=== PATIENT | female | born 1990 | race Caucasian/White ===

== ENCOUNTER → 2017-09-29 17:14 | Outpatient (CLI) | payer BC, MEDICAID, SELFPAY ==
[2017-09-29 20:13] LABS: Group B Strep DNA By PCR POSITIVE (Negative); Probe Check PASS
== END ==
PROVIDERS: Visit Provider Obstetrics & Gynecology
DX: Z36.85 Encounter for antenatal screening for Streptococcus B (principal)
CPT/HCPCS: 87653

== ENCOUNTER 2017-10-04 21:15 | Inpatient (IN) | payer BC, MEDICAID, SELFPAY ==
[2017-10-04] MEDS: Lactated Ringers 1,000 ML 100 ML IV (22:00)
[2017-10-04 22:11] VITALS: BMI 25.0
[2017-10-04 22:24] LABS: Absolute Lymphocyte Count 1.46 X10^3/ul (0.83-4.51); Basophil# 0.03 X10^3/uL; Basophil% 0.2 % (0-1); Eosinophil# 0.09 X10^3/uL; Eosinophils% 0.5 % (0-5); Hematocrit 36.4 % (37-47); Hemoglobin 11.8 g/dl (12.0-15.0); Lymphocyte # 1.46 X10^3/ul (4.0); Lymphocyte % 7.7 % (19-41); Mean Corp Hgb Conc 32.4 g/gl (32-36); Mean Corpuscular Hgb 27.1 pg (27.0-32.0); Mean Corpuscular Volume 83.7 fL (81-99); Mean Platelet Vol. 11.8 fl (6.2-12.0); Monocyte# 1.17 X10^3/uL; Monocyte% 6.2 % (0-10); Neutrophil # 16.04 X10^3/uL (2.7-7.7); Neutrophil % 84.9 % (47-70); POSITIVE COUNT NO; POSITIVE DIFFERENTIAL NO; POSITIVE MORPHOLOGY NO; Platelet Count 243 K/mm3 (150-450); RBC Distribution Width CV 16.3 % (11.6-14.6); Red Blood Count 4.35 M/mm3 (4.2-5.4); White Blood Count 18.9 K/mm3 (4.4-11.0)
--- NOTE | 2017-10-04 22:25 | PCM.NY.DEL ---
Delivery Attendance Service Date: 10/04/17 Asked to attend delivery by: OB, Nursing Reason for attendance: Intrauterine Exposure to Drugs, Maternal Condition, Meconium, NRFHT Plan: Return to Mother Handoff: Called to attend STAT C/S as mom, a primip and FT. Mom walked in and no chance to even get a history, as she was pushing. She did say marijuana and amphetamines while in OR. MSF noted upon ROM at delivery. Baby is under 5 pounds, however apgars 8-9 for color and tone. bulb suction used twice - Course of Delivery Was resuscitation required: No Interventions at Delivery: Bulb Suction - Physical Exam General: Alert, Active, No apparent distress, - - small Head: Normocephalic, Anterior fontanel soft and flat Oropharynx: Palate intact Lungs: Clear to auscultation, No retractions Cardiovascular: Regular rate and rhythm, No murmurs, Femoral pulses normal and without delay Abdomen: Soft, Non distended Cord Vessel Description: 3 Vessels Genitalia, Female: External genitalia normal Musculoskeletal: Extremities with FROM Neurological: Muscle tone normal Skin: Normal color
--- NOTE | 2017-10-04 22:32 | DELATT_ITS ---
Delivery Attendance Service Date: 10/04/17 Asked to attend delivery by: OB, Nursing Reason for attendance: Intrauterine Exposure to Drugs, Maternal Condition, Meconium, NRFHT Plan: Return to Mother Handoff: Called to attend STAT C/S as mom, a primip and FT. Mom walked in and no chance to even get a history, as she was pushing. She did say marijuana and amphetamines while in OR. MSF noted upon ROM at delivery. Baby is under 5 pounds , however apgars 8-9 for color and tone. bulb suction used twice - Course of Delivery Was resuscitation required: No Interventions at Delivery: Bulb Suction - Physical Exam General: Alert, Active, No apparent distress, - - small Head: Normocephalic, Anterior fontanel soft and flat Oropharynx: Palate intact Lungs: Clear to auscultation, No retractions Cardiovascular: Regular rate and rhythm, No murmurs, Femoral pulses normal and without delay Abdomen: Soft, Non distended Cord Vessel Description: 3 Vessels Genitalia, Female: External genitalia normal Musculoskeletal: Extremities with FROM Neurological: Muscle tone normal Skin: Normal color
--- NOTE | 2017-10-04 22:33 | PCM.NUR.HP ---
Nursery H&P (Menu) Subjective: Called to attend STAT C/S as mom, a primip and FT. Mom walked in and no chance to even get a history, as she was pushing. She did say marijuana and amphetamines while in OR. MSF noted upon ROM at delivery. Baby is under 5 pounds, however apgars 8-9 for color and tone. bulb suction used twice await labs and further info on mom [place] Handoff: Lab tests last 48H 10/04/17 21:45 WBC 18.9 H RBC 4.35 Hgb 11.8 L Hct 36.4 L MCV 83.7 MCH 27.1 MCHC 32.4 RDW 16.3 H RDW Differential 50.0 H Plt Count 243 MPV 11.8 Immature Gran % (Auto) 0.500 Neut % (Auto) 84.9 H Lymph % (Auto) 7.7 L [place] % (Auto) 6.2 Eos % (Auto) 0.5 Baso % (Auto) 0.2 Absolute Neuts (auto) 16.0 H Absolute Lymphs (auto) 1.46 Total Counted Not Reportable Delivery/Maternal Data - Labor/Delivery Date of rupture of membranes: 10/04/17 Amniotic fluid color at rupture: Meconium Type of delivery: STAT Labor description: Spontaneous Vacuum Extraction: N/A presentation: Cephalic Complications: Other (Describe below) - unknown amount of time of labor Physical Exam General: Alert, Active, No apparent distress, Well appearing Head: Normocephalic, Anterior fontanel soft and flat Eyes: Red reflex bilaterally Ears: Structurally normal Nose: Nares patent Oropharynx: Normal, moist mucous membranes, Palate intact Neck: Normal Lungs: Clear to auscultation, No retractions Cardiovascular: Regular rate and rhythm, No murmurs, Femoral pulses normal and without delay Abdomen: Soft, Non distended, Bowel sounds present Cord Vessel Description: 3 Vessels Gentialia, Female: External genitalia normal Musculoskeletal: Extremities with FROM, Hip exam without evidence of dislocation or instability, Clavicles intact Neurological: Normal suck, rooting, and [place] reflexes., Muscle tone normal Skin: Normal color Impression/Plan presumed 39 week BG. Precipitous delivery. GBS+, not treated. unknown PNL upon delivery. Maternal marijuana and amphetamine use, and potential polypharmacy. -hypoglycemic protocol -urine and mec tox -ART at 24 hours or sooner if needed -full 48 hour observation for GBS+, however likely 3-5 days secondary to recreational drug use. -await mothers labs -social work
--- NOTE | 2017-10-04 22:39 | HP.PCM_ITS ---
Nursery H&P (Menu) Subjective: Called to attend STAT C/S as mom, a primip and FT. Mom walked in and no chance to even get a history, as she was pushing. She did say marijuana and amphetamines while in OR. MSF noted upon ROM at delivery. Baby is under 5 pounds , however apgars 8-9 for color and tone. bulb suction used twice await labs and further info on mom [place] Handoff: Lab tests last 48H 10/04/17 21:45 WBC 18.9 H RBC 4.35 Hgb 11.8 L Hct 36.4 L MCV 83.7 MCH 27.1 MCHC 32.4 RDW 16.3 H RDW Differential 50.0 H Plt Count 243 MPV 11.8 Immature Gran % (Auto) 0.500 Neut % (Auto) 84.9 H Lymph % (Auto) 7.7 L [place] % (Auto) 6.2 Eos % (Auto) 0.5 Baso % (Auto) 0.2 Absolute Neuts (auto) 16.0 H Absolute Lymphs (auto) 1.46 Total Counted Not Reportable Delivery/Maternal Data - Labor/Delivery Date of rupture of membranes: 10/04/17 Amniotic fluid color at rupture: Meconium Type of delivery: STAT Labor description: Spontaneous Vacuum Extraction: N/A presentation: Cephalic Complications: Other (Describe below) - unknown amount of time of labor Physical Exam General: Alert, Active, No apparent distress, Well appearing Head: Normocephalic, Anterior fontanel soft and flat Eyes: Red reflex bilaterally Ears: Structurally normal Nose: Nares patent Oropharynx: Normal, moist mucous membranes, Palate intact Neck: Normal Lungs: Clear to auscultation, No retractions Cardiovascular: Regular rate and rhythm, No murmurs, Femoral pulses normal and without delay Abdomen: Soft, Non distended, Bowel sounds present Cord Vessel Description: 3 Vessels Gentialia, Female: External genitalia normal Musculoskeletal: Extremities with FROM, Hip exam without evidence of dislocation or instability, Clavicles intact Neurological: Normal suck, rooting, and [place] reflexes., Muscle tone normal Skin: Normal color Impression/Plan presumed 39 week BG. Precipitous delivery. GBS+, not treated. unknown PNL upon delivery. Maternal marijuana and amphetamine use, and potential polypharmacy. -hypoglycemic protocol -urine and mec tox -ART at 24 hours or sooner if needed -full 48 hour observation for GBS+, however likely 3-5 days secondary to recreational drug use. -await mothers labs -social work
[2017-10-04 22:50] VITALS: BP 149/88; PULSE 123; RESP 16; TEMP 36.7; O2SAT 98
--- NOTE | 2017-10-04 22:51 | OP.PN_ITS ---
- Problem List (1) 38 weeks gestation of Status: Acute (2) Delivery by emergency section Status: Acute C-Dnzgohm-Kslyhngwh PostOp Date of Procedure: 10/04/17 Primary Surgeon/Physician: Jazmnie Khalil, director telecommunications: Singh Valera director telecommunications: Bernadine Napoles Pre-op Diagnosis: - - bradycardia Post-Op Diagnosis: - - bradycardia Surgery/Procedure Performed: Primary low transverse Section Description of Surgical Findings:: Normal tubes and ovaries Estimated Blood Loss: 600 mL Specimens Removed: placenta Drain: Rm to straight drain Type of Anesthesia: General - Admit VTE Documentation VTE Present on Admission: No VTE Mechan Device Prophylaxis: SCD's VTE Pharm Prophylaxis ordered?: No
--- NOTE | 2017-10-04 22:53 | PCM.OB.CSR ---
- Problem List (1) 38 weeks gestation of Status: Acute (2) Delivery by emergency section Status: Acute Delivery Classification: Stat Griffin doctor who attended delivery (if requested by OB): Samina Koehler Indications: Ms. Ledbetter is a 27-year-old 1 at 38-3/7 weeks gestational age who presented in active labor at 9 cm dilatation. She had bradycardia that did not recover despite attempts at intrauterine resuscitation. I attempted to push and reduce the cervix however it was not reducible and the head was at +2 station. I advised her to proceed with emergent section given the prolonged bradycardia and inability to interpret the internal scalp electrode once it was placed. Artery quickly reviewed with her the risks of section including pain, bleeding, infection, injury to bowel or bladder, injury to ureter, laceration, hemorrhage requiring transfusion or hysterectomy. She agreed to proceed. I requested general anesthesia from the anesthesiologist given the urgent nature of the situation. Indications for : - - bradycardia Description of Procedure: Findings: Normal tubes and ovaries, female with Apgars 8, 9. Weight 2058 g The patient was taken to the operating room and efforts to reduce the cervix while pushing failed. she was placed in the dorsal supine position, given with Betadine prep and a Rm catheter was placed into the bladder. She was induced under general anesthesia and intubated. A Greg Healy incision was made using a scalpel and brought down to incise the subcutaneous tissue and rectus fascia at the midline. Subcutaneous tissue was bluntly dissected off the fascia laterally fascial incision was bluntly extended laterally. The rectus muscles were bluntly at the midline. The peritoneum was bluntly entered and the incision extended. The bladder blade was placed into the abdomen the hysterotomy was made above the vesicouterine peritoneal fold using a scalpel. There is meconium-stained fluid. The hysterotomy was extended bluntly cephalad and caudad. The head was elevated and female infant delivered. The cord was doubly clamped and cut acutely and the was passed to awaiting [nursery personnel and hospitalist]. Cord avulsed on placental expression thus the placenta was manually extracted from the uterus and appeared intact on inspection. The uterus interiorized and was cleared of debris. Laterally was repositioned in the abdomen. The hysterotomy was then repaired using 0 Vicryl running lock suture. A second imbricating layer was also placed for additional hemostasis. The anterior cul-de-sac was cleared of debris. Amol was placed for additional hemostasis along the hysterotomy repair. The peritoneum and rectus muscles were reapproximated using 2-0 Vicryl running suture. The rectus fascia was closed using 0 Vicryl running suture. The subcutaneous tissue was sponge irrigated. The subcutaneous tissue was reapproximated using 2-0 Vicryl. The skin was closed using 4-0 Monocryl subcuticularly the OFFICE [facility] under my supervision. This was followed by Latoya and a Mepilex occlusive dressing was placed over the incision. The fundus was firm. The patient cannot, extubated, and was then transferred to the recovery room without complication. Sponge, instrument, and needle counts were correct ?2. IV Ancef was administered during the procedure. She will receive 2 additional doses of IV Ancef operatively. Amniotic Membrane Rupture Type: Spontaneous Amniotic Fluid Description: Moderate meconium Placenta Disposition: Sent to Pathology Specimen(s) sent to pathology: placenta Drain: Rm to straight drain Nuchal Cord Compression: Without compression Cord Vessel Description: 3 Vessels Esitmated Blood Loss (ml): 600 Gender: Female (1 minute): 8 (5 minute): 9 Delayed cord clamping: No Pre-op Antibiotic Given: - - given intra-op Pt instructed on risks of surgery: Bleeding, Anesthesia Risks, Infection, Injury to surrounding structure(s) including bowel and bladder Complications: None - Admit VTE Documentation VTE Present on Admission: No VTE Mechan Device Prophylaxis: None VTE Pharm Prophylaxis ordered?: No
--- NOTE | 2017-10-04 23:04 | OP.PCM_ITS ---
- Problem List (1) 38 weeks gestation of Status: Acute (2) Delivery by emergency section Status: Acute Delivery Classification: Stat doctor who attended delivery (if requested by OB): Samina Koehler Indications: Ms. Ledbetter is a 27-year-old 1 at 38-3/7 weeks gestational age who presented in active labor at 9 cm dilatation. She had bradycardia that did not recover despite attempts at intrauterine resuscitation. I attempted to push and reduce the cervix however it was not reducible and the head was at +2 station. I advised her to proceed with emergent section given the prolonged bradycardia and inability to interpret the internal scalp electrode once it was placed. Artery quickly reviewed with her the risks of section including pain, bleeding, infection, injury to bowel or bladder , injury to ureter, laceration, hemorrhage requiring transfusion or hysterectomy. She agreed to proceed. I requested general anesthesia from the anesthesiologist given the urgent nature of the situation. Indications for : - - bradycardia Description of Procedure: Findings: Normal tubes and ovaries, female infant with Apgars 8, 9. Weight 2058 g The patient was taken to the operating room and efforts to reduce the cervix while pushing failed. she was placed in the dorsal supine position, given with Betadine prep and a Rm catheter was placed into the bladder. She was induced under general anesthesia and intubated. A Greg Healy incision was made using a scalpel and brought down to incise the subcutaneous tissue and rectus fascia at the midline. Subcutaneous tissue was bluntly dissected off the fascia laterally fascial incision was bluntly extended laterally. The rectus muscles were bluntly at the midline. The peritoneum was bluntly entered and the incision extended. The bladder blade was placed into the abdomen the hysterotomy was made above the vesicouterine peritoneal fold using a scalpel. There is meconium-stained fluid. The hysterotomy was extended bluntly cephalad and caudad. The head was elevated and female delivered. The cord was doubly clamped and cut acutely and the was passed to awaiting [nursery personnel and hospitalist]. Cord avulsed on placental expression thus the placenta was manually extracted from the uterus and appeared intact on inspection. The uterus interiorized and was cleared of debris. Laterally was repositioned in the abdomen. The hysterotomy was then repaired using 0 Vicryl running lock suture. A second imbricating layer was also placed for additional hemostasis. The anterior cul-de-sac was cleared of debris. Amol was placed for additional hemostasis along the hysterotomy repair. The peritoneum and rectus muscles were reapproximated using 2-0 Vicryl running suture. The rectus fascia was closed using 0 Vicryl running suture. The subcutaneous tissue was sponge irrigated. The subcutaneous tissue was reapproximated using 2-0 Vicryl. The skin was closed using 4-0 Monocryl subcuticularly the NURSE SEXUAL ASSAULT under my supervision. This was followed by Latoya and a Mepilex occlusive dressing was placed over the incision. The fundus was firm. The patient cannot, extubated, and was then transferred to the recovery room without complication. Sponge, instrument, and needle counts were correct ?2. IV Ancef was administered during the procedure. She will receive 2 additional doses of IV Ancef operatively. Amniotic Membrane Rupture Type: Spontaneous Amniotic Fluid Description: Moderate meconium Placenta Disposition: Sent to Pathology Specimen(s) sent to pathology: placenta Drain: Rm to straight drain Nuchal Cord Compression: Without compression Cord Vessel Description: 3 Vessels Esitmated Blood Loss (ml): 600 Gender: Female (1 minute): 8 (5 minute): 9 Delayed cord clamping: No Pre-op Antibiotic Given: - - given intra-op Pt instructed on risks of surgery: Bleeding, Anesthesia Risks, Infection, Injury to surrounding structure(s) including bowel and bladder Complications: None - Admit VTE Documentation VTE Present on Admission: No VTE Mechan Device Prophylaxis: None VTE Pharm Prophylaxis ordered?: No
[2017-10-04 23:05] VITALS: BP 152/98; PULSE 89; RESP 20; TEMP 36.7; O2SAT 100
--- NOTE | 2017-10-04 23:19 | HP.PCM_ITS ---
- Problem List (1) 38 weeks gestation of Status: Acute (2) Delivery by emergency section Status: Acute History Date of Admission: 10/04/17 Final GRACIELA: 10/15/17 Final GRACIELA Source: US <20 weeks Gestational age: 38 Weeks and 3 Days History of this : 7-year-old 1 at 38-3/7 weeks gestational age [facility] and in active labor at 9 cm dilatation with spontaneous rupture of membranes. heart rate was nearing to the 40s-50s beats per minute with no resolution of tachycardia despite resuscitative measures by the nursing staff.. She was transferred to the OR in no my exam was 9 cm\90%\-1 station. I pushed with her to reduce the cervix however it was not easily reduced. I advised her to proceed with section at this time with review of the risks, benefits, indications of procedure. The patient agreed to proceed. See operative report for further details. 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 daily, multivitamin 1 tab p.o. daily, albuterol inhaler as needed Smoking Status: Light Smoker (<10/day) Alcohol: None Drug Use: marijuana Number of Fetus(es): 1 Review of Systems Gynecological: Reports: - - Painful contractions, leaking of fluid Physical Exam Vitals: VSS in OR General: Alert, - - Writhing with contractions Cardiovascular: Regular rate, Regular Rhythm Lungs: Normal air movement Abdomen: Soft, Non Tender, Non-Distended, Gravid, - Extremities:: No edema Presentation: Cephalic Cervix Dilation (cm): 9 Station: 1 Effacement (%): 90 Assessment/Plan Active and Suspected Problems 38 weeks gestation of (Acute) Delivery by emergency section (Acute) 27-year-old G1 at 38-3/7 weeks gestational age now status post primary emergent low transverse section that was otherwise uncomplicated. She is transferred to the recovery room for continued care. We will manage her pain as needed. SCDs for DVT prophylaxis. Clear liquid diet and will advance as tolerated. We will send urine toxicology screen given infant SGA and prior history of positive tox screens. Routine postoperative care.
[2017-10-04 23:20] VITALS: BP 143/92; PULSE 80; RESP 16; TEMP 36.4; O2SAT 98
[2017-10-04 23:34] VITALS: BP 141/98; PULSE 79; RESP 18; TEMP 37.2; O2SAT 98
--- NOTE | 2017-10-04 23:40 | DCINST_ITS ---
Discharge Diet: No Restrictions Discharge Activity: Return to Normal Activity, May not drive while taking narcotic pain medications., May Shower May resume sexual activity in: 6 weeks Lifting Restrictions: 10 lb Call your doctor if you observe: Fever of 101 or Higher Suture Line Care: Avoid Pulling/Pushing Cleanse incision/area with: Soap & Water Additional Instructions: If you experience any of the following, contact your healthcare provider. * Bleeding that soaks a pad every hour for 2 hours * Fever 100.4 or higher * Unrelieved incision or abdominal pain * Swelling, redness, discharge or bleeding from your incision or episiotomy site * Your incision begins to separate * Problems urinating (including inability to urinate or burning while urinating) . * Visual changes * Severe headache * Flu-like symptoms * Pain or redness in one of both of your breasts * Pain, warmth, tenderness or swelling in your legs, especially the calf area * Frequent nausea and vomiting * Symptoms of depression or anxiety If you experience any of the following, call 911 or go to the nearest Emergency Room. * Chest pain * Problems breathing * Seizure activity * Partial or complete paralysis of a body part, slurred speech, weakness or drooping of the face, or a sudden inability to walk or hold your balance Allergies/Adverse Reactions: Allergies sulfamethoxazole [From Bactrim] Allergy (Verified 04/08/17 22:16) Hives trimethoprim [From Bactrim] Allergy (Verified 04/08/17 22:16) Hives acetaminophen [From Vicodin] Adverse Reaction (Verified 04/08/17 22:16) Nausea hydrocodone bitartrate [From Vicodin] Adverse Reaction (Verified 04/08/17 22:16) Nausea Medications to take at Discharge Ondansetron [Zofran Odt] 4 mg PO Q4H PRN PRN #14 tab.rapdis 04/08/17 Vit No.130/Iron/FA [ Vitamins] 1 each PO DAILY 04/08/17 Docusate Sodium [Colace] 100 mg PO BID PRN PRN #60 cap 10/04/17 Ibuprofen 800 mg PO TID PRN #30 tab 10/04/17 Oxycodone [Oxyir] 1 - 2 tab PO Q4H PRN PRN 3 Days #28 tablet 10/04/17 The following prescriptions were given: Oxycodone [Oxyir] 1 - 2 tab PO Q4H PRN PRN 3 Days #28 tablet PRN Reason: Pain Docusate Sodium [Colace] 100 mg PO BID PRN PRN #60 cap PRN Reason: Constipation Ibuprofen 800 mg PO TID PRN #30 tab PRN Reason: Pain Follow-Up: Call to make an appointment with your doctor for an incision check in 1-2 weeks. You will also need a 6 week post- follow up appointment. Please Follow Up With: Isai Matt MD When: 1 week Primary Care Physician: [facility] ,Out of [Primary Care Provider] -
[2017-10-04 23:50] VITALS: BP 134/95; PULSE 88; RESP 16; TEMP 37.4; O2SAT 98
[2017-10-05] VITALS (13 sets, daily range): BP systolic 123–152; BP diastolic 77–101; PULSE 77–106; RESP 16–18; TEMP 36.7–37.9; O2SAT 96–99
--- NOTE | 2017-10-05 00:08 | PLAC_PTH ---
PATIENT: JOSEY VELIZ LOC: WP U#:[id number] AGE/SX: 27/F ROOM: WP001 RE10/04/[address]: Dr. Jazmine De León MD : 1990 BED: 1 DIS: 10/07/2017 SPEC #: [id number] RECD: 10/05/17 00:51 STATUS: KHURRAM REKoko #: [id number] JAVIER: 10/05/17 00:[address]: Jazmine Rojas DEPT: SURGICAL PATHOLOGY RECD BY: Allyson Pelletier ENTERED: 10/05/17 09:13 SP TYPE: PLACENTA OTHR DR: Out of [facility] Doctor Tissues: Placenta, NOS Procedures: Surgery Specimen Level V HEADER OPERATION: Primary section PRE-OP DIAGNOSIS: Emergent C/S, bradycardia, SGA TISSUE SUBMITTED: Placenta MICROSCOPIC DIAGNOSIS Placenta: Placental disc - third trimester placenta (302 gm). - Focal area of infarction measuring 3.2 cm in greatest dimension. - Focal increased intervillous and perivillous fibrin deposition. - Focal chronic villitis of unknown etiology. Membranes ? moderate acute chorioamnionitis. Umbilical cord - three blood vessels and no pathologic diagnosis. SJ:wilfrid 10/07/17 MICROSCOPIC DESCRIPTION Slides are reviewed. GROSS DESCRIPTION SPECIMEN: PLACENTA / CLINICAL INFORMATION: A. Weight: 2.058 kg B. Gestational Age: 38 weeks C. Sex: Female PLACENTAL WEIGHT (POST FIXATION): 302 gm PLACENTAL DIMENSIONS: 16 x 13 x 3.5 cm PLACENTAL SHAPE: Usual ovoid PLACENTAL WEIGHT FOR GESTATIONAL AGE: <10 percentile MEMBRANES - Present A. Insertion: Marginal B. Site of rupture from edge: At edge of placental disc C. Color of membrane: [place] sant[place] D. Abnormalities: None UMBILICAL CORD ? Present. The umbilical cord is detached from the placental disc. A. Color: [place] B. Insertion: Marginal C. Length: 27 cm D. Diameter: 1.2 cm E. Number of vessels: Three F. Abnormalities: None PLACENTAL DISC - Present A. Color of surface: [place] B. surface abnormalities: None C. Maternal cotyledons: Intact with minimal tears D. Attached retro placental clot: No clot E. Cut surface: Dark red and spongy F. Lesions: Serial sections reveal a firm, tolliver-white lesion measuring 3.2 x 2.2 x 1.5 cm. G. Separate clot: Absent SECTIONS SUBMITTED: 1. Membrane roll and umbilical cord ( end notched) 2. Placental disc, and maternal surfaces, lesion 3. Placental disc, and maternal surfaces 4. Placental disc, and maternal surfaces AM:wilfrid 10/06/17 More sections are submitted as follows: cassettes 5 & 6 ? body of placenta including maternal and surfaces. / SJ:wilfrid 10/07/17 TC:2 CPT: 05738
[2017-10-05 00:37] LABS: Protein, Urine (Random) 21.4 mg/dL (<11.9); Protein:Creat Ratio 853 mg/g CRE (0-200)
[2017-10-05 00:50] LABS: ALB/GLOB Ratio 0.7 RATIO (0.9-2.4); AST(SGOT) 16 U/L (15-37); Alanine Aminotransfer ALT/SGPT 12 U/L (13-56); Albumin, Serum 2.5 g/dL (3.2-5.0); Alkaline Phosphatase 189 U/L (45-117); Anion Gap 10 (5-15); BUN 2 mg/dL (7-18); BUN/Creat Ratio 4.5 RATIO (10-20); Calcium,Total 7.9 mg/dL (8.5-10.1); Chloride 105 mmol/L (98-107); Creatinine, Serum 0.44 mg/dL (0.55-1.02); EST Glomerular Filtration Rate 183 mL/min (>60); Est Glom Filt Rate - Afr Amer 222 mL/min (>60); Estimated Creatinine Clearance 190.07 ml/min; Globulin 3.7 g/dL (2.2-4.2); Glucose 99 mg/dL (74-106); Potassium 4.3 mmol/L (3.5-5.1); Protein, Total 6.2 g/dL (6.4-8.2); Sodium Level 138 mmol/L (136-145); Uric Acid 3.8 mg/dL (2.6-6.0)
--- NOTE | 2017-10-05 01:20 | NURSING ---
Pad changed for moderate amount rubra lochia.
[2017-10-05 01:21] LABS: Amphetamine Urine VISTA NEGATIVE (<1000 ng/mL); Barbiturate Urine VISTA NEGATIVE (< 200 ng/mL); Benzodiazepine Urine VISTA POSITIVE (< 200 ng/mL); Cocaine Urine VISTA NEGATIVE (< 300 ng/mL); Ecstacy Urine VISTA NEGATIVE (< 500 ng/mL); Methadone Urine VISTA NEGATIVE (< 300 ng/mL); PCP Urine VISTA NEGATIVE (< 25 ng/mL); THC Urine VISTA NEGATIVE (< 50 ng/mL); Vista UDS pH Range 7
[2017-10-05] MEDS: HYDROmorphone 1 MG/ML Syringe IV ×4 (01:40→12:59)
--- NOTE | 2017-10-05 01:47 | NURSING ---
Dr Amy De León updated on patient labs including protein creatine ratio 853, uric acid 3.8, most recent BP 139/91 and 144/101, temp 99.8, wbc 18. No new orders at this time.
[2017-10-05] MEDS: Ketorolac 30 MG/ML Syringe IV ×3 (04:42→16:23)
[2017-10-05] MEDS: Lactated Ringers 1,000 ML 100 ML IV (04:43)
[2017-10-05] MEDS: Cefazolin 1 GM/50 ML BAG IV ×2 (05:54→14:43)
[2017-10-05 06:45] LABS: Hematocrit 32.3 % (37-47); Hemoglobin 10.8 g/dl (12.0-15.0); Mean Corp Hgb Conc 33.4 g/gl (32-36); Mean Corpuscular Hgb 27.8 pg (27.0-32.0); Mean Platelet Vol. 11.7 fl (6.2-12.0); Platelet Count 189 K/mm3 (150-450); RBC Distribution Width CV 16.3 % (11.6-14.6); RBC Distribution Width SD 48.6 fl (35.1-43.9); Red Blood Count 3.89 M/mm3 (4.2-5.4)
[2017-10-05 06:49] LABS: Scan Indicated on CBC? Y/N YES- FLAGS NOTED
[2017-10-05 07:21] LABS: Differential Comment SCANNED
--- NOTE | 2017-10-05 08:21 | PN.OBGYN_ITS ---
Patient Problems: Active and Suspected Problems 38 weeks gestation of (Acute) Delivery by emergency section (Acute) Subjective: Somewhat sore today but reasonable comfortable considering no duramorph was given. Bleeding is light. Tolerating PO. Will start attempting to breast feed. Objective: Afeb VSS Tmax 100.3. WBC count 30K today--will repeat tomorrow. Hgb stable. - Physical Exam General: Alert, Oriented x3, Cooperative, No apparent distress Lungs: Clear to auscultation, Normal air movement Cardiovascular: Regular rate, Regular Rhythm Abdomen: Soft, Non Tender, Non-Distended, - - Fundus firm, incision dressing dry. Extremities: No edema, No Calf Tenderness Skin: No rashes Neurological: Neuro grossly intact Psych/Mental Status: Normal Affect Vital Signs Temp Pulse Resp BP Pulse Ox 99.6 F H 87 18 124/88 H 99 10/05/17 05:30 10/05/17 05:30 10/05/17 05:30 10/05/17 05:30 10/05/17 05:30 Oxygen Delivery Method Room Air Weight: 160 lb Body Mass Index (BMI) 25.0 Intake and Output for Last 24 Hours 10/03/17 10/04/17 10/05/17 22:59 23:59 23:59 Intake Total 1568 / 1568 Output Total 1000 / 1000 Balance 568 / 568 Laboratory Tests Past 24 Hrs 10/04/17 10/04/17 10/05/17 21:45 21:45 00:05 WBC 18.9 H RBC 4.35 Hgb 11.8 L Hct 36.4 L MCV 83.7 MCH 27.1 MCHC 32.4 RDW 16.3 H RDW Differential 50.0 H Plt Count 243 MPV 11.8 Immature Gran % (Auto) 0.500 Neut % (Auto) 84.9 H Lymph % (Auto) 7.7 L [place] % (Auto) 6.2 Eos % (Auto) 0.5 Baso % (Auto) 0.2 Absolute Neuts (auto) 16.0 H Absolute Lymphs (auto) 1.46 Total Counted Not Reportable Differential Comment Diff Path Review Sodium 138 Potassium 4.3 Chloride 105 Carbon Dioxide 23.0 Anion Gap 10 BUN 2 L Creatinine 0.44 L Estim Creat Clear Calc 190.07 Est GFR (MDRD) Af Amer 222 Est GFR (MDRD) Non-Af 183 BUN/Creatinine Ratio 4.5 L Glucose 99 Uric Acid 3.8 Calcium 7.9 L Total Bilirubin 0.40 AST 16 ALT 12 L Alkaline Phosphatase 189 H Total Protein 6.2 L Albumin 2.5 L Globulin 3.7 Albumin/Globulin Ratio 0.7 L U Random Total Protein Urine Creatinine Protein/Creatinin Ratio Urine Opiates Screen Urine Methadone Screen Ur Barbiturates Screen Ur Phencyclidine Scrn Ur Amphetamines Screen U Methamphetamin-MDMA U Benzodiazepines Scrn Urine Cocaine Screen U Cannabinoids Screen Ur Drug Screen Comment Blood Type A POSITIVE Antibody Screen NEGATIVE 10/05/17 10/05/17 10/05/17 00:05 00:05 06:10 WBC 30.0 H* RBC 3.89 L Hgb 10.8 L Hct 32.3 L MCV 83.0 MCH 27.8 MCHC 33.4 RDW 16.3 H RDW Differential 48.6 H Plt Count 189 MPV 11.7 Immature Gran % (Auto) Neut % (Auto) Lymph % (Auto) [place] % (Auto) Eos % (Auto) Baso % (Auto) Absolute Neuts (auto) Absolute Lymphs (auto) Total Counted Differential Comment SCANNED Diff Path Review May foll Sodium Potassium Chloride Carbon Dioxide Anion Gap BUN Creatinine Estim Creat Clear Calc Est GFR (MDRD) Af Amer Est GFR (MDRD) Non-Af BUN/Creatinine Ratio Glucose Uric Acid Calcium Total Bilirubin AST ALT Alkaline Phosphatase Total Protein Albumin Globulin Albumin/Globulin Ratio U Random Total Protein 21.4 H Urine Creatinine 25.10 Protein/Creatinin Ratio 853 H Urine Opiates Screen POSITIVE H Urine Methadone Screen NEGATIVE Ur Barbiturates Screen NEGATIVE Ur Phencyclidine Scrn NEGATIVE Ur Amphetamines Screen NEGATIVE U Methamphetamin-MDMA NEGATIVE U Benzodiazepines Scrn POSITIVE H Urine Cocaine Screen NEGATIVE U Cannabinoids Screen NEGATIVE Ur Drug Screen Comment Blood Type Antibody Screen Assessment/Plan Active and Suspected Problems 38 weeks gestation of (Acute) Delivery by emergency section (Acute) Doing well on POD#1 s/p emergent C/S secondary to distress in labor. Will repeat WBC tomorrow. Continue routine PO care. Consider social service consult secondary to positive tox screen in . Opiates and benzodiazepines at time of C/S likely due to anesthesia medications given at time of delivery.
[2017-10-05] MEDS: Senna/Docusate Sodium 1 Tablet PO (09:22)
[2017-10-05] MEDS: 0.9% Saline Lock 10 ML Syringe IV ×2 (10:54→16:23)
--- NOTE | 2017-10-05 12:02 | NURSING ---
Discussed depression screening with Divya Givens CM. Will see pt and contact appropriate crisis intervention. Will follow up.
--- NOTE | 2017-10-05 14:20 | CASEMGMT ---
Addendum entered and electronically signed by Divya Givens 10/08/17 13:29: Date of intervention occurred on 10/05/2017, not on 10/06/2017. In reason for referral it should say score of 24, not score of 9. Original Note: Social Work Note Labor and Delivery Unit Social Work Assessment completed. Refer to documentation below for further details. Date of Referral: 10/05/2017 Time of Referral: 1201 Referred By: Dr. Jazmine De León Reason for Referral: Maternal Mental Health issues, PHQ9 with score of 9 Date of Intervention: 10/06/2017 Time of Intervention: 1420 History obtained from: Medical record and mother of baby (MOB) Angie Zaidi. Father of baby (FOB) also present during part of visit, but stepped out at social workers request. Note, educated MOB to this screenplay writer being social service assistant for [facility] as well as social service assistant covering the [facility] for continuity of care for families on the Labor and Delivery Unit at [facility]. Educated that information gathered today will be used for MOB's as well for any social work assessment needs through [facility] admission. MOB voiced understanding of this education Household composition: MOB, reported father of baby (FOB) Edin Carroll, MOBs mother and father. MOB reports home situation is safe and adequate. MOB plans to take baby Qing Carroll to this home. Patient's parent/guardian status: MOB and FOB have been together off and on for 3 years. MOB denies any form of abuse in relationship with FOB. care record indicates there was question of paternity, between to fathers. MOB reports privately that Edin is believed to be the father to baby, and Edin is identifying self as the father. MOB reports based on what appears to be infants race () Edin is the father to the baby. Medical History: MOB is G1, P0 to 1 after delivering infant. care started at 6 weeks gestation. MOB reports always thought would be unable to have children so this was a surprise. MOB with history of endometriosis. Infant Qing was born via stat caesarian section at 38.2 weeks, weighing 2058 grams (4 pounds 9ounces) which per doctors report is small for Gestational Age. Apgars 8 and 9. Baby transferred to [facility] shortly after due to hypoglycemia issues. Concern also for maternal drug use and need for ART scoring for this baby. Educational Status: MOB reports to have a high school diploma, did have learning disability in school, having a hard time reading due to brain going too fast and not taking in what MOB is reading. MOB reports to also have a history of ADHD. MOB reports can read and can write, but does take time to take in what has been read. Financial Status: MOB is not currently employed and reports has been trying to receive SSI on the basis of chronic depression and anxiety. FOB usually works construction though is laid off at this time. MOB reports financially supported at this time by MOBs parents. Supplies: MOB reports to have needed supplies including crib, car seat, pack-n-play, clothing, diapers, wipes, breast pump, bottles and formula. Childcare/Caregiver(s): MOB plans to be primary caregiver to , though will have help from MOBs mother and the reported FOB. Transportation: MOB reports to have a drivers license and car. Programs/Agencies Involved: MBO reports involvement with [facility] for food and medical. Reports to have WIC. MOB verbally agrees to [facility] referral. Children Services/Legal Issues: Denies any legal issues. Denies history of children services. Behavioral Health Issues: Mental Health - MOB reports to have chronic depression and anxiety, diagnosed a couple of years ago after MOB attempted suicide by using a razor. MOB reports did not seek out any counseling or inpatient hospitalization, but went to primary care doctor who diagnosed MOB. MOB reports was treated with Paxil for about a year, along with Xanax, then went off of Paxil and tried Zoloft. MOB reports perception that Paxil did not really help, but that Xanax worked well for the anxiety. MOB reports Zoloft made MOBs symptoms of depression and anxiety worse. MOB did have depressive symptoms present during , with a PHQ9 depression screen given prenatally with a score of 20 on 02/10/2017. MOB with current depression symptoms, with a score of 24 postnatally (mored detailed note, dated today and separate from this assessment in MOBs chart regarding PHQ9 follow up). At time of assessment MOB denies any thoughts, plans, intent for suicide, self-harm, or harm to others. Note, MOB reports family history of schizophrenia in MOBs father. Substance Use - Record indicates MOB with long history of marijuana usage, for about 10 years. MOB reports last use was about 3 months ago. MOB reports this drug did help MOB with symptoms of depression and anxiety. 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 MOB admits to some use of Percocet during this , with last use a couple of days prior to delivery, and then prior to that about a month ago. MOB reports this was from an old prescription, from 2 years ago that MOB had. MOB then reported that a friend gave MOB a Percocet, that this was actually from the prescription of MOBs that MOB gave to this friend to hold on to. MOB denies history of heroin, cocaine, or alcohol abuse. MOB smokes tobacco, reporting half pack per day use. MOB with positive drug screens prenatally and at delivery 02/24/2017 for opiates, amphetamines, and marijuana 05/14/17 for marijuana 10/05/17 for opiates and benzodiazepines (MOB denies any benzodiazepine use during , even after social service assistant questioned whether MOB used any old Xanax or other anti-anxiety pills. This screenplay writer did find that MOB was given Versed during labor, which has caused positive screens for this substance in other women) Baby first urine and meconium samples were missed, though drug screens still being sent out. Family/Social Stressors: MOB is a first time MOB, question of paternity early on in , difficulty coping with early on due to the fact that MOB through could not get . FOB's brother in February of 2017, suddenly of endocarditis MOB admits to first trimester use of methamphetamines, prior to knowledge of . MOB with continues substance use through , based on continued positive drug screens. MOB with reported chronic depression and anxiety, for which MOB is trying to obtain disability, and not in current treatment. Baby born small for gestational age, vie Caesarian section and not in a NICU for continued care and treatment. Support Systems: MOB reports the FOB is supportive. Additional support identified from MOBs parents, specifically MOBs mother is willing to help MOB out with baby as needed. MOB reportedly has some friends locally as well. Depression/Shaken Baby/Safe Sleeping: Educated MOB to depression and anxiety, as well as other disorders. Discussed risk factors based on MOB mental health history, symptoms during , current PHQ9 scores, and family history of mental illness. MOB reports receptivity to having referral for mental health treatment and support. ASSESSMENT: MOB and FOB cooperative during social work visit. FOB left room after social work requested this. Addressed paternity issues, safety concerns, mental health and drug use privately with MOB. MOB held normal eye contact, depressed mood, constricted affect, tearful at times (when talking about possible children services involvement and MOBs worry that baby would be taken from MOB). MOB denies current thoughts, plans, and intent for suicide. MOB reports to love the baby, to feel a echols with the baby, and to be happy to be able to have a child. MOB able to give social service assistant updates on how baby has been doing so far, and exhibited a brighter affect when talking about baby. MOB reports to have needed supplies for baby, reports to have a support system, and denies to this screenplay writer that any support people in the home have drug issues. MOB also agrees to [facility] referral and mental health referral, declines a referral for drug and alcohol assessment. MOB signed a release of information to [facility] as wants to go somewhere that also has psychiatry. PLAN: oyster worker will continue to follow and assist Local resource information including packet on depression given (verbally reviewed as well as offered to sit down with MOB again if needed to review for understanding) Will work on mental health follow up for MOB. Plan to make children services referral due to risk factors present in this family; await babys drug screens as well -LEIF Tran MSW
--- NOTE | 2017-10-05 14:30 | CASEMGMT ---
Social Work - Labor and Delivery PHQ9 FOLLOW UP - SCORE OF 24 Mental Health History/Symptoms/Stressors/Coping: MOB reports to have chronic depression and anxiety, that this is normal most days for MOB. MOB with a slightly higher score postnatally as compared to prenatally, going from 20 to 24. MOB indicated most days for all questions except for trouble concentrating (indicated this is more than half days) and also for thoughts that would be better off (several days) over the last 2 weeks. MOB reports sleep has been more than usual, but attributes this to a combination of both depression and also end of . MOB reports concentration could also be due to anxiety and history of ADHD. In addressing MOBs answers for thoughts of being better off or hurting self in some way MOB reports that it was thoughts of being better off , but denies any plans or intent. MOB acknowledged a history of attempt by using a razor several years ago, but denies that has had intent or plans since that time. MOB denies any thoughts of suicide since delivery of infant, reports to feel happy to have the baby, and wants to be able to parent. MOB reports the itself was stressful in that MOB initially thought could not have kids, then did become . MOB reports had cheated on FOB which caused some stress. Additionally FOBs brother in February of 2017 creating grief issues for both MOB and FOB. MOB reports trying to get approved for disability/financial issue have been stressful. MOB reports to know that mental health needs to be cared for at this time, and that it is important to get some treatment. MOB reports belief that anxiety is a core issue for MOB, that when anxiety flares this increased negative thinking and thereby increases MOBs depression. MOB reports would like to be evaluated by psychiatry and willing to go to counseling for support and management of depressive and anxiety symptoms. MOB agrees to let staff know if any thoughts of self-harm arise. No reports or indication of harm to others. MOB denies any current or recent psychosis. MOB admits to history of hearing voices, but this was a long time ago, not in . MOB educated to risk for psychosis and Bipolar disorder due to history of hearing voices, as well MOB reporting a family history of schizophrenia (in father). MOB reports to use deep breathing, muscle relaxation, and yoga for coping. MOB admits has used marijuana in the past for symptoms management, though reports quit about 3 months ago due to and concern about children services involvement at time of . Summary: MOB held normal eye contact, depressed mood, constricted affect, tearful at times (when talking about possible children services involvement and MOBs worry that baby would be taken from MOB). MOB denies current thoughts, plans, or intent for suicide. MOB reports to love the baby, to feel a echols with the baby, and to be happy to be able to have a child. MOB alert and oriented, focused on questions and gave appropriate answers. MOB non-defensive and asked appropriate questions. Protective Factors: MOB reports reasons to live as baby Qing, FOB, and MOBs mother. MOB also included Myself as a reason to live, smiling when doing so. MOB denies access to firearms at home. MOB reports desire to feel better and to seek outpatient mental health treatment. PLAN: Social work will continue to follow and provide support to MOB during hospital stay. MOB agreeable with referral to [facility] for intake, and then based on when MOB and baby are discharged will assess fro need for a crisis appointment.
[2017-10-05] MEDS: oxyCODONE 5 MG Tablet PO ×2 (18:03→22:35)
--- NOTE | 2017-10-05 19:30 | NURSING ---
PT called out and requested to go outside to smoke. This RN discussed with pt that she is not able to leave the unit with IV access and pt unable to smoke with nicotine patch on. RN discussed with pt that RN could call to discuss pt leaving unit to smoke, and if pt is able to leave unit, IV would be d/c'd with the possibility of having to be restarted pending morning lab work, and IV pain medicine would no longer be provided; would be medicated with oral pain meds. was called and notified pt wanting to go outside to smoke by freida CALDERÓN
[2017-10-06] MEDS: oxyCODONE 5 MG Tablet PO ×4 (03:04→20:16)
[2017-10-06 03:13] VITALS: BP 148/97; PULSE 95; RESP 16; TEMP 36.5; O2SAT 98
[2017-10-06] MEDS: Ibuprofen 600 MG Tablet PO ×3 (03:58→18:20)
[2017-10-06] MEDS: Acetaminophen 500 MG Tablet 1000 MG PO (05:38)
[2017-10-06 06:00] LABS: Absolute Lymphocyte Count 1.59 X10^3/ul (0.83-4.51); Basophil# 0.04 X10^3/uL; Basophil% 0.3 % (0-1); Eosinophil# 0.02 X10^3/uL; Eosinophils% 0.1 % (0-5); Hematocrit 31.9 % (37-47); Hemoglobin 10.3 g/dl (12.0-15.0); Lymphocyte # 1.59 X10^3/ul (4.0); Lymphocyte % 11.1 % (19-41); Mean Corp Hgb Conc 32.3 g/gl (32-36); Mean Corpuscular Volume 83.5 fL (81-99); Mean Platelet Vol. 11.8 fl (6.2-12.0); Monocyte# 0.53 X10^3/uL; Monocyte% 3.7 % (0-10); Neutrophil # 11.98 X10^3/uL (2.7-7.7); Platelet Count 198 K/mm3 (150-450); RBC Distribution Width CV 16.7 % (11.6-14.6); RBC Distribution Width SD 49.5 fl (35.1-43.9); Red Blood Count 3.82 M/mm3 (4.2-5.4); White Blood Count 14.3 K/mm3 (4.4-11.0)
[2017-10-06 06:06] LABS: POSITIVE COUNT NO; POSITIVE DIFFERENTIAL NO; POSITIVE MORPHOLOGY NO
--- NOTE | 2017-10-06 08:18 | PCM.PN.OB ---
Patient Problems: Active and Suspected Problems 38 weeks gestation of (Acute) Delivery by emergency section (Acute) Subjective: Resting comfortably. No specific complaints. Bleeding light. Objective: Afeb VSS. WBC decreased today. Hgb stable. - Physical Exam General: Alert, Oriented x3, Cooperative, No apparent distress Lungs: Clear to auscultation, Normal air movement Cardiovascular: Regular rate, Regular Rhythm Abdomen: Soft, Non-Distended, - - Incision dressing dry Extremities: No edema, No Calf Tenderness Neurological: Neuro grossly intact Psych/Mental Status: Normal Affect Vital Signs Temp Pulse Resp BP Pulse Ox 97.7 F L 95 16 148/97 H 98 10/06/17 03:13 18 03:13 10/06/17 03:13 10/06/17 03:13 10/06/17 03:13 Oxygen Delivery Method Room Air Weight: 160 lb Body Mass Index (BMI) 25.0 Intake and Output for Last 24 Hours 10/04/17 10/05/17 10/06/17 23:59 23:59 23:59 Intake Total 2960 / 2960 Output Total 3600 / 3600 Balance -640 / -640 Laboratory Tests Past 24 Hrs 10/06/17 05:40 WBC 14.3 H RBC 3.82 L Hgb 10.3 L Hct 31.9 L MCV 83.5 MCH 27.0 MCHC 32.3 RDW 16.7 H RDW Differential 49.5 H Plt Count 198 MPV 11.8 Immature Gran % (Auto) 0.800 Neut % (Auto) 84.0 H Lymph % (Auto) 11.1 L [place] % (Auto) 3.7 Eos % (Auto) 0.1 Baso % (Auto) 0.3 Absolute Neuts (auto) 12.0 H Absolute Lymphs (auto) 1.59 Total Counted Not Reportable Assessment/Plan Active and Suspected Problems 38 weeks gestation of (Acute) Delivery by emergency section (Acute) Doing well on POD#2. Continue routine PO care. Anticipate discharge home tomorrow.
[2017-10-06 09:00] VITALS: BP 130/83; PULSE 96; RESP 16; TEMP 36.6; O2SAT 98
[2017-10-06] MEDS: Senna/Docusate Sodium 1 Tablet PO (09:02)
[2017-10-06 13:45] VITALS: BP 134/82; PULSE 98; RESP 16; TEMP 36.7; O2SAT 98
--- NOTE | 2017-10-06 16:35 | CASEMGMT ---
Social Work - Labor and Delivery This sheet writer able to obtain mental health intake for patient/mother of baby (MOB) for 10-19-17 at 1030 with Kaela Mosquera. Also gathered some coping skills handouts/ideas for MOB. Spoke briefly with MOB in the hallway, MOB was leaving the unit at the time. Informed MOB that group social worker would see MOB in the morning 10-07-17. MOB smiled and voiced agreement. Plan: Social work to follow. -TONI Tran, DIAMOND DRILLER HELPER
[2017-10-06 20:00] VITALS: BP 149/110; PULSE 103; RESP 18; TEMP 36.6
[2017-10-06 22:43] LABS: ALB/GLOB Ratio 0.5 RATIO (0.9-2.4); AST(SGOT) 22 U/L (15-37); Alanine Aminotransfer ALT/SGPT 13 U/L (13-56); Albumin, Serum 2.2 g/dL (3.2-5.0); Alkaline Phosphatase 152 U/L (45-117); Anion Gap 8 (5-15); BUN 5 mg/dL (7-18); BUN/Creat Ratio 11.3 RATIO (10-20); Calcium,Total 8.2 mg/dL (8.5-10.1); Chloride 107 mmol/L (98-107); Creatinine, Serum 0.44 mg/dL (0.55-1.02); EST Glomerular Filtration Rate 184 mL/min (>60); Est Glom Filt Rate - Afr Amer 223 mL/min (>60); Estimated Creatinine Clearance 190.07 ml/min; Globulin 4.3 g/dL (2.2-4.2); Glucose 96 mg/dL (74-106); Potassium 3.8 mmol/L (3.5-5.1); Protein, Total 6.5 g/dL (6.4-8.2); Sodium Level 140 mmol/L (136-145); Uric Acid 3.1 mg/dL (2.6-6.0)
[2017-10-07] VITALS (7 sets, daily range): BP systolic 115–146; BP diastolic 69–113; PULSE 94–109; RESP 18; TEMP 36.6–36.7
[2017-10-07] MEDS: Acetaminophen/Butalbital/Caffe 1 Tablet PO (00:23)
--- NOTE | 2017-10-07 02:08 | PCM.PN.OB ---
Patient Problems: Active and Suspected Problems 38 weeks gestation of (Acute) Delivery by emergency section (Acute) Subjective: Patient reports 9/10 headache now 5/10 following Fiorecet and tolerable and has neck pain that persists. She has a h/o migraines. Denies aura today or prior. no nausea or vomiting. Headache no worse than prior migraines. She notes that she has a high pain tolerance. She has a h/o hypertension prior to exacerbated by anxiety. She was borderline before and almost started on high blood pressure prior to . Objective: AVSS - Physical Exam General: Alert, Oriented x3, Cooperative, No apparent distress HEENT: Atraumatic, Normocephalic Lungs: Normal air movement Cardiovascular: Regular rate, Regular Rhythm Abdomen: Bowel Sounds Present, Soft, Tender, - - no rebound or guarding, fundus firm - appropriately tender, incisional dressing c/d/i and incision nontender Extremities: No Calf Tenderness, - - +1 b/l LE edema in lower leg, no clonus, +2 b/l UE and LE DTRs, brisk Neurological: Neuro grossly intact Psych/Mental Status: Normal Affect, Appropriate, Alert and oriented to time, place, person, mood and affect Vital Signs Temp Pulse Resp BP Pulse Ox 97.9 F 103 H 18 149/110 H 98 10/06/17 20:00 10/06/17 20:00 10/06/17 20:00 10/06/17 20:00 10/06/17 13:45 Oxygen Delivery Method Room Air Weight: 72.575 kg Body Mass Index (BMI) 25.0 Intake and Output for Last 24 Hours 10/05/17 10/06/17 10/07/17 23:59 23:59 23:59 Intake Total 2960 / 2960 Output Total 3600 / 3600 Balance -640 / -640 Laboratory Tests Past 24 Hrs 10/06/17 10/06/17 05:40 22:05 WBC 14.3 H RBC 3.82 L Hgb 10.3 L Hct 31.9 L MCV 83.5 MCH 27.0 MCHC 32.3 RDW 16.7 H RDW Differential 49.5 H Plt Count 198 MPV 11.8 Immature Gran % (Auto) 0.800 Neut % (Auto) 84.0 H Lymph % (Auto) 11.1 L [place] % (Auto) 3.7 Eos % (Auto) 0.1 Baso % (Auto) 0.3 Absolute Neuts (auto) 12.0 H Absolute Lymphs (auto) 1.59 Total Counted Not Reportable Sodium 140 Potassium 3.8 Chloride 107 Carbon Dioxide 25.0 Anion Gap 8 BUN 5 L Creatinine 0.44 L Estim Creat Clear Calc 190.07 Est GFR (MDRD) Af Amer 223 Est GFR (MDRD) Non-Af 184 BUN/Creatinine Ratio 11.3 Glucose 96 Uric Acid 3.1 Calcium 8.2 L Total Bilirubin 0.20 AST 22 ALT 13 Alkaline Phosphatase 152 H Total Protein 6.5 Albumin 2.2 L Globulin 4.3 H Albumin/Globulin Ratio 0.5 L Assessment/Plan Active and Suspected Problems 38 weeks gestation of (Acute) Delivery by emergency section (Acute) 27-year-old G1 POD#3 s/p PLTCS will headache, abdominal pain. I suspect that her pain has gotten ahead of her along with chronic HTN, with poor medication adherence and early discontinuation of IV so she could leave unit to smoke. Dfdx preeclampsia, no evidence of infection. -Recent CMP and uric acid negative, will send am CBC with pt/ptt now -Reviewed with patient concerns - si/sx preeclampsia discussed and patient to alert us if a change in a her symptoms. -Start Labetalol for hypertension -Replace IV, resume Toradol, continue Oxycodone with IV dilaudid for break through pain. Start PO gabapentin
[2017-10-07 03:04] LABS: Absolute Lymphocyte Count 1.82 X10^3/ul (0.83-4.51); Absolute Neutrophil Count 10.2 X10^3/uL (2.0-7.7); Basophil# 0.03 X10^3/uL; Basophil% 0.2 % (0-1); Eosinophil# 0.09 X10^3/uL; Eosinophils% 0.7 % (0-5); Hematocrit 32.9 % (37-47); Hemoglobin 10.5 g/dl (12.0-15.0); Lymphocyte # 1.82 X10^3/ul (4.0); Mean Corp Hgb Conc 31.9 g/gl (32-36); Mean Corpuscular Hgb 27.1 pg (27.0-32.0); Mean Corpuscular Volume 84.8 fL (81-99); Monocyte# 0.65 X10^3/uL; Neutrophil # 10.24 X10^3/uL (2.7-7.7); Neutrophil % 79.1 % (47-70); Platelet Count 211 K/mm3 (150-450); RBC Distribution Width CV 16.9 % (11.6-14.6); RBC Distribution Width SD 51.9 fl (35.1-43.9); Red Blood Count 3.88 M/mm3 (4.2-5.4)
[2017-10-07 03:06] LABS: POSITIVE COUNT NO; POSITIVE DIFFERENTIAL NO; POSITIVE MORPHOLOGY NO
[2017-10-07] MEDS: Ketorolac 30 MG/ML Syringe IV ×2 (03:06→09:52)
[2017-10-07] MEDS: 0.9% Saline Lock 10 ML Syringe IV ×2 (03:06→09:52)
[2017-10-07] MEDS: oxyCODONE 5 MG Tablet PO ×3 (03:06→14:26)
[2017-10-07] MEDS: Labetalol 200 MG Tablet PO ×2 (03:06→09:51)
[2017-10-07 04:56] LABS: International Normalized Ratio 0.9; Prothrombin Time (Protime)PT. 12.4 SECONDS (11.7-14.9)
[2017-10-07 04:57] LABS: Partial Thromboplast Time 51.7 Seconds (24.1-36.2)
[2017-10-07] MEDS: Gabapentin 300 MG Capsule PO ×2 (06:10→17:14)
[2017-10-07 10:58] LABS: Pathologist Review Reviewed
--- NOTE | 2017-10-07 11:00 | CASEMGMT ---
Social Work - Labor and Delivery Unit Received update from nursing staff regarding RN witnessing MOB trying to pocket part of pain medicine today. Per RN, MOB was observed slipping a pain pill into pocket. RN reports confronted MOB on this, that MOB admitted to doing so and placed the pocketed pill in mouth. RN reports witnessed both pain pills administered to MOB being ingested. Talked with Dr. Khalil about this patient. It was learned that MOB has outpatient prescriptions in possession already, which were delivered to MOB on Thursday10-05-17. Outpatient prescriptions include narcotic pain medicine. Went to [facility] room to review resources, mental health follow up, as well as to discuss this mornings actions with the pain pills. MOB and reported father of baby (FOB) found in dark room, completely dark, and no response by either when this telegraphic typewriter mechanic knocked twice and called out MOBs name. This telegraphic typewriter mechanic entered room and found MOB snoring, sleeping soundly. Returned to [facility] room around 1030 and found MOB awake. FOB still sleeping on couch. Wrote MOB a note to ask of okay talking with FOB in the room. MOB reports yes, okay with this. Note, during entire conversation FOB continued to sleep, no movement at all by the FOB noted. Reviewed coping skills handouts, for support to MOB and in helping MOB learn ways to manage emotions. Reviewed mental health intake with MOB, who reports agreement, as well as agreement for this telegraphic typewriter mechanic to arrange a crisis appointment at [facility], based on MOBs present depression/anxiety issues and current stressors. Talked with MOB about learning from past choices and actions, and making decisions whether wants to make new choices or continue repeating the past. MOB voiced interest in making change and desire to get help from counseling. Broached with MOB this mornings incident with the pain pills. This telegraphic typewriter mechanic asked MOB for MOBs input on this matter, before this telegraphic typewriter mechanic starts asking questions. MOB reports that did pocket one pill of the 2 given in plans to take the second pill at a later time. MOB reports has been feeling sick and thought would be better to lengthen time between taking medicine. MOB tearful recounting this and reports to know actions were not proper. Gently challenged MOB how this action looks to staff, how this could look a bit suspicion in light of MOBs drug use in and mental health concerns. Discussed with MOB that usual protocols would be to discuss with health care team if MOB is feeling sick or doesnt wants both pills. MOB voiced understanding of this, and that is trying make changes and stay positive. key worker once again reviewed suicide risk. MOB denies intent to stockpile medications, denies thoughts of suicide since delivery of baby, denies being suicidal at this time, and denies feeling out of touch with reality or any psychosis. MOB reports to love the baby and to want to parent the baby. MOB also reporting desire to get help for self, to make changes in life and work on positive thinking. When talking about the baby, this telegraphic typewriter mechanic observed MOB to smile with a bright and happy affect. MOB able to stay focused on conversation and give appropriate answers. Broached with MOB about the outpatient prescriptions. MOB acknowledged that does have the prescriptions. This telegraphic typewriter mechanic informed MOB that cannot have these prescriptions while still an inpatient and inquired whether MOB has been taking these medicines. MOB reports that has been using all three: stool softener, Ibuprofen, and oxycodone. This telegraphic typewriter mechanic clarified with MOB, that MOB has in fact been taking these medication while at the same time being medicated by hospital nursing staff. MOB confirmed this. Inquired as to what reason MOB has been taking the outpatient prescriptions. MOB reports has been taking prescriptions due to excruciating pain. key worker asked MOB if the pills can be counted (the pain pills) to which MOB agreed and reported taking about 8 since Thursday. MOB and this telegraphic typewriter mechanic together counted the oxycodone and found 10 pills missing (18 of 28 left in pill bottle). Educated MOB to possible consequences to self when not taking medication as prescribed, talking about the doctor having MOB on a schedule while MOB is an inpatient, and taking outpatient medications is not okay. MOB report did not know could not take the outpatient medicine. MOB agree to have the pills locked up. Broached with MOB whether MOB would like a referral to [facility] for drug and alcohol assessment, for recommendations on whether drug and alcohol counseling would be needed. MOB not committal to this, but continues to report agreement to referral to [facility]. Observations: MOB crying throughout social work visit, after the issue of medication usage being broached. MOB remained cooperative, and also expressed thanks to this telegraphic typewriter mechanic for trying to help MOB. MOB remained calm when aids social worker reminded MOB that children services does have to be called and that this telegraphic typewriter mechanic had waited a few days to see how babys urine drug screen came back, as well as how things were going overall. Overall affect constricted but did brighten and looked happy when talking about the baby. This telegraphic typewriter mechanic updated packaging supervisor unit, Dr. Khalil, attending RN and licensing court magistrate to this writers conversation with MOB. Nursing staff took MOBs outpatient pill bottle and locked up on unit med box until MOB is discharged. PLAN: MOB likely to be discharged later today. MOB has mental health intake set already, but this telegraphic typewriter mechanic will be obtaining a crisis appointment for MOB prior to the baby being discharged from the [facility] (where this telegraphic typewriter mechanic is also providing social work services) MOB agrees to [facility] referral -TONI Tran, WIRE TECHNICIAN
--- NOTE | 2017-10-07 11:45 | CASEMGMT ---
SW - Labor and Delivery Referral to Mal[facility] at [facility] ([facility]). Informed of maternal drug screens, current mental health concerns, babys low weight and need for SCN. Risk factors reviewed. Updated that babys urine drug screen is negative; did miss the first urine specimen. Meconium is pending. [facility] aware of tentative discharge time frame for baby and that MOB is being discharged later today. -TONI Tran, SPRING UPHOLSTERER
--- NOTE | 2017-10-07 11:50 | PCM.PN.OB ---
Patient Problems: Active and Suspected Problems 38 weeks gestation of (Acute) Delivery by emergency section (Acute) Subjective: Complains of pain. She has been given ibuprofen, toradol, oxycodone. No signs of infection. No fevers. Bleeding light. This morning she was found to be pocketing PO oxycodone given for pain. She also was given her home going prescription for pain 2 days ago and was found to be taking or diverting at least 10 5mg oxycodone tabs since then. She also has been taking the ibuprofen she was given for home use. Objective: Afeb VSS - Physical Exam General: Alert, Oriented x3, Cooperative, No apparent distress Lungs: Clear to auscultation, Normal air movement Cardiovascular: Regular rate, Regular Rhythm Abdomen: Soft, Non Tender, Non-Distended, - - Incision healing well. Extremities: No edema, No Calf Tenderness Skin: No rashes Neurological: Neuro grossly intact Psych/Mental Status: Normal Affect Comment: No significant bleeding Vital Signs Temp Pulse Resp BP Pulse Ox 97.9 F 98 18 139/96 H 98 10/07/17 02:00 10/07/17 09:09 10/07/17 09:09 10/07/17 09:09 10/06/17 13:45 Oxygen Delivery Method Room Air Weight: 160 lb Body Mass Index (BMI) 25.0 Intake and Output for Last 24 Hours 10/05/17 10/06/17 10/07/17 23:59 23:59 23:59 Intake Total 2960 / 2960 Output Total 3600 / 3600 Balance -640 / -640 Laboratory Tests Past 24 Hrs 10/05/17 10/06/17 10/07/17 06:10 22:05 02:50 WBC 13.0 H RBC 3.88 L Hgb 10.5 L Hct 32.9 L MCV 84.8 MCH 27.1 MCHC 31.9 L RDW 16.9 H RDW Differential 51.9 H Plt Count 211 MPV 11.0 Immature Gran % (Auto) 1.000 H Neut % (Auto) 79.1 H Lymph % (Auto) 14.[address] [place] % (Auto) 5.0 Eos % (Auto) 0.7 Baso % (Auto) 0.2 Absolute Neuts (auto) 10.2 H Absolute Lymphs (auto) 1.82 Total Counted Not Reportable Diff Path Review Reviewed PT INR APTT Sodium 140 Potassium 3.8 Chloride 107 Carbon Dioxide 25.0 Anion Gap 8 BUN 5 L Creatinine 0.44 L Estim Creat Clear Calc 190.07 Est GFR (MDRD) Af Amer 223 Est GFR (MDRD) Non-Af 184 BUN/Creatinine Ratio 11.3 Glucose 96 Uric Acid 3.1 Calcium 8.2 L Total Bilirubin 0.20 AST 22 ALT 13 Alkaline Phosphatase 152 H Total Protein 6.5 Albumin 2.2 L Globulin 4.3 H Albumin/Globulin Ratio 0.5 L Miscellaneous Test 10/07/17 10/07/17 02:50 09:50 WBC RBC Hgb Hct MCV MCH MCHC RDW RDW Differential Plt Count MPV Immature Gran % (Auto) Neut % (Auto) Lymph % (Auto) [facility] % (Auto) Eos % (Auto) Baso % (Auto) Absolute Neuts (auto) Absolute Lymphs (auto) Total Counted Diff Path Review PT 12.4 INR 0.9 APTT 51.7 H Sodium Potassium Chloride Carbon Dioxide Anion Gap BUN Creatinine Estim Creat Clear Calc Est GFR (MDRD) Af Amer Est GFR (MDRD) Non-Af BUN/Creatinine Ratio Glucose Uric Acid Calcium Total Bilirubin AST ALT Alkaline Phosphatase Total Protein Albumin Globulin Albumin/Globulin Ratio Miscellaneous Test Pending Assessment/Plan Active and Suspected Problems 38 weeks gestation of (Acute) Delivery by emergency section (Acute) From postoperative standpoint is cleared for discharge. Instructions were given today. Her baby is likely not going to be discharged due to feeding issues and small size. She will be discharged to hotel status. I discussed her pain medication use. We are currently holding her prescriptions and will provide them to her on discharge with understanding that she will not be given another narcotic prescription.
--- NOTE | 2017-10-07 13:36 | NURSING ---
Per Zuhair Givens, JAVA PROGRAMMING PROFESSOR pt is not on suicide precautions and this is not a new problem to her.
[2017-10-07] MEDS: Ibuprofen 400 MG Tablet 800 MG PO (17:20)
--- NOTE | 2017-10-07 17:38 | DS.PCM_ITS ---
Discharge Date and Diagnosis - Problem List Patient Problems: Active and Suspected Problems 38 weeks gestation of (Acute) Delivery by emergency section (Acute) Date of Admission: 10/04/17 Date of Discharge: 10/07/17 - Primary Discharge Diagnosis Active and Suspected Problems 38 weeks gestation of (Acute) Delivery by emergency section (Acute) Hospital Course and Treatment Operations: - - Primary C/S Summary of Care Provided: The patient is a 27 year old F [admitted in active labor. heart beat pattern was not reassuring and an emergency delivery was performed without complication. Baby was noted to be SGA. Post operative course was unremarkable except elevated ptt. She was discharged to hotel status on POD#3.] Discharge Diet: No Restrictions Discharge Activity: Return to Normal Activity, May not drive while taking narcotic pain medications., May Shower May resume sexual activity in: 6 weeks Call your doctor if you observe: Fever of 101 or Higher, Inability to urinate, Inability to have a bowel movement, Using more than one pad per hour, Shortness of breath, Chest pain, Calf discomfort, Uncontrolled pain Suture Line Care: Avoid Pulling/Pushing Cleanse incision/area with: Soap & Water Home Medications: Medications to take at Discharge Ondansetron [Zofran Odt] 4 mg PO Q4H PRN PRN #14 tab.rapdis 04/08/17 Vit No.130/Iron/FA [ Vitamins] 1 each PO DAILY 04/08/17 Docusate Sodium [Colace] 100 mg PO BID PRN PRN #60 cap 10/04/17 Ibuprofen 800 mg PO TID PRN #30 tab 10/04/17 Oxycodone [Oxyir] 1 - 2 tab PO Q4H PRN PRN 3 Days #28 tablet 10/04/17 Following Prescrptions Were Given to Patient: Oxycodone [Oxyir] 1 - 2 tab PO Q4H PRN PRN 3 Days #28 tablet PRN Reason: Pain Docusate Sodium [Colace] 100 mg PO BID PRN PRN #60 cap PRN Reason: Constipation Ibuprofen 800 mg PO TID PRN #30 tab PRN Reason: Pain Primary Care Physician: [facility] Doctor,Out of [NON-STAFF] - Please Follow Up With: Isai Matt MD When: 1 week Please Follow Up With: Kaela Mosquera at [facility] When: intake assessment Disposition: Home Minutes spent on discharge:: 15 Patient Condition:: Good Meaningful Use Info Meaningful Use Diagnoses (Choose all that apply): None applicable
--- NOTE | 2017-10-07 18:42 | NURSING ---
discharged to hotel status at 1830
--- NOTE | 2017-10-08 16:15 | CASEMGMT ---
Social Work - Labor and Delivery UniT 1210 - Obtained a Crisis appointment at [facility] for 10-09-2017 at 1400 with Vianey Vidales. Met with mother of baby (MOB) in courtesy provided room on the labor and delivery unit. MOB agreeable with the crisis appointment. MOB reports preference to stick with [facility], declines referral to [facility] for assessment. MOB inquired whether [facility] will send reports to [facility]. Educated that MOB has to request that records be sent. MOB remains agreeable to [facility] referral. MOB up and moving around, bright and alert affect, Mood appearing appropriate. MOB reports the baby is worth MOBs life change (such as interrupted sleep). MOB attentive to psychiatric social worker supervisor and information given today. Updated MOB that children services will be making contact with MOB at some point, to follow up and ensure things are going well, needs being met. 1430 - Received call from Amena Edwards at [facility] who is the assigned worker. Updated to MOB and baby's status. No other services requested or indicated. -TONI Tran, BRANCH SERVICE REPRESENTATIVE
== END 2017-10-07 18:30 | disposition home or self-care (01) | DRG 765 ==
PROVIDERS: Admitting Provider Obstetrics & Gynecology; Visit Provider Obstetrics & Gynecology
DX: O76 Abnormality in fetal heart rate and rhythm complicating labor and delivery (principal); O41.1230 Chorioamnionitis, third trimester, not applicable or unspecified; D68.9 Coagulation defect, unspecified; O10.913 Unspecified pre-existing hypertension complicating pregnancy, third trimester; O99.13 Other diseases of the blood and blood-forming organs and certain disorders involving the immune mechanism complicating the puerperium; O99.323 Drug use complicating pregnancy, third trimester; F12.10 Cannabis abuse, uncomplicated; F15.10 Other stimulant abuse, uncomplicated; F11.10 Opioid abuse, uncomplicated; O42.02 Full-term premature rupture of membranes, onset of labor within 24 hours of rupture; O77.0 Labor and delivery complicated by meconium in amniotic fluid; O99.334 Smoking (tobacco) complicating childbirth; O69.81X0 Labor and delivery complicated by cord around neck, without compression, not applicable or unspecified; O99.353 Diseases of the nervous system complicating pregnancy, third trimester; G43.909 Migraine, unspecified, not intractable, without status migrainosus; O99.820 Streptococcus B carrier state complicating pregnancy; Z37.0 Single live birth; Z3A.38 38 weeks gestation of pregnancy
CPT/HCPCS: 80053; 80307; 82570; 84156; 84550; 85025; 85027; 85610; 85730; 86850; 86900; 88307; 99218; J7120; A4216; G0378; J2405

== ENCOUNTER 2017-10-12 16:24 | Inpatient (IN) | payer BC, MEDICAID, SELFPAY ==
[2017-10-12] VITALS (9 sets, daily range): BP systolic 132–149; BP diastolic 87–96; PULSE 88–114; RESP 12–21; TEMP 38–38.8; O2SAT 96–100; BMI 23.6; BMI 23.3; BMI 23.4
--- NOTE | 2017-10-12 17:28 | EKG12_ITS ---
Test Reason : Blood Pressure : / mmHG Vent. Rate : 095 BPM Atrial Rate : 095 BPM P-R Int : 132 ms QRS Dur : 090 ms QT Int : 350 ms P-R-T Axes : 066 068 028 degrees QTc Int : 439 ms Normal sinus rhythm Normal ECG Confirmed by MALINDA HUBER ([id number]), news editor NIXON RODRÍGUEZ ([id number]) on 10/15/2017 2:32:51 PM Referred By: JACI Confirmed By:MALINDA HUBER
--- NOTE | 2017-10-12 18:32 | CT_ITS ---
STUDY: CT ABDOMEN AND PELVIS WITH CONTRAST REASON FOR EXAM: Female, 27 years old. Fever, chills, postop day 8 RADIATION DOSAGE (If Supplied By Facility): CTDIvol = ( 12.89 ) mGy, DLP = ( 650.29 ) mGycm TECHNIQUE: Transaxial images were obtained from the dome of the diaphragm to the symphysis pubis without oral contrast. 100ML ml of Isovue 300 contrast was administered. Sagittal and coronal images were reconstructed. Individualized dose optimization techniques were used for this CT. COMPARISON: June 12, 2015. FINDINGS: The visualized lung bases are unremarkable. The visualized portions of the heart are within normal limits. Normal liver. Normal gallbladder and extrahepatic biliary system. Normal spleen. Normal pancreas. Normal bilateral adrenal glands. Normal right kidney. Normal left kidney. Normal visualized stomach. Small air-fluid levels in the small intestine suggesting a mild ileus. Normal colon. The appendix is visualized and appears normal. Normal abdominal aorta. Normal inferior vena cava. Normal retroperitoneum. Slight anterior wall thickening of the urinary bladder. Enlarged uterus. Subcutaneous edema and fluid in the subcutaneous layer of the lower anterior abdominal wall, likely related to the history of recent . A fluid collection is noted of the lower abdominal wall between the rectus abdominis muscles extending into the anterior lower pelvis measuring 7 x 3.5 cm. An abscess or hematoma is suggested. Normal osseous structures. CT/Abdomen/Pelvis W IV Cont ONLY IMPRESSION: Irregular fluid collection in the lower anterior abdominal wall extending into the lower pelvis anteriorly. Abscess or hematoma is suggested. Subcutaneous edema and mild fluid in the lower abdominal wall. Slight anterior wall thickening of the urinary bladder. Electronically Signed: Mitesh Up DO at 19:50 EDT Tel [phone], Service support ,
[2017-10-12 18:49] LABS: ALB/GLOB Ratio 0.5 RATIO (0.9-2.4); AST(SGOT) 14 U/L (15-37); Alanine Aminotransfer ALT/SGPT 16 U/L (13-56); Albumin, Serum 2.4 g/dL (3.2-5.0); Alkaline Phosphatase 141 U/L (45-117); Anion Gap 10 (5-15); BUN 8 mg/dL (7-18); BUN/Creat Ratio 17.1 RATIO (10-20); Calcium,Total 8.7 mg/dL (8.5-10.1); Chloride 105 mmol/L (98-107); Creatinine, Serum 0.47 mg/dL (0.55-1.02); EST Glomerular Filtration Rate 172 mL/min (>60); Est Glom Filt Rate - Afr Amer 208 mL/min (>60); Estimated Creatinine Clearance 177.94 ml/min; Globulin 4.6 g/dL (2.2-4.2); Glucose 87 mg/dL (74-106); Potassium 3.7 mmol/L (3.5-5.1); Sodium Level 138 mmol/L (136-145)
[2017-10-12 18:56] LABS: Mucous, Urine 0 SEEN /hpf (<or=2+); Red Blood Cells-Urine 0 SEEN /hpf (0-5)
[2017-10-12 19:00] LABS: Color, Urine Yellow (Yellow); Glucose, Dipstick Normal (Normal); Ketone-Dipstick 50 mg/dl (Negative); Leukocyte Esterase-Dipstick 500 /ul (Negative); Nitrite-Dipstick Negative (Negative); Occult Blood-Urine 25 /ul (Negative); Protein-Dipstick 15 mg/dl (Negative); Urine Bilirubin Dipstick Negative (Negative); Urine Clarity Clear (Clear); Urine Urobilinogen 1 mg/dl (Normal); Urine pH 6.5 (5.0 - 8.0)
[2017-10-12] MEDS: Ondansetron 4 MG/2 ML Vial IV (19:00)
[2017-10-12 19:05] LABS: Lactic Acid 1.4 mmol/L (0.4-2.0)
[2017-10-12 19:13] LABS: Bacteria 1+ /hpf (None Seen); Squamous Epithelial Cells - UA 0-5 SEEN /hpf (5-10); Transitional Epithelial - Ur 0-5 SEEN /hpf (0-5); White Blood Cells 5-10 SEEN /hpf (0-5)
[2017-10-12 19:33] LABS: Basophil# 0.03 X10^3/uL; Basophil% 0.1 % (0-1); Hemoglobin 10.5 g/dl (12.0-15.0); Neutrophil % 87.1 % (47-70)
[2017-10-12 19:34] LABS: Hematocrit 32.4 % (37-47); Red Blood Count 3.91 M/mm3 (4.2-5.4); White Blood Count 20.6 K/mm3 (4.4-11.0)
[2017-10-12 19:35] LABS: Absolute Lymphocyte Count 1.38 X10^3/ul (0.83-4.51); Lymphocyte # 1.38 X10^3/ul (4.0); Lymphocyte % 6.7 % (19-41); Mean Corp Hgb Conc 32.4 g/gl (32-36); Mean Corpuscular Hgb 26.9 pg (27.0-32.0); Mean Corpuscular Volume 82.9 fL (81-99); Mean Platelet Vol. 10.4 fl (6.2-12.0); Monocyte# 1.14 X10^3/uL; Monocyte% 5.5 % (0-10); Neutrophil # 17.95 X10^3/uL (2.7-7.7); POSITIVE COUNT NO; POSITIVE DIFFERENTIAL NO; POSITIVE MORPHOLOGY NO; Platelet Count 329 K/mm3 (150-450); RBC Distribution Width CV 17.1 % (11.6-14.6); RBC Distribution Width SD 51.4 fl (35.1-43.9)
[2017-10-12 19:51] LABS: International Normalized Ratio 1.2; Prothrombin Time (Protime)PT. 14.8 SECONDS (11.7-14.9)
[2017-10-12 19:52] LABS: Partial Thromboplast Time 52.5 Seconds (24.1-36.2)
--- NOTE | 2017-10-12 20:30 | ED.DCSUM_ITS ---
- ER Visit Summary Date of Service: 10/12/17 Chief Complaint: Fever, chills and abdominal pain with swelling and redness near incision site. History of Present Illness: The patient is a 27 F who is postop day 8 from C- section by Dr. Emilia De León. She presents with fever and chills. She states her temperature 101.8. She complains of redness swelling incision site. She states the pain is gotten worse. She denies any drainage. She denies dysuria, frequency, urgency or hematuria. She denies any flank or back pain. She denies headache, photophobia status of her neck. She denies any respiratory or cardiac symptoms. Review of systems negative otherwise and please read written note. Physical Examination: Is febrile, tachycardic and tachypneic. She appears uncomfortable. Head is atraumatic normocephalic. Pupils are equal round reactive. Extraocular muscles are intact. TMs are pearly white with landmarks noted. Nares patent with no drainage. Posterior pharynx without erythema or exudate. Uvula is midline. There is no dysphonia or dysphasia. Trachea is midline. There is no stridor with auscultation of the neck. Heart is upper and regular without murmur, gallop or rub. S1 and S2 are normal. Lungs are clear to auscultation with good movement of air bilaterally. Incision site is intact. There is erythema 2 cm superior to the incision site. There is fluctuance. She has significant discomfort. There is no inguinal lymphadenopathy. There is no evidence of a incisional hernia. Neuro exam is nonfocal. Test Results: CT of the abdomen pelvis with IV contrast reveals fluid collection consistent with either an early abscess versus infected hematoma incision site and involving the anterior abdominal cavity. White count is 20, 000 with shift. Electronic panel is unremarkable. Urine reveals leukoesterase and blood. Microscopic reveals WBCs and 1+ bacteria. Emergency Department Course and Treatment: Patient appeared ill in triage. Sepsis workup was undertaken. Because of concern for postop abscess she received 4.5 g of Zosyn. Treatment Plan: Light up CAT scan results Dr. Lees was paged. He will admit patient to his service. Disposition: Medical surgical unit Impression: 1. Sepsis 2. Postop incisional infected hematoma/abscess 3. Sinus tachycardia documented on monitor This note was generated with Dragon dictation software. It may contain incorrect words, spelling, and punctuation that were not noted in review of the chart prior to signing ED Disposition - Plan for ED Patient: Chief Complaint: Fever Referrals: Care Physician,No Primary [Primary Care Provider] -
[2017-10-12] MEDS: 0.9% Normal Saline 1,000 ML 150 ML IV (20:38)
[2017-10-12] MEDS: Ketorolac 30 MG/ML Syringe IV (22:49)
[2017-10-12] MEDS: Acetaminophen 500 MG Tablet PO (22:49)
[2017-10-12] MEDS: 0.9% NaCl Peripheral Flush Adult/Peds IV ×2 (22:49→23:25)
[2017-10-12] MEDS: Dextrose 5%-Lactated Ringers 1,000 ML 125 ML IV (22:49)
[2017-10-12] MEDS: Labetalol 200 MG Tablet PO (23:18)
[2017-10-12] MEDS: HYDROmorphone 1 MG/ML Syringe IV (23:25)
[2017-10-13] VITALS (8 sets, daily range): BP systolic 122–140; BP diastolic 72–99; PULSE 90–109; RESP 16–18; TEMP 36.9–39.1; O2SAT 96–100
[2017-10-13] MEDS: 0.9% NaCl Peripheral Flush Adult/Peds IV ×3 (05:03→17:34)
[2017-10-13] MEDS: Ketorolac 30 MG/ML Syringe IV ×4 (05:03→22:13)
[2017-10-13] MEDS: Acetaminophen 500 MG Tablet PO ×3 (05:04→22:22)
[2017-10-13 05:26] LABS: Anion Gap 8 (5-15); BUN 7 mg/dL (7-18); BUN/Creat Ratio 12.8 RATIO (10-20); Calcium,Total 8.5 mg/dL (8.5-10.1); Chloride 106 mmol/L (98-107); Creatinine, Serum 0.55 mg/dL (0.55-1.02); EST Glomerular Filtration Rate 144 mL/min (>60); Est Glom Filt Rate - Afr Amer 175 mL/min (>60); Estimated Creatinine Clearance 152.06 ml/min; Glucose 97 mg/dL (74-106); Potassium 3.3 mmol/L (3.5-5.1); Sodium Level 139 mmol/L (136-145)
[2017-10-13 05:33] LABS: Absolute Lymphocyte Count 2.03 X10^3/ul (0.83-4.51); Absolute Neutrophil Count 14.1 X10^3/uL (2.0-7.7); Basophil# 0.03 X10^3/uL; Basophil% 0.2 % (0-1); Eosinophil# 0.08 X10^3/uL; Eosinophils% 0.5 % (0-5); Hematocrit 33.7 % (37-47); Hemoglobin 10.7 g/dl (12.0-15.0); Lymphocyte # 2.03 X10^3/ul (4.0); Lymphocyte % 11.6 % (19-41); Mean Corp Hgb Conc 31.8 g/gl (32-36); Mean Corpuscular Hgb 26.7 pg (27.0-32.0); Mean Platelet Vol. 10.3 fl (6.2-12.0); Monocyte# 1.21 X10^3/uL; Monocyte% 6.9 % (0-10); Neutrophil # 14.06 X10^3/uL (2.7-7.7); Neutrophil % 80.2 % (47-70); Platelet Count 354 K/mm3 (150-450); RBC Distribution Width SD 52.6 fl (35.1-43.9); Red Blood Count 4.01 M/mm3 (4.2-5.4); White Blood Count 17.5 K/mm3 (4.4-11.0)
[2017-10-13 05:35] LABS: POSITIVE COUNT NO; POSITIVE DIFFERENTIAL NO; POSITIVE MORPHOLOGY NO
[2017-10-13] MEDS: HYDROmorphone 1 MG/ML Syringe IV ×7 (07:03→22:18)
--- NOTE | 2017-10-13 07:03 | HP.PCM_ITS ---
History and Physical Date of Admission: 10/12/17 HISTORY OF PRESENT ILLNESS: On 10/13/2017, Angie Zaidi, a 27 year old female 0 0 0 0 0, presented for: -- Fever, Abdominal Pain, S/P 8 days ago -- fever and pain which began 1-2 days ago. Angie claims it started gradually. It is located in the lower abdomen. Severity is severe. Additional comment: presented to ER with fever and severe pain; 8 days post op from C- section for bradycardia; CT scan in ER showed large hematoma in anterior abdominal wall possible abscess. ALLERGIES: Bactrim, Ulceration of skin, Vicodin and Rash MEDICATIONS HISTORY: Current medications prescribed by our practice are: 1. albuterol sulfate HFA 90 mcg/actuation aerosol inhaler, two puffs q 4 hours prn 2. Macrobid 100 mg capsule, one tab PO twice daily 3. 28 mg iron-800 mcg tablet, one tab PO daily 4. promethazine 25 mg tablet, one tab PO q 6 hours prn 5. sertraline 50 mg tablet, one tab PO daily 6. Zofran 4 mg tablet, one tab PO every 6 hours as needed for nausea 7. Zofran ODT 4 mg disintegrating tablet, two tabs po q 6 hours prn nausea REVIEW OF SYSTEMS: GENERAL - Denies fever, or chills SKIN - Denies skin changes EYES - Denies visual changes EARS - Denies difficulty hearing NOSE - Denies nasal congestion or bleeding MOUTH - Denies sore throat or difficulty swallowing NECK - Denies pain or swelling RESPIRATORY - Asthma CARDIOVASCULAR - Denies palpitations or chest pain GASTROINTESTINAL - NVP, IBS, gluten sensitivity GENITOURINARY - Hx of endometriosis MUSCULOSKELETAL - Denies joint or muscle pain NEUROLOGICAL - Denies localized numbness or weakness PSYCHIATRIC - depression/anxiety, Zoloft. ENDOCRINE - Denies heat or cold intolerance, weight loss or gain HEMATO-IMMUNOLOGIC - liver disease, mass PAST HISTORY: Breast/Ovarian/Colon Cancers - Mat Uncle - Colon Ca Infections - Varicella Vaccine, GC/Chlamydia, MRSA vulva Illnesses - Anxiety, Depression, Asthma Accidents - fall 2 months ago with concussion History of Abnormal PAPS - 1 age 21, follow up neg Hospitalizations - see surgery SURGICAL HISTORY: 1. 10/04/2017 Summer Amy De León MD 2. Laparoscopy 2015 Dr. Manzano Endometriosis MENSTRUAL HISTORY: LMP Known?- DefiniteAmount/Duration - 3-4 days, Regularity - Regular, LMP - 12/25/16, Age Onset Menarche - 13 PAST PREGNANCIES: Total Pregnancies - 1; Full Term Pregnancies - 0; Premature - 0; Abortions, Induced - 0; Abortions, Spontaneous - 0; Ectopics - 0; Multiple Births - 0; Living Children - 0 FAMILY HISTORY: Uncle - FH: Cancer of colon; SOCIAL HISTORY: Alcohol Use - denies drinking Smoking - 3 cigs/day, ATQ Diet - Gluten free, fairly well balanced Lifestyle - high stress lifestyle Exercise - dancing/walking Seat Belt Use - always Employer - Unemployed Illicit Drug Use - uses marijuana Sexual Activity - Multiple sexual partners Residence - Lives with mother and a friend Place of - [place], [place] Spouse-Sig Other Name - Not involved Control - PHYSICAL EXAM Temp 101+F upon admission Other VSS CONSTITUTIONAL - NAD, well nourished, and well developed SKIN - No rash, lesions, or ulcers HEENT - Normocephalic, PERRLA, EOMI NECK - No nodes, no nuchal rigidity and thyroid normal size and texture LYMPH NODES - Palpation of lymph nodes in neck and groins within normal limits LUNGS - CTA x2 without wheezes, crackles or rales CARDIAC - Regular rate and rhythm without rubs, murmurs, or gallops ABDOMEN - warm, tender hematoma superior to incision which is well healed; Approximately 8 x 5 cm size. Marked area of redness larger than mass. and good bowel sounds and soft and non-tender abdomen otherwise; no HSM EXTREMITIES - No edema or calf tenderness NEUROLOGICAL - Cranial nerves II-XII grossly intact PSYCHIATRIC - A and O to time, place, person, mood and affect ASSESSMENT/PLAN BY DIAGNOSIS: 1. Sepsis of Infected Hematoma S/P 8 days ago. Reviewed results of CT scan and Zosyn started. CBC this AM stable and pt feeling better. Discussed possibility of drainage of hematoma if response to antibotic not sufficient. Continuing to monitor closely.
[2017-10-13] MEDS: Gabapentin 100 MG Capsule 200 MG PO ×2 (07:31→16:22)
[2017-10-13] MEDS: Labetalol 200 MG Tablet PO ×2 (10:07→22:14)
--- NOTE | 2017-10-13 10:58 | CASEMGMT ---
DC PLAN: Home on discharge. RN CM to follow if HHS or IV antibiotics are recommended. Kris COSTAN RN ACM
[2017-10-13] MEDS: Ondansetron 4 MG/2 ML Vial IV (15:02)
[2017-10-14 04:50] VITALS: BP 138/90; PULSE 123; RESP 18; TEMP 39.3; O2SAT 99
[2017-10-14] MEDS: Acetaminophen 500 MG Tablet PO (05:10)
[2017-10-14] MEDS: HYDROmorphone 1 MG/ML Syringe IV ×6 (05:10→23:08)
[2017-10-14] MEDS: Ketorolac 30 MG/ML Syringe IV ×4 (05:11→22:33)
[2017-10-14 06:00] LABS: Absolute Lymphocyte Count 1.13 X10^3/ul (0.83-4.51); Absolute Neutrophil Count 18.6 X10^3/uL (2.0-7.7); Basophil# 0.02 X10^3/uL; Basophil% 0.1 % (0-1); Eosinophil# 0.05 X10^3/uL; Eosinophils% 0.2 % (0-5); Hematocrit 29.2 % (37-47); Hemoglobin 9.3 g/dl (12.0-15.0); Lymphocyte # 1.13 X10^3/ul (4.0); Lymphocyte % 5.4 % (19-41); Mean Corp Hgb Conc 31.8 g/gl (32-36); Mean Corpuscular Hgb 26.7 pg (27.0-32.0); Mean Corpuscular Volume 83.9 fL (81-99); Mean Platelet Vol. 10.5 fl (6.2-12.0); Monocyte# 0.93 X10^3/uL; Monocyte% 4.5 % (0-10); Neutrophil # 18.62 X10^3/uL (2.7-7.7); Neutrophil % 89.4 % (47-70); Platelet Count 385 K/mm3 (150-450); RBC Distribution Width CV 17.1 % (11.6-14.6); RBC Distribution Width SD 52.7 fl (35.1-43.9); Red Blood Count 3.48 M/mm3 (4.2-5.4); White Blood Count 20.8 K/mm3 (4.4-11.0)
[2017-10-14 06:05] LABS: POSITIVE COUNT NO; POSITIVE DIFFERENTIAL NO; POSITIVE MORPHOLOGY NO
[2017-10-14 06:26] LABS: Anion Gap 10 (5-15); BUN 2 mg/dL (7-18); BUN/Creat Ratio 3.9 RATIO (10-20); Chloride 104 mmol/L (98-107); Creatinine, Serum 0.52 mg/dL (0.55-1.02); Glucose 94 mg/dL (74-106); Potassium 3.7 mmol/L (3.5-5.1); Sodium Level 140 mmol/L (136-145)
[2017-10-14 08:00] VITALS: BP 114/74; PULSE 92; RESP 18; TEMP 36.8; O2SAT 98
[2017-10-14] MEDS: Gabapentin 100 MG Capsule 200 MG PO ×2 (08:02→16:16)
[2017-10-14] MEDS: 0.9% NaCl Peripheral Flush Adult/Peds IV ×5 (08:05→23:08)
--- NOTE | 2017-10-14 08:30 | PCM.PN.OB ---
Subjective: Some pain associated with lower abdominal wall fluid collection and cellulitis. Reports cyclic fevers. Tolerating PO. Voiding. Objective: Currently afebrile but with fever overnight to 102.8. BP stable. Tachycardia associated with fever spikes. - Physical Exam General: Alert, Oriented x3, Cooperative, No apparent distress Lungs: Clear to auscultation, Normal air movement Cardiovascular: Regular rate, Regular Rhythm Abdomen: Soft, Non-Distended, - - Firm area noted lower left abdominal wall superior to the incision. Cellulitis present but not expanded from yesterday. Extremities: No edema, No Calf Tenderness Neurological: Neuro grossly intact Psych/Mental Status: Normal Affect Vital Signs Temp Pulse Resp BP Pulse Ox 98.3 F 92 18 114/74 98 10/14/17 08:00 10/14/17 08:00 10/14/17 08:00 10/14/17 08:00 10/14/17 08:00 Oxygen Delivery Method Room Air Weight: 149 lb 4.047 oz Body Mass Index (BMI) 23.3 Intake and Output for Last 24 Hours 10/12/17 10/13/17 10/14/17 23:59 23:59 23:59 Intake Total 120 / 120 4400 / 4400 1413 / 1413 Output Total 400 / 400 3200 / 3200 1000 / 1000 Balance -280 / -280 1200 / 1200 413 / 413 Laboratory Tests Past 24 Hrs 10/14/17 10/14/17 10/14/17 05:30 05:30 05:30 WBC 20.8 H RBC 3.48 L Hgb 9.3 L Hct 29.2 L MCV 83.9 MCH 26.7 L MCHC 31.8 L RDW 17.1 H RDW Differential 52.7 H Plt Count 385 MPV 10.5 Immature Gran % (Auto) 0.400 Neut % (Auto) 89.4 H Lymph % (Auto) 5.4 L [place] % (Auto) 4.5 Eos % (Auto) 0.2 Baso % (Auto) 0.1 Absolute Neuts (auto) 18.6 H Absolute Lymphs (auto) 1.13 Total Counted Not Reportable Sodium 140 Potassium 3.7 Chloride 104 Carbon Dioxide 26.0 Anion Gap 10 BUN 2 L Creatinine 0.52 L BUN/Creatinine Ratio 3.9 L Glucose 94 Ionized Calcium Pending Medical Necessity - Tobacco Use Smoking Status: Current every day smoker Assessment/Plan Abdominal wall mass probable abscess vs infected hematoma. Continues with spiking fevers and elevated WBC despite IV Zosyn. Blood cultures pending. Will consult radiology for possible US vs CT guided drainage. Continue IV Zosyn for now. Follow fever curve and WBC.
--- NOTE | 2017-10-14 09:12 | CT_ITS ---
PROCEDURE: CT DIRECTED ABSCESS DRAINAGE, PERITONEAL DATE OF EXAMINATION: October 14, 2017. INDICATION: Female, 27 years old. Abdominal wall fluid collection. Status post . PHYSICIAN: Jason Hou M.D. CONSENT: Written informed consent was obtained having explained the risks, benefits and alternatives in detail with the patient who accepted the risks and agreed to proceed. Laboratory review and clinical assessment was performed. CONSCIOUS SEDATION PROTOCOL: The Drugs used were: 2 mg Versed, IV., and 50 mcg Fentanyl, IV. The sedation time was: 20 minutes. Conscious sedation protocol was started at 10:40 AM and terminated at 11:00 AM. The conscious sedation protocol was independently monitored by the department nurse. RADIATION DOSAGE (If Supplied By Facility): CTDIvol = ( 14.44 ) mGy, DLP = ( 682.84 ) mGycm TECHNIQUE: CT sections were made through the abdomen and pelvis revealing a fluid collection in the deep anterior abdominal wall in the lower abdomen and upper pelvis.. The skin surface was prepped and draped in a sterile fashion. Puncture of this collection was performed initially with a 8.5 Haitian catheter and purulent fluid was aspirated. Drainage catheter was then inserted into the collection and formed into position. Additional fluid was aspirated for a total of approximately 110 cc of . Fluid. The catheter was sutured into position to allow for continued drainage. Followup CT sections reveals good position of the catheter. CT/Abscess/Fistula/Sinus Tract IMPRESSION: 1. CT directed drainage of a fluid collection using CT image guidance and image documentation as described. 2. Conscious Sedation protocol utilized with independent monitoring Electronically Signed: Jason Hou MD at 13:26 EDT Tel [phone], Service support ,
--- NOTE | 2017-10-14 09:13 | NURSING ---
CT called STEPHANE Sue and notified her that patient will be going for a CT guided aspiration of abdominal abscess at 1100 with pick-up from unit scheduled for 1030. Notified that patient should be NPO at this time until procedure is completed.
--- NOTE | 2017-10-14 10:00 | NURSING ---
spoke with micro regarding order for culture requested by Dr. Matt, for clarification. Notified by Marita to order deep wound and in comments write aspirate- rather than ordering culture- body fluid. STEPHANE herring notified of same and entered in computer.
--- NOTE | 2017-10-14 11:12 | NURSING ---
Patient taken off unit at [address] guided aspiration of abscess and report received by Julia at this time stating they will finish moderate sedation scale and return patient afterwards.
[2017-10-14 11:45] VITALS: BP 132/93; PULSE 90; RESP 18; TEMP 37.3; O2SAT 97
[2017-10-14] MEDS: Labetalol 200 MG Tablet PO ×2 (11:48→22:33)
[2017-10-14 16:00] VITALS: BP 129/83; PULSE 97; RESP 18; TEMP 37.3; O2SAT 98
[2017-10-14 22:30] VITALS: BP 147/104; PULSE 76; RESP 18; TEMP 36.9; O2SAT 100
[2017-10-14] MEDS: 0.9% NaCl IVPB Med Flush (250 mL) 15 ML IV (23:08)
[2017-10-15 04:27] VITALS: BP 144/102; PULSE 71; RESP 16; TEMP 36.6; O2SAT 97
[2017-10-15] MEDS: HYDROmorphone 1 MG/ML Syringe IV (04:28)
[2017-10-15] MEDS: 0.9% NaCl Peripheral Flush Adult/Peds IV ×3 (04:28→10:04)
[2017-10-15] MEDS: Ketorolac 30 MG/ML Syringe IV ×4 (04:55→21:58)
[2017-10-15 06:40] LABS: Absolute Lymphocyte Count 2.29 X10^3/ul (0.83-4.51); Absolute Neutrophil Count 7.5 X10^3/uL (2.0-7.7); Basophil# 0.05 X10^3/uL; Basophil% 0.5 % (0-1); Eosinophil# 0.08 X10^3/uL; Eosinophils% 0.8 % (0-5); Hematocrit 27.8 % (37-47); Hemoglobin 8.8 g/dl (12.0-15.0); Lymphocyte # 2.29 X10^3/ul (4.0); Lymphocyte % 21.8 % (19-41); Mean Corp Hgb Conc 31.7 g/gl (32-36); Mean Corpuscular Hgb 26.9 pg (27.0-32.0); Mean Platelet Vol. 10.2 fl (6.2-12.0); Monocyte# 0.48 X10^3/uL; Monocyte% 4.6 % (0-10); Neutrophil # 7.51 X10^3/uL (2.7-7.7); Neutrophil % 71.3 % (47-70); Platelet Count 358 K/mm3 (150-450); RBC Distribution Width CV 17.1 % (11.6-14.6); RBC Distribution Width SD 52.7 fl (35.1-43.9); Red Blood Count 3.27 M/mm3 (4.2-5.4); White Blood Count 10.5 K/mm3 (4.4-11.0)
[2017-10-15 06:41] LABS: POSITIVE COUNT NO; POSITIVE DIFFERENTIAL NO; POSITIVE MORPHOLOGY NO
[2017-10-15 06:55] LABS: Anion Gap 7 (5-15); BUN 3 mg/dL (7-18); BUN/Creat Ratio 7.6 RATIO (10-20); Calcium,Total 8.2 mg/dL (8.5-10.1); Chloride 109 mmol/L (98-107); EST Glomerular Filtration Rate 209 mL/min (>60); Est Glom Filt Rate - Afr Amer 253 mL/min (>60); Estimated Creatinine Clearance 209.08 ml/min; Glucose 113 mg/dL (74-106); Potassium 3.9 mmol/L (3.5-5.1); Sodium Level 143 mmol/L (136-145)
[2017-10-15 08:16] VITALS: BP 135/101; PULSE 84; RESP 18; TEMP 36.7; O2SAT 96
--- NOTE | 2017-10-15 08:18 | PN.OBGYN_ITS ---
Subjective: Still with significant pain left lower abdomen. Voiding, tolerating PO. No diarrhea. No significant vaginal bleeding. Objective: Afeb last 24 hours Tmax 99.2 BP modestly elevated. HR normal. WBC decreased today from 20 to 10. Hgb stable Wound culture with 3+ gram negative rods. Culture pending. Blood culture pending. - Physical Exam General: Alert, Oriented x3, Cooperative, No apparent distress Lungs: Clear to auscultation, Normal air movement Cardiovascular: Regular rate, Regular Rhythm Abdomen: Soft, - - firm area located superior to incision on left (tender). Erythema less today. Incision intact. Extremities: No edema, No Calf Tenderness Skin: No rashes Neurological: Neuro grossly intact Psych/Mental Status: Normal Affect Vital Signs Temp Pulse Resp BP Pulse Ox 97.9 F 71 16 144/102 H 97 10/15/17 04:27 10/15/17 04:27 10/15/17 04:27 10/15/17 04:27 10/15/17 04:27 Oxygen Delivery Method Room Air Weight: 149 lb 4.047 oz Body Mass Index (BMI) 23.3 Intake and Output for Last 24 Hours 10/13/17 10/14/17 10/15/17 23:59 23:59 23:59 Intake Total 4400 / 4400 5994 / 5994 1798 / 1798 Output Total 3200 / 3200 3240 / 3240 1030 / 1030 Balance 1200 / 1200 2754 / 2754 768 / 768 Microbiology Past 72 Hours 10/14/17 11:02 Gram Stain - Final Aspirate - Abdominal Laboratory Tests Past 24 Hrs 10/15/17 10/15/17 06:18 06:18 WBC 10.5 RBC 3.27 L Hgb 8.8 L Hct 27.8 L MCV 85.0 MCH 26.9 L MCHC 31.7 L RDW 17.1 H RDW Differential 52.7 H Plt Count 358 MPV 10.2 Immature Gran % (Auto) 1.000 H Neut % (Auto) 71.3 H Lymph % (Auto) 21.8 [place] % (Auto) 4.6 Eos % (Auto) 0.8 Baso % (Auto) 0.5 Absolute Neuts (auto) 7.5 Absolute Lymphs (auto) 2.29 Total Counted Not Reportable Sodium 143 Potassium 3.9 Chloride 109 H Carbon Dioxide 27.0 Anion Gap 7 BUN 3 L Creatinine 0.40 L Estim Creat Clear Calc 209.08 Est GFR (MDRD) Af Amer 253 Est GFR (MDRD) Non-Af 209 BUN/Creatinine Ratio 7.6 L Glucose 113 H Calcium 8.2 L Medical Necessity - Tobacco Use Smoking Status: Current every day smoker Assessment/Plan Now one day s/p CT guided aspiration and drainage of abdominal wall abscess/ hematoma. Afebrile since with now lowered WBC. Cultures pending. Drain with 130cc since placement yesterday--will continue drain for time being. Will continue IV zosyn until preliminary cultures return then consider PO antibiotics for discharge. Switch pain medication to percocet from dilaudid.
[2017-10-15] MEDS: Labetalol 200 MG Tablet PO ×2 (08:28→21:58)
[2017-10-15] MEDS: Gabapentin 100 MG Capsule 200 MG PO ×2 (08:28→17:13)
[2017-10-15] MEDS: oxyCODONE 5 MG Tablet 10 MG PO ×3 (08:29→20:36)
--- NOTE | 2017-10-15 13:43 | CASEMGMT ---
Social Work Assessment Referral Date: 10/15 Date of Assessment: 10/15 Reason for Consult: Pt was recently at [facility] and was seen by ARTHUR Martini for mental health. Informant: ARTHUR Teran LSW Personal Status: SW met with patient, introduced self and role at [facility]. Pt was alert and orientated x4. Pt states that she was just in the hospital last week because she had a baby. Pt states that she is currently still living with her parents but states that the FOB (Edin) is no longer living with them. Pt states that Edin will still be in the baby's life. Pt states that she feels safe at home. SW asked pt if she has followed up with the referral to [facility]. Pt states that she met with them last week and that she has another appointment on October 19 with Kaela at [facility]. Pt states that she will also be seeing a psychiatrist. Pt states I am turning my life around. SW provided support and encouragement to pt for following up with [facility]. Per, past notes from ARTHUR Martini, a referral was made to [facility] and to [facility]. SW asked pt if she has also followed up with these referrals. Pt states that [facility] came to the house on Thursday or Thursday. Pt states that she is meeting with [facility] on either Thursday or Thursday of next week. Pt states that she has received a call from [facility] and that her plan is to follow up with them and set up an appointment. Pt states that her daughter has an appointment on Thursday with the doctor for a weight check. SW asked patient how her depression and anxiety has been. Pt states that she is happier than ever and that she has been thinking positively lately. SW provided positive support. Pt denied any suicidal/homicidal thoughts/plans/or ideations. SW offered support throughout assessment and encouraged pt to follow up with referrals. Pt was receptive to this. Pt denied any additional needs or concerns at this time. SW informed pt to ask for staff/social work if any needs or concerns arise. Pt states understanding. Mental Health Hx: Per, recent assessment completed by ARTHUR Martini, Pt has chronic depression and anxiety. As noted above, SW asked patient how her depression and anxiety has been. Pt states that she is happier than ever and that she has been thinking positively lately. Pt denied any suicidal/homicidal thoughts/plans/or ideations. Pt denied currently taking medication. Pt states that she has continued to use her positive coping skills of deep breathing, muscle relaxation and yoga. Intervention: Assessment with pt to discuss recent referrals and any additional needs. Plan: Discharge home. Pt will follow up with referrals made to [facility], [facility], and [facility]. Olga Cohen SOFTWARE RECRUITER, MEASUREMENT AND SENSING TECHNICIAN.
[2017-10-15 14:39] VITALS: BP 144/110; PULSE 73; RESP 18; TEMP 36.7; O2SAT 99
[2017-10-15 17:45] VITALS: BP 148/99
[2017-10-15 20:29] VITALS: BP 153/108; PULSE 74; RESP 18; TEMP 36.6; O2SAT 98
[2017-10-15] MEDS: Acetaminophen 500 MG Tablet PO (22:04)
[2017-10-16] MEDS: oxyCODONE 5 MG Tablet 10 MG PO ×4 (03:13→22:18)
[2017-10-16] MEDS: Ketorolac 30 MG/ML Syringe IV ×4 (03:16→21:27)
[2017-10-16 03:20] VITALS: BP 146/97; PULSE 78; RESP 18; TEMP 36.2; O2SAT 96
[2017-10-16] MEDS: Acetaminophen 500 MG Tablet PO ×3 (05:52→21:28)
[2017-10-16 06:35] LABS: Absolute Lymphocyte Count 1.83 X10^3/ul (0.83-4.51); Absolute Neutrophil Count 9.6 X10^3/uL (2.0-7.7); Basophil# 0.06 X10^3/uL; Basophil% 0.5 % (0-1); Hematocrit 31.6 % (37-47); Hemoglobin 10.1 g/dl (12.0-15.0); Lymphocyte # 1.83 X10^3/ul (4.0); Mean Corpuscular Volume 84.5 fL (81-99); Mean Platelet Vol. 10.2 fl (6.2-12.0); Monocyte# 0.48 X10^3/uL; Monocyte% 3.9 % (0-10); Neutrophil # 9.64 X10^3/uL (2.7-7.7); Platelet Count 424 K/mm3 (150-450); RBC Distribution Width SD 52.6 fl (35.1-43.9); Red Blood Count 3.74 M/mm3 (4.2-5.4); White Blood Count 12.2 K/mm3 (4.4-11.0)
[2017-10-16 06:37] LABS: POSITIVE COUNT NO; POSITIVE DIFFERENTIAL NO; POSITIVE MORPHOLOGY NO
[2017-10-16 08:15] VITALS: BP 134/98; PULSE 74; RESP 16; TEMP 36.9; O2SAT 100
[2017-10-16] MEDS: Labetalol 200 MG Tablet PO ×2 (08:19→21:28)
[2017-10-16] MEDS: Gabapentin 100 MG Capsule 200 MG PO ×2 (08:19→16:10)
[2017-10-16] MEDS: Furosemide 20 MG/2 ML VIAL 10 MG IV (09:24)
[2017-10-16 13:41] VITALS: BP 138/99; PULSE 73; RESP 16; TEMP 36.6; O2SAT 100
--- NOTE | 2017-10-16 14:10 | PCM.PN.OB ---
Subjective: HD# 4 S/P C/s on 10/04/17 Admitted 4 d ago for postop fevers. Infected hematoma, abdominal wall abscess on CT. Sepsis. Feeling much better this am. Less painful. C/O 02/02 earlier in night per nursing notes. Relates inc redness at abdomen and new area marked last pm by nursing staff. - Physical Exam General: Alert, Oriented x3, Cooperative, No apparent distress HEENT: Atraumatic Neck: Supple Abdomen: Soft - Tender over palpation of LLQ superior to incision. LESLYE drain noted RLQ and draining serosanguinous material. Extremities: No edema Skin: Incision - C/S incision appears CDI and healing well. Erythema of anterior abdominal wall noted, cellulitis area marked, faintly erytheamatous. Palpable nodule at L side superior to incision. Second area also marked (extension of erythema from yesterday, but very faint) Neurological: Cranial nerves II-XII grossly intact Psych/Mental Status: Normal Affect Vital Signs Temp Pulse Resp BP Pulse Ox 97.9 F 73 16 138/99 H 100 10/16/17 13:41 10/16/17 13:41 10/16/17 13:41 10/16/17 13:41 10/16/17 13:41 Oxygen Delivery Method Room Air Weight: 67.7 kg Body Mass Index (BMI) 23.3 Intake and Output for Last 24 Hours 10/14/17 10/15/17 10/16/17 23:59 23:59 23:59 Intake Total 5994 / 5994 3869 / 3869 4742 / 4742 Output Total 3240 / 3240 3835 / 3835 6270 / 6270 Balance 2754 / 2754 34 / 34 -1528 / -1528 Microbiology Past 72 Hours 10/14/17 11:02 Gram Stain - Final Aspirate - Abdominal Wound Culture - Preliminary No growth-Final to follow Anaerobic Culture - Preliminary Checking for anaerobes, further studies to follow. Laboratory Tests Past 24 Hrs 10/14/17 10/16/17 05:30 06:00 WBC 12.2 H RBC 3.74 L Hgb 10.1 L Hct 31.6 L MCV 84.5 MCH 27.0 MCHC 32.0 RDW 17.0 H RDW Differential 52.6 H Plt Count 424 MPV 10.2 Immature Gran % (Auto) 1.600 H Neut % (Auto) 79.0 H Lymph % (Auto) 15.[address] [place] % (Auto) 3.9 Eos % (Auto) 0.0 Baso % (Auto) 0.5 Absolute Neuts (auto) 9.6 H Absolute Lymphs (auto) 1.83 Total Counted Not Reportable Ionized Calcium 5.1 Medical Necessity - Tobacco Use Smoking Status: Current every day smoker Assessment/Plan HD#4 Two day S/P drainage of anterior abdominal wall abscess. S/P C section delivery on 10/04/17. Abdominal wall abscess, hematoma. -- WBC slight inc today but afeb since 10/14/17 . Aerobic cultures of wound: NO GROWTH. Remains on Zosyn IV -- anaerobic cultures pending. -- LESLYE drain still with output. Pain Control -- improvement noted HTN -- pt states HTN worsening since delivery -- on Trandate 200 mg po bid with worsening HTN throughout day / night and to this am when rounded -- I/O with approx 3 liters retained. Suspect some of HTN due to mismatch of I/O. PLAN: S/L IV Lasix to be given IV. Await less output of LESLYE drain Await anaerobic cultures D/C home as appropriate. Reassess later today for extension of erythema at incision and for LESLYE drain output.
--- NOTE | 2017-10-16 14:20 | PN.OBGYN_ITS ---
Subjective: HD# 4 S/P C/s on 10/04/17 Admitted 4 d ago for postop fevers. Infected hematoma, abdominal wall abscess on CT. Sepsis. Feeling much better this am. Less painful. C/O 02/02 earlier in night per nursing notes. Relates inc redness at abdomen and new area marked last pm by nursing staff. - Physical Exam General: Alert, Oriented x3, Cooperative, No apparent distress HEENT: Atraumatic Neck: Supple Abdomen: Soft - Tender over palpation of LLQ superior to incision. LESLYE drain noted RLQ and draining serosanguinous material. Extremities: No edema Skin: Incision - C/S incision appears CDI and healing well. Erythema of anterior abdominal wall noted, cellulitis area marked, faintly erytheamatous. Palpable nodule at L side superior to incision. Second area also marked ( extension of erythema from yesterday, but very faint) Neurological: Cranial nerves II-XII grossly intact Psych/Mental Status: Normal Affect Vital Signs Temp Pulse Resp BP Pulse Ox 97.9 F 73 16 138/99 H 100 10/16/17 13:41 10/16/17 13:41 10/16/17 13:41 10/16/17 13:41 10/16/17 13:41 Oxygen Delivery Method Room Air Weight: 67.7 kg Body Mass Index (BMI) 23.3 Intake and Output for Last 24 Hours 10/14/17 10/15/17 10/16/17 23:59 23:59 23:59 Intake Total 5994 / 5994 3869 / 3869 4742 / 4742 Output Total 3240 / 3240 3835 / 3835 6270 / 6270 Balance 2754 / 2754 34 / 34 -1528 / -1528 Microbiology Past 72 Hours 10/14/17 11:02 Gram Stain - Final Aspirate - Abdominal Wound Culture - Preliminary No growth-Final to follow Anaerobic Culture - Preliminary Checking for anaerobes, further studies to follow. Laboratory Tests Past 24 Hrs 10/14/17 10/16/17 05:30 06:00 WBC 12.2 H RBC 3.74 L Hgb 10.1 L Hct 31.6 L MCV 84.5 MCH 27.0 MCHC 32.0 RDW 17.0 H RDW Differential 52.6 H Plt Count 424 MPV 10.2 Immature Gran % (Auto) 1.600 H Neut % (Auto) 79.0 H Lymph % (Auto) 15.0 L [place] % (Auto) 3.9 Eos % (Auto) 0.0 Baso % (Auto) 0.5 Absolute Neuts (auto) 9.6 H Absolute Lymphs (auto) 1.83 Total Counted Not Reportable Ionized Calcium 5.1 Medical Necessity - Tobacco Use Smoking Status: Current every day smoker Assessment/Plan HD#4 Two day S/P drainage of anterior abdominal wall abscess. S/P C section delivery on 10/04/17. Abdominal wall abscess, hematoma. -- WBC slight inc today but afeb since 10/14/17 . Aerobic cultures of wound: NO GROWTH. Remains on Zosyn IV -- anaerobic cultures pending. -- LESLYE drain still with output. Pain Control -- improvement noted HTN -- pt states HTN worsening since delivery -- on Trandate 200 mg po bid with worsening HTN throughout day / night and to this am when rounded -- I/O with approx 3 liters retained. Suspect some of HTN due to mismatch of I/ O. PLAN: S/L IV Lasix to be given IV. Await less output of LESLYE drain Await anaerobic cultures D/C home as appropriate. Reassess later today for extension of erythema at incision and for LESYLE drain output.
[2017-10-16 19:31] VITALS: BP 153/107; PULSE 77; RESP 16; TEMP 37; O2SAT 99
[2017-10-16] MEDS: 0.9% NaCl Peripheral Flush Adult/Peds IV (21:28)
[2017-10-17 01:30] VITALS: BP 127/81; PULSE 69; RESP 16; TEMP 36.8; O2SAT 98
--- NOTE | 2017-10-17 03:10 | NURSING ---
Received verbal report and assumed care from STEPHANE Schultz.
[2017-10-17] MEDS: Ketorolac 30 MG/ML Syringe IV ×2 (04:48→11:03)
[2017-10-17] MEDS: 0.9% NaCl Peripheral Flush Adult/Peds IV ×3 (04:54→11:02)
[2017-10-17 06:10] VITALS: BP 128/84; PULSE 72; RESP 16; TEMP 36.6; O2SAT 97
[2017-10-17] MEDS: oxyCODONE 5 MG Tablet 10 MG PO ×2 (06:19→12:30)
[2017-10-17] MEDS: Acetaminophen 500 MG Tablet PO (08:06)
[2017-10-17] MEDS: Gabapentin 100 MG Capsule 200 MG PO (08:06)
--- NOTE | 2017-10-17 10:48 | PCM.PROGNOTE ---
Subjective: HD #5 S/P drainage of infected hematoma/seroma 3 d ago. S/P C section delivery Doing much better . Still with some pain, but much improved. LESLYE with minimal output, serosanguinous fluid. Tolerating PO well. BPs better after IV S/L and diuretic given. Continues with Trandate bid. Bottle feeding baby and got to go off floor to see her yesterday. - Physical Exam General: Alert, Oriented x3, Cooperative, No apparent distress HEENT: Atraumatic Neck: Supple Abdomen: Soft - Minimally tender to palpation over area superior to incision. Palpable hematoma Skin: Incision - C/S incision CDI well healed. LESLYE with minimal dischg. Area of erythema marked on abdomen and appears to be resolving. Neurological: Cranial nerves II-XII grossly intact Psych/Mental Status: Normal Affect Vital Signs Temp Pulse Resp BP Pulse Ox 97.9 F 72 16 128/84 H 97 10/17/17 06:10 10/17/17 06:10 10/17/17 06:10 10/17/17 06:10 10/17/17 06:10 Oxygen Delivery Method Room Air Weight: 67.7 kg Body Mass Index (BMI) 23.3 Intake and Output for Last 24 Hours 10/15/17/18 10/17/17 23:59 23:59 23:59 Intake Total 3869 / 3869 6307 / 6307 651 / 651 Output Total 3835 / 3835 8170 / 8170 300 / 300 Balance 34 / 34 -1863 / -1863 351 / 351 Microbiology Past 72 Hours 10/14/17 11:02 Gram Stain - Final Aspirate - Abdominal Wound Culture - Final No growth aerobically. Anaerobic Culture - Preliminary Checking for anaerobes, further studies to follow. Medical Necessity - Tobacco Use Smoking Status: Current every day smoker Assessment/Plan HD#5 Three day S/P drainage of anterior abdominal wall abscess. S/P C section delivery on 10/04/17. Abdominal wall abscess, hematoma. -- AFEB since 10/14/17 . Aerobic cultures of wound: NO GROWTH. Remains on Zosyn IV -- anaerobic cultures still pending. -- LESLYE drain D/C as minimal output noted. Area of erythema appears improved Pain Control -- improvement noted HTN -- HTN worsening since delivery, but improved with continued diuresis. -- continue Trandate outpt. D/C home today. Clinically improved, but with persistent hematoma palpable. RTO in 1 wk to f/u with Dr. Matt. Advised to call in sooner, prn if temp or inc pain and redness of incision. Advised that hematoma will take time to resolve.
--- NOTE | 2017-10-17 10:57 | PCM.DC.SUM ---
Discharge Date and Diagnosis Date of Admission: 10/12/17 Date of Discharge: 10/17/17 Hospital Course and Treatment Procedures: - - CT guided drainage of abdominal wall hematoma/seroma, drain placement Summary of Care Provided: The patient is a 27 year old F [] Discharge Diet: No Restrictions Discharge Activity: May not drive while taking narcotic pain medications., May Shower, May Take a Tub Bath Return to work on:: 11/16/17 May resume sexual activity in: 4-6 weeks Lifting Restrict to (lbs):: 20 - for 4 wk to allow healing Call your doctor if your incision/area has: Increased Redness Call your doctor if you observe: Fever of 101 or Higher, Change in Color, Inability to have a bowel movement, Using more than one pad per hour, Uncontrolled pain Cleanse incision/area with: Soap & Water Home Medications: Medications to take at Discharge Gabapentin [Neurontin] 300 mg PO BID 10/12/17 Labetalol [Trandate (Beta Batsheva)] 200 mg BID 10/12/17 Acetaminophen [Tylenol] 500 mg PO Q6H PRN PRN tablet 10/17/17 Amoxicillin/Potassium Clav [Augmentin 875-125 Tablet] 1 ea PO BID #20 tab 10/17/17 Fluconazole [Diflucan] 150 mg PO DAILY #4 tab 10/17/17 Gabapentin [Neurontin] 200 mg PO BIDCM capsule 10/17/17 Ibuprofen 800 mg PO TID PRN #30 tab 10/17/17 Labetalol [Trandate (Beta Batsheva)] 200 mg PO BID tablet 10/17/17 Following Prescrptions Were Given to Patient: Fluconazole [Diflucan] 150 mg PO DAILY #4 tab Amoxicillin/Potassium Clav [Augmentin 875-125 Tablet] 1 ea PO BID #20 tab Ibuprofen 800 mg PO TID PRN #30 tab PRN Reason: Mild-Mod Pain (1-12/03) Primary Care Physician: Care Physician,No Primary [Primary Care Provider] - Please Follow Up With: Isai Matt MD - [phone] When: within 1 wk Disposition: Home Minutes spent on discharge:: 20 Patient Condition:: Stable Medical Necessity - Tobacco Use Smoking Status: Current every day smoker Meaningful Use Info Meaningful Use Diagnoses (Choose all that apply): None applicable
[2017-10-17 10:59] VITALS: BP 140/84; PULSE 61; RESP 18; TEMP 36.8; O2SAT 97
[2017-10-17] MEDS: Labetalol 200 MG Tablet PO (11:03)
--- NOTE | 2017-10-17 11:07 | DS.PCM_ITS ---
Discharge Date and Diagnosis Date of Admission: 10/12/17 Date of Discharge: 10/17/17 Hospital Course and Treatment Procedures: - - CT guided drainage of abdominal wall hematoma/seroma, drain placement Summary of Care Provided: The patient is a 27 year old F [] Discharge Diet: No Restrictions Discharge Activity: May not drive while taking narcotic pain medications., May Shower, May Take a Tub Bath Return to work on:: 11/16/17 May resume sexual activity in: 4-6 weeks Lifting Restrict to (lbs):: 20 - for 4 wk to allow healing Call your doctor if your incision/area has: Increased Redness Call your doctor if you observe: Fever of 101 or Higher, Change in Color, Inability to have a bowel movement, Using more than one pad per hour, Uncontrolled pain Cleanse incision/area with: Soap & Water Home Medications: Medications to take at Discharge Gabapentin [Neurontin] 300 mg PO BID 10/12/17 Labetalol [Trandate (Beta Batsheva)] 200 mg BID 10/12/17 Acetaminophen [Tylenol] 500 mg PO Q6H PRN PRN tablet 10/17/17 Amoxicillin/Potassium Clav [Augmentin 875-125 Tablet] 1 ea PO BID #20 tab Fluconazole [Diflucan] 150 mg PO DAILY #4 tab 10/17/17 Gabapentin [Neurontin] 200 mg PO BIDCM capsule 10/17/17 Ibuprofen 800 mg PO TID PRN #30 tab 10/17/17 Labetalol [Trandate (Beta Batsheva)] 200 mg PO BID tablet 10/17/17 Following Prescrptions Were Given to Patient: Fluconazole [Diflucan] 150 mg PO DAILY #4 tab Amoxicillin/Potassium Clav [Augmentin 875-125 Tablet] 1 ea PO BID #20 tab Ibuprofen 800 mg PO TID PRN #30 tab PRN Reason: Mild-Mod Pain (1-12/03) Primary Care Physician: Care Physician,No Primary [Primary Care Provider] - Please Follow Up With: Isai Matt MD - [phone] When: within 1 wk Disposition: Home Minutes spent on discharge:: 20 Patient Condition:: Stable Medical Necessity - Tobacco Use Smoking Status: Current every day smoker Meaningful Use Info Meaningful Use Diagnoses (Choose all that apply): None applicable
--- NOTE | 2017-10-17 11:13 | PCM.DC.SUM ---
Discharge Date and Diagnosis Date of Admission: 10/12/17 - postop fever, infected hematoma ant abd wall; cellulitis. Leukocytosis, Tachycardia Date of Discharge: 10/17/17 - same s/p CT guided aspiration and drain placement. Hospital Course and Treatment Summary of Care Provided: The patient is a 27 year old Female presented through ED on 10/12/17 for postop fevers s/p C section delivery . CT showed infected hematomsa vs abscess at anteriior abdominal wall, superior to incision. Tachycardic and febrile. Zosyn initiated. Pt continued to spike fevers despite IV antibiotics. Radiology consulted for CT guided aspiration of the abscess on 10/14/17, and LESLYE drain placement. After CT guided aspiration, drainage: rapid response of fever curve. Some extension was noted of erythema beyond initial marked area of cellulitis. Pt observed additional day for this, and for continued LESLYE drainage. LESLYE drain removed on HD#5 Some improvement also noted at area of cellulitis which had been marked by nursing staff. Pt sent home. on hospital day #5 to continue recovery at home. Discharge instructions given. Discharge Diet: No Restrictions Discharge Activity: May not drive while taking narcotic pain medications., May Shower, May Take a Tub Bath Return to work on:: 11/16/17 May resume sexual activity in: 4-6 weeks Lifting Restrict to (lbs):: 20 - for 4 wk to allow healing Call your doctor if your incision/area has: Increased Redness Call your doctor if you observe: Fever of 101 or Higher, Change in Color, Inability to have a bowel movement, Using more than one pad per hour, Uncontrolled pain Cleanse incision/area with: Soap & Water Home Medications: Medications to take at Discharge Gabapentin [Neurontin] 300 mg PO BID 10/12/17 Labetalol [Trandate (Beta Batsheva)] 200 mg BID 10/12/17 Acetaminophen [Tylenol] 500 mg PO Q6H PRN PRN tablet 10/17/17 Amoxicillin/Potassium Clav [Augmentin 875-125 Tablet] 1 ea PO BID #20 tab 10/17/17 Fluconazole [Diflucan] 150 mg PO DAILY #4 tab 10/17/17 Gabapentin [Neurontin] 200 mg PO BIDCM capsule 10/17/17 Ibuprofen 800 mg PO TID PRN #30 tab 10/17/17 Labetalol [Trandate (Beta Batsheva)] 200 mg PO BID tablet 10/17/17 Following Prescrptions Were Given to Patient: Fluconazole [Diflucan] 150 mg PO DAILY #4 tab Amoxicillin/Potassium Clav [Augmentin 875-125 Tablet] 1 ea PO BID #20 tab Ibuprofen 800 mg PO TID PRN #30 tab PRN Reason: Mild-Mod Pain (-12/03) Primary Care Physician: Care Physician,No Primary [Primary Care Provider] - Please Follow Up With: Isai Matt MD - [phone] When: within 1 wk Disposition: Home Medical Necessity - Tobacco Use Smoking Status: Current every day smoker Meaningful Use Info Meaningful Use Diagnoses (Choose all that apply): None applicable
--- NOTE | 2017-10-17 12:24 | PCM.DC ---
You will use the following diet at home:: No restrictions Discharge Activity: May not drive while taking narcotic pain medications., May Shower, May Take a Tub Bath Return to work on:: 11/16/17 May resume sexual activity in: 4-6 weeks Lifting Restrictions: limit to 20 pounds for 4 wks. Call your doctor if your incision/area has: Increased Redness Call your doctor if you observe: Fever of 101 or Higher, Change in Color, Inability to have a bowel movement, Using more than one pad per hour, Uncontrolled pain Cleanse incision/area with: Soap & Water Allergies/Adverse Reactions: Allergies sulfamethoxazole [From Bactrim] Allergy (Verified 10/12/17 16:36) Hives trimethoprim [From Bactrim] Allergy (Verified 10/12/17 16:36) Hives hydrocodone bitartrate [From Vicodin] Adverse Reaction (Verified 10/12/17 16:36) Nausea Medications to take at Discharge Gabapentin [Neurontin] 300 mg PO BID 10/12/17 Labetalol [Trandate (Beta Batsheva)] 200 mg BID 10/12/17 Acetaminophen [Tylenol] 500 mg PO Q6H PRN PRN tablet 10/17/17 Amoxicillin/Potassium Clav [Augmentin 875-125 Tablet] 1 ea PO BID #20 tab 10/17/17 Fluconazole [Diflucan] 150 mg PO DAILY #4 tab 10/17/17 Gabapentin [Neurontin] 200 mg PO BIDCM capsule 10/17/17 Ibuprofen 800 mg PO TID PRN #30 tab 10/17/17 Labetalol [Trandate (Beta Batsheva)] 200 mg PO BID tablet 10/17/17 The following prescriptions were given: Fluconazole [Diflucan] 150 mg PO DAILY #4 tab Amoxicillin/Potassium Clav [Augmentin 875-125 Tablet] 1 ea PO BID #20 tab Ibuprofen 800 mg PO TID PRN #30 tab PRN Reason: Mild-Mod Pain (-12/03) Primary Care Physician: Care Physician,No Primary [Primary Care Provider] - Please Follow Up With: Isai Matt MD - [phone] When: within 1 wk Proposed Discharge Date: 10/17/17
== END 2017-10-17 15:00 | disposition home or self-care (01) | DRG 776 ==
LOC: ED 18:20 → MS2 20:58
PROVIDERS: Obstetrics & Gynecology; Admitting Provider Obstetrics & Gynecology; Emergency Provider Emergency Medicine; Visit Provider Obstetrics & Gynecology
DX: O85 Puerperal sepsis (principal); L02.211 Cutaneous abscess of abdominal wall; L03.311 Cellulitis of abdominal wall; L76.32 Postprocedural hematoma of skin and subcutaneous tissue following other procedure; O99.335 Smoking (tobacco) complicating the puerperium; F17.210 Nicotine dependence, cigarettes, uncomplicated; O99.89 Other specified diseases and conditions complicating pregnancy, childbirth and the puerperium
CPT/HCPCS: 20501; 36415; 74177; 77012; 80047; 80048; 80053; 81001; 83605; 85025; 85610; 85730; 87040; 87070; 87075; 87076; 87086; 87088; 87205; 93005; 97802; 99156; 99157; 99284; J7030; J7040; J7050; Q9967; A4216; J1940; J2405

== ENCOUNTER → 2018-01-07 10:37 | Outpatient (CLI) | payer MEDICAID, SELFPAY | PROVIDERS: Visit Provider Obstetrics & Gynecology | DX: Z01.818 Encounter for other preprocedural examination (principal) ==

== ENCOUNTER → 2018-01-09 09:08 | Outpatient (CLI) | payer MEDICAID, SELFPAY ==
[2018-01-09 11:37] LABS: AST(SGOT) 17 U/L (15-37); Alanine Aminotransfer ALT/SGPT 18 U/L (13-56); Albumin, Serum 3.3 g/dL (3.2-5.0); Alkaline Phosphatase 122 U/L (45-117); Bilirubin, Direct 0.07 mg/dL (0.00-0.30); Globulin 3.4 g/dL (2.2-4.2); Protein, Total 6.7 g/dL (6.4-8.2)
[2018-01-10 13:57] LABS: HEPATITIS B SURFACE AG Negative (Negative); Hep C Antibodies <0.1 s/co ratio (0.0-0.9)
== END ==
DX: R63.0 Anorexia (principal); R53.81 Other malaise; R11.0 Nausea
CPT/HCPCS: 36415; 80076; 86803; 87340

== ENCOUNTER 2018-02-16 15:30 | Emergency (ER) | payer BC, MEDICAID, SELFPAY ==
[2018-02-16 15:31] VITALS: BP 135/78; PULSE 83; RESP 18; TEMP 36.4; O2SAT 100; BMI 21.9
--- NOTE | 2018-02-16 15:54 | US_ITS ---
STUDY: ABDOMINAL ULTRASOUND - RIGHT UPPER QUADRANT REASON FOR VISIT: Female, 27 years old. Worsening right upper quadrant pain for 2 months. TECHNIQUE: Ultrasound evaluation of the right upper quadrant was performed with real-time and static de los santos-scale imaging. TECHNICAL QUALITY: Adequate. COMPARISON: CT abdomen and pelvis October 12, 2017. FINDINGS: Liver: The liver measures 16.7 cm. There is normal echogenicity of the liver. The bile ducts are within normal limits. There is hepatic color flow. The direction of portal flow is hepatopetal. There is no demonstrated mass lesion. Gallbladder: Normal distended gallbladder. The gallbladder wall measures 3 mm. There is a positive sonographic Ybarra's sign. There is no pericholecystic fluid. There are multiple echogenic structures within the gallbladder, consistent with multiple gallstones. Common Bile Duct (C.B.D.): The common bile duct measures 4 mm. Pancreas: Normal size of the head, body and tail of the pancreas. There is normal echogenicity of the pancreas. There is no demonstrated pancreatic mass or cyst. Right Kidney: Normal size of the right kidney. The right kidney measures 9.2 x 5.0 x 3.3 cm. Normal renal cortex. The right cortex measures 1.1 cm. There is no demonstrated renal mass or cyst. There is no right hydronephrosis. US/Gallbladder IMPRESSION: Gallstones. There is a positive sonographic Ybarra sign, but no significant mural thickening of the gallbladder nor pericholecystic fluid to clearly indicate acute cholecystitis. If suspicion persists, evaluation with HIDA scan may be useful. Electronically Signed: Campos Marr MD at 17:13 EDT , Service support ,
--- NOTE | 2018-02-16 15:56 | ED.VISSUMM ---
- ER Visit Summary Date of Service: 02/16/18 Chief Complaint: Abdominal pain History of Present Illness: The patient is a 27 F with intermittent right upper quadrant pain for the past couple of months, becoming more severe and more frequent. Patient has an appointment with her PCP next week with the pain worsened and she presented to the emergency room for evaluation. Pain is in the right upper quadrant radiating into her back. She reports nausea but no vomiting. She has had some chills but no fever. She denies urinary symptoms. She had a approximately 4 months ago. She has been taking Tylenol or ibuprofen at home for pain, last dose approximately 6 hours ago. Physical Examination: Vital signs unremarkable. Patient sitting upright in bed no acute distress. She does appear uncomfortable. Head neck examination normal. Heart is regular rate and rhythm. Lung sounds are clear. Abdomen is soft with moderate tenderness in the right upper quadrant. Hypoactive bowel sounds are noted throughout. Test Results: CBC and chemistry studies are significant only for potassium low at 3.2. LFTs are significant only for alk phos of 138. Lipase normal. test negative. Right upper quadrant ultrasound shows gallstones and a positive sonographic Ybarra sign, but there is no wall thickening or pericholecystic fluid. Emergency Department Course and Treatment: Patient was given morphine, Zofran, and IV fluids here. On repeat evaluation she does feel improved. Patient was discussed with Dr. Roa. He will see her in the office tomorrow morning. Patient is to call first thing tomorrow morning for an appointment. She will be given a prescription for Percocet and Zofran. Treatment Plan: [] Disposition: Discharge Impression: Cholelithiasis This note was generated with [employer] dictation software. It may contain incorrect words, spelling, and punctuation that were not noted in review of the chart prior to signing ED Disposition - Plan for ED Patient: Chief Complaint: Abd Pain Referrals: Joaquín Last [Primary Care Provider] -
[2018-02-16] MEDS: Morphine 4 MG/ML Syringe IV (16:16)
[2018-02-16] MEDS: Ondansetron 4 MG/2 ML Vial IV (16:16)
[2018-02-16] MEDS: 0.9% Normal Saline 1,000 ML 150 ML IV (16:18)
[2018-02-16 16:21] LABS: Absolute Lymphocyte Count 2.26 X10^3/ul (0.83-4.51); Absolute Neutrophil Count 3.8 X10^3/uL (2.0-7.7); Basophil# 0.04 X10^3/uL; Basophil% 0.5 % (0-1); Eosinophil# 0.69 X10^3/uL; Eosinophils% 9.5 % (0-5); Hematocrit 40.1 % (37-47); Hemoglobin 13.3 g/dl (12.0-15.0); Lymphocyte # 2.26 X10^3/ul (4.0); Mean Corp Hgb Conc 33.2 g/gl (32-36); Mean Corpuscular Hgb 27.5 pg (27.0-32.0); Mean Platelet Vol. 10.4 fl (6.2-12.0); Monocyte# 0.53 X10^3/uL; Monocyte% 7.3 % (0-10); Neutrophil # 3.75 X10^3/uL (2.7-7.7); Neutrophil % 51.6 % (47-70); Platelet Count 249 K/mm3 (150-450); RBC Distribution Width CV 16.3 % (11.6-14.6); RBC Distribution Width SD 49.7 fl (35.1-43.9); Red Blood Count 4.83 M/mm3 (4.2-5.4); White Blood Count 7.3 K/mm3 (4.4-11.0)
[2018-02-16 16:27] LABS: POSITIVE COUNT NO; POSITIVE DIFFERENTIAL NO; POSITIVE MORPHOLOGY NO
[2018-02-16 16:33] LABS: AST(SGOT) 18 U/L (15-37); Alanine Aminotransfer ALT/SGPT 22 U/L (13-56); Albumin, Serum 3.4 g/dL (3.2-5.0); Alkaline Phosphatase 138 U/L (45-117); Anion Gap 9 (5-15); BUN 4 mg/dL (7-18); BUN/Creat Ratio 5.6 RATIO (10-20); Bilirubin, Direct 0.05 mg/dL (0.00-0.30); Calcium,Total 8.7 mg/dL (8.5-10.1); Chloride 107 mmol/L (98-107); Creatinine, Serum 0.71 mg/dL (0.55-1.02); EST Glomerular Filtration Rate 106 mL/min (>60); Est Glom Filt Rate - Afr Amer 128 mL/min (>60); Estimated Creatinine Clearance 117.79 ml/min; Globulin 3.5 g/dL (2.2-4.2); Glucose 98 mg/dL (74-106); Lipase 83 U/L (73-393); Potassium 3.2 mmol/L (3.5-5.1); Protein, Total 6.9 g/dL (6.4-8.2); Sodium Level 141 mmol/L (136-145)
[2018-02-16 16:36] LABS: Pregnancy, Serum, hCG Quali. NEGATIVE Negative (0-9 Nonpreg)
--- NOTE | 2018-02-16 17:28 | ED.DEP ---
ED Disposition - Plan for ED Patient: Disposition: Home or Assisted Living Chief Complaint: Abd Pain Instructions: ED Abdominal Pain Gallstone Poss Prescriptions: Oxycodone HCl/Acetaminophen [Percocet 5/325] 1 tablet PO Q6H PRN PRN 5 Days #20 tablet PRN Reason: Pain Ondansetron [Zofran Odt] 4 mg PO Q8H PRN PRN #10 tab PRN Reason: Nausea Referrals: Srinivas Roa MD [STAFF PHYSICIAN] - 1 Day Additional Instructions: Call Dr Roa's office first thing tomorrow morning - he will see you in his office tomorrow morning for an appointment.
[2018-02-16 17:40] VITALS: BP 132/97; PULSE 96; RESP 14; O2SAT 98
== END 2018-02-16 17:41 | disposition home or self-care (01) ==
PROVIDERS: Emergency Provider Emergency Medicine; Family Provider Family Medicine; PCP Family Medicine
DX: K80.20 Calculus of gallbladder without cholecystitis without obstruction (principal); Z72.0 Tobacco use
CPT/HCPCS: 76705; 80048; 80076; 83690; 84703; 85025; 96361; 96374; 96375; 99283; J7030; A4216; J2405

== ENCOUNTER → 2018-02-18 16:01 | Outpatient (CLI) | payer BC, MEDICAID, SELFPAY ==
[2018-02-25 15:50] LABS: HPV Reflexed? NOT INDICATED
== END ==
PROVIDERS: Visit Provider Obstetrics & Gynecology
DX: Z12.4 Encounter for screening for malignant neoplasm of cervix (principal); Z12.72 Encounter for screening for malignant neoplasm of vagina
CPT/HCPCS: 88175; G0145

== ENCOUNTER 2018-02-19 11:31 | Day surgery (SDC) | payer BC, MEDICAID, SELFPAY ==
[2018-02-19] VITALS (8 sets, daily range): BP systolic 120–168; BP diastolic 74–110; PULSE 62–78; RESP 16–18; TEMP 36.2–36.6; O2SAT 96–100; BMI 21.9
--- NOTE | 2018-02-19 11:37 | EKG12_ITS ---
Test Reason : PREOP Blood Pressure : / mmHG Vent. Rate : 062 BPM Atrial Rate : 062 BPM P-R Int : 158 ms QRS Dur : 092 ms QT Int : 442 ms P-R-T Axes : 054 065 032 degrees QTc Int : 448 ms Sinus rhythm with marked sinus arrhythmia Incomplete right bundle branch block Confirmed by ZAIRA PALUMBO, MANJU ([id number]), supervising editor news reel NIXON RODRÍGUEZ ([id number]) on 02/23/2018 3:34:56 PM Referred By: Srinivas oRa Confirmed By:MANJU MENESES MD
[2018-02-19 11:53] LABS: Internal QC Validated? YES +Cl - CLEAR BKGD; Pregnancy, Urine Negative Negative
[2018-02-19 12:15] LABS: Partial Thromboplast Time 40.6 Seconds (24.1-36.2)
[2018-02-19] MEDS: Bupivacaine Mpf 0.5% 30 ML VIAL (12:53)
[2018-02-19 12:54] LABS: Prothrombin Time (Protime)PT. 13.4 SECONDS (11.7-14.9)
--- NOTE | 2018-02-19 13:14 | PCM.DC.GB ---
Discharge Diet: Light diet - advance as tolerated Discharge Activity: May Not Drive - for 2-3 days or while taking narcotic pain medications., - - Do not drive, work heavy equipment or sign legal documents for 24 hours. May shower in (days): 1 - with the bandage in place. Additional Activity Instructions:: Pain medication may cause nausea. You should typically eat light foods as you take your pain medications. Pain medication may also cause constipation. If this is a problem for you, please discuss with your doctor. Call your doctor if your incision/area has: Continuous Slow Oozing, Sudden Increased Bleeding, Increased Pain/ Swelling, Increased Redness, Foul Smelling Discharge Call your doctor if you observe: Fever of 101 or Higher Suture Line Care: Avoid Pulling/Pushing, Avoid Pinching/Bending Additional Dressing/Incision Instructions:: Leave operative bandaids on for 2 days. When you remove dressing, leave Steri-Strips on until your follow-up appointment, or until the Steri-Strips fall off on their own. Allergies/Adverse Reactions: Allergies sulfamethoxazole [From Bactrim] Allergy (Verified 02/18/18 15:51) Hives trimethoprim [From Bactrim] Allergy (Verified 02/18/18 15:51) Hives hydrocodone bitartrate [From Vicodin] Adverse Reaction (Verified 02/18/18 15:51) Nausea Medications to take at Discharge Acetaminophen [Tylenol] 500 mg PO Q6H PRN PRN tablet 10/17/17 Ibuprofen 800 mg PO TID PRN #30 tab 10/17/17 Ondansetron [Zofran Odt] 4 mg PO Q8H PRN PRN #10 tab 02/16/18 Oxycodone HCl/Acetaminophen [Percocet 5/325] 1 tab PO Q6H PRN PRN 5 Days #20 tab 02/16/18 Albuterol Inhaler [Ventolin Hfa (SP)] 1 - 2 puff INHALATION Q4H PRN PRN 02/18/18 Oxycodone HCl/Acetaminophen [Percocet 5/325] 1 - 2 tab PO Q4H PRN PRN 4 Days #30 tab 02/19/18 Primary Care Physician: Joaquín Last [Primary Care Provider] - Test Results: Test results from this visit will be discussed in further detail at your follow-up appointment, if applicable. Please Follow Up With: Srinivas Roa MD - Please call [phone] to schedule an appointment. When: 7 days after your surgery.
--- NOTE | 2018-02-19 13:16 | OP.PCM_ITS ---
Problem List (1) Calculus of gallbladder with acute cholecystitis without obstruction Status: Acute Report of Operation Date of Procedure: 02/19/18 Pre-Operative Diagnosis: k80.00 acute cholecystitis with cholelithiasis Post-Operative Diagnosis: Same Surgery/Procedure Performed:: Laparoscopic cholecystectomy Type of Anesthesia:: General Anesthesiologist: Nile Lees Specimen's removed: Gallbladder Estimated Blood Loss (mL): <25 cc Description of Procedure: Patient was brought in the operating room placed in the supine position. Under excellent general trach intubation the abdomen was sterilely prepped and draped in usual fashion. Local was injected in for umbilically. Dissection was carried down to the fascia. The fascia grasped with [place]. Veress needle was placed inside the abdomen. The abdomen was insufflated to 15 torr. The 10/12 trocar was placed without difficulty. Subxiphoid #5 trocar was placed, inferior to this another #5 trocar was placed, laterally and a 5 trocar was placed, all these under direct visualization without injury to underlying structures. Fundus of gallbladder was grasped and retracted cephalad direction I dissected moderate amount of adhesions from the gallbladder itself it was swollen and edematous. I dissected the cystic duct and cystic artery and posterior to this free identifying the triangle quite easily. I placed hemoclips proximally and distally and ligated the duct. Place hemoclips proximally distally on the artery ligated the artery. The liver the gallbladder from the gallbladder bed with use of electrocautery there is no spillage of bile but the specimen specimen bag and delivered it through the optical port without difficulty. Irrigated the right upper quadrant good hemostasis was noted. Removed the trochars under direct visualization good hemostasis was noted. Close the fascia the umbilical port with gqtetr-ot-evmih stitch of 0 Vicryl skin incisions were closed with some particular stitches of 4 -0 Monocryl. Steri-Strips were applied sterile dressings were applied and the patient tolerated the procedure well. - Admit VTE Documentation VTE Present on Admission: No VTE Mechan Device Prophylaxis: SCD's VTE Pharm Prophylaxis ordered?: No Reason prophylaxis not ordered:: Treatment Not Indicated
--- NOTE | 2018-02-19 13:35 | RAD_ITS ---
CLINICAL HISTORY: Female, 27 years old. Cholecystectomy PROCEDURE: CHOLANGIOGRAM - intraoperative FLUOROSCOPY TIME (if supplied): (22.1) seconds, 128 fluoroscopy spot images in a cine loop obtained Placement of the catheter and the procedure were performed by: Dr. Roa Fluoroscopy was provided by Eliu Rae, who was present in the room time of the procedure. TECHNIQUE: (All elements of maximal sterile barrier technique followed, including US elements as applicable) The cystic duct remnant was cannulized and contrast injected into the biliary tree. There is mild distention of the extrahepatic common bile duct with free flow of contrast into the duodenum. There is no evidence of a retained stone stricture or mass. RAD/Cholangiogram/ O R,Initial IMPRESSION: Normal intraoperative cholangiogram Electronically Signed: Campos Amaya MD at 14:42 EDT , Service support ,
--- NOTE | 2018-02-19 13:35 | GALL_PTH ---
PATIENT: JOSEY VELIZ LOC: [facility] [place] U#:[id number] AGE/SX: 27/F ROOM: RE02/19/[address]: Dr. Srinivas Roa MD : 1990 BED: DIS: 02/19/2018 SPEC #: [id number] RECD: 02/19/18 14:41 STATUS: KHURRAM EDDIE #: [id number] JAVIER: 02/19/18 13:[address]: Srinivas Roa DEPT: SURGICAL PATHOLOGY RECD BY: Allyson Pelletier ENTERED: 02/22/18 09:03 SP TYPE: SHERI MENJIVAR DR: Dr. Joaquín Last DO Tissues: Gallbladder, NOS Procedures: Surgery Specimen Level III HEADER OPERATION: Laparoscopic cholecystectomy with IOC PRE-OP DIAGNOSIS: Acute cholecystitis, biliary calculus TISSUE SUBMITTED: Gallbladder and contents MICROSCOPIC DIAGNOSIS Gallbladder and contents: Chronic cholecystitis and cholelithiasis. A pericystic lymph node with reactive changes. SJ:wilfrid 02/23/18 MICROSCOPIC DESCRIPTION Slides are reviewed. GROSS DESCRIPTION Received is one container labeled with the patient's name and designated gallbladder and contents. The specimen consists of a gallbladder measuring 7 cm in length and up to 2.5 cm in diameter. The external surface is pink-tolliver, smooth and glistening for the most part. Focally it is granular, hemorrhagic and contains cautery artifact. The gallbladder contains green-yellow mucoid bile and multiple light yellow to green mulberry stones and stone fragments measuring in aggregate 4.5 x 4 x 2 cm and 0.2 to 0.5 cm in greatest dimension. The mucosa is bile-stained and without any mass lesions. The gallbladder wall measures up to 0.2 cm in thickness. Vegetable Cook sections from the gallbladder and the cystic duct are submitted in one cassette. / INGE:wilfrid 02/22/18 TC:3 CPT: 63195
== END 2018-02-19 16:00 | disposition home or self-care (01) ==
LOC: SDC 11:31 → AC 11:33
PROVIDERS: Anesthesiology; Family Provider Family Medicine; PCP Family Medicine; Visit Provider Surgery
PROC: (CPT 47610; principal; 2018-02-19 13:15)
DX: K80.12 Calculus of gallbladder with acute and chronic cholecystitis without obstruction (principal); K82.8 Other specified diseases of gallbladder; J45.909 Unspecified asthma, uncomplicated; F17.200 Nicotine dependence, unspecified, uncomplicated
CPT/HCPCS: 47563; 74300; 76000; 81025; 85610; 85730; 88304; 93005; J7120; J2405

== ENCOUNTER 2018-02-20 13:35 | Emergency (ER) | payer BC, MEDICAID, SELFPAY ==
[2018-02-20 13:37] VITALS: BP 125/87; PULSE 75; RESP 16; TEMP 36.8; O2SAT 98; BMI 21.8
--- NOTE | 2018-02-20 14:02 | ED.VISSUMM ---
- ER Visit Summary Date of Service: 02/20/18 Chief Complaint: Abdominal pain History of Present Illness: The patient is a 27 F who presents with postoperative abdominal pain. Patient had a cholecystectomy performed yesterday. Patient states she is unable to fill her prescription for pain medication until tomorrow. Patient was given a prescription for a 5 day course of Percocet 4 days ago. Patient states she misunderstood the instructions and is out of that prescription. Patient admits to some nausea but denies any vomiting. Patient admits to subjective chills but denies any fevers. Patient denies any chest pain or shortness of breath. Patient denies any redness or swelling around the incisions. Physical Examination: Vital signs are stable. Patient is afebrile. Patient is in no acute distress. Oral mucosa is pink and moist. Neck is supple. Trachea is midline. There is no JVD noted. Heart was regular rate and rhythm. Lungs are clear and equal bilaterally. There is good respiratory effort noted. Abdomen is soft. There is tenderness around the incisions. There is no erythema noted. Bowel sounds are normal. There is no rebound or guarding. Cranial nerves II through XII are intact. There are no focal motor or sensory deficits noted. The remaining physical exam is within normal limits. Emergency Department Course and Treatment: Patient was given a dose of oxycodone here. Patient was instructed to fill her prescription tomorrow. Patient was instructed to follow-up with her surgeon and 5-7 days. Patient understood and was agreeable with the plan. All questions were answered. Disposition: Discharge home Impression: Postoperative pain This note was generated with [employer] dictation software. It may contain incorrect words, spelling, and punctuation that were not noted in review of the chart prior to signing ED Disposition - Plan for ED Patient: Disposition: Home or Assisted Living Chief Complaint: Med Refill Diagnosis: Postoperative abdominal pain Instructions: Common Myths About Pain Medications Referrals: Joaquín Last [Primary Care Provider] -
[2018-02-20] MEDS: oxyCODONE 5 MG Tablet PO (14:08)
--- OUTSIDE RECORDS SUMMARY | 2018-02-20 14:24 | XMS RPT_ITS ---
:1990 Author Organization OHIP Support Name Relationship Address Phone COLBY ZAIDI Unavailable [address] + [place] [address] UE Unavailable Unavailable Unavailable MATHYS, ANNY/MEÑO Unavailable [address] + [place] [address] UE Unavailable Unavailable Unavailable MATHYS, ANNY/MEÑO Unavailable [address] + [place] [address] UE Unavailable Unavailable Unavailable MATHYS, ANNY/MEÑO Unavailable [address] + [place] [address] UE Unavailable Unavailable Unavailable MATHYS, ANNY/MEÑO Unavailable [address] + [place] [address] UE Unavailable Unavailable Unavailable MATHYS, ANNY/MEÑO Unavailable [address] [phone] [place] [address] UE Unavailable Unavailable Unavailable MATHYS, ANNY/MEÑO Unavailable [address] [phone] [place] [address] UE Unavailable Unavailable Unavailable EDIL JONES Unavailable [address] + [place] [address] MATHYS, ANNY/MEÑO Unavailable [address] [phone] [place] [address] UE Unavailable Unavailable Unavailable EDIL JONES Unavailable [address] + [place] [address] MATHYS, ANNY/MEÑO Unavailable [address] [phone] [place] [address] UE Unavailable Unavailable Unavailable MATHYS, ANNY/MEÑO Unavailable [address] + [place] [address] UE Unavailable Unavailable Unavailable MATHYS, ANNY/MEÑO Unavailable [address] + [place] [address] UE Unavailable Unavailable Unavailable MATHYS, ANNY/MEÑO Unavailable [address] + [place] [address] UE Unavailable Unavailable Unavailable MATHYS, ANNY/MEÑO Unavailable [address] + [place] [address] UE Unavailable Unavailable Unavailable MATHYS, ANNY/MEÑO Unavailable [address] + [place] [address] UE Unavailable Unavailable Unavailable MATHYS, ANNY/MEÑO Unavailable [address] + [place] [address] UE Unavailable Unavailable Unavailable Care Team Providers Name Role Phone Isai Matt Attending Unavailable Rj Mora Primary Care Unavailable Viraj Degroot Attending Unavailable DOCTOR, OUT OF TOWN Primary Care Unavailable Isai Matt Attending Unavailable DOCTOR, OUT OF [facility] Primary Care Unavailable Isai Matt Attending Unavailable DOCTOR, OUT OF [facility] Primary Care Unavailable Isai Matt Attending Unavailable DOCTOR, OUT OF [facility] Primary Care Unavailable Isai Matt Attending Unavailable DOCTOR, OUT OF TOWN Primary Care Unavailable Jazmine Khalil Admitting Unavailable Jazmine Khalil Attending Unavailable DOCTOR, OUT OF [facility] Primary Care Unavailable Primay Care Physicia, No Primary Care Unavailable Andres Lees Admitting Unavailable Andres Lees Attending Unavailable Isai Matt Attending Unavailable Isai aMtt Referring Unavailable Primay Care Physicia, No Primary Care Unavailable ANNALEE KIRBY Attending Unavailable ANNALEE KIRBY Referring Unavailable Primay Care Physicia, No Primary Care Unavailable Angie Bowens Attending Unavailable PETRILLA, JOAQUÍN Primary Care Unavailable JaninaSrinivas rios Attending Unavailable PETRILLA, JOAQUÍN Referring Unavailable PETRILLA, JOAQUÍN Primary Care Unavailable Srinivas Roa Attending Unavailable Srinivas Roa Referring Unavailable PETRILLA, JOAQUÍN Primary Care Unavailable Isai Matt Attending Unavailable Nando Guillen Attending Unavailable PETRILLA, JOAQUÍN Primary Care Unavailable PROBLEMS PROBLEMS DATE TYPE CONDITION / CODE ATTENDING STATUS SOURCE 02/18/2018 Unknown Z12.4 - Encounter Isai Matt Active [facility] for screening for Community malignant neoplasm Hospital of cervix / Repository Z12.4(ICD-10) 02/18/2018 Unknown Z12.72 - Encounter Sealkelli Isai Active [place] for screening for Community malignant neoplasm Hospital of vagina / Repository Z12.72(ICD-10) 02/18/2018 Unknown K80.00 - Calculus Srinivas Roa Active [facility] of [facility]bladder [facility] acute cholecystitis Hospital without obstruction Repository / K80.00(ICD-10) 02/16/2018 Unknown K80.20 - Calculus BowensAngie Active [facility] of gallbladder Community without Hospital cholecystitis Repository without obstruction / K80.20(ICD-10) 10/19/2017 Unknown Z34.03 - Encounter Remi Active [facility] for supervision of [facility] normal first Hospital , third Repository trimester / Z34.03(ICD-10) 09/29/2017 Unknown Z36.85 - Encounter SealIsai pereira Active [place] for [facility] screening for Hospital Streptococcus B / Repository Z36.85(ICD-10) 08/06/2017 Unknown Z34.83 - Encounter SealIsai pereira Active [place] for [facility] other normal Hospital , third Repository trimester / Z34.83(ICD-10) 06/11/2017 Unknown DYSURIA / SealkelliIsai Active [facility] R30.0(ICD-10) [facility] Hospital Repository 05/21/2017 Unknown MATERNAL CARE FOR Sealkelli Isai Active [facility] OTH ABNLT OF [facility] CERVIX, SECOND Hospital TRIMESTER / Repository O34.42(ICD-10) 05/21/2017 Unknown LOW GRADE INTREPITH SealkelliIsai Active [facility] LESION CYTO SMR Community CRVX (LGSIL) / Hospital R87.612(ICD-10) Repository 05/21/2017 Unknown 18 WEEKS GESTATION SealkelliIsai Active [facility] OF / Community Z3A.18(ICD-10) Hospital Repository 04/08/2017 Unknown ENCOUNTER FOR SealkelliIsai Active [facility] SUPRVSN OF NORMAL Community , FIRST Hospital TRIMESTER / Repository Z34.81(ICD-10) PROCEDURES PROCEDURES No Procedure Records FoundRESULTS RESULTS EMERGENCY DEPARTMENT Observed: 02/20/2018 Status: F Source: [place] SUMMARY 2:06 PM [facility] RE[facility]ITORY [facility]ITALMedical Records [id number] [place] [address]Umhkdensc Department Fjjixdr29/28/18 1402#: [id number] Acct: [id number]: ANGIE ZAIDI Rep #: [id number]: 1990 27 From: Nando Guillen DOPCP: JOAQUÍN LAST Status: PRE ER- ER Visit SummaryDate of Service: 02/20/18Chief Complaint: Abdominal painHistory of Present Illness: The patient is a 27 F who presents with postoperative abdominalpain. Patient had a cholecystectomy performed yesterday. Patient states she is unable to fillher prescription for pain medication until tomorrow. Patient was given a prescription for a 5day course of Percocet 4 days ago. Patient states she misunderstood the instructions and isout of that prescription. Patient admits to some nausea but denies any vomiting. Patientadmits to subjective chills but denies any fevers. Patient denies any chest pain or shortnessof breath. Patient denies any redness or swelling around the incisions.Physical Examination: Vital signs are stable. Patient is afebrile. Patient is in no acutedistress. Oral mucosa is pink and moist. Neck is supple. Trachea is midline. There is noJVD noted. Heart was regular rate and rhythm. Lungs are clear and equal bilaterally. Thereis good respiratory effort noted. Abdomen is soft. There is tenderness around the incisions.There is no erythema noted. Bowel sounds are normal. There is no rebound or guarding.Cranial nerves II through XII are intact. There are no focal motor or sensory deficits noted.The remaining physical exam is within normal limits.Emergency Department Course and Treatment: Patient was given a dose of oxycodone here. Patientwas instructed to fill her prescription tomorrow. Patient was instructed to follow-up with hersurgeon and 5-7 days. Patient understood and was agreeable with the plan. All questions wereanswered.Disposition: Discharge homeImpression: Postoperative painThis note was generated with [employer] dictation software. It may contain incorrect words,spelling, and punctuation that were not noted in review of the chart prior to signingED Disposition- Plan for ED Patient:Disposition: Home or Assisted LivingChief Complaint: Med RefillDiagnosis:Postoperative abdominal painInstructions: Common Myths About Pain MedicationsReferrals:Joaquín Last [Primary Care Provider] -What to do if you have ProblemsFor any increased pain, shortness of breath, bleeding, nausea or vomiting, chest pain, or anyunexpected problems, contact your Primary Care Provider. Call [facility] ([phone])or report to the closest Emergency Room.Call 911 if necessary.02/20/18 1406 <Electronically signed by Nando Guillen DO> Date Nando Guillen DOCosigner Signature (If Indicated): Date ___CC: JOAQUÍN LAST DISCHARGE INSTRUCTION Observed: 02/19/2018 Status: F Source: O[place]IS 1:15 PM [facility] REPOSITORY [facility] [id number] [place], [place] [address]Tukpgqjxdijb for Home/Discharge Sighqfakbuyg73/27/18 1314MR #: [id number] Acct: [id number]: ANGIE ZAIDI Rep #: [id number]: 1990 27 From: Srinivas Roa MDPCP: JOAQUÍN LAST Status: REG SDCDischarge Diet: Light diet - advance as toleratedDischarge Activity: May Not Drive - for 2-3 days or while taking narcotic pain medications., -- Do not drive, work heavy equipment or sign legal documents for 24 hours.May shower in (days): 1 - with the bandage in place.Additional Activity Instructions:: Pain medication may cause nausea. You should typically eatlight foods as you take your pain medications. Pain medication may also cause constipation. Ifthis is a problem for you, please discuss with your doctor.Call your doctor if your incision/area has: Continuous Slow Oozing, Sudden Increased Bleeding,Increased Pain/ Swelling, Increased Redness, Foul Smelling DischargeCall your doctor if you observe: Fever of 101 or HigherSuture Line Care: Avoid Pulling/Pushing, Avoid Pinching/BendingAdditional Dressing/Incision Instructions:: Leave operative bandaids on for 2 days. When youremove dressing, leave Steri-Strips on until your follow -up appointment, or until theSteri-Strips fall off on their own.Allergies/Adverse Reactions:Allergiessulfamethoxazole [From Bactrim] Allergy (Verified 02/18/18 15:51)Hivestrimethoprim [From Bactrim] Allergy (Verified 02/18/18 15:51)Hiveshydrocodone bitartrate [From Vicodin] Adverse Reaction (Verified 15:51)NauseaMedications to take at DischargeAcetaminophen [Tylenol] 500 mg PO Q6H PRN PRN tablet 10/17/17Ibuprofen 800 mg PO TID PRN #30 tab 10/17/17Ondansetron [ Zofran Odt] 4 mg PO Q8H PRN PRN #10 tab 02/16/18Oxycodone HCl/Acetaminophen [Percocet 5/325] 1 tab PO Q6H PRN PRN 5 Days #20 tab 02/16/18Albuterol Inhaler [Ventolin Hfa (SP )] 1 - 2 puff INHALATION Q4H PRN PRN 02/18/18Oxycodone HCl/Acetaminophen [Percocet 5/ 325] 1 - 2 tab PO Q4H PRN PRN 4 Days #30 tab 02/19/18Primary Care Physician:Joaquín Last [Primary Care Provider] -Test Results:Test results from this visit will be discussed in further detail at your follow-up appointment,if applicable.Please Follow Up With: Srinivas Roa MD - Please call [phone] to schedule anappointment.When: 7 days after your surgery.02/19/18 1315 <Electronically signed by Srinivas Roa MD>Date Srinivas Roa MDCC: JOAQUÍN LAST PARTIAL THROMBOPLAST Collected: 02/19/2018 Status: F Source: [place] TIME 12:00 PM [facility] REPOSITORY TYPE CODE TESTS RESULT OUT OF REFERENCE UNITS RANGE LAB L300.4310 High 24.1-36.2 Seconds PTT 40.6 Performed By: #### L300.4310 ####[facility] [address] [place], [address] PROTHROMBIN TIME W/INR Collected: 02/19/2018 Status: F Source: CLARA 12:00 PM [facility] REPOSITORY Order Comment: Comments: lab just mae a ptt- will take off this blood TYPE CODE TESTS RESULT OUT OF RANGE REFERENCE UNITS LAB L300.4150 Normal 11.7-14.9 SECONDS PROTIME 13.4 LAB L300.4200 Normal INR 1.0 Performed By: #### L300.3900 ####[facility] [address] [place], [address] ,URINE Collected: 02/19/2018 Status: F Source: CLARA 11:40 AM [facility] REPOSITORY TYPE CODE TESTS RESULT OUT OF REFERENCE UNITS RANGE LAB L400.8000 Normal Negative HCGUQUAL Negative Result Comment: Very dilute urine specimens, as indicated by a low specificgravity, may not contain phone representative levels of hCG.If is still suspected, a first morning urinespecimen should be collected 48 hours later and tested. Performed By: #### L400.7600 ####[facility] [address] [place], [address] CHOLANGIOGRAM/ O Observed: 02/19/2018 Status: F Source: CLARA R,INITIAL 4:44 AM [facility] REPOSITORY [facility]ITALImaging [address] [place], [place] [address]Kceuiztqpynvb/ O R,InitialMR#: [id number] Acct: [id number]: ANGIE ZAIDI Rep #: [id number]: 1990 F 27 From: Dionte Amaya MDPCP: JOAQUÍN LAST Status: REG SDCStudy: Cholangiogram/ O R, Initial Date of Exam: 02/19/18Exam# [id number] Ordering Dr: Srinivas Roa MDCLINICAL HISTORY:Female, 27 years old. CholecystectomyPROCEDURE: CHOLANGIOGRAM - intraoperativeFLUOROSCOPY TIME (if supplied): (22.1) seconds, 128 fluoroscopy spot imagesin a cine loop obtainedPlacement of the catheter and the procedure were performed by: Dr. RoaFluoroscopy was provided by Eliu Rae, who was present in the room time ofthe procedure.TECHNIQUE: (All elements of maximal sterile barrier technique followed,including US elements as applicable)The cystic duct remnant was cannulized and contrast injected into thebiliary tree. There is mild distention of the extrahepatic common bileduct with free flow of contrast into the duodenum. There is no evidence ofa retained stone stricture or mass. ORDER #: [id number] RAD/Cholangiogram/ O R,InitialIMPRESSION:Normal intraoperative cholangiogramElectronically Signed: Campos Amaya MD at 14:42 EDTTel , Service support [phone], NX: Srinivas Roa MD; JOAQUÍN LAST Reading Intervention Teacher: Signed SURGERY VISIT REPORT Observed: 02/18/2018 Status: F Source: [place] 3:09 PM [facility] REPOSITORY [facility] [address] [place] [address] [id number] VISITDate of Service: 02/18/18MR#: [id number] Acct: [id number]: ANGIE ZAIDI Rep #: [id number]: 1990 Provider: Srinivas Roa MDAge/Sex: 27/F [place] [facility] [place]SA[place]: SignedIntakeIntakeVisit Reasons: Gall Stones/ER F/U 02/16 WCHAllergiessulfamethoxazole [From Bactrim] Allergy (Verified 10/12/17 16:36)Hivestrimethoprim [From Bactrim ] Allergy (Verified 10/12/17 16:36)Hiveshydrocodone bitartrate [From Vicodin] Adverse Reaction (Verified 10/12/17 16:36)NauseaMedicationsAcetaminophen [Tylenol] 500 mg PO Q6H PRN PRN tab 10/17/17 [Rx Confirmed 02/16/18]Ibuprofen 800 mg PO TID PRN # 30 tab 10/17/17 [Rx Confirmed 02/16/18]Ondansetron [Zofran Odt] 4 mg PO Q8H PRN PRN # 10 tab 02/16/18 [Rx]Oxycodone HCl/Acetaminophen [Percocet 5/325] 1 tab PO Q6H PRN PRN 5 Days #20 tab 02/16/18 [Rx]PFSHMedical History Gallstones (Acute)Surgical History History of (Acute)History of laparoscopy (Acute)Family History Mother AsthmaArthritisHypertensionThyroid disorderFather AsthmaArthritisDiabetesHypertensionHigh cholesterolSocial HistorySmoking Status : Current every day smokeralcohol intake: neversubstance use type: does not useHPIHPIHPI: ANGIE ZAIDI, is a 27 F who presents to the office today for evaluation of symptomaticcholelithiasis. Patient was recently seen and was [facility] emergency department on02/16/2018. She had been having intermittent right upper quadrant abdominal pain for the pastcouple months, it had become more severe and more frequent which necessitated her visit to theemergency department. Patient states that the pain is in the right upper quadrant radiatinginto her back. She reports nausea but no vomiting. She has had some chills but no fevers.She denies any urinary symptoms. She had a approximately 4 months ago. She istaking Tylenol and ibuprofen at home for the pain. Her workup included LFTs to show an alkphos slightly elevated at 138. Right upper quadrant ultrasound showed gallstones a positiveMurphy sign but there was no wall thickening and there was no pericholecystic fluid. I wasnotified and told her to follow up with me in the office.ROSGeneralGeneral: Yes fatigue;no weight change, appetite, colon cancer, breast cancer or weaknessHEENTHEENT: No difficulty swallowing, eye injury, eye surgery, swollen glands or hoarsenessEndoEndocrine: No thyroid disease, diabetes mellitus, thyroid cancer, Hair loss, heat intoleranceor cold intoleranceSkinSkin: No rash or changing molesBreastBreast: No left breast lump, right breast lump, nipple discharge, breast pain, abnormalmammogram, abnormal US or breast enlargementMuscMusculoskeletal: Yes back problems, arthritis and rheumatoid arthritis;no gout or joint painCardioCardiovascular: Yes high blood pressure;no murmur, pacemaker, heart disease, atrial fibrillation, heart attack, heart stent,palpitations, shortness of breat with exertion or chest painPsychPsychiatric: Yes depression and anxiety;no hearing voicesRespRespiratory: Yes shortness of breath, No sleep apnea, No cough, No COPD, Yes asthma, Noemphysema, No wheezingGastroGastrointestinal: Yes abdominal pain, Yes nausea or vomiting, No diarrhea, Yes constipation, Noblood in stool, Yes acid reflux, Yes hemorrhoids , No ulcers, Yes gallbladder problem, Noblack,tarry stoolsHemaHematologic: No blood thinners, No blood disorders, No bleeding, No anemia, No blood clotsNeuroNeurologic: No system reviewed and no additional complaints, except as docu, No as per HPI, Noabnormal walking, No abnormal hearing, No abnormal movements, No abnormal speech, No behavioralchanges, No burning sensations, No confusion, No seizure-like activity, No unsteadiness, Nodizziness, No localized weakness, No frequent falls, No headache(s), No lack of coordination,No loss of vision, No memory loss, Yes numbness, No other visual disturbances, No radiatingpain, No restless legs, No sensory deficit, No fainting, Yes tingling, No tremor(s), Noweakness, No otherExamConstGeneral: well developed, no acute distress, well hydratedOrientation: oriented to person, oriented to place, oriented to timeHENMTHead: normocephalic, atraumaticEars: external ears normalMouth: moist mucous membranesEyesSclera: sclerae normalPupils: normal by confrontationNeckNeck: no lymphadenopathy notedNeck mass: NoThyroid: symmetrical, thyroid normalChestChest palpation AND inspection: normal inspection of the chestBreast Palpation: No nipple dischargeRespEffort AND Inspection: normal respiratory effortAuscultation: clear to auscultation bilaterallyPercussion: percussion normalCardioRate: regular rateRhythm: regular rhythmHeart Sounds: no murmursGIPalpation: soft, tender, no masses, no hepatosplenomegalyAuscultation: normal bowel soundsRectal Exam: otherOther: Rectal exam deferred.ExtremGeneral : no clubbing, cyanosis or edema, normal to inspectionAssessment AND PlanProblems1. Acute cholecystitis due to biliary calculus K80.00PlanMy plan is to perform a laparoscopic cholecystectomy with intraoperative cholangiogram. Theplanned surgical procedure was discussed extensively with the patient. The risks, benefits, anticipated outcomes and possible complication were mentioned. My staff has also explained theprocedure in understandable terms and the patient was given the option to take printed materialconcerning the planned procedure. The patient had the opportunity to ask questions concerningthe planned procedure. The patient freely consents to the planned procedure.CodingLevel of Care CodeOff vis,new,level 3DiagnosesAcute cholecystitis due to biliary calculus K80. 1509 < Electronically signed by Srinivas Roa MD>Date Srinivas Roa MDCosigner Signature: Date (if applicable)CC: JOAQUÍN LAST EMERGENCY DEPARTMENT Observed: 02/16/2018 Status: F Source: [place] SUMMARY 6:06 PM [facility] REPOSITORY [facility] [address] [place] [address]Myxstipfl Department Qzzdgks06/24/18 1556MR#: [id number] Acct: [id number]: ANGIE ZAIDI Rep #: [id number]: 1990 27 From: Angie Bowens MDPCP: JOAQUÍN LAST Status: DEP ER- ER Visit SummaryDate of Service: 02/16/18Chief Complaint: Abdominal painHistory of Present Illness: The patient is a 27 F with intermittent right upper quadrant painfor the past couple of months, becoming more severe and more frequent. Patient has anappointment with her PCP next week with the pain worsened and she presented to the emergencyroom for evaluation. Pain is in the right upper quadrant radiating into her back. She reportsnausea but no vomiting. She has had some chills but no fever. She denies urinary symptoms.She had a approximately 4 months ago. She has been taking Tylenol or ibuprofen athome for pain, last dose approximately 6 hours ago.Physical Examination: Vital signs unremarkable.Patient sitting upright in bed no acute distress. She does appear uncomfortable.Head neck examination normal.Heart is regular rate and rhythm.Lung sounds are clear.Abdomen is soft with moderate tenderness in the right upper quadrant. Hypoactive bowel soundsare noted throughout.Test Results: CBC and chemistry studies are significant only for potassium low at 3.2. LFTsare significant only for alk phos of 138. Lipase normal. test negative. Rightupper quadrant ultrasound shows gallstones and a positive sonographic Ybarra sign, but there isno wall thickening or pericholecystic fluid.Emergency Department Course and Treatment: Patient was given morphine, Zofran, and IV fluidshere. On repeat evaluation she does feel improved. Patient was discussed with Dr. Roa.He will see her in the office tomorrow morning. Patient is to call first thing tomorrowmorning for an appointment. She will be given a prescription for Percocet and Zofran.Treatment Plan: []Disposition: DischargeImpression: CholelithiasisThis note was generated with [employer] dictation software. It may contain incorrect words,spelling, and punctuation that were not noted in review of the chart prior to signingED Disposition- Plan for ED Patient:Chief Complaint: Abd PainReferrals:Joaquín Last [Primary Care Provider] -What to do if you have ProblemsFor any increased pain, shortness of breath, bleeding, nausea or vomiting, chest pain, or anyunexpected problems, contact your Primary Care Provider. Call [facility] ([phone])or report to the closest Emergency Room.Call 911 if necessary.02/16/181805 <Electronically signed by Angie Bowens MD> Date Angie Bowens [facility] Signature (If Indicated): Date ___CC: JOAQUÍN LAST DISCHARGE INSTRUCTION Observed: 02/16/2018 Status: F Source: OSAKIS 5:32 PM [facility] REPOSITORY [facility] [address] [address]Ggumszpzy Gmpgijvzosy47/24/18 1728MR#: [id number] Acct: [id number]: ANGIE ZAIDI Rep #: [id number]: 1990 27 From: Angie Bowens MDPCP: JOAQUÍN LAST Status: REG ERED Disposition- Plan for ED Patient:Disposition: Home or Assisted LivingChief Complaint: Abd PainInstructions: ED Abdominal Pain Gallstone PossPrescriptions:Oxycodone HCl/Acetaminophen [Percocet 5/325] 1 tablet PO Q6H PRN PRN 5 Days #20 tabletPRN Reason: PainOndansetron [Zofran Odt] 4 mg PO Q8H PRN PRN #10 tabPRN Reason: NauseaReferrals:Srinivas Roa MD [STAFF PHYSICIAN] - 1 DayAdditional Instructions:Call Dr Roa's office first thing tomorrow morning - he will see you in his office tomorrowmorning for an appointment.What to do if you have ProblemsFor any increased pain, shortness of breath, bleeding, nausea or vomiting, chest pain, or anyunexpected problems, contact your Primary Care Provider. Call [facility] ([phone])or report to the closest Emergency Room.Call 911 if necessary. [phone] <Electronically signed by nAgie Bowens MD>Date Angie Bowens MDCosigner Signature (If Indicated): Date CC: JOAQUÍN LAST CBC W/DIFF, AUTOMATED Collected: 02/16/2018 Status: F Source: CLARA 4:08 PM [facility] REPOSITORY TYPE CODE TESTS RESULT OUT OF RANGE REFERENCE UNITS LAB L100.1000 Normal 4.4-11.0 K/mm3 WBC 7.3 LAB L100.1200 Normal 4.2-5.4 M/mm3 RBC 4.83 LAB L100.1300 Normal 12.0-15.0 g/dl HGB 13.3 LAB L100.1400 Normal 37-47 % HCT 40.1 LAB L100.1500 Normal 81-99 fL MCV 83.0 LAB L100.1600 Normal 27.0-32.0 pg MCH 27.5 LAB L100.1700 Normal 32-36 g/gl MCHC 33.2 LAB L100.1810 High 11.6-14.6 % RDW 16.3 CV LAB L100.1820 High 35.1-43.9 fl RDW 49.7 SD LAB L100.1900 Normal 150-450 K/mm3 PLT 249 LAB L100.2000 Normal 6.2-12.0 fl MPV 10.4 LAB L100.2100 Normal 47-70 % NEUT% 51.6 LAB L100.2200 Normal 19-41 % LY% 31.0 LAB L100.2300 Normal 0-10 % MONO% 7.3 LAB L100.2400 High 0-5 % EO% 9.5 LAB L100.2500 Normal 0-1 % BASO% 0.5 LAB L100.2550 Normal 0.0-0.9 % IM 0.100 GRAN % Result Comment: IG% - Immature Granulocytes (promyelocytes, myelocytes andmetamyelocytes) > 1% indicates that a LEFT SHIFT is Present. LAB L100.2620 Normal 2.0-7.7 X10 3/uL Absolute Neut 3.8 LAB L100.2720 Normal 0.83-4.51 X10 3/ul Absolute Lymph 2.26 Performed By: #### L100.0100 ####[facility] [address] [place], [place], [address] BASIC METABOLIC Collected: 02/16/2018 Status: F Source: OSAKIS PROFILE (BMP) 4:08 PM [facility] REPOSITORY TYPE CODE TESTS RESULT OUT OF RANGE REFERENCE UNITS LAB L501.0100 Normal 74-106 mg/dL GLU 98 Result Comment: Please note revised GLUCOSE reference range /02/2018. LAB L501.1000 Low 7-18 mg/dL BUN 4 LAB L501.1100 Normal 0.55-1.02 mg/dL CREAT,SERUM 0.71 Result Comment: The validity of the calculated GFR AND GFRAA in patients over70 years has not been determined. Clinical correlation isessential. LAB L501.1110 Normal >60 mL/min EST GFR 106 Result Comment: Non- GFR Calc LAB L501.1115 Normal >60 mL/min EST GFR - 128 AA Result Comment: GFR Calc LAB L501.1255 Normal ml/min Estimated 117.79 CRCL LAB L501.1300 Low 10-20 RATIO BUN/CRE 5.6 LAB L501.2200 Normal 8.5-10 mg/dL CA 8.7 .1 LAB L501.5300 Normal 136-14 mmol/L NA 141 5 LAB L501.5600 Low 3.5-5. mmol/L K 3.2 1 LAB L501.5900 Normal 98-107 mmol/L CL 107 LAB L501.6100 Normal 21.0-3 mmol/L CO2 25.0 2.0 LAB L501.6200 Normal 5-15 GAP 9 Performed By: #### L500.2500, L500.3400, L501.2450 #### [facility] [address] [place], [place], [address] LIVER PROFILE Collected: 02/16/2018 Status: F Source: OSAKIS 4:08 PM [facility] REPOSITORY TYPE CODE TESTS RESULT OUT OF RANGE REFERENCE UNITS LAB L501.1500 Normal 6.4-8.2 g/dL T 6.9 PROT LAB L501.1800 Normal 3.2-5.0 g/dL ALB 3.4 LAB L501.1950 Normal 2.2-4.2 g/dL GLOB 3.5 LAB L501.4100 Normal 15-37 U/L AST 18 LAB L501.4305 High 45-117 U/L ALK P 138 LAB L501.4405 Normal 13-56 U/L ALT 22 LAB L501.4600 Normal 0.20-1.00 mg/dL T 0.40 BILI LAB L501.4700 Normal 0.00-0.30 mg/dL D 0.05 BILI Performed By: #### L500.2500, L500.3400, L501.2450 #### [facility] [address] [facility], [address] LIPASE Collected: 02/16/2018 Status: F Source: OSAKIS 4:08 PM [facility] REPOSITORY TYPE CODE TESTS RESULT OUT OF RANGE REFERENCE UNITS LAB L501.2450 Normal 73-393 U/L LIPASE 83 Performed By: #### L500.2500, L500.3400, L501.2450 #### [facility] [address] [facility] [place], [place], [address] ,SERUM,HCG QUALI. Collected: Status: F Source: OSAKIS 02/16/2018 4:08 PM [facility] REPOSITORY TYPE CODE TESTS RESULT OUT OF REFERENCE UNITS RANGE LAB L700.7000 Normal 0-9 Nonpreg Negative HCGSQUAL NEGATIVE LAB L700.6700 Normal =>Qualitati mIU/mL HCG Qual < 1 ve triggr Performed By: #### L700.6800 ####[facility] [address] [facility] [place], [place], [address] GALLBLADDER Observed: 02/16/2018 Status: F Source: OSAKIS 3:55 PM [facility] REPOSITORY [facility]ITAL[facility] [address] [facility] [place], [place] [address]WsufhwtqaneJC#: [id number] Acct: [id number]: ANGIE ZAIDI Rep #: [id number]: 1990 F 27 From: Dionte Marr [facility]PITALCP: COLTJOAQUÍN Status: REG ERStudy: Gallbladder Date of Exam: Exam# [id number] Ordering Dr: Angie Bowens MDSTUDY: ABDOMINAL ULTRASOUND - RIGHT UPPER QUADRANTREASON FOR VISIT: Female, 27 years old. Worsening right upper quadrantpain for 2 months.TECHNIQUE: Ultrasound evaluation of the right upper quadrant wasperformed with real-time and static de los santos-scale imaging.TECHNICAL QUALITY: Adequate.COMPARISON: CT abdomen and pelvis October 12, 2017. FINDINGS:Liver: The liver measures 16.7 cm. There is normal echogenicity of theliver. The bile ducts are within normal limits. There is hepatic colorflow. The direction of portal flow is hepatopetal. There is nodemonstrated mass lesion.Gallbladder: Normal distended gallbladder. The gallbladder wall measures3 mm. There is a positive sonographic Ybarra's sign. There is nopericholecystic fluid. There are multiple echogenic structures within thegallbladder, consistent with multiple gallstones.Common Bile Duct (C.B.D.): The common bile duct measures 4 mm.Pancreas: Normal size of the head, body and tail of the pancreas. Thereis normal echogenicity of the pancreas. There is no demonstratedpancreatic mass or cyst.Right Kidney: Normal size of the right kidney. The right kidney measures9.2 x 5.0 x 3.3 cm. Normal renal cortex. The right cortex measures 1.1cm. There is no demonstrated renal mass or cyst. There is no righthydronephrosis. ORDER #: [id number] US/GallbladderIMPRESSION:Gallstones. There is a positive sonographic Ybarra sign, but nosignificant mural thickening of the gallbladder nor pericholecystic fluidto clearly indicate acute cholecystitis. If suspicion persists, evaluationwith HIDA scan may be useful.Electronically Signed:Campos Marr MD at 17: 13 EDTTel , Service support , CV: JOAQUÍN LAST; Angie Bowens MD Reading Intervention Teacher:Signed LIVER PROFILE Collected: 01/09/2018 Status: F Source: CLARA 9:19 AM [facility] REPOSITORY TYPE CODE TESTS RESULT OUT OF RANGE REFERENCE UNITS LAB L501.1500 Normal 6.4-8.2 g/dL T 6.7 PROT LAB L501.1800 Normal 3.2-5.0 g/dL ALB 3.3 LAB L501.1950 Normal 2.2-4.2 g/dL GLOB 3.4 LAB L501.4100 Normal 15-37 U/L AST 17 LAB L501.4305 High 45-117 U/L ALK P 122 LAB L501.4405 Normal 13-56 U/L ALT 18 LAB L501.4600 Normal 0.20-1.00 mg/dL T 0.30 BILI LAB L501.4700 Normal 0.00-0.30 mg/dL D 0.07 BILI Performed By: #### L500.3400 ####[facility] [address] [place], [place], [address] HEPATITIS B SURFACE Collected: 01/09/2018 Status: F Source: CLARA AG 9:19 AM [facility] REPOSITORY TYPE CODE TESTS RESULT OUT OF RANGE REFERENCE UNITS LAB L3100.0400 Normal Negative HB Negative SURF AG Result Comment: Performed at: [facility] [address] [id number] Director: Farhat Aguayo PhD, Phone: [phone] Performed By: #### L3100.0390, L3100.0690 ####[facility] ( refer to report for specific site)refer to report for address and phone number HEPATITIS C ANTIBODIES Collected: 01/09/2018 Status: F Source: CLARA 9:19 AM [facility] REPOSITORY TYPE CODE TESTS RESULT OUT OF RANGE REFERENCE UNITS LAB L3100.0650 Normal 0.0-0.9 s/co ratio HEP C <0.1 AB Result Comment: Negative: < 0.8 Indeterminate: 0.8 - 0.9 Positive: > 0.9 The CDC recommends that a positive HCV antibody result be followed up with a HCV Nucleic Acid Amplification test (929403). Performed By: #### L3100.0390, L3100.0625 ####[facility] ( refer to report for specific site)refer to report for address and phone number DISCHARGE INSTRUCTION Observed: 10/17/2017 Status: F Source: OSAKIS 12:26 PM [facility] REPOSITORY [facility]ITAL[facility] Records [address] [place], [place] [address]Ybtdsnqtiqra for Home/Discharge Ajpxstrggqjr50/24/18 1224MR #: [id number] Acct: [id number]: ANGIE ZAIDI Rep #: [id number]: 1990 27 From: Sun Desai MDPCP: Care Physician, No Primary Status: ADM INYou will use the following diet at home:: No restrictionsDischarge Activity: May not drive while taking narcotic pain medications., May Shower, May Takea Tub BathReturn to work on:: 11/16/17May resume sexual activity in: 4-6 weeksLifting Restrictions: limit to 20 pounds for 4 wks.Call your doctor if your incision/area has: Increased RednessCall your doctor if you observe: Fever of 101 or Higher, Change in Color, Inability to have abowel movement, Using more than one pad per hour, Uncontrolled painCleanse incision/area with: Soap AND WaterAllergies/Adverse Reactions:Allergiessulfamethoxazole [From Bactrim] Allergy (Verified 10/12/17 16:36)Hivestrimethoprim [From Bactrim] Allergy (Verified 10/12/17 16:36)Hiveshydrocodone bitartrate [From Vicodin] Adverse Reaction (Verified 16:36)NauseaMedications to take at DischargeGabapentin [Neurontin] 300 mg PO BID 10/12/17Labetalol [Trandate (Beta Batsheva)] 200 mg BID 10/12/17Acetaminophen [Tylenol] 500 mg PO Q6H PRN PRN tablet 10/17/17Amoxicillin/Potassium Clav [ Augmentin 875-125 Tablet] 1 ea PO BID #20 tab 10/17/18Fluconazole [Diflucan] 150 mg PO DAILY #4 tab 10/17/17Gabapentin [Neurontin] 200 mg PO BIDCM capsule 10/17/17Ibuprofen 800 mg PO TID PRN #30 tab 10/17/17Labetalol [Trandate (Beta Batsheva)] 200 mg PO BID tablet 10/17/17The following prescriptions were given:Fluconazole [Diflucan] 150 mg PO DAILY #4 tabAmoxicillin/Potassium Clav [Augmentin 875-125 Tablet] 1 ea PO BID #20 tabIbuprofen 800 mg PO TID PRN #30 tabPRN Reason: Mild-Mod Pain (-12/03) Primary Care Physician:Care Physician,No Primary [Primary Care Provider] -Please Follow Up With: Isai Matt MD - [phone]: within 1 wkProposed Discharge Date: 10/17/1802/24/18 1226 <Electronically signed by Sun Desai MD>Date Sun Desai MDCC: No Primary Care Physician DISCHARGE SUMMARY Observed: 10/17/2017 Status: F Source: OSAKIS 11:22 AM [facility] REPOSITORY [facility]ITALMedical Records [address] [facility] [place], [place] [address]Bjygqlstc Vxbaqin07/24/18 1113MR#: [id number] Acct: [id number]: ANGIE ZAIDI Rep #: [id number]: 1990 27 From: Sun Desai MDPCP: Care Physician, No Primary Status: ADM IN YLocation: MS2 [id number] by Sun Desai MD on 10/17/17 at 1122Code VisitWound culture: 3+ gm neg rods, but negative aerobic growth, anaerobic culture pending.Blood cultures negative. 1122 <Electronically signed by Sun Desai MD>Date Sun Desai [facility]: No Primary Care Physician; Sun Desai MD *SignedDischarge Date and DiagnosisDate of Admission: - postop fever, infected hematoma ant abd wall; cellulitis.Leukocytosis, TachycardiaDate of Discharge: 10/17/17 - same s/p CT guided aspiration and drain placement.Hospital Course and TreatmentSummary of Care Provided:The patient is a 27 year old Female presented through ED on 10/12/17 for postop fevers s/p Csection delivery . CT showed infected hematomsa vs abscess at anteriior abdominal wall,superior to incision. Tachycardic and febrile.Zosyn initiated. Pt continued to spike fevers despite IV antibiotics.Radiology consulted for CT guided aspiration of the abscess on 10/14/17, and LESLYE drainplacement.After CT guided aspiration, drainage: rapid response of fever curve. Some extension was notedof erythema beyond initial marked area of cellulitis. Pt observed additional day for this,and for continued LESLYE drainage.LESLYE drain removed on HD#5 Some improvement also noted at area of cellulitis which had beenmarked by nursing staff. Pt sent home. on hospital day #5 to continue recovery at home.Discharge instructions given.Discharge Diet: No RestrictionsDischarge Activity: May not drive while taking narcotic pain medications., May Shower, May Takea Tub BathReturn to work on:: 11/16/17May resume sexual activity in: 4-6 weeksLifting Restrict to (lbs):: 20 - for 4 wk to allow healingCall your doctor if your incision/area has: Increased RednessCall your doctor if you observe: Fever of 101 or Higher, Change in Color, Inability to have abowel movement, Using more than one pad per hour, Uncontrolled painCleanse incision/ area with: Soap AND WaterHome Medications:Medications to take at DischargeGabapentin [Neurontin] 300 mg PO BID 10/12/17Labetalol [Trandate (Beta Batsehva)] 200 mg BID 10/12/17Acetaminophen [Tylenol] 500 mg PO Q6H PRN PRN tablet 10/17/17Amoxicillin/Potassium Clav [Augmentin 875-125 Tablet] 1 ea PO BID #20 tab 10/17/17luconazole [Diflucan] 150 mg PO DAILY #4 tab 10/17/17Gabapentin [ Neurontin] 200 mg PO BIDCM capsule 10/17/17Ibuprofen 800 mg PO TID PRN #30 tab 10/17/17Labetalol [Trandate (Beta Batsheva)] 200 mg PO BID tablet ollowing Prescrptions Were Given to Patient:Fluconazole [Diflucan] 150 mg PO DAILY #4 tabAmoxicillin/Potassium Clav [Augmentin 875-125 Tablet] 1 ea PO BID #20 tabIbuprofen 800 mg PO TID PRN #30 tabPRN Reason: Mild-Mod Pain ()Primary Care Physician:Care Physician,No Primary [Primary Care Provider] -Please Follow Up With: Isai Matt MD - [phone]: within 1 wkDisposition: HomeMedical Necessity- Tobacco UseSmoking Status: Current every day smokerMeaningful Use InfoMeaningful Use Diagnoses (Choose all that apply): None blfpcvuocf54/24/18 1120 < Electronically signed by Sun Desai MD>Date Sun Desai [facility] Signature (if applicable): Date _CC: No Primary Care Physician; Sun Desai MD Signed DISCHARGE SUMMARY Observed: 10/17/2017 Status: F Source: OSAKIS 11:07 AM [facility] REPOSITORY [facility]ITALMedical [facility] [address] [address]Sfurkezpm Gtrgcnb08/24/18 1057MR#: [id number] Acct: [id number]: ANGIE ZAIDI Rep #: [id number]: 1990 27 From: Sun Desai MDPCP: Care Physician, No Primary Status: ADM IN YLocation: MS2 [id number] 1Discharge Date and DiagnosisDate of Admission: 10/12/17Date of Discharge: 10/17/17Hospital Course and TreatmentProcedures: - - CT guided drainage of abdominal wall hematoma/ seroma, drain placementSummary of Care Provided:The patient is a 27 year old F [] Discharge Diet: No RestrictionsDischarge Activity: May not drive while taking narcotic pain medications., May Shower, May Takea Tub BathReturn to work on:: 11/16/17May resume sexual activity in: 4-6 weeksLifting Restrict to (lbs):: 20 - for 4 wk to allow healingCall your doctor if your incision/area has: Increased RednessCall your doctor if you observe: Fever of 101 or Higher, Change in Color, Inability to have abowel movement, Using more than one pad per hour, Uncontrolled painCleanse incision/ area with: Soap AND WaterHome Medications:Medications to take at DischargeGabapentin [Neurontin] 300 mg PO BID 10/12/17Labetalol [Trandate (Beta Batsheva)] 200 mg BID 10/12/17Acetaminophen [Tylenol] 500 mg PO Q6H PRN PRN tablet 10/17/17Amoxicillin/Potassium Clav [Augmentin 875-125 Tablet] 1 ea PO BID #20 tab 10/17/17luconazole [Diflucan] 150 mg PO DAILY #4 tab 10/17/17Gabapentin [ Neurontin] 200 mg PO BIDCM capsule 10/17/17Ibuprofen 800 mg PO TID PRN #30 tab 10/17/17Labetalol [Trandate (Beta Batsheva)] 200 mg PO BID tablet ollowing Prescrptions Were Given to Patient:Fluconazole [Diflucan] 150 mg PO DAILY #4 tabAmoxicillin/Potassium Clav [Augmentin 875-125 Tablet] 1 ea PO BID #20 tabIbuprofen 800 mg PO TID PRN #30 tabPRN Reason: Mild-Mod Pain (1-12/03)Primary Care Physician:Care Physician,No Primary [Primary Care Provider] -Please Follow Up With: Isai Matt MD - [phone]: within 1 wkDisposition: HomeMinutes spent on discharge:: 20Patient Condition:: StableMedical Necessity- Tobacco UseSmoking Status: Current every day smokerMeaningful Use InfoMeaningful Use Diagnoses (Choose all that apply): None [id number]/24/18 1107 <Electronically signed by Sun Desai MD>Date Sun Desai MDCosigner Signature (if applicable): Date CC: No Primary Care Physician ; Sun Desai MD Signed CBC W/DIFF, AUTOMATED Collected: 10/16/2017 Status: F Source: CLARA 6:00 AM [facility] REPOSITORY TYPE CODE TESTS RESULT OUT OF RANGE REFERENCE UNITS LAB L100.1000 High 4.4-11.0 K/mm3 WBC 12.2 LAB L100.1200 Low 4.2-5.4 M/mm3 RBC 3.74 LAB L100.1300 Low 12.0-15.0 g/dl HGB 10.1 LAB L100.1400 Low 37-47 % HCT 31.6 LAB L100.1500 Normal 81-99 fL MCV 84.5 LAB L100.1600 Normal 27.0-32.0 pg MCH 27.0 LAB L100.1700 Normal 32-36 g/gl MCHC 32.0 LAB L100.1810 High 11.6-14.6 % RDW 17.0 CV LAB L100.1820 High 35.1-43.9 fl RDW 52.6 SD LAB L100.1900 Normal 150-450 K/mm3 PLT 424 LAB L100.2000 Normal 6.2-12.0 fl MPV 10.2 LAB L100.2100 High 47-70 % NEUT% 79.0 LAB L100.2200 Low 19-41 % LY% 15.0 LAB L100.2300 Normal 0-10 % MONO% 3.9 LAB L100.2400 Normal 0-5 % EO% 0.0 LAB L100.2500 Normal 0-1 % BASO% 0.5 LAB L100.2550 High 0.0-0.9 % IM 1.600 GRAN % Result Comment: IG% - Immature Granulocytes (promyelocytes, myelocytes andmetamyelocytes) > 1% indicates that a LEFT SHIFT is Present. LAB L100.2620 High 2.0-7.7 X10 3/uL Absolute Neut 9.6 LAB L100.2720 Normal 0.83-4.51 X10 3/ul Absolute Lymph 1.83 Performed By: #### L100.0100 ####[facility] [address] [facility] [place], [address] 12 LEAD ELECTROCARDIOGRAM Observed: 10/15/2017 Status: F Source: OSAKIS 2:33 PM [facility] REPOSITORY [facility]ITALCardiovascular [address] [place], [place] [address] Lead EKG010/12/17 1809MR#: [id number] Acct: [id number]: DYANANGIE SY Rep #: [id number]: 1990 27 From: Srinivas Huber MDAttending Dr: Andres Lees MD Status: ADM INOrdering Dr: Abraham Goldberg MD Date: 10/12/17Location: MS2 Sex: F CAdmitted: 10/12/17Test Reason :Blood Pressure : / mmHGVent. Rate : 095 BPM Atrial Rate : 095 BPMP-R Int : 132 ms QRS Dur : 090 msQT Int : 350 ms P -R-T Axes : 066 068 028 degreesQTc Int : 439 msNormal sinus rhythmNormal ECGConfirmed by SRINIVAS HUBER ([id number]), clinical editor NIXON RODRÍGUEZ ([id number]) on 10/15/2017 2:32:51 PMReferred By: JACI Confirmed By:SRINIVAS HUBER10/15/17 1432Date Srinivas Huber MDCC: No Primary Care Physician; Abraham Goldberg MD Signed CBC W/DIFF, AUTOMATED Collected: 10/15/2017 Status: F Source: CLARA 6:18 AM [facility] REPOSITORY TYPE CODE TESTS RESULT OUT OF RANGE REFERENCE UNITS LAB L100.1000 Normal 4.4-11.0 K/mm3 WBC 10.5 LAB L100.1200 Low 4.2-5.4 M/mm3 RBC 3.27 LAB L100.1300 Low 12.0-15.0 g/dl HGB 8.8 LAB L100.1400 Low 37-47 % HCT 27.8 LAB L100.1500 Normal 81-99 fL MCV 85.0 LAB L100.1600 Low 27.0-32.0 pg MCH 26.9 LAB L100.1700 Low 32-36 g/gl MCHC 31.7 LAB L100.1810 High 11.6-14.6 % RDW 17.1 CV LAB L100.1820 High 35.1-43.9 fl RDW 52.7 SD LAB L100.1900 Normal 150-450 K/mm3 PLT 358 LAB L100.2000 Normal 6.2-12.0 fl MPV 10.2 LAB L100.2100 High 47-70 % NEUT% 71.3 LAB L100.2200 Normal 19-41 % LY% 21.8 LAB L100.2300 Normal 0-10 % MONO% 4.6 LAB L100.2400 Normal 0-5 % EO% 0.8 LAB L100.2500 Normal 0-1 % BASO% 0.5 LAB L100.2550 High 0.0-0.9 % IM 1.000 GRAN % Result Comment: IG% - Immature Granulocytes (promyelocytes, myelocytes andmetamyelocytes) > 1% indicates that a LEFT SHIFT is Present. LAB L100.2620 Normal 2.0-7.7 X10 3/uL Absolute Neut 7.5 LAB L100.2720 Normal 0.83-4.51 X10 3/ul Absolute Lymph 2.29 Performed By: #### L100.0100 ####[facility] [address] [place], [address] BASIC METABOLIC Collected: 10/15/2017 Status: F Source: CLARA PROFILE (BMP) 6:18 AM [facility] REPOSITORY TYPE CODE TESTS RESULT OUT OF RANGE REFERENCE UNITS LAB L501.0100 High 74-106 mg/dL GLU 113 Result Comment: Fasting Glucose result from 100 to 125 mg/dLsuggests IMPAIRED HOMEOSTASIS per A.D.A. criteria.Please note revised GLUCOSE reference range tfxzymhjj49/02/2018. LAB L501.1000 Low 7-18 mg/dL BUN 3 LAB L501.1100 Low 0.55-1.02 mg/dL CREAT,SERUM 0.40 Result Comment: The validity of the calculated GFR AND GFRAA in patients over70 years has not been determined. Clinical correlation isessential. LAB L501.1110 Normal >60 mL/min EST GFR 209 Result Comment: Non- GFR Calc LAB L501.1115 Normal >60 mL/min EST GFR - 253 AA Result Comment: GFR Calc LAB L501.1255 Normal ml/min Estimated 209.08 CRCL LAB L501.1300 Low 10-20 RATIO BUN/CRE 7.6 LAB L501.2200 Low 8.5-10 mg/dL CA 8.2 .1 LAB L501.5300 Normal 136-14 mmol/L NA 143 5 LAB L501.5600 Normal 3.5-5. mmol/L K 3.9 1 LAB L501.5900 High 98-107 mmol/L CL 109 LAB L501.6100 Normal 21.0-3 mmol/L CO2 27.0 2.0 LAB L501.6200 Normal 5-15 GAP 7 Performed By: #### L500.2500 ####[facility] [address] [place], [address] Observed: 10/14/2017 Status: F Source: OSAKIS CULTURE, DEEP WOUND 11:02 AM [facility] REPOSITORY Comments: aspirate-abdominal abscessGram StainGram Stain 4+ White Blood Cells 3+ Red Blood Cells 3+ Gram negative rods Rare Gram positive cocci Wound CultureNo growth aerobically. Cult, Anaerobic Studies have confirmed that Prevotella, Porphyromonas and Bacteroides species other than B. fragilis group are routinely susceptible to: Ampicillin/Sulbactam, Piperacillin/Tazobactam, Cefoxitin, Tigecycline, Ertapenem, Imipenem, Meropenem and Metronidazole and variable in resistance to: Penicillin/Ampicillin, Clindamycin and Moxifloxacin. ORGANISM 1: Prevotella biviaBeta Lactamase Positive Performed By: #### M100.1500 ####[facility] [address] [place], [address] ABSCESS/FISTULA/SINUS TRACT Observed: Status: F Source: OSAKIS 10/14/2017 9:12 AM [facility] REPOSITORY [facility]ITALImaging [address] [place], [place] [address]Vfrhuiu/Fistula/Sinus TractMR#: [id number] Acct: [id number]: ANIGE ZAIDI Rep #: [id number]: 1990 F 27 From: Jason Hou MDPCP : Care Physician, No Primary Status: ADM INStudy: Abscess/Fistula/ Sinus Tract Date of Exam: 10/14/17Exam# [id number] Ordering Dr: Isai Matt MDPROCEDURE: CT DIRECTED ABSCESS DRAINAGE, PERITONEALDATE OF EXAMINATION: October 14, 2017.INDICATION: Female, 27 years old. Abdominal wall fluid collection.Status post .PHYSICIAN: Jason Hou M.D.CONSENT:Written informed consent was obtained having explained the risks, benefitsand alternatives in detail with the patient who accepted the risks andagreed to proceed. Laboratory review and clinical assessment was performed.CONSCIOUS SEDATION PROTOCOL:The Drugs used were: 2 mg Versed, IV., and 50 mcg Fentanyl, IV.The sedation time was: 20 minutes. Conscious sedation protocol was startedat 10: 40 AM and terminated at 11:00 AM.The conscious sedation protocol was independently monitored by thedepartment nurse.RADIATION DOSAGE (If Supplied By Facility): CTDIvol = ( 14.44 ) mGy, DLP =( 682.84 ) mGycm TECHNIQUE:CT sections were made through the abdomen and pelvis revealing a fluidcollection in the deep anterior abdominal wall in the lower abdomen andupper pelvis.. The skin surface was prepped and draped in a sterilefashion. Puncture of this collection was performed initially with a 8.5French catheter and purulent fluid was aspirated. Drainage catheter wasthen inserted into the collection and formed into position. Additionalfluid was aspirated for a total of approximately 110 cc of . Fluid. Thecatheter was sutured into position to allow for continued drainage.Followup CT sections reveals good position of the catheter. ORDER #: [id number] CT/Abscess/Fistula/Sinus TractIMPRESSION:1. CT directed drainage of a fluid collection using CT image guidance andimage documentation as described.2. Conscious Sedation protocol utilized with independent monitoringElectronically Signed: Jason Hou MD at 13:26 [facility] [phone], Service support [phone], SQ: No Primary Care Physician; Isai Matt MD Reading Intervention Teacher:Signed CBC W/DIFF, AUTOMATED Collected: 10/14/2017 Status: F Source: CLARA 5:30 AM [facility] REPOSITORY TYPE CODE TESTS RESULT OUT OF RANGE REFERENCE UNITS LAB L100.1000 High 4.4-11.0 K/mm3 WBC 20.8 LAB L100.1200 Low 4.2-5.4 M/mm3 RBC 3.48 LAB L100.1300 Low 12.0-15.0 g/dl HGB 9.3 LAB L100.1400 Low 37-47 % HCT 29.2 LAB L100.1500 Normal 81-99 fL MCV 83.9 LAB L100.1600 Low 27.0-32.0 pg MCH 26.7 LAB L100.1700 Low 32-36 g/gl MCHC 31.8 LAB L100.1810 High 11.6-14.6 % RDW 17.1 CV LAB L100.1820 High 35.1-43.9 fl RDW 52.7 SD LAB L100.1900 Normal 150-450 K/mm3 PLT 385 LAB L100.2000 Normal 6.2-12.0 fl MPV 10.5 LAB L100.2100 High 47-70 % NEUT% 89.4 LAB L100.2200 Low 19-41 % LY% 5.4 LAB L100.2300 Normal 0-10 % MONO% 4.5 LAB L100.2400 Normal 0-5 % EO% 0.2 LAB L100.2500 Normal 0-1 % BASO% 0.1 LAB L100.2550 Normal 0.0-0.9 % IM 0.400 GRAN % Result Comment: IG% - Immature Granulocytes (promyelocytes, myelocytes andmetamyelocytes) > 1% indicates that a LEFT SHIFT is Present. LAB L100.2620 High 2.0-7.7 X10 3/uL Absolute Neut 18.6 LAB L100.2720 Normal 0.83-4.51 X10 3/ul Absolute Lymph 1.13 Performed By: #### L100.0100, L501.0100, L501.1000, L501.1100, L501.1300, L501.5300, L501.5600, L501.5900, L501.6100, L501.6200 ####[facility] [address] [facility], [address] ### # L3100.9600 ####[facility] (refer to report for specific site)refer to report for address and phone number GLUCOSE Collected: 10/14/2017 Status: F Source: OSAKIS 5:30 AM [facility] REPOSITORY TYPE CODE TESTS RESULT OUT OF RANGE REFERENCE UNITS LAB L501.0100 Normal 74-106 mg/dL GLU 94 Result Comment: Please note revised GLUCOSE reference range /02/2018. Performed By: #### L100.0100, L501.0100, L501.1000, L501.1100, L501.1300, L501.5300, L501.5600, L501.5900, L501.6100, L501.6200 ####[facility] [address] [facility], [address] ### # L3100.9600 ####[facility] (refer to report for specific site)refer to report for address and phone number BUN Collected: 10/14/2017 Status: F Source: OSAKIS 5:30 AM [facility] REPOSITORY TYPE CODE TESTS RESULT OUT OF RANGE REFERENCE UNITS LAB L501.1000 Low 7-18 mg/dL BUN 2 Performed By: #### L100.0100, L501.0100, L501.1000, L501.1100, L501.1300, L501.5300, L501.5600, L501.5900, L501.6100, L501.6200 ####[facility] [address] [facility], [address] ### # L3100.9600 ####[facility] (refer to report for specific site)refer to report for address and phone number CREATININE, SERUM Collected: 10/14/2017 Status: F Source: OSAKIS 5:30 AM [facility] REPOSITORY TYPE CODE TESTS RESULT OUT OF RANGE REFERENCE UNITS LAB L501.1100 Low 0.55-1.02 mg/dL 0.52 CREAT,SERUM Result Comment: The validity of the calculated GFR AND GFRAA in patients over70 years has not been determined. Clinical correlation isessential. Performed By: #### L100.0100, L501.0100, L501.1000, L501.1100, L501.1300, L501.5300, L501.5600, L501.5900, L501.6100, L501.6200 ####[facility] [address] [facility], [address] ### # L3100.9600 ####[facility] (refer to report for specific site)refer to report for address and phone number BUN/CREAT RATIO Collected: 10/14/2017 Status: F Source: OSAKIS 5:30 AM [facility] REPOSITORY TYPE CODE TESTS RESULT OUT OF RANGE REFERENCE UNITS LAB L501.1300 Low 10-20 RATIO 3.9 BUN/CRE Performed By: #### L100.0100, L501.0100, L501.1000, L501.1100, L501.1300, L501.5300, L501.5600, L501.5900, L501.6100, L501.6200 ####[facility] [address] [facility], [address] ### # L3100.9600 ####[facility] (refer to report for specific site)refer to report for address and phone number SODIUM LEVEL Collected: 10/14/2017 Status: F Source: OSAKIS 5:30 AM [facility] REPOSITORY TYPE CODE TESTS RESULT OUT OF RANGE REFERENCE UNITS LAB L501.5300 Normal 136-145 mmol/L NA 140 Performed By: #### L100.0100, L501.0100, L501.1000, L501.1100, L501.1300, L501.5300, L501.5600, L501.5900, L501.6100, L501.6200 ####[facility] [address] [place], [address] ### # L3100.9600 ####[facility] (refer to report for specific site)refer to report for address and phone number POTASSIUM Collected: 10/14/2017 Status: F Source: OSAKIS 5:30 AM [facility] REPOSITORY TYPE CODE TESTS RESULT OUT OF RANGE REFERENCE UNITS LAB L501.5600 Normal 3.5-5.1 mmol/L K 3.7 Performed By: #### L100.0100, L501.0100, L501.1000, L501.1100, L501.1300, L501.5300, L501.5600, L501.5900, L501.6100, L501.6200 ####[facility] [address] [place], [address] ### # L3100.9600 ####[facility] (refer to report for specific site)refer to report for address and phone number CHLORIDE Collected: 10/14/2017 Status: F Source: OSAKIS 5:30 AM [facility] REPOSITORY TYPE CODE TESTS RESULT OUT OF RANGE REFERENCE UNITS LAB L501.5900 Normal 98-107 mmol/L CL 104 Performed By: #### L100.0100, L501.0100, L501.1000, L501.1100, L501.1300, L501.5300, L501.5600, L501.5900, L501.6100, L501.6200 ####[facility] [address] [place], [address] ### # L3100.9600 ####[facility] (refer to report for specific site)refer to report for address and phone number CARBON DIOXIDE Collected: 10/14/2017 Status: F Source: CLARA 5:30 AM [facility] REPOSITORY TYPE CODE TESTS RESULT OUT OF RANGE REFERENCE UNITS LAB L501.6100 Normal 21.0-32.0 mmol/L CO2 26.0 Performed By: #### L100.0100, L501.0100, L501.1000, L501.1100, L501.1300, L501.5300, L501.5600, L501.5900, L501.6100, L501.6200 ####[facility] [address] [place], [address] ### # L3100.9600 ####[facility] (refer to report for specific site)refer to report for address and phone number ANION GAP Collected: 10/14/2017 Status: F Source: OSAKIS 5:30 AM [facility] REPOSITORY TYPE CODE TESTS RESULT OUT OF RANGE REFERENCE UNITS LAB L501.6200 Normal 5-15 GAP 10 Performed By: #### L100.0100, L501.0100, L501.1000, L501.1100, L501.1300, L501.5300, L501.5600, L501.5900, L501.6100, L501.6200 ####[facility] [address] [facility], [address] ### # L3100.9600 ####[facility] (refer to report for specific site)refer to report for address and phone number CALCIUM IONIZED Collected: 10/14/2017 Status: F Source: CLARA 5:30 AM [facility] REPOSITORY TYPE CODE TESTS RESULT OUT OF RANGE REFERENCE UNITS LAB L3100.9600 Normal 4.5-5.6 mg/dL IONIZED 5.1 CA Result Comment: Performed at: - [facility] [id number] Director: Farhat Aguayo PhD, Phone: [phone] Performed By: #### L100.0100, L501.0100, L501.1000, L501.1100, L501.1300, L501.5300, L501.5600, L501.5900, L501.6100, L501.6200 ####[facility] [address] [place], [address] ### # L3100.9600 ####[facility] (refer to report for specific site)refer to report for address and phone number HISTORY AND PHYSICAL Observed: 10/13/2017 Status: F Source: OSAKIS EXAM 7:03 AM [facility] REPOSITORY [facility] [address] [facility] [place], [place] [address]Lbirdlq and Ixzyztvc50/20/18 0702#: [id number] Acct: [id number]: ANGIE ZAIDI Rep #: [id number]: 1990 27 From: Andres Lees MDPCP: Care Physician, No Primary Status: ADM IN YLocation: MS2 [id number] and PhysicalDate of Admission: 10/12/17HISTORY OF PRESENT ILLNESS:On 10/13/2017, Angie Zaidi, a 27 year old female 0 0 0 0 0, presented for:-- Fever, Abdominal Pain, S/P 8 days ago-- fever and pain which began 1-2 days ago. Angie claims it started gradually. It is locatedin the lower abdomen. Severity is severe. Additional comment: presented to ER with fever andsevere pain; 8 days post op from for bradycardia; CT scan in ER showed largehematoma in anterior abdominal wall possible abscess.ALLERGIES: Bactrim, Ulceration of skin, Vicodin and RashMEDICATIONS HISTORY:Current medications prescribed by our practice are:1. albuterol sulfate HFA 90 mcg/actuation aerosol inhaler, two puffs q 4 hours prn2. Macrobid 100 mg capsule, one tab PO twice daily3. 28 mg iron-800 mcg tablet, one tab PO daily4. promethazine 25 mg tablet, one tab PO q 6 hours prn5. sertraline 50 mg tablet, one tab PO daily6. Zofran 4 mg tablet, one tab PO every 6 hours as needed for nausea7. Zofran ODT 4 mg disintegrating tablet, two tabs po q 6 hours prn nauseaREVIEW OF SYSTEMS:GENERAL - Denies fever, or chillsSKIN - Denies skin changesEYES - Denies visual changesEARS - Denies difficulty hearingNOSE - Denies nasal congestion or bleedingMOUTH - Denies sore throat or difficulty swallowingNECK - Denies pain or swellingRESPIRATORY - AsthmaCARDIOVASCULAR - Denies palpitations or chest painGASTROINTESTINAL - NVP, IBS, gluten sensitivityGENITOURINARY - Hx of endometriosisMUSCULOSKELETAL - Denies joint or muscle painNEUROLOGICAL - Denies localized numbness or weaknessPSYCHIATRIC - depression/anxiety, Zoloft.ENDOCRINE - Denies heat or cold intolerance, weight loss or gainHEMATO-IMMUNOLOGIC - liver disease, massPAST HISTORY:Breast/Ovarian/Colon Cancers - Mat Uncle - Colon CaInfections - Varicella Vaccine, GC/Chlamydia, MRSA vulvaIllnesses - Anxiety, Depression, AsthmaAccidents - fall 2 months ago with concussionHistory of Abnormal PAPS - 1 age 21, follow up negHospitalizations - see surgerySURGICAL HISTORY:1. 10/04/2017 Summer Amy De León MD2. Laparoscopy 2015 Dr. Manzano EndometriosisMENSTRUAL HISTORY: LMP Known?- DefiniteAmount/Duration - 3-4 days, Regularity - Regular, LMP -12/25/16, Age Onset Menarche - 13PAST PREGNANCIES: Total Pregnancies - 1; Full Term Pregnancies - 0; Premature - 0; Abortions, Induced - 0;Abortions, Spontaneous - 0; Ectopics - 0;Multiple Births - 0; Living Children - 0FAMILY HISTORY:Uncle - FH: Cancer of colon;SOCIAL HISTORY:Alcohol Use - denies drinkingSmoking - 3 cigs/day, ATQDiet - Gluten free, fairly well balancedLifestyle - high stress lifestyleExercise - dancing/walkingSeat Belt Use - alwaysEmployer - UnemployedIllicit Drug Use - uses marijuanaSexual Activity - Multiple sexual partnersResidence - Lives with mother and a friendPlace of - [place], [place]Spouse-Sig Other Name - Not involvedBirth Control - PHYSICAL EXAMTemp 101+F upon admissionOther VSSCONSTITUTIONAL - NAD, well nourished, and well developedSKIN - No rash, lesions, or ulcersHEENT - Normocephalic, PERRLA, EOMINECK - No nodes, no nuchal rigidity and thyroid normal size and textureLYMPH NODES - Palpation of lymph nodes in neck and groins within normal limitsLUNGS - CTA x2 without wheezes, crackles or ralesCARDIAC - Regular rate and rhythm without rubs, murmurs, or gallopsABDOMEN - warm, tender hematoma superior to incision which is well healed;Approximately 8 x 5 cm size. Marked area of redness larger than mass. and good bowel soundsand soft and non-tender abdomen otherwise; no HSMEXTREMITIES - No edema or calf tendernessNEUROLOGICAL - Cranial nerves II-XII grossly intactPSYCHIATRIC - A and O to time, place, person, mood and affectASSESSMENT/PLAN BY DIAGNOSIS:1. Sepsis of Infected HematomaS/P 8 days ago. Reviewed results of CT scan and Zosyn started. CBC thisAM stable and pt feeling better. Discussed possibility of drainage of hematoma if response toantibotic not sufficient. Continuing to monitor closely.10/13/17 0703 <Electronically signed by Andres Lees MD>Date Andres Lees [facility] CORDELLosigner Signature: Date (if applicable)CC: No Primary Care Physician; Andres Lees MD Signed BASIC METABOLIC Collected: 10/13/2017 Status: F Source: CLARA PROFILE (BMP) 4:55 AM [facility] REPOSITORY TYPE CODE TESTS RESULT OUT OF RANGE REFERENCE UNITS LAB L501.0100 Normal 74-106 mg/dL GLU 97 Result Comment: Please note revised GLUCOSE reference range [id number]/02/2018. LAB L501.1000 Normal 7-18 mg/dL BUN 7 LAB L501.1100 Normal 0.55-1.02 mg/dL CREAT,SERUM 0.55 Result Comment: The validity of the calculated GFR AND GFRAA in patients over70 years has not been determined. Clinical correlation isessential. LAB L501.1110 Normal >60 mL/min EST GFR 144 Result Comment: Non- GFR Calc LAB L501.1115 Normal >60 mL/min EST GFR - 175 AA Result Comment: GFR Calc LAB L501.1255 Normal ml/min Estimated 152.06 CRCL LAB L501.1300 Normal 10-20 RATIO BUN/CRE 12.8 LAB L501.2200 Normal 8.5-10 mg/dL CA 8.5 .1 LAB L501.5300 Normal 136-14 mmol/L NA 139 5 LAB L501.5600 Low 3.5-5. mmol/L K 3.3 1 LAB L501.5900 Normal 98-107 mmol/L CL 106 LAB L501.6100 Normal 21.0-3 mmol/L CO2 25.0 2.0 LAB L501.6200 Normal 5-15 GAP 8 Performed By: #### L500.2500 ####[facility] [address] [place], [address] CBC W/DIFF, AUTOMATED Collected: 10/13/2017 Status: F Source: OSAKIS 4:55 AM [facility] REPOSITORY TYPE CODE TESTS RESULT OUT OF RANGE REFERENCE UNITS LAB L100.1000 High 4.4-11.0 K/mm3 WBC 17.5 LAB L100.1200 Low 4.2-5.4 M/mm3 RBC 4.01 LAB L100.1300 Low 12.0-15.0 g/dl HGB 10.7 LAB L100.1400 Low 37-47 % HCT 33.7 LAB L100.1500 Normal 81-99 fL MCV 84.0 LAB L100.1600 Low 27.0-32.0 pg MCH 26.7 LAB L100.1700 Low 32-36 g/gl MCHC 31.8 LAB L100.1810 High 11.6-14.6 % RDW 17.0 CV LAB L100.1820 High 35.1-43.9 fl RDW 52.6 SD LAB L100.1900 Normal 150-450 K/mm3 PLT 354 LAB L100.2000 Normal 6.2-12.0 fl MPV 10.3 LAB L100.2100 High 47-70 % NEUT% 80.2 LAB L100.2200 Low 19-41 % LY% 11.6 LAB L100.2300 Normal 0-10 % MONO% 6.9 LAB L100.2400 Normal 0-5 % EO% 0.5 LAB L100.2500 Normal 0-1 % BASO% 0.2 LAB L100.2550 Normal 0.0-0.9 % IM 0.600 GRAN % Result Comment: IG% - Immature Granulocytes (promyelocytes, myelocytes andmetamyelocytes) > 1% indicates that a LEFT SHIFT is Present. LAB L100.2620 High 2.0-7.7 X10 3/uL Absolute Neut 14.1 LAB L100.2720 Normal 0.83-4.51 X10 3/ul Absolute Lymph 2.03 Performed By: #### L100.0100 ####[facility] [address] [facility], [address] EMERGENCY DEPARTMENT Observed: 10/12/2017 Status: F Source: OSAKIS SUMMARY 8:32 PM [facility] REPOSITORY [facility]ITALMedical [facility] [address] [place], [place] [address]Iyizbndxz Department [id number]#: [id number] Acct: [id number]: ANGIE ZAIDI Rep #: [id number]: 1990 27 From: Abraham Goldberg MDPCP: Care Physician, No Primary Status: REG ER- ER Visit SummaryDate of Service: 10/12/17Chief Complaint: Fever, chills and abdominal pain with swelling and redness near incision site.History of Present Illness: The patient is a 27 F who is postop day [address]Sommer Amy De León. She presents with fever and chills. She states her temperature 101.8.She complains of redness swelling incision site. She states the pain is gotten worse. Shedenies any drainage. She denies dysuria, frequency, urgency or hematuria. She denies anyflank or back pain. She denies headache, photophobia status of her neck. She denies anyrespiratory or cardiac symptoms. Review of systems negative otherwise and please read writtennote.Physical Examination: Is febrile, tachycardic and tachypneic. She appears uncomfortable. Headis atraumatic normocephalic. Pupils are equal round reactive. Extraocular muscles are intact.TMs are pearly white with landmarks noted. Nares patent with no drainage. Posterior pharynxwithout erythema or exudate. Uvula is midline. There is no dysphonia or dysphasia. Tracheais midline. There is no stridor with auscultation of the neck. Heart is upper and regularwithout murmur, gallop or rub. S1 and S2 are normal. Lungs are clear to auscultation withgood movement of air bilaterally. Incision site is intact. There is erythema 2 cm superior tothe incision site. There is fluctuance. She has significant discomfort. There is no inguinallymphadenopathy. There is no evidence of a incisional hernia. Neuro exam is nonfocal.Test Results: CT of the abdomen pelvis with IV contrast reveals fluid collection consistentwith either an early abscess versus infected hematoma incision site and involving the anteriorabdominal cavity. White count is 20,000 with shift. Electronic panel is unremarkable. Urinereveals leukoesterase and blood. Microscopic reveals WBCs and 1+ bacteria.Emergency Department Course and Treatment: Patient appeared ill in triage. Sepsis workup wasundertaken. Because of concern for postop abscess she received 4.5 g of Zosyn.Treatment Plan: Light up CAT scan results Dr. Lees was paged. He will admit patient to hisservice.Disposition: Medical surgical unitImpression:1. Sepsis2. Postop incisional infected hematoma/abscess3. Sinus tachycardia documented on monitorThis note was generated with [employer] dictation software. It may contain incorrect words,spelling, and punctuation that were not noted in review of the chart prior to signingED Disposition- Plan for ED Patient:Chief Complaint: FeverReferrals:Care Physician ,No Primary [Primary Care Provider] -What to do if you have ProblemsFor any increased pain, shortness of breath, bleeding, nausea or vomiting, chest pain, or anyunexpected problems, contact your Primary Care Provider. Call [facility] ([phone])or report to the closest Emergency Room.Call 911 if necessary.10/12/172031 <Electronically signed by Abraham Goldberg MD>Date Abraham Goldberg MDCosigner Signature (If Indicated ): Date CC: No Primary Care Physician PROTHROMBIN TIME W/INR Collected: 10/12/2017 Status: F Source: OSAKIS 7:35 PM [facility] REPOSITORY TYPE CODE TESTS RESULT OUT OF RANGE REFERENCE UNITS LAB L300.4150 Normal 11.7-14.9 SECONDS PROTIME 14.8 LAB L300.4200 Normal INR 1.2 Performed By: #### L300.3900, L300.4310 ####[facility] [address] [place], [place], [address] PARTIAL THROMBOPLAST Collected: 10/12/2017 Status: F Source: OSAKIS TIME 7:35 PM [facility] REPOSITORY TYPE CODE TESTS RESULT OUT OF REFERENCE UNITS RANGE LAB L300.4310 High 24.1-36.2 Seconds PTT 52.5 Performed By: #### L300.3900, L300.4310 ####[facility] [address] [place], [place], [address] CBC W/DIFF, AUTOMATED Collected: 10/12/2017 Status: F Source: OSAKIS 6:53 PM [facility] REPOSITORY TYPE CODE TESTS RESULT OUT OF RANGE REFERENCE UNITS LAB L100.1000 High 4.4-11.0 K/mm3 WBC 20.6 LAB L100.1200 Low 4.2-5.4 M/mm3 RBC 3.91 LAB L100.1300 Low 12.0-15.0 g/dl HGB 10.5 LAB L100.1400 Low 37-47 % HCT 32.4 LAB L100.1500 Normal 81-99 fL MCV 82.9 LAB L100.1600 Low 27.0-32.0 pg MCH 26.9 LAB L100.1700 Normal 32-36 g/gl MCHC 32.4 LAB L100.1810 High 11.6-14.6 % RDW 17.1 CV LAB L100.1820 High 35.1-43.9 fl RDW 51.4 SD LAB L100.1900 Normal 150-450 K/mm3 PLT 329 LAB L100.2000 Normal 6.2-12.0 fl MPV 10.4 LAB L100.2100 High 47-70 % NEUT% 87.1 LAB L100.2200 Low 19-41 % LY% 6.7 LAB L100.2300 Normal 0-10 % MONO% 5.5 LAB L100.2400 Normal 0-5 % EO% 0.0 LAB L100.2500 Normal 0-1 % BASO% 0.1 LAB L100.2550 Normal 0.0-0.9 % IM 0.600 GRAN % Result Comment: IG% - Immature Granulocytes (promyelocytes, myelocytes andmetamyelocytes) > 1% indicates that a LEFT SHIFT is Present. LAB L100.2620 High 2.0-7.7 X10 3/uL Absolute Neut 18.0 LAB L100.2720 Normal 0.83-4.51 X10 3/ul Absolute Lymph 1.38 Performed By: #### L100.0100 ####[facility] [address] [place], [place], [address] URINALYSIS, COMPLETE Collected: 10/12/2017 Status: F Source: OSAKIS 6:44 PM [facility] REPOSITORY Order Comment: How was Urine Obtained? FOURTH OFFICER TO SPECIFY TYPE CODE TESTS RESULT OUT OF REFERENCE UNITS RANGE LAB L400.3000 Normal Yellow COLOR Yellow LAB L400.3050 Normal Clear CLARITY Clear LAB L400.3200 Normal Normal mg/dl GLUCOSE, UR Normal LAB L400.3300 Normal Negative mg/dL BILIRUBIN URINE Negative LAB L400.3400 High Negative mg/dl KETONE UR 50 LAB L400.3465 Normal 1.002-1.030 SP.GR. DIPSTX 1.010 LAB L400.3550 Normal 5.0 - 8.0 pH UR 6.5 LAB L400.3600 High Negative mg/dl PROT DIPSTX 15 LAB L400.3700 High Normal mg/dl UROBILI 1 LAB L400.3750 Normal Negative NITRITE UR Negative LAB L400.3780 High Negative /ul OCCULT BLOOD-UR 25 LAB L400.3800 High Negative /ul LEUK ESTERASE 500 LAB L400.4050 Normal 0-5 /hpf WBC 5-10 SEEN LAB L400.4100 Normal 0-5 /hpf RBC-UA 0 SEEN LAB L400.4150 Normal 5-10 /hpf SQUAM EPI 0-5 SEEN LAB L400.4300 Normal None Seen /hpf BACTERIA 1+ LAB L400.4350 Normal <or=2+ /hpf MUCUS, URINE 0 SEEN LAB L400.4200 Normal 0-5 /hpf TRANSITIONAL EP 0-5 SEEN Performed By: #### L400.0001 ####[facility] [address] [facility], [address] Observed: 10/12/2017 Status: F Source: CLARA CULTURE, URINE 6:44 PM [facility] REPOSITORY Order Date: 10/12/17 Has pt arrived? Y Urine CultureORGANISM 1: Mixed Gram Positive OrganismsColony Count 50,000-80,000MIX CULTURE Mixed contaminants. Submit a new specimen if indicated. Performed By: #### M100.0650 ####[facility] [address] [place], [address] ABDOMEN/PELVIS W IV CONT Observed: 10/12/2017 Status: F Source: CLARA ONLY 6:34 PM [facility] REPOSITORY [facility]ITALImaging [address] [place], [place] [address]Gsghtca/Pelvis W IV Cont ONLYMR#: [id number] Acct: [id number]: ANGIE ZAIDI Rep #: [id number]: 1990 F 27 From: Mitesh Up DOPCP: Care Physician, No Primary Status: REG ERStudy: Abdomen/Pelvis W IV Cont ONLY Date of Exam: 10/12/17Exam# [id number] Ordering Dr: Abraham Goldberg MDSTUDY: CT ABDOMEN AND PELVIS WITH CONTRASTREASON FOR EXAM: Female, 27 years old. Fever, chills, postop C-sectionday 8RADIATION DOSAGE (If Supplied By Facility): CTDIvol = ( 12.89 ) mGy, DLP =( 650.29 ) mGycmTECHNIQUE: Transaxial images were obtained from the dome of the diaphragmto the symphysis pubis without oral contrast. 100ML ml of Isovue 300contrast was administered. Sagittal and coronal images were reconstructed.Individualized dose optimization techniques were used for this CT.COMPARISON: June 12, 2015. FINDINGS:The visualized lung bases are unremarkable. The visualized portions of theheart are within normal limits.Normal liver. Normal gallbladder and extrahepatic biliary system. Normalspleen. Normal pancreas.Normal bilateral adrenal glands.Normal right kidney. Normal left kidney.Normal visualized stomach. Small air-fluid levels in the small intestinesuggesting a mild ileus. Normal colon. The appendix is visualized andappears normal.Normal abdominal aorta. Normal inferior vena cava. Normalretroperitoneum.Slight anterior wall thickening of the urinary bladder. Enlarged uterus.Subcutaneous edema and fluid in the subcutaneous layer of the loweranterior abdominal wall, likely related to the history of recent C- section.A fluid collection is noted of the lower abdominal wall between the rectusabdominis muscles extending into the anterior lower pelvis measuring 7 x3.5 cm. An abscess or hematoma is suggested. Normal osseous structures. ORDER #: [id number] CT/Abdomen/ Pelvis W IV Cont ONLYIMPRESSION:Irregular fluid collection in the lower anterior abdominal wall extendinginto the lower pelvis anteriorly. Abscess or hematoma is suggested.Subcutaneous edema and mild fluid in the lower abdominal wall.Slight anterior wall thickening of the urinary bladder.Electronically Signed:Mitesh Up, [id number] at 19:50 EDTTel [phone], Service support , PW: No Primary Care Physician; Abraham Goldberg MD Reading Intervention Teacher: Signed COMPREHENSIVE METABOLIC Collected: 10/12/2017 Status: F Source: CLARA PROFIL 6:21 PM [facility] REPOSITORY TYPE CODE TESTS RESULT OUT OF RANGE REFERENCE UNITS LAB L501.0100 Normal 74-106 mg/dL GLU 87 Result Comment: Please note revised GLUCOSE reference range [id number]/02/2018. LAB L501.1000 Normal 7-18 mg/dL BUN 8 LAB L501.1100 Low 0.55-1.02 mg/dL CREAT,SERUM 0.47 Result Comment: The validity of the calculated GFR AND GFRAA in patients over70 years has not been determined. Clinical correlation isessential. LAB L501.1110 Normal >60 mL/min EST GFR 172 Result Comment: Non- GFR Calc LAB L501.1115 Normal >60 mL/min EST GFR - 208 AA Result Comment: GFR Calc LAB L501.1255 Normal ml/min Estimated 177.94 CRCL LAB L501.1300 Normal 10-20 RATIO BUN/CRE 17.1 LAB L501.1500 Normal 6.4-8. g/dL T PROT 7.0 2 LAB L501.1800 Low 3.2-5. g/dL ALB 2.4 0 LAB L501.1950 High 2.2-4. g/dL GLOB 4.6 2 LAB L501.2000 Low 0.9-2. RATIO A/G 0.5 4 LAB L501.2200 Normal 8.5-10 mg/dL CA 8.7 .1 LAB L501.4100 Low 15-37 U/L AST 14 LAB L501.4305 High 45-117 U/L ALK P 141 LAB L501.4405 Normal 13-56 U/L ALT 16 Result Comment: Please note revised ALT reference range dflasrpng46/28/2018. LAB L501.4600 Normal 0.20-1.00 mg/dL T BILI 0.30 LAB L501.5300 Normal 136-145 mmol/L NA 138 LAB L501.5600 Normal 3.5-5.1 mmol/L K 3.7 LAB L501.5900 Normal 98-107 mmol/L CL 105 LAB L501.6100 Normal 21.0-32.0 mmol/L CO2 23.0 LAB L501.6200 Normal 5-15 GAP 10 Performed By: #### L500.4050 ####[facility] [address] [place], [place], [id number] LACTIC ACID Collected: 10/12/2017 Status: F Source: CLARA 6:21 PM [facility] REPOSITORY TYPE CODE TESTS RESULT OUT OF RANGE REFERENCE UNITS LAB L503.6005 Normal 0.4-2.0 mmol/L LACTIC 1.4 ACID Performed By: #### L503.6005 ####[facility] [address] [place], [address] Observed: 10/12/2017 Status: F Source: CLRAA CULTURE, BLOOD (WB) 5:20 PM [facility] REPOSITORY BCNo growth in 5 days. Performed By: #### M200.1000 ####[facility] [address] [place], [address] Observed: 10/12/2017 Status: F Source: CLARA CULTURE, BLOOD (WB) 5:05 PM [facility] REPOSITORY BCNo growth in 5 days. Performed By: #### M200.1000 ####[facility] [address] [place], [address] DISCHARGE SUMMARY Observed: 10/07/2017 Status: F Source: CLARA 5:38 PM [facility] REPOSITORY [facility]ITAL[facility] [address] [place], [place] [address]Icapxlpwj Gvoqrjq45/14/18 1736#: [id number] Acct: [id number]: ANGIE ZAIDIN Rep #: [id number]: 1990 27 From[facility]: Status: ADM IN YLocation: [id number] Date and Diagnosis- Problem ListPatient Problems:Active and Suspected Ebcsxwyq19 weeks gestation of (Acute)Delivery by emergency section (Acute)Date of Admission: Date of Discharge: 10/07/17- Primary Discharge DiagnosisActive and Suspected Locnbtev94 weeks gestation of (Acute)Delivery by emergency section (Acute)Hospital Course and TreatmentOperations: - - Primary C/SSummary of Care Provided:The patient is a 27 year old F [admitted in active labor. heart beat pattern was notreassuring and an emergency delivery was performed without complication. Baby wasnoted to be SGA. Post operative course was unremarkable except elevated ptt. She wasdischarged to hotel status on POD#3.]Discharge Diet: No RestrictionsDischarge Activity: Return to Normal Activity, May not drive while taking narcotic painmedications., May ShowerMay resume sexual activity in: 6 weeksCall your doctor if you observe: Fever of 101 or Higher, Inability to urinate, Inability tohave a bowel movement, Using more than one pad per hour, Shortness of breath, Chest pain, Calfdiscomfort, Uncontrolled painSuture Line Care: Avoid Pulling/PushingCleanse incision/area with: Soap AND WaterHome Medications:Medications to take at DischargeOndansetron [Zofran Odt] 4 mg PO Q4H PRN PRN #14 tab.rapdis Prenatal Vit No.130/Iron/FA [ Vitamins] 1 each PO DAILY 04/08/17Docusate Sodium [Colace] 100 mg PO BID PRN PRN #60 cap 10/04/17Ibuprofen 800 mg PO TID PRN #30 tab 10/04/17Oxycodone [Oxyir] 1 - 2 tab PO Q4H PRN PRN 3 Days #28 tablet 10/04/17ollowing Prescrptions Were Given to Patient:Oxycodone [Oxyir] 1 - 2 tab PO Q4H PRN PRN 3 Days #28 tabletPRN Reason: PainDocusate Sodium [Colace] 100 mg PO BID PRN PRN #60 capPRN Reason: ConstipationIbuprofen 800 mg PO TID PRN #30 tabPRN Reason: PainPrimary Care Physician:[facility] Doctor,Out of [NON-STAFF] -Please Follow Up With: Isai Matt MDWhen: 1 weekPlease Follow Up With: [facility]When: intake assessmentDisposition: HomeMinutes spent on discharge:: 15Patient Condition:: GoodMeaningful Use InfoMeaningful Use Diagnoses (Choose all that apply): None dqaqlnjsde99/14/18 1738 <Electronically signed by Isai Matt MD& gt;Date Isai Matt [facility] Signature (if applicable): Date CC: Isai Matt MD Signed MISCELLANEOUS LAB Collected: 10/07/2017 Status: F Source: CLARA PROCEDURE 9:50 AM [facility] REPOSITORY Order Comment: Comments: aPTT mixing studies, test# [id number]([id number]) Ordered: [id number] TYPE CODE TESTS RESULT OUT OF RANGE REFERENCE UNITS LAB L801.1541 Normal MISC LAB TEST Result Comment: TEST RESULT LIMITSaPTT Mixing Studies aPTT 34.9 High sec 22.9 - 30.2 aPTT 1:1 Normal Plasma 27.2 sec 22.9 - 30.2 aPTT 1:1 Mix Saline 49.5 sec Not Estab. aPTT 1:1 INVERTEBRATE PALEONTOLOGIST Mix, 60 Min,Incub. 28.8 sec 22.9 - 30.2aPTT 1:1 INVERTEBRATE PALEONTOLOGIST Incub. Mix Ctl 32.2 High sec 22.9 - 30.2 TESTING PERFORMED AT [facility]. ORIGINAL REPORT ON FILE IN LAB CONTAINS ADDITIONAL TEST SITE INFORMATION. Performed By: #### L801.1541 ####[facility] [address] [place], [address] DISCHARGE INSTRUCTION Observed: 10/07/2017 Status: F Source: CLARA 8:48 AM [facility] REPOSITORY [facility]ITALMedical Records [address] [address]Icajgvhuzxqu for Home/Discharge Ofowygnjfjee74/11/18 2339 #: [id number] Acct: [id number]: ANGIE ZAIDI Rep #: [id number]: 1990 27 From: Jazmine De León [facility]CP: Status: ADM INADDENDUM by Jazmine Khalil MD on 10/07/17 at 0848Jennifer,Your blood clots abnormally. Additional studies were sent from the hospital to identify thecause. Once the labs are back, you should follow up with a Safety Deposit Clerk (blood specialist).Please call the office in 1 week to review your results if you have not received them by then.Date Jazmine Khalil [facility]: * SignedDischarge Diet: No RestrictionsDischarge Activity: Return to Normal Activity, May not drive while taking narcotic painmedications., May ShowerMay resume sexual activity in : 6 weeksLifting Restrictions: 10 lbCall your doctor if you observe: Fever of 101 or HigherSuture Line Care: Avoid Pulling/PushingCleanse incision/area with: Soap AND WaterAdditional Instructions:If you experience any of the following, contact your healthcare provider.* Bleeding that soaks a pad every hour for 2 hours* Fever 100.4 or higher* Unrelieved incision or abdominal pain* Swelling, redness, discharge or bleeding from your incision or episiotomy site* Your incision begins to separate* Problems urinating (including inability to urinate or burning while urinating).* Visual changes* Severe headache* Flu-like symptoms* Pain or redness in one of both of your breasts* Pain, warmth, tenderness or swelling in your legs, especially the calf area* Frequent nausea and vomiting* Symptoms of depression or anxietyIf you experience any of the following, call 911 or go to the nearest Emergency Room.* Chest pain* Problems breathing* Seizure activity* Partial or complete paralysis of a body part, slurred speech, weakness or drooping of theface, or a sudden inability to walk or hold your balanceAllergies/Adverse Reactions:Allergiessulfamethoxazole [From Bactrim] Allergy (Verified 04/08/17 22:16)Hivestrimethoprim [From Bactrim] Allergy (Verified 04/08/17 22:16)Hivesacetaminophen [From Vicodin] Adverse Reaction (Verified 04/08/17 22:16)Nauseahydrocodone bitartrate [From Vicodin] Adverse Reaction (Verified 22:16)NauseaMedications to take at DischargeOndansetron [Zofran Odt] 4 mg PO Q4H PRN PRN #14 tab.rapdis 04/08/17Prenatal Vit No.130/Iron/FA [ Vitamins] 1 each PO DAILY 04/08/17Docusate Sodium [Colace] 100 mg PO BID PRN PRN #60 cap 10/04/17Ibuprofen 800 mg PO TID PRN #30 tab 10/04/17Oxycodone [Oxyir] 1 - 2 tab PO Q4H PRN PRN 3 Days #28 tablet 10/04/17The following prescriptions were given:Oxycodone [Oxyir] 1 - 2 tab PO Q4H PRN PRN 3 Days #28 tabletPRN Reason: PainDocusate Sodium [Colace] 100 mg PO BID PRN PRN #60 capPRN Reason: ConstipationIbuprofen 800 mg PO TID PRN #30 tabPRN Reason: PainFollow-Up:Call to make an appointment with your doctor for an incision check in 1-2 weeks. You will alsoneed a 6 week post- follow up appointment.Please Follow Up With: Isai Matt MDWhen: 1 weekPrimary Care Physician:[facility] ,Out of [Primary Care Provider] -10/05/17 0823 <Electronically signed by Jazmine Khalil MD>Date Jazmine Khalil MDCC: CBC W/DIFF, AUTOMATED Collected: 10/07/2017 Status: F Source: CLARA 2:50 AM [facility] REPOSITORY TYPE CODE TESTS RESULT OUT OF RANGE REFERENCE UNITS LAB L100.1000 High 4.4-11.0 K/mm3 WBC 13.0 LAB L100.1200 Low 4.2-5.4 M/mm3 RBC 3.88 LAB L100.1300 Low 12.0-15.0 g/dl HGB 10.5 LAB L100.1400 Low 37-47 % HCT 32.9 LAB L100.1500 Normal 81-99 fL MCV 84.8 LAB L100.1600 Normal 27.0-32.0 pg MCH 27.1 LAB L100.1700 Low 32-36 g/gl MCHC 31.9 LAB L100.1810 High 11.6-14.6 % RDW 16.9 CV LAB L100.1820 High 35.1-43.9 fl RDW 51.9 SD LAB L100.1900 Normal 150-450 K/mm3 PLT 211 LAB L100.2000 Normal 6.2-12.0 fl MPV 11.0 LAB L100.2100 High 47-70 % NEUT% 79.1 LAB L100.2200 Low 19-41 % LY% 14.0 LAB L100.2300 Normal 0-10 % MONO% 5.0 LAB L100.2400 Normal 0-5 % EO% 0.7 LAB L100.2500 Normal 0-1 % BASO% 0.2 LAB L100.2550 High 0.0-0.9 % IM 1.000 GRAN % Result Comment: IG% - Immature Granulocytes (promyelocytes, myelocytes andmetamyelocytes) > 1% indicates that a LEFT SHIFT is Present. LAB L100.2620 High 2.0-7.7 X10 3/uL Absolute Neut 10.2 LAB L100.2720 Normal 0.83-4.51 X10 3/ul Absolute Lymph 1.82 Performed By: #### L100.0100, L300.3900, L300.4310 #### [facility] [address] [place], [address] PROTHROMBIN TIME W/INR Collected: 10/07/2017 Status: F Source: OSAKIS 2:50 AM [facility] REPOSITORY TYPE CODE TESTS RESULT OUT OF RANGE REFERENCE UNITS LAB L300.4150 Normal 11.7-14.9 SECONDS PROTIME 12.4 LAB L300.4200 Normal INR 0.9 Performed By: #### L100.0100, L300.3900, L300.4310 #### [facility] [address] [place], [address] PARTIAL THROMBOPLAST Collected: 10/07/2017 Status: F Source: CLARA TIME 2:50 AM [facility] REPOSITORY TYPE CODE TESTS RESULT OUT OF REFERENCE UNITS RANGE LAB L300.4310 High 24.1-36.2 Seconds PTT 51.7 Performed By: #### L100.0100, L300.3900, L300.4310 #### [facility] [address] [place], [address] COMPREHENSIVE METABOLIC Collected: 10/06/2017 Status: F Source: CLARA PROFIL 10:05 PM [facility] REPOSITORY TYPE CODE TESTS RESULT OUT OF RANGE REFERENCE UNITS LAB L501.0100 Normal 74-106 mg/dL GLU 96 Result Comment: Please note revised GLUCOSE reference range gasrjlwtg22/02/2018. LAB L501.1000 Low 7-18 mg/dL BUN 5 LAB L501.1100 Low 0.55-1.02 mg/dL CREAT,SERUM 0.44 Result Comment: The validity of the calculated GFR AND GFRAA in patients over70 years has not been determined. Clinical correlation isessential. LAB L501.1110 Normal >60 mL/min EST GFR 184 Result Comment: Non- GFR Calc LAB L501.1115 Normal >60 mL/min EST GFR - 223 AA Result Comment: GFR Calc LAB L501.1255 Normal ml/min Estimated 190.07 CRCL LAB L501.1300 Normal 10-20 RATIO BUN/CRE 11.3 LAB L501.1500 Normal 6.4-8. g/dL T PROT 6.5 2 LAB L501.1800 Low 3.2-5. g/dL ALB 2.2 0 LAB L501.1950 High 2.2-4. g/dL GLOB 4.3 2 LAB L501.2000 Low 0.9-2. RATIO A/G 0.5 4 LAB L501.2200 Low 8.5-10 mg/dL CA 8.2 .1 LAB L501.4100 Normal 15-37 U/L AST 22 LAB L501.4305 High 45-117 U/L ALK P 152 LAB L501.4405 Normal 13-56 U/L ALT 13 Result Comment: Please note revised ALT reference range ginewqjlc31/28/2018. LAB L501.4600 Normal 0.20-1.00 mg/dL T BILI 0.20 LAB L501.5300 Normal 136-145 mmol/L NA 140 LAB L501.5600 Normal 3.5-5.1 mmol/L K 3.8 LAB L501.5900 Normal 98-107 mmol/L CL 107 LAB L501.6100 Normal 21.0-32.0 mmol/L CO2 25.0 LAB L501.6200 Normal 5-15 GAP 8 Performed By: #### L500.4050, L501.1400 ####[facility] [address] [place], [address] URIC ACID Collected: 10/06/2017 Status: F Source: OSAKIS 10:05 PM [facility] REPOSITORY TYPE CODE TESTS RESULT OUT OF RANGE REFERENCE UNITS LAB L501.1400 Normal 2.6-6.0 mg/dL URIC 3.1 Result Comment: The drugs N-Acetylcysteine and Metamizole may falselydepress this assay. Performed By: #### L500.4050, L501.1400 ####[facility] [address] [facility], [address] CBC W/DIFF, AUTOMATED Collected: 10/06/2017 Status: F Source: OSAKIS 5:40 AM [facility] REPOSITORY Order Comment: Diagnosis:Post-op anemia, myometrial hematomaOrder Date: 04/12/17 TYPE CODE TESTS RESULT OUT OF RANGE REFERENCE UNITS LAB L100.1000 High 4.4-11.0 K/mm3 WBC 14.3 LAB L100.1200 Low 4.2-5.4 M/mm3 RBC 3.82 LAB L100.1300 Low 12.0-15.0 g/dl HGB 10.3 LAB L100.1400 Low 37-47 % HCT 31.9 LAB L100.1500 Normal 81-99 fL MCV 83.5 LAB L100.1600 Normal 27.0-32.0 pg MCH 27.0 LAB L100.1700 Normal 32-36 g/gl MCHC 32.3 LAB L100.1810 High 11.6-14.6 % RDW 16.7 CV LAB L100.1820 High 35.1-43.9 fl RDW 49.5 SD LAB L100.1900 Normal 150-450 K/mm3 PLT 198 LAB L100.2000 Normal 6.2-12.0 fl MPV 11.8 LAB L100.2100 High 47-70 % NEUT% 84.0 LAB L100.2200 Low 19-41 % LY% 11.1 LAB L100.2300 Normal 0-10 % MONO% 3.7 LAB L100.2400 Normal 0-5 % EO% 0.1 LAB L100.2500 Normal 0-1 % BASO% 0.3 LAB L100.2550 Normal 0.0-0.9 % IM 0.800 GRAN % Result Comment: IG% - Immature Granulocytes (promyelocytes, myelocytes andmetamyelocytes) > 1% indicates that a LEFT SHIFT is Present. LAB L100.2620 High 2.0-7.7 X10 3/uL Absolute Neut 12.0 LAB L100.2720 Normal 0.83-4.51 X10 3/ul Absolute Lymph 1.59 Performed By: #### L100.0100 ####[facility] [address] [place], [place], [address] CBC-COMPLETE BLOOD CNT Collected: 10/05/2017 Status: C Source: OSAKIS NO DIFF 6:10 AM [facility] REPOSITORY Order Comment: Comments: Day #1Reason for Laboratory Test PostpartumCRITICAL VALUE VERIFIED. CALLED TO STEPHANE MELISSA WP10/05/17 0649 Linda Alas.RESULTS READ BACK BY SAME . TYPE CODE TESTS RESULT OUT OF RANGE REFERENCE UNITS LAB L100.1000 High alert 4.4-11.0 K/mm3 WBC 30.0 LAB L100.1200 Low 4.2-5.4 M/mm3 RBC 3.89 LAB L100.1300 Low 12.0-15.0 g/dl HGB 10.8 LAB L100.1400 Low 37-47 % HCT 32.3 LAB L100.1500 Normal 81-99 fL MCV 83.0 LAB L100.1600 Normal 27.0-32.0 pg MCH 27.8 LAB L100.1700 Normal 32-36 g/gl 33.4 MCHC LAB L100.1810 High 11.6-14.6 % RDW 16.3 CV LAB L100.1820 High 35.1-43.9 fl RDW 48.6 SD LAB L100.1900 Normal 150-450 K/mm3 PLT 189 LAB L100.2000 Normal 6.2-12.0 fl MPV 11.7 LAB L100.9900 Normal Reviewed PATH REV Result Comment: Neutrophilic leukocytosis.Normocytic anemia.Clinical correlation necessary.Sohan Gutierrez M.D. 10/07/17 AMENDED REPORT 10/07/17 1057 PATH REV previously reported as: November Performed By: #### L100.0500, L100.4500 ####[facility] [address] [place], [address] DIFFERENTIAL COMMENT Collected: 10/05/2017 Status: F Source: OSAKIS 6:10 AM [facility] REPOSITORY Order Comment: Comments: Day #1Reason for Laboratory Test PostpartumCRITICAL VALUE VERIFIED. CALLED TO STEPHANE MELISSA WP10/05/17 0649 Linda Alas.RESULTS READ BACK BY SAME . TYPE CODE TESTS RESULT OUT OF RANGE REFERENCE UNITS LAB L100.4500 Normal SMEAR SCANNED COMMENT Result Comment: LEUKOCYTOSIS NOTED Performed By: #### L100.0500, L100.4500 ####[facility] [address] [place], [address] PLACENTA Observed: 10/05/2017 Status: F Source: OSAKIS 12:08 AM [facility] REPOSITORY Patient: ANGIE ZAIDI : 1990 (27/F) Acct Num: [id number] Phys: Remi PALUMBO,Summer Unit Num: [id number] Loc: WP WP374-3 Specimen: [id number] Received: 10/05/1750 Spec Type: PLACENTA TISSUES TISSUES: Placenta, NOS GROSS DESCRIPTION SPECIMEN: PLACENTA / CLINICAL INFORMATION: A. Weight: 2.058 kg B. Gestational Age: 38 weeks C. Sex: Female PLACENTAL WEIGHT ( POST FIXATION): 302 gm PLACENTAL DIMENSIONS: 16 x 13 x 3.5 cm PLACENTAL SHAPE: Usual ovoid PLACENTAL WEIGHT FOR GESTATIONAL AGE: <10 percentile MEMBRANES - Present A. Insertion: Marginal B. Site of rupture from edge : At edge of placental disc C. Color of membrane: Tolliver-de los santos D. Abnormalities: None UMBILICAL CORD Present. The umbilical cord is detached from the placental disc. A. Color: Tolliver-de los santos B. Insertion: Marginal C. Length: 27 cm D. Diameter: 1.2 cm E. Number of vessels: Three F. Abnormalities: None PLACENTAL DISC - Present A. Color of surface: Tolliver-de [place] santos B. surface abnormalities: None C. Maternal cotyledons: Intact with minimal tears D. Attached retro placental clot: No clot E. Cut surface: Dark red and spongy F. Lesions: Serial sections reveal a firm, tolliver-white lesion measuring 3.2 x 2.2 x 1.5 cm. G. Separate clot: Absent SECTIONS SUBMITTED: 1. Membrane roll and umbilical cord ( end notched) 2. Placental disc, and maternal surfaces, lesion 3. Placental disc, and maternal surfaces 4. Placental disc, and maternal surfaces AM: 10/06/17 More sections are submitted as follows: cassettes 5 AND 6 body of placenta including maternal and surfaces. / INGE:wilfrid 10/07/17 TC:2 CPT: 43342 HEADER OPERATION: Primary section PRE-OP DIAGNOSIS: Emergent C/S, bradycardia, SGA TISSUE SUBMITTED: Placenta MICROSCOPIC DESCRIPTION Slides are reviewed. MICROSCOPIC DIAGNOSIS Placenta: Placental disc - third trimester placenta (302 gm). - Focal area of infarction measuring 3.2 cm in greatest dimension. - Focal increased intervillous and perivillous fibrin deposition. - Focal chronic villitis of unknown etiology. Membranes moderate acute chorioamnionitis. Umbilical cord - three blood vessels and no pathologic diagnosis. SJ:wilfrid 10/07/17 Signed Sohan Gutierrez 10/08/17 <signature on file> Performed By: #### PPLA ####[facility] [address] [place], [address] URINE DRUG SCREEN Collected: 10/05/2017 Status: F Source: CLARA (VISTA) 12:05 AM [facility] REPOSITORY TYPE CODE TESTS RESULT OUT OF RANGE REFERENCE UNITS LAB L505.0075 Normal TO BE CONFIRMED Result Comment: CONFIRMATORY TESTING FOR ALL POSITIVE URINE DRUG SCREENRESULTS WILL ONLY BE SENT OUT UPON PHYSICIAN ORDER.VISTA Urine Drug Screen methods provide only preliminaryanalytical test results. A more specific alternate chemicalmethod must be used in order to obtain a confirmedanalytical result. Gas chromatography/mass spectrometery(GC/MS) is the preferred confirmatory method. Clinicalconsideration and professional judgement should be appliedto any drug of abuse test result, particularly whenpreliminary positive results are used.URINE TCA TESTING MUST BE ORDERED SEPARATELY. USE TESTMNEMONIC: UTCA LAB L505.5005 Normal VISTA UDS PH 7 LAB L505.5015 Normal <1000 AMPHETAMINES NEGATIVE ng/mL LAB L505.5025 Normal < 200 BARBITIURATES NEGATIVE ng/mL LAB L505.5035 High < 200 BENZODIAZIPINE POSITIVE ng/mL LAB L505.5045 Normal < 300 COCAINE NEGATIVE ng/mL LAB L505.5055 Normal < 500 ECSTACY NEGATIVE ng/mL LAB L505.5065 Normal < 300 METHADONE NEGATIVE ng/mL LAB L505.5075 High < 300 OPIATES POSITIVE ng/mL LAB L505.5085 Normal < 25 PCP NEGATIVE ng/mL LAB L505.5095 Normal < 50 THC NEGATIVE ng/mL Performed By: #### L505.5000 ####[facility] [address] [place], [place], [address] PROTEIN+CREATININE Collected: Status: F Source: CLARA YOLANDA,URINE 10/05/2017 12:05 AM [facility] REPOSITORY TYPE CODE TESTS RESULT OUT OF RANGE REFERENCE UNITS LAB L501.1200 Normal NO RANGE EST. mg/dL UR 25.10 CREAT LAB L501.1930 High <11.9 mg/dL 21.4 PROTEIN,UR.R AN. LAB L501.1940 High 0-200 mg/g CRE 853 PROT:CRE RATIO Performed By: #### L501.0900 ####[facility] [address] [place], [place], [address] COMPREHENSIVE METABOLIC Collected: 10/05/2017 Status: F Source: CLARA ABEL 12:05 AM [facility] REPOSITORY TYPE CODE TESTS RESULT OUT OF RANGE REFERENCE UNITS LAB L501.0100 Normal 74-106 mg/dL GLU 99 Result Comment: Please note revised GLUCOSE reference range jmmimsbtp09/02/2018. LAB L501.1000 Low 7-18 mg/dL BUN 2 LAB L501.1100 Low 0.55-1.02 mg/dL CREAT,SERUM 0.44 Result Comment: The validity of the calculated GFR AND GFRAA in patients over70 years has not been determined. Clinical correlation isessential. LAB L501.1110 Normal >60 mL/min EST GFR 183 Result Comment: Non- GFR Calc LAB L501.1115 Normal >60 mL/min EST GFR - 222 AA Result Comment: GFR Calc LAB L501.1255 Normal ml/min Estimated 190.07 CRCL LAB L501.1300 Low 10-20 RATIO BUN/CRE 4.5 LAB L501.1500 Low 6.4-8. g/dL T PROT 6.2 2 LAB L501.1800 Low 3.2-5. g/dL ALB 2.5 0 LAB L501.1950 Normal 2.2-4. g/dL GLOB 3.7 2 LAB L501.2000 Low 0.9-2. RATIO A/G 0.7 4 LAB L501.2200 Low 8.5-10 mg/dL CA 7.9 .1 LAB L501.4100 Normal 15-37 U/L AST 16 LAB L501.4305 High 45-117 U/L ALK P 189 LAB L501.4405 Low 13-56 U/L ALT 12 Result Comment: Please note revised ALT reference range snasusppf61/28/2018. LAB L501.4600 Normal 0.20-1.00 mg/dL T BILI 0.40 LAB L501.5300 Normal 136-145 mmol/L NA 138 LAB L501.5600 Normal 3.5-5.1 mmol/L K 4.3 LAB L501.5900 Normal 98-107 mmol/L CL 105 LAB L501.6100 Normal 21.0-32.0 mmol/L CO2 23.0 LAB L501.6200 Normal 5-15 GAP 10 Performed By: #### L500.4050, L501.1400 ####[facility] [address] [place], [address] URIC ACID Collected: 10/05/2017 Status: F Source: OSAKIS 12:05 AM [facility] REPOSITORY TYPE CODE TESTS RESULT OUT OF RANGE REFERENCE UNITS LAB L501.1400 Normal 2.6-6.0 mg/dL URIC 3.8 Result Comment: The drugs N-Acetylcysteine and Metamizole may falselydepress this assay. Performed By: #### L500.4050, L501.1400 ####[facility] [address] [place], [address] HISTORY AND PHYSICAL Observed: 10/04/2017 Status: F Source: OSAKIS EXAM 11:29 PM [facility] REPOSITORY [facility] [address] [facility] [place] [address]Lbxgbhr and Aklhwxmo72/11/18 2307MR#: [id number] Acct: [id number]: ANGIE ZAIDI Rep #: [id number]: 1990 27 From: Jazmine Khalil MDPCP: OUT OF TOWN DOCTOR Status: ADM IN YLocation: WP LA073-3- Problem List(1) 38 weeks gestation of pregnancyStatus: Acute(2) Delivery by emergency sectionStatus: AcuteHistoryDate of Admission: 10/04/17inal GRACIELA: 10/15/17inal GRACIELA Source: US <20 weeksGestational age: 38 Weeks and 3 DaysHistory of this :7-year-old 1 at 38-3/7 weeks gestational age [facility] and inactive labor at 9 cm dilatation with spontaneous rupture of membranes. heart rate wasnearing to the 40s-50s beats per minute with no resolution of tachycardia despite resuscitativemeasures by the nursing staff.. She was transferred to the OR in no my exam was 9 cm\90%\-1station. I pushed with her to reduce the cervix however it was not easily reduced. I advisedher to proceed with section at this time with review of the risks, benefits,indications of procedure. The patient agreed to proceed. See operative report for furtherdetails.Pertinent Past Medical History:Medical history:Anxiety and depressionEndometriosisIrritable bowel syndromeHistory of an unknown kidney diseaseHistory of a liver mass, cause unknownGluten sensitivityMRSA at age 20AsthmaSurgical history:NoneObstetric labs:GBS positive1 hour GTT 1 32 mg/dLU tox positive for THC, amphetamines, opiatesRPR nonreactiveHIV nonreactiveVaricella- zoster immuneHepatitis C antibody negativeHepatitis B surface antigen negativeRubella immuneA positiveCT/NG negativeGYN history:LGSIL Pap on 02/10/2017Allergiessulfamethoxazole [From Bactrim] Allergy (Verified 04/08/17 22:16)Hivestrimethoprim [From Bactrim] Allergy (Verified 04/08/17 22:16)Hivesacetaminophen [From Vicodin] Adverse Reaction (Verified 04/08/17 22:16)Nauseahydrocodone bitartrate [From Vicodin] Adverse Reaction (Verified 22:16)NauseaSertraline 50 mg 1 tab p.o. daily, multivitamin 1 tab p.o. daily, albuterol inhaler asneededSmoking Status: Light Smoker (<10/day) Alcohol: NoneDrug Use: marijuanaNumber of Fetus(es): 1Review of SystemsGynecological: Reports: - - Painful contractions, leaking of fluidPhysical ExamVitals:VSS in ORGeneral: Alert, - - Writhing with contractionsCardiovascular: Regular rate, Regular RhythmLungs: Normal air movementAbdomen: Soft, Non Tender, Non-Distended, Gravid, -Extremities:: No edemaFetal Presentation: CephalicCervix Dilation (cm): 9Station: 1Effacement (%): 90Assessment/PlanActive and Suspected Gebqzwib69 weeks gestation of (Acute)Delivery by emergency section (Acute)27-year-old G1 at 38-3/7 weeks gestational age now status post primary emergent low transversecesarean section that was otherwise uncomplicated.She is transferred to the recovery room for continued care. We will manage her painas needed. SCDs for DVT prophylaxis. Clear liquid diet and will advance as tolerated. Ramsey send urine toxicology screen given infant SGA and prior history of positive tox screens.Routine postoperative care.10/04/17 2329 <Electronically signed by Jazmine De León MD>Date Jazmine De León [facility] CORDELL[facility]igner Signature: Date (if applicable)CC: OUT OF TOWN DOCTOR; Jazmine Khalil MD Signed OPERATIVE REPORT Observed: 10/04/2017 Status: F Source: OSAKIS 11:04 PM [facility] REPOSITORY [facility] [id number] [place] [address]Aezftkglc Vidmka32/11/18 2253MR#: [id number] Acct: [id number]: ANGIE ZAIDI Rep #: [id number]: 1990 27 From: Jazmine Khalil MDPCP: OUT OF TOWN DOCTOR Status: ADM IN YLocation: WP [id number]- Problem List(1) 38 weeks gestation of pregnancyStatus: Acute(2) Delivery by emergency sectionStatus: AcuteC-Section DeliveryC-Section Classification: StatNewborn doctor who attended delivery (if requested by OB): Cecilia Koehlerications:Ms. Ledbetter is a 27-year-old 1 at 38-3/7 weeks gestational age who presented in activelabor at 9 cm dilatation. She had bradycardia that did not recover despite attempts atintrauterine resuscitation. I attempted to push and reduce the cervix however it was notreducible and the head was at +2 station. I advised her to proceed with emergentcesarean section given the prolonged bradycardia and inability to interpret the internal scalpelectrode once it was placed. Artery quickly reviewed with her the risks of sectionincluding pain, bleeding, infection, injury to bowel or bladder, injury to ureter, fetallaceration, hemorrhage requiring transfusion or hysterectomy. She agreed to proceed. Irequested general anesthesia from the anesthesiologist given the urgent nature of thesituation.Indications for C- Section: - - bradycardiaDescription of Procedure:Findings: Normal tubes and ovaries, female infant with Apgars 8, 9. Weight 2058 gThe patient was taken to the operating room and efforts to reduce the cervix while pushingfailed. she was placed in the dorsal supine position, given with Betadine prep and a Foleycatheter was placed into the bladder. She was induced under general anesthesia and intubated.A Greg Healy incision was made using a scalpel and brought down to incise the subcutaneoustissue and rectus fascia at the midline. Subcutaneous tissue was bluntly dissected off thefascia laterally fascial incision was bluntly extended laterally. The rectus muscles werebluntly at the midline. The peritoneum was bluntly entered and the incisionextended. The bladder blade was placed into the abdomen the hysterotomy was made above thevesicouterine peritoneal fold using a scalpel. There is meconium-stained fluid. Thehysterotomy was extended bluntly cephalad and caudad. The head was elevated and femaleinfant delivered. The cord was doubly clamped and cut acutely and [facility] [[facility]ursery personnel and hospitalist]. Cord avulsed on placental expression thus theplacenta was manually extracted from the uterus and appeared intact on inspection. The uterusinteriorized and was cleared of debris. Laterally was repositioned in the abdomen. Thehysterotomy was then repaired using 0 Vicryl running lock suture. A second imbricating layerwas also placed for additional hemostasis. The anterior cul- de-sac was cleared of debris.Amol was placed for additional hemostasis along the hysterotomy repair. The peritoneum andrectus muscles were reapproximated using 2-0 Vicryl running suture. The rectus fascia wasclosed using 0 Vicryl running suture. The subcutaneous tissue was sponge irrigated. Thesubcutaneous tissue was reapproximated using 2-0 Vicryl. The skin was closed using 4-0Monocryl subcuticularly the STRAND GALVANIZER under my supervision.This was followed by Cavilon and a Mepilex occlusive dressing was placed over the incision.The fundus was firm. The patient cannot, extubated, and was then transferred to the recoverypostpartum room without complication. Sponge, instrument, and needle counts were correct 2.IV Ancef was administered during the procedure. She will receive 2 additional doses of IVAncef operatively.Amniotic Membrane Rupture Type: SpontaneousAmniotic Fluid Description: Moderate meconiumPlacenta Disposition: Sent to PathologySpecimen(s ) sent to pathology: placentaDrain: Rm to straight drainNuchal Cord Compression: Without compressionFetal Cord Vessel Description: 3 VesselsEsitmated Blood Loss (ml): 600Infant Gender: FemaleApgar (1 minute): 8Apgar (5 minute): 9Delayed cord clamping: NoPre-op Antibiotic Given: - - given intra-opPt instructed on risks of surgery: Bleeding, Anesthesia Risks, Infection, Injury to surroundingstructure(s) including bowel and bladderComplications: None- Admit VTE DocumentationVTE Present on Admission: NoVTE Mechan Device Prophylaxis: NoneVTE Pharm Prophylaxis ordered?: No10/04/17 2304 <Electronically signed by Jazmine Khalil MD>Date Jazmine Khalil MDCC: OUT OF TOWN DOCTOR; Jazmine Khalil MD Signed CBC W/DIFF, AUTOMATED Collected: 10/04/2017 Status: F Source: CLARA 9:45 PM [facility] REPOSITORY TYPE CODE TESTS RESULT OUT OF RANGE REFERENCE UNITS LAB L100.1000 High 4.4-11.0 K/mm3 WBC 18.9 LAB L100.1200 Normal 4.2-5.4 M/mm3 RBC 4.35 LAB L100.1300 Low 12.0-15.0 g/dl HGB 11.8 LAB L100.1400 Low 37-47 % HCT 36.4 LAB L100.1500 Normal 81-99 fL MCV 83.7 LAB L100.1600 Normal 27.0-32.0 pg MCH 27.1 LAB L100.1700 Normal 32-36 g/gl MCHC 32.4 LAB L100.1810 High 11.6-14.6 % RDW 16.3 CV LAB L100.1820 High 35.1-43.9 fl RDW 50.0 SD LAB L100.1900 Normal 150-450 K/mm3 PLT 243 LAB L100.2000 Normal 6.2-12.0 fl MPV 11.8 LAB L100.2100 High 47-70 % NEUT% 84.9 LAB L100.2200 Low 19-41 % LY% 7.7 LAB L100.2300 Normal 0-10 % MONO% 6.2 LAB L100.2400 Normal 0-5 % EO% 0.5 LAB L100.2500 Normal 0-1 % BASO% 0.2 LAB L100.2550 Normal 0.0-0.9 % IM 0.500 GRAN % Result Comment: IG% - Immature Granulocytes (promyelocytes, myelocytes andmetamyelocytes) > 1% indicates that a LEFT SHIFT is Present. LAB L100.2620 High 2.0-7.7 X10 3/uL Absolute Neut 16.0 LAB L100.2720 Normal 0.83-4.51 X10 3/ul Absolute Lymph 1.46 Performed By: #### L100.0100 ####[facility] [address] [facility] [place], [place], [address] TYPE AND SCREEN Collected: 10/04/2017 Status: F Source: OSAKIS 9:45 PM [facility] REPOSITORY Order Comment: Reason for Type AND Screen/Red Cells: TYPE CODE TESTS RESULT OUT OF RANGE REFERENCE UNITS LAB B10.0800 Normal BLOOD A TYPE GEL POSITIVE LAB B100.4000 Normal Antibody NEGATIVE Screen Performed By: #### B101.7450 ####[facility] [address] [facility] [place], [place], [address] GROUP B STREP DNA Collected: 09/29/2017 Status: F Source: OSAKIS BY PCR 3:00 PM [facility] REPOSITORY Order Comment: Source: Vaginal-Rectal TYPE CODE TESTS RESULT OUT OF REFERENCE UNITS RANGE LAB L8200.0100 High Negative GBS POSITIVE TEST RESULT Result Comment: Penicillin is the recommended antibiotic for thetreatment of Group B Streptococcal disease.In case of penicillin allergy, susceptibility testing forClindamycin and Erythromycin is suggested by request. Performed By: #### L8200.0000 ####[facility] [address] [facility] [place], [place], [address] CBC-COMPLETE BLOOD CNT Collected: 08/05/2017 Status: F Source: CLARA NO DIFF 1:05 PM [facility] REPOSITORY TYPE CODE TESTS RESULT OUT OF RANGE REFERENCE UNITS LAB L100.1000 High 4.4-11.0 K/mm3 WBC 13.6 LAB L100.1200 Low 4.2-5.4 M/mm3 RBC 4.12 LAB L100.1300 Low 12.0-15.0 g/dl HGB 11.7 LAB L100.1400 Low 37-47 % HCT 36.3 LAB L100.1500 Normal 81-99 fL MCV 88.1 LAB L100.1600 Normal 27.0-32.0 pg MCH 28.4 LAB L100.1700 Normal 32-36 g/gl MCHC 32.2 LAB L100.1810 Normal 11.6-14.6 % RDW 14.2 CV LAB L100.1820 High 35.1-43.9 fl RDW 45.3 SD LAB L100.1900 Normal 150-450 K/mm3 PLT 245 LAB L100.2000 Normal 6.2-12.0 fl MPV 11.9 Performed By: #### L100.0500 ####[facility] [address] [place], [address] GLUCOSE CHALLENGE GEST Collected: 08/05/2017 Status: F Source: CLARA 1H 50G 1:05 PM [facility] REPOSITORY TYPE CODE TESTS RESULT OUT OF RANGE REFERENCE UNITS LAB L501.0250 Normal 70-140 mg/dL GLU 132 GEST 50g 1H Performed By: #### L501.0250 ####[facility] [address] [place], [address] Observed: 06/09/2017 Status: F Source: CLARA CULTURE, URINE 2:50 PM [facility] REPOSITORY Urine CultureORGANISM 1: Presumptive E. coliColony Count >100,000 Presumptive E. coli: REACTION Amoxacillin/Clavulanic Acid $ <=2 S Ampicillin $ <=2 S Ampicillin/Sulbactam $ <=2 S Cefazolin $ <=4 S Cefepime $ <=1 S Ceftriaxone $ <=1 S Ciprofloxacin $ <=0.25 S ESBL - Ertapenim $$$ <=0.5 S Gentamicin $ <=1 S Imipenem *NF <=0.25 S Levofloxacin $ <=0.12 S Nitrofurantoin $ 32 S Piperacillin/Tazobactam $$ <=4 S Tobramycin $ <=1 S Trimethoprim/Sulfametho $ <=20 S(NF) indicates non- formulary drug at [facility]. Approval by Infectious Disease Specialist required before non-formulary drugs may be ordered and/or dispensed. Performed By: #### M100.0650 ####[facility] [address] [facility] [place], [place], [id number] URINE DRUG SCREEN Collected: 05/14/2017 Status: P Source: OSAKIS [employer]) 4:00 PM [facility] REPOSITORY Order Comment: Comments: PREVIOUS POSITIVE DRUG SCREENSList of Drugs Taken or Suspected? THC,OPIODS, AMPHETAMINES TYPE CODE TESTS RESULT OUT OF RANGE REFERENCE UNITS LAB L505.0075 Normal TO BE CONFIRMED Result Comment: CONFIRMATORY TESTING FOR ALL POSITIVE URINE DRUG SCREENRESULTS WILL ONLY BE SENT OUT UPON PHYSICIAN ORDER.AlertEnterpriseTA Urine Drug Screen methods provide only preliminaryanalytical test results. A more specific alternate chemicalmethod must be used in order to obtain a confirmedanalytical result. Gas chromatography/mass spectrometery(GC/MS) is the preferred confirmatory method. Clinicalconsideration and professional judgement should be appliedto any drug of abuse test result, particularly whenpreliminary positive results are used.URINE TCA TESTING MUST BE ORDERED SEPARATELY. USE TESTMNEMONIC: UTCA Performed By: #### L505.5000 ####[facility] [address] [facility] [place], [place], [address] URINE DRUG SCREEN Collected: 05/14/2017 Status: F Source: [employer]) 4:00 PM [facility] REPOSITORY Order Comment: Comments: PREVIOUS POSITIVE DRUG SCREENSList of Drugs Taken or Suspected? THC,OPIODS, AMPHETAMINES TYPE CODE TESTS RESULT OUT OF RANGE REFERENCE UNITS LAB L505.0075 Normal TO BE CONFIRMED Result Comment: CONFIRMATORY TESTING FOR ALL POSITIVE URINE DRUG SCREENRESULTS WILL ONLY BE SENT OUT UPON PHYSICIAN ORDER.VISTA Urine Drug Screen methods provide only preliminaryanalytical test results. A more specific alternate chemicalmethod must be used in order to obtain a confirmedanalytical result. Gas chromatography/mass spectrometery(GC/MS) is the preferred confirmatory method. Clinicalconsideration and professional judgement should be appliedto any drug of abuse test result, particularly whenpreliminary positive results are used.URINE TCA TESTING MUST BE ORDERED SEPARATELY. USE TESTMNEMONIC: UTCA LAB L505.5005 Normal VISTA UDS PH 6 LAB L505.5015 Normal <1000 AMPHETAMINES NEGATIVE ng/mL LAB L505.5025 Normal < 200 BARBITIURATES NEGATIVE ng/mL LAB L505.5035 Normal < 200 BENZODIAZIPINE NEGATIVE ng/mL LAB L505.5045 Normal < 300 COCAINE NEGATIVE ng/mL LAB L505.5055 Normal < 500 ECSTACY NEGATIVE ng/mL LAB L505.5065 Normal < 300 METHADONE NEGATIVE ng/mL LAB L505.5075 Normal < 300 OPIATES NEGATIVE ng/mL LAB L505.5085 Normal < 25 PCP NEGATIVE ng/mL LAB L505.5095 High < 50 THC POSITIVE ng/mL Performed By: #### L505.5000 ####[facility] [address] [place], [place], [address] CERVICAL Observed: 05/14/2017 Status: F Source: OSAKIS 3:30 PM [facility] REPOSITORY Patient: ANGIE ZAIDI : 1990 (26/F) Acct Num: [id number] Phys: Isai Matt MD Unit Num: [id number] Loc: LABSPEC Specimen: [id number] Received: 05/15/17 - 1226 Spec Type: CERV TISSUES TISSUES: COMMENT Immunohistochemistry ([id number]) for surrogate HPV marker (p16) supports the above diagnosis. GROSS DESCRIPTION Received in fixative is one container labeled with the patient's name and designated cervical biopsy. The specimen consists of a fragment of tolliver soft tissue measuring 0.3 x 0.3 x 0.1 cm. The specimen is totally submitted in one cassette. / SJ:wilfrid TC:5 CPT: 96449 HEADER OPERATION: Colposcopy PRE-OP DIAGNOSIS: LMP 12/23, 18 weeks, LGSIL pap TISSUE SUBMITTED: Cervical biopsy at 6 o'clock MICROSCOPIC DESCRIPTION Slides are reviewed. 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 Chronic inflammation. See comment. INGE:wilfrid 05/18/17 Signed Sohan Gutierrez 05/19/17 <signature on file> Performed By: #### PCER ####[facility] [address] [facility] [address] [place], [place], [phone] IMMUNOHISTOCHEMISTRY Observed: 05/14/2017 Status: F Source: OSAKIS 12:00 AM [facility] REPOSITORY Patient: ANGIE ZAIDI : 1990 () Acct Num: [id number] Phys: Isai Matt MD Unit Num: [id number] Loc: LABSPEC Specimen: [id number] Received: 05/18/17 - 1308 Spec Type: IMMUNO TISSUES TISSUES: SPECIMEN INFORMATION: Tissue Source: Cervical biopsy at 6 o'clock Clinical Info: LGSIL pap Specimen Number: [id number] CPT code: 25010, 06166 METHODOLOGY: Deparaffinized sections of prefer/formalin-fixed tissue or PAP/DQ stained slides are incubated with monoclonal/polyclonal antibodies/oligonucleotide probes. Localization is made via biotin free immunoperoxidase method. Appropriate controls are performed and reacted as expected. Results on target cell population are indicated in the following table: RESULTS: ANTIBODY / CLONE RESULT P16 (E6H4) positive, focal and patchy Ki-67 (30-9) positive, low These tests were developed and their performance characteristics determined by [facility]. They may not have been cleared or approved by the U.S. Food and Drug Administration. The FDA has determined that such clearance or approval is not necessary. INTERPRETATION: Cervix, 6 o'clock, biopsy : Focal mild squamous dysplasia SJ:kaycee 05/19/17 PHYSICIAN AND INSTITUTION [address] [address] Signed Sohanceci Gutierrez <signature on file> Performed By: #### PIMM ####[facility] [address] [place], [address] CNCO Observed: 04/14/2017 Status: COMPLETED Source: [place] 12:00 AM [facility] REPOSITORY Letter Text [facility] [address] [facility] [address] [place] [address]Nozr Hods Gqduarqnx Sahota, MDSholzer medical center – jackson [address]atoya [address] [facility]asR[facility] [id number] Angie Dyan,Our records indicate that you missed your appointment on 2016. Per ourpolicy effective August 27, 2012, Patient's who do not cancel theirscheduled appointment within 24 hours advance notice or who do not arrive fortheir appointment on time will be considered a no-show..We understand that it may be difficult at times to keep appointments but ourhope is that in the future you will notify our office to either change orreschedule your upcoming visit. We are committed to ensuring that ourpatients have access to our practitioners for health care services.Following our office policy I would like to take this opportunity tohighlight that those patients who repeatedly miss booked appointments withoutcanceling may be potentially released from the practice.Thank you for helping to reduce appointment waiting times by canceling futureunneeded appointments. We appreciate your understanding.Sincerely,Kami Gonsalves M.D.(Signed electronically to expedite mailing) PROGRESS Observed: 04/13/2017 Status: COMPLETED Source: [place] 4:37 PM [facility] REPOSITORY HNO ID: [id number]: Lavon Weiner: (none) Author Type: (none)Type: Progress NotesFiled: 04/13/2017 4:37 PMNote Text:The patient did not show for this appointment.Lavon HART Observed: 04/13/2017 Status: COMPLETED Source: [place] 3:30 PM [facility] REPOSITORY Office Visit (AGINTMLW) ANGIE ZAIDI (<[id number]>) 1990 F CHTDate Time Provider Department04/13/17 3:30 PM KAMI GONSALVES AGINTMLW During your visit today, we recorded the following information about you:Lavon Carmen 04/13/2017 4:37 PM SignedThe patient did not show for this appointment.Lavon Randhawa As of Date: 04/13/2017 Noted Allergy ReactionHYDROCODONE-ACETAMINOPHEN 12/13/2015 4 - Hives Comments: Nh-saytcpmzfFHZNYDUWSNHKEMTO-XUPDHBYHEWGU 12/13/2015 4 - Hives Comments: In-effectiveDate Reviewed: 03/16/2017Reviewed by: Kami Gonsalves - Fully AssessedReason for Visit: No Show [1558]Primary Visit Diagnosis:NO SHOWPrescriptions as of 04/13/2017 Sig: ALBUTEROL SULFATE HFA 90 MCG/* Inhale 2 Puffs as instructed * GUMMY ORAL Take 2 tablets by mouth once *Problem List As Of Date 04/13/2017 Noted Resolved Airway hyperreactivity [J45.909] INVALID FOR* Anxiety [F41.9] INVALID FOR* Celiac disease [K90.0] INVALID FOR* More... Endometriosis [N80.9] INVALID FOR* More... History of substance abuse [Z87.898] INVALID FOR* More... Current smoker [F17.200] INVALID FOR*Level of Service: OFFICE VISIT NO CHARGE WITH PROCEDURE [[id number]] Status:Closed by LAVON CARMEN on 04/13/17 EMERGENCY DEPARTMENT Observed: 04/08/2017 Status: F Source: OSAKIS SUMMARY 11:59 PM [facility] REPOSITORY [facility] [address] [place], [place] [address]Fcjuglhyu Department Hrjmnyc61/13/17 2258#: [id number] Acct: [id number]: ANGIE ZAIDI Rep #: [id number]: 1990 26 From: Viraj Degroot [facility]ITALCP: OUT OF TOWN DOCTOR Status: REG ERADDENDUM by Viraj Degroot MD on at 2359Urinalysis shows 2+ bacteria and nitrites but no other signs of infection and culture will besent. On repeat exam at 2356 the patient is doing well. Her nausea is resolved. She is drankwater and held it down. She is comfortable being discharged home.Discharge home with a Zofran prescription. And follow-up with Dr. Matt.Date Viraj Degroot MDcc: OUT OF TOWN DOCTOR *Signed- ER Visit SummaryDate of Service: 04/08/17Chief Complaint: Nausea vomiting approximately 13 weeks History of Present Illness: The patient is a 26 F complaining of nausea vomiting for last 2months. This is her first she presently 13 weeks. Denies any diarrhea. Milddysuria. No fever. She sees Dr. Matt of [facility] is currently on Zofran. She denies anyvaginal bleeding.Physical Examination: Well-appearing young female. Vital signs are stable afebrile. Does notlook septic or toxic. H EENT exam unremarkable. Moist mucous membranes. Neck nontender nolymphadenopathy. Lungs clear to auscultation bilaterally. Heart regular rate and rhythm nomurmur. Abdomen soft nondistended normal bowel sounds no peritoneal signs. No localizingtenderness. Extremities moves all 4. Neurovascular intact. No edema. Neuro exam normal.Test Results: UAEmergency Department Course and Treatment: Patient treated a liter of normal saline withZofran.Treatment Plan: []Disposition: DischargedImpression: Acute nausea and ajeqelmt91 weeks ED Disposition- Plan for ED Patient:Chief Complaint: Nausea/VomitingWhat to do if you have ProblemsFor any increased pain, shortness of breath, bleeding, nausea or vomiting, chest pain, or anyunexpected problems, contact your Primary Care Provider. Call [facility] ([phone])or report to the closest Emergency Room.Call 911 if necessary.04/08/172333 < Electronically signed by Viraj Degroot MD>Date Viraj Degroot [facility] Signature (If Indicated): Date CC: OUT OF TOWN DOCTOR DISCHARGE INSTRUCTION Observed: 04/08/2017 Status: F Source: OSAKIS 11:54 PM [facility] REPOSITORY [facility] [address] [place], [place] [address]Nrznojtjw Dryzzrdrngz58/13/17 2328MR#: [id number] Acct: [id number]: DYANANGIE LYNN Rep #: [id number]: 1990 26 From: Viraj Degroot MDPCP: OUT OF TOWN DOCTOR Status: REG ERED Disposition- Plan for ED Patient:Disposition: Home or Assisted LivingChief Complaint: Nausea/VomitingInstructions: ED Nausea VomitingPrescriptions:Ondansetron [ Zofran Odt] 4 mg PO Q4H PRN PRN #14 tab.rapdisPRN Reason: NauseaReferrals:Isai Matt MD [STAFF PHYSICIAN] - 3-5 Days if not improvingAdditional Instructions:Plenty of fluids and rest.Zofran as needed for nausea.Follow-up with Dr. Matt as needed.What to do if you have ProblemsFor any increased pain, shortness of breath, bleeding, nausea or vomiting, chest pain, or anyunexpected problems, contact your Primary Care Provider. Call [facility] ([phone])or report to the closest Emergency Room.Call 911 if necessary.04/08/17 8767 <Electronically signed by Viraj Degroot MD&gt ;Date Viraj Degroot MDCosigner Signature (If Indicated): Date ___CC: OUT OF TOWN DOCTOR URINALYSIS, COMPLETE Collected: 04/08/2017 Status: F Source: CLARA 11:14 PM [facility] REPOSITORY Order Comment: How was Urine Obtained? CLEAN CATCH TYPE CODE TESTS RESULT OUT OF RANGE REFERENCE UNITS LAB L400.3000 Normal Yellow COLOR Yellow LAB L400.3050 Normal Clear CLARITY Clear LAB L400.3200 Normal Normal mg/dl GLUCOSE, UR Normal LAB L400.3300 Normal Negative mg/dL BILIRUBIN Negative URINE LAB L400.3400 Normal Negative mg/dl KETONE UR Negative LAB L400.3465 Normal 1.002-1.030 SP.GR. 1.020 DIPSTX LAB L400.3550 Normal 5.0 - 8.0 pH UR 6.0 LAB L400.3600 Normal Negative mg/dl PROT DIPSTX Negative LAB L400.3700 Normal Normal mg/dl UROBILI Normal LAB L400.3750 High Negative NITRITE UR Positive LAB L400.3780 High Negative /ul OCCULT 10 BLOOD-UR LAB L400.3800 High Negative /ul LEUK 25 ESTERASE LAB L400.4050 Normal 0-5 /hpf WBC 0-5 SEEN LAB L400.4100 Normal 0-5 /hpf RBC-UA 0 SEEN LAB L400.4150 Normal 5-10 /hpf SQUAM EPI 0-5 SEEN LAB L400.4300 Normal None Seen /hpf BACTERIA 2+ LAB L400.4350 Normal <or=2+ /hpf MUCUS, 0 SEEN URINE Performed By: #### L400.0001 ####[facility] [address] [place], [address] Observed: 04/08/2017 Status: F Source: CLARA CULTURE, URINE 11:14 PM [facility] REPOSITORY Urine CultureORGANISM 1: Presumptive E. coliColony Count >100,000 Presumptive E. coli: REACTION Amoxacillin/Clavulanic Acid $ <=2 S Ampicillin $ <=2 S Ampicillin/Sulbactam $ <=2 S Cefazolin $ <=4 S Cefepime $ <=1 S Ceftriaxone $ <=1 S Ciprofloxacin $ <=0.25 S ESBL - Ertapenim $$$ <=0.5 S Gentamicin $ <=1 S Imipenem *NF <=0.25 S Levofloxacin $ <=0.12 S Nitrofurantoin $ <=16 S Piperacillin/Tazobactam $$ <=4 S Tobramycin $ <=1 S Trimethoprim/Sulfametho $ <=20 S(NF) indicates non- formulary drug at [facility]. Approval by Infectious Disease Specialist required before non-formulary drugs may be ordered and/or dispensed. Performed By: #### M100.0650 ####[facility] [address] [place], [address] PROGRESS Observed: 03/16/2017 Status: COMPLETED Source: PLAINS 2:07 PM [facility] REPOSITORY [facility] ID: [id number]: Kami Mchugh: (none) Author Type: PhysicianType: Progress NotesFiled: 03/24/2017 1:01 PMNote Text:Angie Zaidi is a 26 year old White female, Patient presents with:Asthma.HPIC/o nasal congestion X 4 days, had some fever initially then resolved.Green-yellow sputumCough - mostly green sputumSome chest pain with the cough.Ears feel blocked.No bodyaches, + malaise.No SOB. Has been using the albuterol MDI 3Xdaily X past few days. Was onadvair but stopped taking that ~ 6 months ago.Not taking any OTC meds.Also has h/o migraines - daily SALAS but able to manage. Was taking tylenolearlier but now takes tylenol PRN. Rest and avoidance of bright lighthelps.Has morning sickness but able to eat / drink.Feels depressed, was started by OB on zoloft - took it for a week, thenstopped as she felt it was making things worse. Doesn't want medications.Denies any SI/HI.PAST MEDICAL HISTORYDiagnosis Date- Anxiety- Arthritis Unknown, awaiting clarification- Asthma- Circulation problem Unknown, awaiting clarification- Depression- Heartburn- IBS (irritable bowel syndrome)- Kidney disease unknown, awaiting clarification- Liver disease unknown ? awaiting clarification- Migraine headache- Seasonal allergiesPAST SURGICAL HISTORYNo date: LAPAROSCOPIC EXC ENDOMETRIOSIS/CYSTSocial HistorySubstance Use Topics- Smoking status: Current Every Day Smoker- Smokeless tobacco: Not on file- Alcohol use NoFamily history reviewed.ALLERGIESAllergen Reactions- Hydrocodone-Acetami* Hives In-effective- Sulfamethoxazole-Tr* Hives In-effectiveCurrent Outpatient Prescriptions: albuterol HFA (VENTOLIN HFA) 90 mcg/actuation inhaler Inhale 2 Puffs asinstructed every 4 hours as needed. VITS62/FA/OM3/DHA/EPA ( GUMMY ORAL) Take 2 tablets bymouth once daily.No current facility-administered medications for this visit.Review of SystemsConstitutional: Negative for chills, fever, malaise/fatigue and weightloss.HENT: Negative for ear pain.Eyes: Negative for blurred vision and double vision.Cardiovascular: Negative for chest pain, orthopnea and leg swelling.Gastrointestinal: Negative for abdominal pain, constipation, diarrhea,heartburn, nausea and vomiting.Genitourinary: Negative for dysuria.Musculoskeletal: Negative for joint pain and myalgias.Skin: Negative for rash.Neurological: Negative for dizziness, focal weakness and seizures.Psychiatric/Behavioral: Negative for depression, hallucinations andsuicidal ideas. The patient is not nervous/anxious.BP 112/80 Pulse 92 Temp (Src) 98.1 (Oral) Resp 16 Wt 134 lb 9.6 oz(61.1kg) SpO2 98%Physical ExamConstitutional: She is oriented to person, place, and time andwell-developed, well-nourished, and in no distress. No distress.HENT:Head: Normocephalic.Eyes: Conjunctivae are normal. Right eye exhibits no discharge. Left eyeexhibits no discharge.Cardiovascular: Normal rate, regular rhythm, normal heart sounds andintact distal pulses.No murmur heard.Pulmonary/Chest: Effort normal and breath sounds normal. No respiratorydistress. She has no wheezes.Abdominal: Soft. Bowel sounds are normal. She exhibits no distension.There is tenderness (gen abd discaomfort) .Musculoskeletal: Edema: no LE edema.Neurological: She is alert and oriented to person, place, and time.Skin: Skin is warm and dry.Psychiatric: Mood and affect normal.sinuses - no temp/ max tenderness. Nasal mucosa - mild edema, waterydischarge.ASSESSMENT/ PLAN:1. Upper respiratory tract infection, unspecified type - ICD9: 465.9,ICD10: J06.9 (primary diagnosis)- Discussed viral etiology and rationale for treatment.- Symptomatic treatment with prn tylenol.- Supportive care with fluids and rest- The patient may also use cough syrup with guaifensin OTC, steaminhalation, warm saline gargles.- Follow up in next few days if symptoms persist or sooner if worsening ofsymptoms?2. Uncomplicated asthma, unspecified asthma severity - ICD9: 493.90, ICD10: J45.909- Continue current meds - once the URI is over - pt needs to keep asymptom diary/ times when she uses her albuterol MDI and then we willdecide whether to start maintenance MDIs.- Avoidance of triggers recommended?3. Current smoker - ICD9: 305.1, ICD10: F17.200- Cessation encouraged, especially in light of .- Physiologic and physical aspects of tobacco addiction as well asstrategies for quitting were discussed.- Counseling was given focusing on the harmful effects of this addictionespecially given the patient's medical condition(s) which will be worsenedbecause of the chemicals in tobacco.?4. Depression, unspecified depression type - ICD9: 311, ICD10: F32.9Consult to psychology. Pt doesn't want to take medications.?5. - following up with OB.Discussed above plan with patient. Pt agreeable with above plan.Kami Gonsalves MD CNOV Observed: 03/16/2017 Status: COMPLETED Source: [place] 2:00 PM [facility] REPOSITORY Office Visit (AGINTMLW) ANGIE ZAIDI (<[id number]>) 1990 F CHTDate Time Provider Department03/16/17 2:00 PM KAMI GONSALVES During your visit today, we recorded the following information about you: Temperature Pulse Respiration Blood pressure 98.1 degrees 92/minute 16/minute 112/ 80 Weight 61.1 kgMeli Shields CMA 03/16/2017 1:54 PM SignedPatient here for 1 month f/ u asthma/migraines. Patient still having problemswith asthma and her migraines continueMeli Shields CMASimrdada Gonsalves MD 03/24/2017 1:01 PM SignedAngie Zaidi is a 26 year old White female, Patient presents with:Asthma.HPIC/o nasal congestion X 4 days, had some fever initially then resolved.Green-yellow sputumCough - mostly green sputumSome chest pain with the cough.Ears feel blocked.No bodyaches, + malaise.No SOB. Has been using the albuterol MDI 3Xdaily X past few days. Was on advairbut stopped taking that ~ 6 months ago.Not taking any OTC meds.Also has h/o migraines - daily SALAS but able to manage. Was taking tylenolearlier but now takes tylenol PRN. Rest and avoidance of bright light helps.Has morning sickness but able to eat / drink.Feels depressed, was started by OB on zoloft - took it for a week, then stoppedas she felt it was making things worse. Doesn't want medications. Denies anySI/HI.PAST MEDICAL HISTORYDiagnosis Date- Anxiety- Arthritis Unknown, awaiting clarification- Asthma- Circulation problem Unknown, awaiting clarification- Depression- Heartburn- IBS (irritable bowel syndrome)- Kidney disease unknown, awaiting clarification- Liver disease unknown ? awaiting clarification - Migraine headache- Seasonal allergiesPAST SURGICAL HISTORYNo date: LAPAROSCOPIC EXC ENDOMETRIOSIS/ CYSTSocial HistorySubstance Use Topics- Smoking status: Current Every Day Smoker- Smokeless tobacco: Not on file- Alcohol use NoFamily history reviewed.ALLERGIESAllergen Reactions- Hydrocodone-Acetami* Hives In- effective- Sulfamethoxazole-Tr* Hives In-effectiveCurrent Outpatient Prescriptions: albuterol HFA (VENTOLIN HFA) 90 mcg/actuation inhaler Inhale 2 Puffs asinstructed every 4 hours as needed. VITS62/FA/OM3/DHA/EPA ( GUMMY ORAL) Take 2 tablets by mouthonce daily.No current facility- administered medications for this visit.Review of SystemsConstitutional: Negative for chills, fever, malaise /fatigue and weight loss.HENT: Negative for ear pain.Eyes: Negative for blurred vision and double vision.Cardiovascular: Negative for chest pain, orthopnea and leg swelling.Gastrointestinal: Negative for abdominal pain, constipation, diarrhea,heartburn, nausea and vomiting.Genitourinary: Negative for dysuria.Musculoskeletal: Negative for joint pain and myalgias.Skin: Negative for rash.Neurological: Negative for dizziness, focal weakness and seizures.Psychiatric/Behavioral: Negative for depression, hallucinations and suicidalideas. The patient is not nervous/anxious.BP 112/80 Pulse 92 Temp (Src) 98.1 (Oral ) Resp 16 Wt 134 lb 9.6 oz(61.1kg) SpO2 98%Physical ExamConstitutional: She is oriented to person, place, and time and well-developed,well-nourished, and in no distress. No distress.HENT:Head: Normocephalic.Eyes: Conjunctivae are normal. Right eye exhibits no discharge. Left eyeexhibits no discharge.Cardiovascular: Normal rate, regular rhythm, normal heart sounds and intactdistal pulses.No murmur heard.Pulmonary/Chest: Effort normal and breath sounds normal. No respiratorydistress. She has no wheezes.Abdominal : Soft. Bowel sounds are normal. She exhibits no distension. There istenderness (gen abd discaomfort) .Musculoskeletal: Edema: no LE edema.Neurological: She is alert and oriented to person, place, and time.Skin: Skin is warm and dry.Psychiatric: Mood and affect normal.sinuses - no temp/ max tenderness. Nasal mucosa - mild edema, watery discharge.ASSESSMENT/PLAN:1. Upper respiratory tract infection, unspecified type - ICD9: 465.9, ICD10:J06.9 (primary diagnosis)- Discussed viral etiology and rationale for treatment.- Symptomatic treatment with prn tylenol.- Supportive care with fluids and rest- The patient may also use cough syrup with guaifensin OTC, steam inhalation,warm saline gargles.- Follow up in next few days if symptoms persist or sooner if worsening ofsymptoms?2. Uncomplicated asthma, unspecified asthma severity - ICD9: 493.90, ICD10:J45.909- Continue current meds - once the URI is over - pt needs to keep a symptomdiary/ times when she uses her albuterol MDI and then we will decide whether tostart maintenance MDIs.- Avoidance of triggers recommended?3. Current smoker - ICD9: 305.1, ICD10: F17.200- Cessation encouraged, especially in light of .- Physiologic and physical aspects of tobacco addiction as well as strategiesfor quitting were discussed.- Counseling was given focusing on the harmful effects of this addictionespecially given the patient's medical condition(s) which will be worsenedbecause of the chemicals in tobacco.?4. Depression, unspecified depression type - ICD9: 311, ICD10: F32.9Consult to psychology. Pt doesn't want to take medications.?5. - following up with OB.Discussed above plan with patient. Pt agreeable with above plan.Alec Worley MD 03/16/2017 2:37 PM AddendumRest and keep up with fluids. You may also use cough syrup with guaifensin (over the counter) , steam inhalation, warm saline gargles. Let us know if youare not feeling better in the next few days. You can continue to use youralbuterol inhaler.Stop smoking.Allergies As of Date: 03/16/2017 Noted Allergy ReactionHYDROCODONE-ACETAMINOPHEN 12/13/2015 4 - Hives Comments: Ca-pwcmnzseqTUEZACDNQSKZYLUT-CAKMRLLQSQTC 12/13/2015 4 - Hives Comments: In-effectiveDate Reviewed: 03/16/2017Reviewed by: Kami Gonsalves - Fully AssessedReason for Visit: Asthma [11]Primary Visit Diagnosis:Upper respiratory tract infection, unspecified type [J06.9] Other Visit Diagnoses:Uncomplicated asthma, unspecified asthma severity [J45.909] Current smoker [F17.200] Depression, unspecified depression type [F32.9]Order(s):CONSULT TO PSYCHOLOGY [9074] Order #: [id number]: 1Prescriptions as of 03/16/2017 Sig: ALBUTEROL SULFATE HFA 90 MCG/* Inhale 2 Puffs as instructed * GUMMY ORAL Take 2 tablets by mouth once *Problem List As Of Date 03/16/2017 Noted Resolved Airway hyperreactivity [J45.909] INVALID FOR* Anxiety [F41.9] INVALID FOR* Celiac disease [K90.0] INVALID FOR* More... Endometriosis [N80.9] INVALID FOR* More... History of substance abuse [Z87.898] INVALID FOR* More... Current smoker [F17.200] INVALID FOR* Notes for Staff Discussed this visit Other instructions from your clinician: Rest and keep up with fluids. You may also use cough syrup with guaifensin ( over the counter) , steam inhalation , warm saline gargles. Let us know if you are not feeling better in the next few days. You can continue to use your albuterol inhaler. Stop smoking.Visit Notes:>> Meli Shields Mon Mar 16, 2017 1:47 PM Status: SignedPatient here for 1 month f/u asthma/migraines. Patient still havingproblems with asthma and her migraines continueMeli Shields CMALevel of Service: EST PATIENT VISIT LEVEL 3 [[id number]]Follow Up: Discussed this visitDisposition: Return in about 4 weeks (around 04/13/2017), or if symptoms worsen or fail to improve, for depression.Follow-up and Disposition History RecordedLettTooele Valley Hospital, Link[address] Annette SenthilDept phone: [phone] Vhrmnkmvv [place], MDAugust 2016Angie Flowers [facility] [id number] Ms. Zaidi,You have been referred to: [facility] to be evaluated and treatedfor: depression.This physician can be reached at: [phone] is your responsibility to make your own appointment. We then request thatyou notify our office of the date of your appointment so that we can verifyif a referral is required by your insurance carrier and is processed in theappropriate time. If you do not notify us of the date of your appointment,we will not be able to do the referral or be able to have a letter and copyof test results to the physician in time for your visit.We appreciate your assistance.Sincerely,Kami Gonsalves M.D.(Signed electronically to expedite mailing) Status:Closed by MD GONSALVES SIMRANJOT on 03/24/17 URINE DRUG SCREEN Collected: 02/24/2017 Status: F Source: CLARA (VISTA) 4:03 PM [facility] REPOSITORY Order Comment: Comments: UNK IMMUNITY TO CHICKEN POXList of Drugs Taken or Suspected? UNK TYPE CODE TESTS RESULT OUT OF RANGE REFERENCE UNITS LAB L505.0075 Normal TO BE CONFIRMED Result Comment: CONFIRMATORY TESTING FOR ALL POSITIVE URINE DRUG SCREENRESULTS WILL ONLY BE SENT OUT UPON PHYSICIAN ORDER.VISTA Urine Drug Screen methods provide only preliminaryanalytical test results. A more specific alternate chemicalmethod must be used in order to obtain a confirmedanalytical result. Gas chromatography/mass spectrometery(GC/MS) is the preferred confirmatory method. Clinicalconsideration and professional judgement should be appliedto any drug of abuse test result, particularly whenpreliminary positive results are used.URINE TCA TESTING MUST BE ORDERED SEPARATELY. USE TESTMNEMONIC: UTCA LAB L505.5005 Normal VISTA UDS PH 7 LAB L505.5015 High <1000 AMPHETAMINES POSITIVE ng/mL LAB L505.5025 Normal < 200 BARBITIURATES NEGATIVE ng/mL LAB L505.5035 Normal < 200 BENZODIAZIPINE NEGATIVE ng/mL LAB L505.5045 Normal < 300 COCAINE NEGATIVE ng/mL LAB L505.5055 Normal < 500 ECSTACY NEGATIVE ng/mL LAB L505.5065 Normal < 300 METHADONE NEGATIVE ng/mL LAB L505.5075 High < 300 OPIATES POSITIVE ng/mL LAB L505.5085 Normal < 25 PCP NEGATIVE ng/mL LAB L505.5095 High < 50 THC POSITIVE ng/mL Performed By: #### L505.5000, L505.6240 ####[facility] [address] [place], [address] NICOTINE URINE DRUG Collected: 02/24/2017 Status: F Source: CLARA SCREEN 4:03 PM [facility] REPOSITORY Order Comment: Comments: UNK IMMUNITY TO CHICKEN POXList of Drugs Taken or Suspected? UNK TYPE CODE TESTS RESULT OUT OF RANGE REFERENCE UNITS LAB L505.6250 Normal TO BE CONFIRMED Result Comment: CONFIRMATORY TESTING FOR ALL POSITIVE URINE DRUG SCREENRESULTS WILL ONLY BE SENT OUT UPON PHYSICIAN ORDER.The results of Urine Drug Screen methods provide onlypreliminary analytical test results. A more specificalternate chemical method must be used in order to obtain aconfirmed analytical result. Gas chromatography/massspectrometery (GC/MS) is the preferred confirmatory method.Clinical consideration and professional judgement should beapplied to any drug of abuse test result, particularly whenpreliminary positive results are used. LAB L505.6270 High <200 ng/mL COT DRG Positive SCREEN Result Comment: Cotinine is the first-stage metabolite of Nicotine. Performed By: #### L505.5000, L505.6240 ####[facility] [address] [facility] [address] [place], [place], [address] CBC W/DIFF, AUTOMATED Collected: 02/24/2017 Status: F Source: OSAKIS 4:03 PM [facility] REPOSITORY TYPE CODE TESTS RESULT OUT OF RANGE REFERENCE UNITS LAB L100.1000 Normal 4.4-11.0 K/mm3 WBC 11.0 LAB L100.1200 Normal 4.2-5.4 M/mm3 RBC 4.70 LAB L100.1300 Normal 12.0-15.0 g/dl HGB 13.4 LAB L100.1400 Normal 37-47 % HCT 40.2 LAB L100.1500 Normal 81-99 fL MCV 85.5 LAB L100.1600 Normal 27.0-32.0 pg MCH 28.5 LAB L100.1700 Normal 32-36 g/gl MCHC 33.3 LAB L100.1810 High 11.6-14.6 % RDW 16.7 CV LAB L100.1820 High 35.1-43.9 fl RDW 52.6 SD LAB L100.1900 Normal 150-450 K/mm3 PLT 277 LAB L100.2000 Normal 6.2-12.0 fl MPV 11.5 LAB L100.2100 High 47-70 % NEUT% 72.2 LAB L100.2200 Low 19-41 % LY% 18.3 LAB L100.2300 Normal 0-10 % MONO% 7.6 LAB L100.2400 Normal 0-5 % EO% 1.3 LAB L100.2500 Normal 0-1 % BASO% 0.3 LAB L100.2550 Normal 0.0-0.9 % IM 0.300 GRAN % Result Comment: IG% - Immature Granulocytes (promyelocytes, myelocytes andmetamyelocytes) > 1% indicates that a LEFT SHIFT is Present. LAB L100.2620 High 2.0-7.7 X10 3/uL Absolute Neut 8.0 LAB L100.2720 Normal 0.83-4.51 X10 3/ul Absolute Lymph 2.02 Performed By: #### L100.0100 ####[facility] [address] [place], [place], [address] URINALYSIS, ROUTINE Collected: 02/24/2017 Status: F Source: OSAKIS (DIPSTICK) 4:03 PM [facility] REPOSITORY Order Comment: Comments: UNK IMMUNITY TO CHICKEN POXHow was Urine Obtained? Urine, Random TYPE CODE TESTS RESULT OUT OF RANGE REFERENCE UNITS LAB L400.3000 Normal Yellow COLOR Yellow LAB L400.3050 Normal Clear CLARITY Clear LAB L400.3200 Normal Normal mg/dl GLUCOSE, UR Normal LAB L400.3300 Normal Negative mg/dL BILIRUBIN Negative URINE LAB L400.3400 Normal Negative mg/dl KETONE UR Negative LAB L400.3465 Normal 1.002-1.030 SP.GR. 1.020 DIPSTX LAB L400.3550 Normal 5.0 - 8.0 pH UR 6.5 LAB L400.3600 High Negative mg/dl PROT DIPSTX 15 LAB L400.3700 High Normal mg/dl UROBILI 1 LAB L400.3750 Normal Negative NITRITE UR Negative LAB L400.3780 Normal Negative /ul OCCULT Negative BLOOD-UR LAB L400.3800 High Negative /ul LEUK 25 ESTERASE Performed By: #### L400.2011 ####[facility] [address] [place], [place], [address] THYROID STIM HORMONE Collected: 02/24/2017 Status: F Source: CLARA (TSH) 4:03 PM [facility] REPOSITORY TYPE CODE TESTS RESULT OUT OF RANGE REFERENCE UNITS LAB L501.9520 Normal 0.358-3.74 uIU/mL TSH 0.43 Performed By: #### L501.9520 ####[facility] [address] [place], [place], [address] T AND S-NO Collected: 02/24/2017 Status: F Source: CLARA CHARGE W/PNP 4:03 PM [facility] REPOSITORY Order Comment: Reason for Type AND Screen/Red Cells: PRENATALSurgery? N TYPE CODE TESTS RESULT OUT OF RANGE REFERENCE UNITS LAB B10.0800 Normal BLOOD A TYPE GEL POSITIVE LAB B100.4050 Normal Ab NEGATIVE SCREEN GEL Performed By: #### B100.7550 ####[facility] [address] [place], [place], [address] RUBELLA IGG Collected: 02/24/2017 Status: F Source: CLARA 4:03 PM [facility] REPOSITORY Order Comment: Comments: UNK IMMUNITY TO CHICKEN POX TYPE CODE TESTS RESULT OUT OF RANGE REFERENCE UNITS LAB L509.4000 Normal IU/mL Rubella 10.7 IgG Result Comment: Antibody results Interpretation of Immune Status < 5 IU/ml Presumed Non-immune 5 - < 10 IU/ml Equivocal > or = 10 IU/ml Presumed Immune Performed By: #### L509.4000 ####[facility] [address] [place], [place], [address] HEPATITIS B SURFACE Collected: 02/24/2017 Status: F Source: CLARA AG 4:03 PM [facility] REPOSITORY Order Comment: Comments: UNK IMMUNITY TO CHICKEN POX TYPE CODE TESTS RESULT OUT OF RANGE REFERENCE UNITS LAB L3100.0400 Normal Negative HB Negative SURF AG Result Comment: Performed at: - [facility] [id number] Director: Farhat Aguayo PhD, Phone: [phone] Performed By: #### L3100.0390, L3100.0625, L3400.0000, L3900.0100 ####[facility] (refer to report for specific site)refer to report for address and phone number HEPATITIS C ANTIBODIES Collected: 02/24/2017 Status: F Source: CLARA 4:03 PM [facility] REPOSITORY Order Comment: Comments: UNK IMMUNITY TO CHICKEN POX TYPE CODE TESTS RESULT OUT OF RANGE REFERENCE UNITS LAB L3100.0650 Normal 0.0-0.9 s/co ratio HEP C 0.1 AB Result Comment: Negative: < 0.8 Indeterminate: 0.8 - 0.9 Positive: > 0.9 The CDC recommends that a positive HCV antibody result be followed up with a HCV Nucleic Acid Amplification test (146622). Performed By: #### L3100.0390, L3100.0625, L3400.0000, L3900.0100 ####[facility] (refer to report for specific site)refer to report for address and phone number V-ZOSTER IGG Collected: 02/24/2017 Status: F Source: CLARA (IMMUNITY) 4:03 PM [facility] REPOSITORY Order Comment: Comments: UNK IMMUNITY TO CHICKEN POX TYPE CODE TESTS RESULT OUT OF RANGE REFERENCE UNITS LAB L3400.0000 Normal Immune >165 index VZOST 2537 IgG 35855 Result Comment: Negative <135 Equivocal 135 - 165 Positive >165A positive result generally indicates exposure to thepathogen or administration of specific immunoglobulins,but it is not indication of active infection or stageof disease. Performed By: #### L3100.0390, L3100.0625, L3400.0000, L3900.0100 ####[facility] (refer to report for specific site)refer to report for address and phone number HIV SCREEN 4TH GEN Collected: 02/24/2017 Status: F Source: CLARA W/CONFIRM 4:03 PM [facility] REPOSITORY Order Comment: Comments: UNK IMMUNITY TO CHICKEN POX TYPE CODE TESTS RESULT OUT OF RANGE REFERENCE UNITS LAB L3900.0180 Normal Non Reactive Non HIV1/0/2 Reactive SCREEN Performed By: #### L3100.0390, L3100.0625, L3400.0000, L3900.0100 ####[facility] (refer to report for specific site)refer to report for address and phone number RPR Collected: 02/24/2017 Status: F Source: OSAKIS 4:03 PM [facility] REPOSITORY TYPE CODE TESTS RESULT OUT OF REFERENCE UNITS RANGE LAB L700.5100 Normal NONREACTIVE NONREACTIVE RPR Performed By: #### L700.5100 ####[facility] [address] [place], [place], [address] ALLERGIES ALLERGIES DATE TYPE / CODE NAME / CODE REACTION SEVERITY SOURCE 02/20/2018 Drug sulfamethoxazole/F Rash Unknown [place] Allergy/416 [id number](RXNORM) [facility] [id number][facility] ED [facility]) Repository 02/20/2018 Drug trimethoprim/F0060 Rash Unknown [place] Allergy/416 15960(RXNORM) [facility] [id number]([facility] ED [facility]) Repository 02/20/2018 Drug hydrocodone/D33427 Rash Unknown [place] Allergy/416 1554(RXNORM) [facility] 810716([facility] ED [facility]) Repository 02/18/2018 Drug hydrocodone Nausea Unknown [place] Allergy/416 bitartrate/[id number] [place] [id number]([place] [address](RXNORM) [facility] ED CT) Repository 04/08/2017 Drug acetaminophen/F006 Nausea Unknown [place] Allergy/416 475258(RXNORM) [facility] 804071([facility] ED [facility]) Repository 04/08/2017 Drug hydrocodone Nausea [place] Allergy/416 [facility]artrate[facility][id number] [facility] [address]([place] [address](RXNORM) [facility] ED CT) Repository 04/08/2017 Drug acetaminophen/F006 Nausea [place] Allergy/416 708934(RXNORM) [facility] 230890([facility] ED CT) Repository 04/08/2017 Drug sulfamethoxazole/F Hives [place] Allergy/416 139950809(RXNORM) [facility] 475223([facility] ED CT) Repository 04/08/2017 Drug trimethoprim/F0060 Hives [place] Allergy/416 81564(RXNORM) [facility] 615460([facility] ED CT) Repository ENCOUNTERS ENCOUNTERS ADMIT/DISCHARGE ACCOUNT NUMBER ADMITTING ENCOUNTER LOCATION SOURCE CLASS 02/20/2018 [id number] Emergency [facility] ding:ED Repository 02/19/2018/02/20/20 [id number] Ambulatory [address] ding:SDC Repository 02/18/2018 [id number] Ambulatory [facility] ding:LABSPEC Repository 02/18/2018/02/19/20 [id number] Ambulatory BMSBuilding: [place] 18 BMS[facility] Repository 02/16/2018/02/17/20 [id number] Emergency [address] ding:ED Repository 01/09/2018 [id number] Ambulatory [facility] ding:LAB Repository 01/07/2018 [id number] Ambulatory [facility] ding:SDC Repository 10/12/2017/10/18/19 [id number] Andres Lees Inpatient [place] 18 Encounter [facility] ding:JQ2Xllo Repository : LU365Mmy: 1 10/04/2017/10/08/19 [id number] Remi, Inpatient [place] 18 Summer Encounter [facility] ding:WPRoom: Repository CB132Oef: 1 09/29/2017 [id number] Ambulatory [facility] ding:LABSPEC Repository 08/05/2017 [id number] Ambulatory [facility] ding:LABSPEC Repository 06/09/2017 [id number] Ambulatory [facility] ding:LABSPEC Repository 05/14/2017 [id number] Ambulatory [facility] ding:LABSPEC Repository 05/05/2017/05/05/20 [id number] Ambulatory [address] MEDICAL Repository CENTERBuildi ng:AKMRI 04/08/2017/04/09/20 [id number] Emergency [address] ding:ED Repository 02/24/2017 [id number] Ambulatory [place] [facility] ding:WOBLAB Repository PAYERS PAYERS ENCOUNTER GUARANTOR PAYER SUBSCRIBER SOURCE 02/20/2018 ANGIE L Primary ANGIE Sandhu [place] [id number] [place] Insurance:CARESOURCEP MATHYSDOB: [facility] Number: [id number] Hospital 25311Gtd: 330 [id number] Repository [phone] () Date:2018-02-20[address]ATTN: [place] [address]FJ: 02/20/2018 Secondary NOT GIVENUNK [place] Insurance:SELF PAY [facility] Number: Effective Repository Date:2018-02-20 02/19/2018 ANGIE L Primary ANGIE Sandhu [place] [id number] [place] Insurance:CARESOURCEP MATHYSDOB: [facility] Number: [id number] Hospital 25358Aqh: 330 [id number] Repository [phone] () Date:2018-02-18[address]ATTN: [place] [address]DM: 02/19/2018 Secondary NOT GIVENUNK [place] Insurance:SELF PAY [facility] Number: Effective Repository Date:2018-02-18 02/18/2018 ANGIE L Primary ANGIE Sandhu [place] [id number] [place] Insurance:CARESOURCEP MATHYSDOB: [facility] Number: [id number] Hospital 85[address]Jof: 330 [id number] Repository [phone] () Date:2018-02-18[address]ATTN: [place] [address]CU: 02/18/2018 Secondary Meño L [place] Insurance:ANTHEMPolic MathysDOB: Community y Number: [id number] Hospital [id number] Repository jennifer Date:5225-08-36[address]YF, [place] [address]CD: 02/18/2018 Tertiary NOT GIVENUNK [place] Insurance:SELF PAY [facility] Number: Effective Repository Date:2018-02-18 02/18/2018 ANGIE L Primary ANGIE L [place] [id number] [place] Insurance:CARESOURCEP MATHYSDOB: [facility] Number: [id number] Hospital 189[address]Jhb: 330 [id number] Repository [phone] () Date:2018-02-17[address]ATTN: [place] [address]FP: 02/18/2018 Secondary NOT GIVENUNK [place] Insurance:SELF PAY [facility] Number: Effective Repository Date:2018-02-17 02/16/2018 ANGIE L Primary ANGIE L [place] [id number] [place] Insurance:CARESOURCEP MATHYSDOB: [facility] Number: [id number] Hospital [address]Oan: 330 [id number] Repository [phone] () Date:2018-02-16[address]ATTN: [place] [address]VX: 02/16/2018 Secondary NOT GIVENUNK [place] Insurance:SELF PAY [facility] Number: Effective Repository Date:2018-02-16 01/09/2018 ANGIE L Primary ANGIE L [place] [id number] [place] Insurance:CARESOURCEP MATHYSDOB: [facility] Number: [id number] Hospital [address]Kje: 330 [id number] Repository [phone] () Date:2018-01-09[address]ATTN: [place] [address]SV: 01/09/2018 Secondary NOT GIVENUNK [place] Insurance:SELF PAY [facility] Number: Effective Repository Date:2018-01-09 01/07/2018 AGNIE L Primary ANGIE L [place] [id number] [place] Insurance:CARESOURCEP MATHYSDOB: [place] Number: [id number] Hospital 10[address]Ayw: 330 [id number] Repository [phone] () Date:2017-11-16[address]ATTN: [place] [address]SW: 01/07/2018 Secondary NOT GIVENUNK [place] Insurance:SELF PAY [facility] Number: Effective Repository Date:2017-11-16 10/12/2017 ANGIE SY Primary Meño L [place] [id number] [place] Insurance:ANTHEMPolic MathysDOB: [place] Number: [id number] Hospital 15[address]Ksd: 330 [id number] Repository [phone] () jennifer Date:9316-18-58XQ [address] [place] [address]YW: 10/12/2017 Secondary ANGIE LYNN [place] Insurance:CARESOURCEP MATHYSDOB: [facility] Number: [id number] Hospital [id number] Repository Date:2017-10-12[address]ATTN: [place] [address]IO: 10/12/2017 Tertiary NOT GIVENUNK [place] Insurance:SELF PAY [facility] Number: Effective Repository Date:2017-10-12 10/04/2017 ANGIE SY Primary Meño L [place] [id number] [place] Insurance:ANTHEMPolic MathysDOB: [place] Number: [id number] Hospital 837[address]Klr: (330) [id number] Repository [phone] () jennifer Date:5630-48-31SN [address] [place] [address]YM: 10/04/2017 Secondary ANGIEJOZEF SY [place] Insurance:CARESOURCEP MATH[facility]SDOB: [facility] [place] Number: [id number] Hospital [id number] Repository Date:2017-10-04[address]ATTN: [place] [address]MV: 10/04/2017 Tertiary NOT GIVENUNK [place] Insurance:SELF PAY [facility] Number: Effective Repository Date:2017-10-04 09/29/2017 Angie Sy Primary Meño L [place] [id number] [place] Insurance:ANTHEMPolic MathysDOB: [place] Number: [id number] Hospital [address]Emz: (330 [id number] Repository [phone] () jennifer Date:8215-37-06[address] [place] [address]IC: 09/29/2017 Secondary Angie Sy [place] Insurance:CARESOURCEP MathysDOB: [facility] Number: [id number] Hospital [id number] Repository Date:2017-09-29 [address]ATTN: [place] [address]UD: 09/29/2017 Tertiary NOT GIVENUNK [place] Insurance:SELF PAY [facility] Number: Effective Repository Date:2017-09-29 08/05/2017 Angie Sy Primary Meño L [place] [id number] [place] Insurance:ANTHEMPolic MathysDOB: [place] Number: [id number] Hospital [address]Eob: (330 [id number] Repository [phone] () jennifer Date:5515-67-29[id number] [place] [address] 510[address]AM: 08/05/2017 Secondary Angie Sy [place] Insurance:CARESOURCEP MathysDOB: [facility] olic Number: [id number] Hospital [id number] Repository Date:2017-08-05[address]ATTN: [place] [address]RT: 08/05/2017 Tertiary NOT GIVENUNK [place] Insurance:SELF PAY [facility] Number: Effective Repository Date:2017-08-05 06/09/2017 ANGIE SY Primary MEÑO L [place] [id number] [place] Insurance:ANTHEMPolic MATHYSDOB: [place] Number: [id number] Hospital [address]Efr: (330) [id number] Repository [phone] () jennifer Date:3528-74-15[id number] [place] [address] 46[address]UJ: 06/09/2017 Secondary ANGIE [place] Insurance:CARESOURCEP MATHYSDOB: [facility] Number: [id number] Hospital [id number] Repository Date:2017-03-27 [address]ATTN: [place] [address]BI: 05/14/2017 ANGIE SY Primary MEÑO L [place] [id number] [place] Insurance:ANTHEMPolic MATHYSDOB: [place] Number: [id number] Hospital [address]Gzt: (330 [id number] Repository [phone] () jennifer Date:0912-94-80[id number] [place] [address] 799[address]VL: 05/14/2017 Secondary ANGIE [place] Insurance:CARESOURCEP MATHYSDOB: [facility] Number: [id number] Hospital [id number] Repository Date:2017-03-27 [address]ATTN: [place] [address]RC: 04/08/2017 ANGIE SY Primary MEÑO L [place] [id number] [place] Insurance:ANTHEMPolic MATHYSDOB: [place] Number: [id number] Hospital 18[address]Epm: (361) [id number] Repository [phone] () jennifer Date:2194-36-53[address], [place] [address]WT: 04/08/2017 Secondary ANGIE [place] Insurance:CARESOURCEP MATHYSDOB: [facility] Number: [id number] Hospital [id number] Repository Date:2017-03-27[address]ATTN: [place] [address]QS: 02/24/2017 ANGIE SY Primary MEÑO [place] [id number] [place] Insurance:ANTHEMPolic MATHYSDOB: [place] Number: [id number] Hospital [address]Qqn: (244) [id number] Repository [phone] (QR) jennifer Date:1643-63-24[address]JCXOJR, [place] [address]QE: 02/24/2017 Secondary ANGIE [place] Insurance:CARESOURCEP MATHYSDOB: [facility] Number: [id number] Hospital [id number] Repository Date:2015-06-26[address]ATTN: [place] [address]HQ:
== END 2018-02-20 14:35 | disposition home or self-care (01) ==
PROVIDERS: Emergency Provider Emergency Medicine; Family Provider Family Medicine; PCP Family Medicine
DX: R10.9 Unspecified abdominal pain (principal); G89.18 Other acute postprocedural pain; Z90.49 Acquired absence of other specified parts of digestive tract; Z72.0 Tobacco use
CPT/HCPCS: 99283

== ENCOUNTER → 2018-03-02 13:25 | Outpatient (CLI) | payer BC, MEDICAID, SELFPAY ==
[2018-03-02 13:54] LABS: Absolute Lymphocyte Count 1.65 X10^3/ul (0.83-4.51); Absolute Neutrophil Count 3.9 X10^3/uL (2.0-7.7); Basophil# 0.04 X10^3/uL; Basophil% 0.6 % (0-1); Eosinophil# 0.49 X10^3/uL; Eosinophils% 7.3 % (0-5); Hematocrit 39.9 % (37-47); Lymphocyte # 1.65 X10^3/ul (4.0); Lymphocyte % 24.7 % (19-41); Mean Corp Hgb Conc 32.6 g/gl (32-36); Mean Corpuscular Hgb 27.4 pg (27.0-32.0); Mean Corpuscular Volume 84.2 fL (81-99); Mean Platelet Vol. 10.2 fl (6.2-12.0); Monocyte# 0.57 X10^3/uL; Monocyte% 8.5 % (0-10); Neutrophil # 3.93 X10^3/uL (2.7-7.7); Neutrophil % 58.9 % (47-70); Platelet Count 275 K/mm3 (150-450); RBC Distribution Width CV 16.9 % (11.6-14.6); RBC Distribution Width SD 52.4 fl (35.1-43.9); Red Blood Count 4.74 M/mm3 (4.2-5.4); White Blood Count 6.7 K/mm3 (4.4-11.0)
[2018-03-02 13:57] LABS: POSITIVE COUNT NO; POSITIVE DIFFERENTIAL NO; POSITIVE MORPHOLOGY NO
[2018-03-02 14:15] LABS: ALB/GLOB Ratio 0.9 RATIO (0.9-2.4); AST(SGOT) 14 U/L (15-37); Alanine Aminotransfer ALT/SGPT 19 U/L (13-56); Albumin, Serum 3.4 g/dL (3.2-5.0); Alkaline Phosphatase 150 U/L (45-117); Amylase 27 U/L (25-115); Anion Gap 3 (5-15); BUN 5 mg/dL (7-18); BUN/Creat Ratio 7.1 RATIO (10-20); Calcium,Total 8.8 mg/dL (8.5-10.1); Chloride 106 mmol/L (98-107); EST Glomerular Filtration Rate 108 mL/min (>60); Est Glom Filt Rate - Afr Amer 131 mL/min (>60); Globulin 3.8 g/dL (2.2-4.2); Glucose 93 mg/dL (74-106); Lipase 67 U/L (73-393); Potassium 4.1 mmol/L (3.5-5.1); Protein, Total 7.2 g/dL (6.4-8.2); Sodium Level 139 mmol/L (136-145)
== END ==
PROVIDERS: Family Provider Family Medicine; PCP Family Medicine; Visit Provider Physician Assistant
DX: R10.9 Unspecified abdominal pain (principal)
CPT/HCPCS: 36415; 80053; 82150; 83690; 85025

== ENCOUNTER → 2018-10-19 17:56 | Outpatient (CLI) | payer MEDICAID, SELFPAY ==
[2018-10-19 21:18] LABS: Chlamydia Trachomatis by PCR Negative (Negative); Neisserai gonorrhoeae by PCR Negative (Negative); Probe Check PASS; Sample Adequacy Control PASS; Specimen Processing Control PASS
[2018-10-22 16:21] LABS: HPV Reflexed? NOT INDICATED
== END ==
PROVIDERS: Family Provider Family Medicine; PCP Family Medicine; Referring Provider Obstetrics & Gynecology; Visit Provider Obstetrics & Gynecology
DX: Z12.4 Encounter for screening for malignant neoplasm of cervix (principal); Z11.3 Encounter for screening for infections with a predominantly sexual mode of transmission; Z32.01 Encounter for pregnancy test, result positive; R87.612 Low grade squamous intraepithelial lesion on cytologic smear of cervix (LGSIL)
CPT/HCPCS: 87491; 87591; 88175; G0145

== ENCOUNTER → 2018-11-05 15:18 | Outpatient (CLI) | payer MEDICAID, SELFPAY ==
[2018-02-19 11:58] VITALS: BMI 21.9
[2018-11-05 15:44] LABS: Absolute Lymphocyte Count 1.57 X10^3/ul (0.83-4.51); Absolute Neutrophil Count 5.5 X10^3/uL (2.0-7.7); Basophil# 0.02 X10^3/uL; Basophil% 0.3 % (0-1); Hematocrit 39.1 % (37-47); Hemoglobin 13.4 g/dl (12.0-15.0); Lymphocyte # 1.57 X10^3/ul (4.0); Lymphocyte % 20.5 % (19-41); Mean Corp Hgb Conc 34.3 g/gl (32-36); Mean Corpuscular Hgb 29.9 pg (27.0-32.0); Mean Corpuscular Volume 87.3 fL (81-99); Mean Platelet Vol. 10.5 fl (6.2-12.0); Monocyte# 0.49 X10^3/uL; Monocyte% 6.4 % (0-10); Neutrophil # 5.54 X10^3/uL (2.7-7.7); Neutrophil % 72.5 % (47-70); Platelet Count 188 K/mm3 (150-450); RBC Distribution Width CV 14.3 % (11.6-14.6); RBC Distribution Width SD 45.3 fl (35.1-43.9); Red Blood Count 4.48 M/mm3 (4.2-5.4); White Blood Count 7.6 K/mm3 (4.4-11.0)
[2018-11-05 15:46] LABS: POSITIVE COUNT NO; POSITIVE DIFFERENTIAL NO; POSITIVE MORPHOLOGY NO
[2018-11-05 16:23] LABS: Thyroid Stim Hormone (TSH) 0.73 uIU/mL (0.358-3.74)
[2018-11-05 16:54] LABS: Amphetamine Urine VISTA NEGATIVE (<1000 ng/mL); Barbiturate Urine VISTA NEGATIVE (< 200 ng/mL); Benzodiazepine Urine VISTA NEGATIVE (< 200 ng/mL); Cocaine Urine VISTA NEGATIVE (< 300 ng/mL); Ecstacy Urine VISTA NEGATIVE (< 500 ng/mL); Methadone Urine VISTA NEGATIVE (< 300 ng/mL); PCP Urine VISTA NEGATIVE (< 25 ng/mL); THC Urine VISTA NEGATIVE (< 50 ng/mL); Vista UDS pH Range 7
[2018-11-05 17:08] LABS: HIV - WCH Non-Reactive (Nonreactive); Rubella IgG 10.3 IU/mL
[2018-11-05 17:16] LABS: Color, Urine Yellow (Yellow); Glucose, Dipstick Normal (Normal); Ketone-Dipstick Negative (Negative); Leukocyte Esterase-Dipstick Negative /ul (Negative); Nitrite-Dipstick Negative (Negative); Occult Blood-Urine Negative /ul (Negative); Protein-Dipstick Negative (Negative); Urine Bilirubin Dipstick Negative (Negative); Urine Clarity Clear (Clear); Urine Urobilinogen Normal (Normal)
[2018-11-05 18:46] LABS: COTININE Drug Screen Positive (<200 ng/mL)
[2018-11-09 12:24] LABS: HEPATITIS B SURFACE AG Negative (Negative); V-Zoster IgG (Immunity) 2719 index (Immune >165)
[2018-11-09 13:07] LABS: Hep C Antibodies >11.0 s/co ratio (0.0-0.9)
[2018-11-12 01:43] LABS: Prenatal RPR NONREACTIVE (NONREACTIVE)
== END ==
PROVIDERS: Family Provider Family Medicine; PCP Family Medicine; Referring Provider Obstetrics & Gynecology; Visit Provider Obstetrics & Gynecology
DX: Z34.82 Encounter for supervision of other normal pregnancy, second trimester (principal)
CPT/HCPCS: 36415; 80307; 81002; 84443; 85025; 86703; 86762; 86787; 86803; 87340

== ENCOUNTER → 2019-03-24 16:32 | Outpatient (CLI) | payer MEDICAID, SELFPAY ==
[2019-03-24 17:27] LABS: Hematocrit 39.4 % (37-47); Hemoglobin 13.2 g/dL (12.0-15.0); Mean Corp Hgb Conc 33.5 g/dL (32-36); Mean Corpuscular Hgb 30.5 pg (27.0-32.0); Mean Platelet Vol. 11.7 fl (6.2-12.0); Platelet Count 194 K/mm3 (150-450); RBC Distribution Width CV 13.6 % (11.6-14.6); RBC Distribution Width SD 45.8 fl (35.1-43.9); Red Blood Count 4.33 M/mm3 (4.2-5.4); White Blood Count 12.2 K/mm3 (4.4-11.0)
[2019-03-24 17:38] LABS: Glucose Challenge Gest 1H 50g 104 mg/dL (70-140)
== END ==
PROVIDERS: Visit Provider Obstetrics & Gynecology
DX: Z34.83 Encounter for supervision of other normal pregnancy, third trimester (principal)
CPT/HCPCS: 36415; 82950; 85027

== ENCOUNTER 2019-05-04 16:20 | Outpatient (CLI) | payer MEDICAID, SELFPAY ==
[2019-05-04 16:43] VITALS: BMI 23.8
--- NOTE | 2019-05-05 04:10 | OB.TRI.NOTE ---
History of Present Illness Date of Service: 05/04/19 Was patient seen by the physician?: No Reason For Visit: R/O LABOR Date of Service: 05/04/19 Final GRACIELA: 06/07/19 Final GRACIELA Source: US <20 weeks Gestational age: 35 Weeks and 2 Days History of Present Illness: Pt presented to L&D stating that she had lot her mucous plug earlier in the day, and as she is scheduled for a section, wanted to be certain that she was not laboring. 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 Action required.) Gallstones (Acute) Surgical History: Past Surgical History (This Medical Record has been edited. 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
== END 2019-05-04 17:55 | disposition home or self-care (01) ==
LOC: WPOUT 16:37 → OBT 16:38
PROVIDERS: Referring Provider Advanced Practice Midwife; Visit Provider Advanced Practice Midwife
DX: O47.03 False labor before 37 completed weeks of gestation, third trimester (principal); O98.413 Viral hepatitis complicating pregnancy, third trimester; B19.20 Unspecified viral hepatitis C without hepatic coma; O99.323 Drug use complicating pregnancy, third trimester; F15.90 Other stimulant use, unspecified, uncomplicated; F11.90 Opioid use, unspecified, uncomplicated; F12.90 Cannabis use, unspecified, uncomplicated; Z3A.35 35 weeks gestation of pregnancy
CPT/HCPCS: 59025; 59050; 99218; G0378

== ENCOUNTER 2019-05-06 15:40 | Outpatient (CLI) | payer MEDICAID, SELFPAY ==
[2019-05-06 16:28] VITALS: BMI 24.5
--- NOTE | 2019-05-06 17:49 | PCM.WORK.EX ---
Work/School Excuse Work/School Excuse for:: Patient Please excuse this person from:: Work From: 05/06/19 through: 07/18/19
--- NOTE | 2019-05-06 17:52 | OB.TRI.NOTE ---
History of Present Illness Date of Service: 05/06/19 Was patient seen by the physician?: Yes Reason For Visit: R/O LABOR Date of Service: 05/06/19 Final GRACIELA: 06/07/19 Final GRACIELA Source: US <20 weeks Gestational age: 35 Weeks and 3 Days History of Present Illness: 27 yo female female at 35 2/7 wk EGA on Subutex nightly. Sent over from ofc for prolonged monitoring 2/2 FHR decleration with position change on NST in ofc. Wants note off work. Walking bent over. Prior C/S of 28 wk 4# 8 oz female by C/S. States no pain right now. Sore when has to be up and moving. Allergies hydrocodone Allergy (Verified 05/04/19 16:44) Rash sulfamethoxazole [From Bactrim] Allergy (Verified 05/04/19 16:44) Hives trimethoprim [From Bactrim] Allergy (Verified 05/04/19 16:44) Hives hydrocodone bitartrate [From Vicodin] Adverse Reaction (Verified 05/04/19 16:44) Nausea - Pertinent Past Medical History Medical History: Past Medical History (This Medical Record has been edited. Action required.) Gallstones (Acute) Surgical History: Past Surgical History (This Medical Record has been edited. Action required.) Hx of cholecystectomy (Acute) 02/19/18 History of (Acute) History of laparoscopy (Acute) Physical Exam General: Alert, Oriented x3, Cooperative, No apparent distress HEENT: Atraumatic, EOMI Abdomen: Gravid NST - FHR Rate Baby A Baseline: 140-150 irregular UCs. Accels. no decelerations noted. Variability:: Moderate Accelerations:: 15 x 15 Decelerations:: None NST Reactive:: Yes, Appropriate for gestational age FHR Category:: Category I Uterine Activity:: Irregular UCs noted. Impression/Plan 35 2/7 wk EGA prior C/S Polyhydramnios and smoker. Having weekly NST in ofc. Sent for monitoring 2/2 FHR deceleration with position change on ofc NST, intermittent tracing. EFM here reassuring. Home. Subutex due this evening. Dose at home, not available at [facility] R[facility] as planned for NST, visit.
== END 2019-05-06 18:25 | disposition home or self-care (01) ==
LOC: WPOUT 15:58 → WP 15:58
PROVIDERS: Referring Provider Advanced Practice Midwife; Visit Provider Advanced Practice Midwife
DX: O36.8330 Maternal care for abnormalities of the fetal heart rate or rhythm, third trimester, not applicable or unspecified (principal); O40.3XX0 Polyhydramnios, third trimester, not applicable or unspecified; O34.219 Maternal care for unspecified type scar from previous cesarean delivery; O99.333 Smoking (tobacco) complicating pregnancy, third trimester; F17.200 Nicotine dependence, unspecified, uncomplicated; Z3A.35 35 weeks gestation of pregnancy
CPT/HCPCS: 59025; 59050; 99218; G0378

== ENCOUNTER 2019-05-12 20:25 | Inpatient (IN) | payer MEDICAID, SELFPAY ==
--- NOTE | 2019-05-12 | PLAC_PTH ---
PATIENT: JOSEY VELIZ LOC: WP U#:[id number] AGE/SX: / ROOM: WP003 RE05/12/[address]: Dr. Andres Lees MD : 1990 BED: 1 DIS: 05/15/2019 SPEC #: [id number] RECD: 05/13/19 03:02 STATUS: KHURRAM REKoko #: [id number] JAVIER: 05/12/19 00:[address]: Andres Lees DEPT: SURGICAL PATHOLOGY RECD BY: Suraj Luna ENTERED: 05/13/19 08:53 SP TYPE: PLACENTA OTHR DR: No Primary Care Phys Tissues: Placenta, NOS Procedures: Surgery Specimen Level V HEADER OPERATION: Repeat section PRE-OP DIAGNOSIS: Severe PIH, meconium staining, 36+ weeks gestation TISSUE SUBMITTED: Placenta MICROSCOPIC DIAGNOSIS Placenta: Placental disc - third trimester placenta (428 gm). - multiple areas of infarction with focal calcifications (largest measuring 3.5 cm in greatest dimension. - villous congestion and focal changes suggestive of chorangiosis. Membranes - pigment laden macrophages, consistent with meconium. Umbilical cord - three blood vessels and no pathologic diagnosis. SJ:wilfrid 05/17/19 MICROSCOPIC DESCRIPTION Slides are reviewed. GROSS DESCRIPTION SPECIMEN: PLACENTA / CLINICAL INFORMATION: A. Weight: 2.375 kg B. Gestational Age: 36 weeks C. Sex: Male PLACENTAL WEIGHT (POST FIXATION): 428 gm PLACENTAL DIMENSIONS: 17 x 15 x 4 cm PLACENTAL SHAPE: Usual ovoid PLACENTAL WEIGHT FOR GESTATIONAL AGE: Within 10-99th percentile MEMBRANES - Present A. Insertion: Marginal B. Site of rupture from edge: 2 cm from edge of placental disc C. Color of membrane: Tolliver-greenish consistent with meconium staining D. Abnormalities: None UMBILICAL CORD - Present A. Color: Tolliver-de [place] santos B. Insertion: Central C. Length: 23 cm D. Diameter: 1 cm E. Number of vessels: Three F. Abnormalities: None PLACENTAL DISC - Present A. Color of surface: Tolliver-de [place] santos B. surface abnormalities: None C. Maternal cotyledons: Intact with minimal tears D. Attached retro placental clot: No clot E. Cut surface: Dark red and spongy F. Lesions: Sections of the placenta reveal multiple tolliver, indurated areas with the largest measuring 3.5 cm in greatest dimension. Many of those lesions are peripheral in location. G. Separate clot: Absent SECTIONS SUBMITTED: 1. Membrane roll 2. Cord, maternal end, two lesions 3. Cord, end, two lesions 4. Placental disc, and maternal surfaces, largest lesion 5. Placental disc, and maternal surfaces, lesion 6. Placental disc, and maternal surfaces SJ:wilfrid 05/16/19 TC:5 CPT: 60592
[2019-05-12 16:36] VITALS: BMI 25.2
[2019-05-12 16:44] LABS: Hematocrit 35.6 % (37-47); Hemoglobin 11.9 g/dL (12.0-15.0); Mean Corp Hgb Conc 33.4 g/dL (32-36); Mean Corpuscular Hgb 29.3 pg (27.0-32.0); Mean Corpuscular Volume 87.7 fL (81-99); Mean Platelet Vol. 12.1 fl (6.2-12.0); Platelet Count 178 K/mm3 (150-450); RBC Distribution Width CV 14.6 % (11.6-14.6); RBC Distribution Width SD 47.4 fl (35.1-43.9); Red Blood Count 4.06 M/mm3 (4.2-5.4); White Blood Count 11.3 K/mm3 (4.4-11.0)
[2019-05-12 16:49] LABS: International Normalized Ratio 0.9; Partial Thromboplast Time 36.1 Seconds (24.1-36.2); Prothrombin Time (Protime)PT. 12.3 SECONDS (11.7-14.9)
[2019-05-12 17:12] LABS: Amphetamine Urine VISTA NEGATIVE (<1000 ng/mL); Barbiturate Urine VISTA NEGATIVE (< 200 ng/mL); Benzodiazepine Urine VISTA NEGATIVE (< 200 ng/mL); Cocaine Urine VISTA NEGATIVE (< 300 ng/mL); Ecstacy Urine VISTA NEGATIVE (< 500 ng/mL); Methadone Urine VISTA NEGATIVE (< 300 ng/mL); PCP Urine VISTA NEGATIVE (< 25 ng/mL); THC Urine VISTA NEGATIVE (< 50 ng/mL); Vista UDS pH Range 6
[2019-05-12 17:13] LABS: Creatinine, Urine (random) < 13.00 mg/dL (NO RANGE EST.); Protein, Urine (Random) < 6.0 mg/dL (<11.9)
[2019-05-12 17:23] LABS: AST(SGOT) 58 U/L (15-37); Alanine Aminotransfer ALT/SGPT 34 U/L (13-56); Creatinine, Serum 0.49 mg/dL (0.55-1.02); EST Glomerular Filtration Rate 161 mL/min (>60); Est Glom Filt Rate - Afr Amer 195 mL/min (>60); Estimated Creatinine Clearance 169.19 ml/min; Uric Acid 5.1 mg/dL (2.6-6.0)
[2019-05-12] MEDS: Labetalol 100 MG Tablet PO (19:19)
[2019-05-12] MEDS: Betamethasone/Betamethasone 30 MG/5 ML Vial 12 MG IM (20:07)
[2019-05-12] MEDS: Lactated Ringers 1,000 ML 15 ML IV (20:29)
[2019-05-12] MEDS: Labetalol 20 MG/4 ML Vial IV ×2 (21:31→21:46)
[2019-05-12 22:16] VITALS: BP 164/101; PULSE 70
[2019-05-12 22:44] VITALS: BP 187/96; PULSE 86; RESP 18; TEMP 37.1; O2SAT 100
[2019-05-12] MEDS: Magnesium Sulfate 4gm/100mL 4 GM/100 ML IV.SOLN. IV (22:44)
--- NOTE | 2019-05-12 22:54 | HP.PCM_ITS ---
History and Physical Date of Admission: 05/12/19 ACOG ANTEPARTUM RECORD - HISTORY AND PHYSICAL (05/12/2019) Name: ANGIE VELIZ History of This : This is a 28-year-old patient who presents to labor and delivery with elevated blood pressure in the office. Despite oral labetalol and initiation of the hypertensive protocol, blood pressures continued to be in the 160s to 70s over 100 110s. Patient denies any other PIH symptoms and PIH labs are normal. Given this and that the patient is 36+ weeks gestation, we plan to proceed with repeat section this evening. care has been uneventful except for a prior section as well as a history of substance abuse abuse. She also has active hepatitis C. Patient has been followed recently with some polyhydramnios and growth ultrasounds of shown the baby to be appropriate for gestational age. Patient is also a smoker and has been advised to quit. The patient also has a history of asthma. Upon admission to labor and delivery the patient was given a single dose of Celestone steroids but it is been on board for only about 4 to 5 hours. However, given that blood pressures are not able to be controlled, we need to proceed with delivery at this time. OB Physician: HODAN 's Physician: Ryan .Deonna.................................................................... : 1990 Age: 28 Address: [address] [place] [address] Phone: (h) [phone] Insurance Carrier: [employer] CLAIMS DEPT [id number] Emergency Contact: COLBY ANTWANARIELLA [phone] ...................................................................... Final GRACIELA: 06/07/19 By Ultrasound: 6 weeks 5 days PARITY: (G-Total Pregnancies P-Fullterm,Premature,Induced AB,Spont AB, Ectopics, Multiple,Living) GRACIELA CONFIRMATION: By LMP: 06/30/18 Initial Exam: 04/06/19 By First Ultrasound Exam: 06/07/19 Final GRACIELA: 06/07/19 OB PROBLEM LIST: allergies to Bactrim and Vicodin Hepatitis C antibody POSITIVE --active disease---saw MFM who recommended growth u/s q 4 wks; no FHT electrode, etc. Hx of Asthma, uses a rescue inhaler Hx of substance abuse - takes Subutex NOB tox screen NEG--consider repeat HIV test at 36 weeks IBS MSAFP and CF testing declined New FOB (this is his first child) P C/S for bradycardia - plans R C/S Polyhydramnios--weekly NST and growth u/s q 4 weeks (with [facility]) Smokes 5 cigs/day; ATQ Uncertain chickenpox history IgG positive. 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 Drug Use - denies use of street drugs and Using Subutex Sexual Activity - Multiple sexual partners Residence - Lives with mother and a friend Place of - [place], [place] Spouse-Sig Other Name - New FOB Parag Thomason Spouse-Sig Other Occupation - Unemployed Children Name(s) - Jared 10/04/17 ([facility]) PRIOR DELIVERY HISTORY DEL DATE GEST LAB WT LB WT OZ TYPE ANES LABOR TX 11 Mar 18 38 12 4 8 C-Sec General No ANTEPARTUM FLOW CHART VISIT GE RTC FU F F SC U U DATE WK MD WKS HT PN HR M SS BP ED WT SC GL D EF ST __ ____ ___ __ __ ___ __ __ __ ___ __ __ __ ___ __ 17 Oct 36 JMW 3 36 + + 158/100 1+ 160 - - 11 Oct 35 + + 128/82 1+ 156 - - 02 Oct 34 JMW 1 34 + + 138/88 sl 148 - - 26 Sep 33 JMW 3 33 + + 134/82 sl 144 - - 12 Sep 31 JMW 2 32 + + 124/82 sl 144 - - 29 Mar 24 JMW 2 28 + 124/72 tr 135 tr - 22 Mar 23 JMW 1 28 + + 120/68 sl 137 - - 25 Ced 24 JMW 4 24 + + 82/60 sl 135 - - 25 Vazquez 20 DS 4 20 ? + + 84/50 0 131 tr - 04 Vazquez 17 DS 3 17 ? + ? 98/56 130 - - December 06 DS 4 13 ? + O 90/70 0 127 tr - Nov 02 DS 4 U+ O 92/62 130 - - ANTEPARTUM NOTE(S): May 12 2019: No PIH Sxs; to L and D for monitoring May 06 2019: Right hip pain Apr 27 2019: Doing Well, NST OK Apr 21 2019: Ctxs-occas, Good FM, start weekly NST Apr 07 2019: Good FM, Low Pressure Mar 24 2019: CBC,OGCT Today,Good FM,Feeling WQell Mar 17 2019: See Notes Feb 17 2019: feeling well. Glucola given. Jan 18 2019: see note Dec 28 2018: c/o feet feeling swollen. dg Dec 02 2018: see note Nov 05 2018: c/o nausea COMPREHENSIVE ANTEPARTUM NOTE(S): May 12 2019: Angie is here at 36 w 2 d for her NST. She states that she is feeling well, and that she feels much better than I did last week. She states that she feels good FM. Denies spotting/LOF. Feels occasional mild cramping. 1+ pitting edema below knees, no edema in hands or face. States that she had a migraine headache yesterday, but it resolved. She reports that she often gets headaches, so this was nothing new. Denies visual disturbances and epigastric pain. DTR's 1+ bilaterally. NST reactive, read per Dr. Lees. Acoustic stim used x 1. Angie is still smoking about three cigarettes a day, ATQ. AW May 12 2019: Repeat BP rt upper arm regular cuff with patient laying on her left 174/84. Spoke with Dr Lees and patient advised to go to for extended monitoring with PIH labs to be started. Sandra at advised of same. Patient states that she would like to walk outside and have a cigarette prior to heading to advised for patient to head over as soon as possible. SHe is agreeable. jlb May 06 2019: Angie is here at 35 w 3 d for her NST. She states that she feels okay, but is tearful and moving slowly, as her hips, especially the right is really hurting. She notes irregular ctx's. Denies spotting/leaking fluid. She states that she lost her mucous plug on Wednesday, and was uncomfortable so she went to L+D for evaluation. Good FM felt. 1+ edema noted below knees. NST reactive following acoustic stim x 1. FHR accel's from 140 baseline to 160's several times. NST evaluated per Aubrey Davis CNMayra after 32 minutes, will monitor another 10 mins per order of CNM. Four minute FHR deceleration with moderate variability throughout in EEFM frames 33119, with recovery to 130's in frame 96351. RN positioned Angie on to her left side during decel. CNM evaluated tracing, and will have Angie sent to L+D for extended monitoring; CNM not ified L+D, and RN removed EEFM just prior to taking her per W/C to L+D. FHR when EEFM removed was in the 130's with variability present. Angie had 13-14 ctx's during NST, and states that she felt most of them. Angie and her mother understand reasons for extended monitoring, and are in agreement. Angie tearful throughout most of NST, states I'm just sore and emotional. AW May 06 2019: Pt tearful, experiencing painful contractions Q 2-3 minutes; reports active FM, denies VB or LOF, but did say lost mucous plug severa days ago; NST with moderate variability, accels after acoustic stim, then 4 minute decel into the 80; hx of previous c/section; sent to for monitoring; Dr. Desai on unit at this time, staff will notify her Apr 27 2019: Angie is here for a NST at 34 w 1 d. She states that she is doing okay. Reports all over headache, but I've had that throughout the . C/O heartburn, also states nothing new. Denies visual disturbances. Angie states that she feels good FM. She denies spotting/leaking fluid. She notes occasional mild cramping. Slight edema around feet/ankles. EEFM/NST explained. NST reactive, read per Dr. Lees. AW Apr 27 2019: Repeat BP 128/86 (R) arm sitting. AZIZA Mar 25 2019: Glucola 104. hgb 13.2 g/dl. EB Mar 24 2019: Feeling well; reports active FM; denies UCs, VB, LOF; continues to struggle with heartburn and generalized muscular aches r/t advancing ; reinforced OTC medications and comfort measures to try; Tubal papers signed today; discussed warning signs, s/s PTL; RTO 2 week(s)for PNV Mar 17 2019: Angie presents here to day for PNV reporting that she has been having a lot of low pelvic pain and bilateral hip pains/discomfort. Adds she walks from building to building at work through [employer] and I explained that she would not be written off for these uncomfortable common discomforts in , unless symptoms worsened further along in . Good FM. Verbalized understanding. AZIZA Mar 17 2019: Rreports active FM; UCs, VB, LOF,; having round ligament discomfort that is aggravated by walking activity at her job; discussed methods to relieve discomfort, warning sighns, s/s PTL; RTO 1 week for regularly scheduled PNV; glucola at next visit Jan 18 2019: Anatomical US performed today with no anomalies noted. There is normal growth and placentation. Umbilical cord with 3VC. Polyhydramnios is present. She feels movement. Will repeat US in 2 months. Has appointment to discuss hepatitis C status and implications for this . Dec 28 2018: Overall doing well. Some complaints of feet feeling numb, Discussed hepatitis C today. Has relatively high viral load but normal LFTs. Will refer to [facility] for consultation regarding implications for this . Anatomical US at next visit. Dec 02 2018: Angie is being seen for PNV. Pt is aware of Hep C dx. Dr. Last in [place] did full liver panel on pt yesterday. Pt to sign medical record release so office can receive labs. AM Dec 02 2018: Will obtain records from her PMD in [place]. Will need viralload done. Discussed implications for this today. NO bleeding. COntinues with nausea. Nov 05 2018: Some nausea, taking zofran. No bleeding. US c/w LMP dating. NOB nurse intake and labs done today. Nov 05 2018: Angie is here for her NOB at 9 w 3 d, she is a with an GRACIELA of 06/07/2019. US and PNV with Dr. Matt completed prior to NOB visit. Angie has a 1 year old daughter daughter at home, who was delivered by emergency C/S for bradycardia, and then Angie states that she herself developed a wound infection. Past history updated. Repeat C/S at [facility] is planned, and she will formula feed the baby. She and her daughter reside with her mother, and Angie states that her family provides a good support system. New FOB this , Parag Thomason, is not present today, but she states that he is excited; this is his first child. Office practice patterns reviewed, including labs that will be collected today. Angie states daily nausea and emesis most days in the evening. She had tried Unisom at bedtime, and Vitamin B6 50 mg twice a day, but did not find this to be helpful for nausea. She has been taking prescribed Zofran, and feels that this has been helpful. Reviewed other measures that may help minimize nausea, such as small frequent meals with protein included throughout the day, and adequate water hydration of at least one gallon per day. She has had some issues with constipation related to Zofran use; discussed drinking plenty of water, regular physical activity such as walking, taking OTC Colace as a stool softener, and increase her dietary fiber intake. Angei has been taking a gummy vitamin at bedtime. She states that she is still smoking, but has cut back to 5 cigs/day, ATQ. She denies use of ETOH. She takes prescribed Subutex for a hx of substance abuse, and shares that she feels that with group therapy and Subutex, as well as family support, she is doing well. Genetic Screening form completed. She declines MSAFP and CF testing, consent signed as such. Emergencies/danger signs to report, round ligament pain, reporting s/s of a UTI, and common OTC medications approved/not approved for use during reviewed. Encouraged regular physical activity, such as walking, 5 x/week. Kegel exercises reviewed. Lifting restrictions discussed. Dietary and water needs reinforced, including caloric needs, recommended weight gain, limiting empty calories, and limiting caffeine intake to one cup a day. Food safety during discussed. Angie states that she understands all information provided during NOB visit, and that she has no questions following same. To [facility] out patient lab for labs. AW New Mar 26 2019: Angie is a 28 yr old Gr2 P1, here with her mother and new FOB, Parag Thomason. This will be the first child for Parag. Angie reports known LMP 06/30/18, which would make her 15 wks 6 days, GRACIELA 04/06/19. States she had a little spotting in Jul and none since. States home preg test positive 10/04/18. Reporting nausea, constipation, occassional cramping. She would like Rx antiemetic. Recommended Colace BID. Reviewed importance of avoiding constipation and of hydration with at least 12 large glasses water daily. Taking a PNV-- offered can take Children's Gummies, one 2 x daily, until nausea improved. Hx Drug Addiction, Opiates, Amphetamines, Marijuana -- currently on Subutex (Buprenorphine) 8 mg BID under care of [facility] in [place]. States she needs a note for them to continue Subutex. Hx C/S 09/2017. Hx MIRELLA I -- will do pap, GC, Chlamydia cultures today. US by Dr. Matt showing 7 wk gestation. informational materials given today and reviewed otc meds ok to take. NO NSAIDS> kbm REVIEW OF SYSTEMS: GENERAL - Denies fever, or chills SKIN - Denies rash, new skin lesions, or change in moles EYES - Denies blurred vision, or change in visual acuity EARS - Denies ear pain, or difficulty hearing NOSE - Denies nasal congestion, discharge, or bleeding MOUTH - Denies sore throat, or difficulty swallowing NECK - Denies pain or swelling RESPIRATORY - Denies shortness of breath, cough, wheezing CARDIOVASCULAR - Denies palpitations, chest pain, orthopnea, PND, peripheral edema, syncope or claudication GASTROINTESTINAL - Denies nausea, vomiting, diarrhea, constipation, Denies abdominal pain, melena and or bright red blood GENITOURINARY - Denies dysuria, frequency of urination, urgency, or hesitancy MUSCULOSKELETAL - Denies joint or muscle pain, or back pain NEUROLOGICAL - Denies localized numbness, weakness, or tingling PSYCHIATRIC - Denies depression, anxiety, substance abuse or suicide attempts ENDOCRINE - Denies heat or cold intolerance, weight loss or gain, increasing thirst HEMATO-IMMUNOLOGIC - Denies easy bruising, bleeding, oral ulcerations or recurrent infections GENETICS SCREENING: Age 35+ years: No Thalassemia: No Neural Tube Defect: Yes, Aunt Down Syndrome: No KEN-SACHS: No Sickle Cell Disease: No Hemophilia: No Musc. Dystrophy: No Cystic Fibrosis: Yes, Mat. 2nd cousin Jewell Chorea: No Mental Retardation: No Fragile X: No Other genetic: No Other defects: No SABs/still births: No Drugs since LMP: No Comments: 3 cousins with Autism INFECTION HISTORY: High risk AIDS: No High risk Hepatitis: No Exposed to TB: No Exposed to Herpes: No Rash/viral illness since LMP: No History of STD: No Comments: Hx of MRSA (sexually aquired) at age 20 MENSTRUAL HISTORY: *Menses Amount/Duration: dailyMenses Regularity: irregularMenarche (Age Onset): 13* PAST SUMMARY: PARITY: 1. Total Pregnancies............ 2 2. Full Term Pregnancies........ 1 3. Premature.................... 0 4. Abortions - Induced.......... 0 5. Abortions - Spontaneous...... 0 6. Ectopics..................... 0 7. Multiple Births.............. 0 8. Living Children.............. 1 PAST #1: Date of :.................. 10/04/17 Gestation Weeks:................ 38 Length of labor(hours):......... 12 Sex:............................ F Weight-lbs:............... 4 Weight-oz:................ 8 Type of Delivery:............... C-Sect Type of Anesthesia:............. General Place of Delivery:.............. [place] Treatment of Labor?:.... No Comment: YAYA, GBS+ PHYSICAL EXAMINATION General Appearence: 28 yo female in no acute distress Vital Signs: AF, VSS Heart: RRR without rubs or gallops Lungs: CTA x 2 Breasts: deferred Abdomen: gravid Pelvis: Cervix: Not examined Presentation: cephalic Station: Not examined Fetus: Size: AGA Movement: present Heart: present Labs for : ANGIE VELIZ since 09/10/2018 ORDER DATEIN DESCRIPTION VALUE UNITS RANGE A+ COMMENT ALANINE AMINOTRANSFERAS (SGPT) 05/12/19 NOTE Original Ordering Provider: Andres Lees ALT 34 U/L 13-56 URIC ACID 05/12/19 NOTE Original Ordering Provider: Andres Lees URIC 5.1 mg/dL 2.6-6.0 The drugs N-Acetylcysteine and Metamizole may falsely depress this assay. AST(SGOT) 05/12/19 NOTE Original Ordering Provider: Andres Lees AST 58 U/L 15-37 H SERUM CREATININE AND GFR 05/12/19 NOTE Original Ordering Provider: Andres Lees CREAT,SERUM 0.49 mg/dL 0.55-1.02 L The validity of the calculated GFR AND GFRAA in patients over 70 years has not been determined. Clinical correlation is essential. EST GFR 161 mL/min >60 Non- GFR Calc EST GFR - AA 195 mL/min >60 GFR Calc ESTIMATED CRCL 169.19 ml/min PROTEIN+CREATININE RATIO,URINE 05/12/19 NOTE Original Ordering Provider: Andres Lees UR CREAT < 13.00 mg/dL NO RANGE EST. PROTEIN,UR.RAN. < 6.0 mg/dL <11.9 w PROT:CRE RATIO Test not performed mg/g CRE 0-200 UR DRG SCN W/RFLX AMPH CONFIRM 05/12/19 NOTE Original Ordering Provider: Andres Lees TO BE CONFIRMED CONFIRMATORY TESTING FOR ALL POSITIVE URINE DRUG SCREEN RESULTS WILL ONLY BE SENT OUT UPON PHYSICIAN ORDER. VISTA Urine Drug Screen methods provide only preliminary analytical test results. A more specific alternate chemical method must be used in order to obtain a confirmed analytical result. Gas chromatography/mass spectrometery (GC/MS) is the preferred confirmatory method. Clinical consideration and professional judgement should be applied to any drug of abuse test result, particularly when preliminary positive results are used. URINE TCA TESTING MUST BE ORDERED SEPARATELY. USE TEST MNEMONIC: [facility]IST[facility] UDS PH 6 AMPHETAMINES NEGATIVE <1000 ng/mL BARBITIURATES NEGATIVE < 200 ng/mL BENZODIAZIPINE NEGATIVE < 200 ng/mL COCAINE NEGATIVE < 300 ng/mL ECSTACY NEGATIVE < 500 ng/mL METHADONE NEGATIVE < 300 ng/mL OPIATES NEGATIVE < 300 ng/mL PCP NEGATIVE < 25 ng/mL THCw NEGATIVE < 50 ng/mL PROTHROMBIN TIME W/INR 05/12/19 NOTE Original Ordering Provider: Andres Lees PROTIME 12.3 SECONDS 11.7-14.9 INR 0.9 PARTIAL THROMBOPLAST TIME 05/12/19 NOTE Original Ordering Provider: Andres Lees PTT 36.1 Seconds 24.1-36.2 CBC-COMPLETE BLOOD CNT NO DIFF 05/12/19 NOTE Original Ordering Provider: Andres Lees WBC 11.3 K/mm3 4.4-11.0 H RBC 4.06 M/mm3 4.2-5.4 L HGB 11.9 g/dL 12.0-15.0 L HCT 35.6 % 37-47 L MCV 87.7 fL 81-99 MCH 29.3 pg 27.0-32.0 MCHC 33.4 g/dL 32-36 RDW CV 14.6 % 11.6-14.6 RDW SD 47.4 fl 35.1-43.9 H PLT 178 K/mm3 150-450 MPV 12.1 fl 6.2-12.0 H GLUCOSE CHALLENGE GEST 1H 50G 03/24/19 NOTE Original Ordering Provider: Andres Lees GLU GEST 50G 1H 104 mg/dL 70-140 Reviewed by EZRA CBC-COMPLETE BLOOD CNT NO DIFF 03/24/19 NOTE Original Ordering Provider: Andres Lees WBC 12.2 K/mm3 4.4-11.0 H RBC 4.33 M/mm3 4.2-5.4 HGB 13.2 g/dL 12.0-15.0 HCT 39.4 % 37-47 MCV 91.0 fL 81-99 MCH 30.5 pg 27.0-32.0 MCHC 33.5 g/dL 32-36 RDW CV 13.6 % 11.6-14.6 RDW SD 45.8 fl 35.1-43.9 H PLT 194 K/mm3 150-450 MPV 11.7 fl 6.2-12.0 Reviewed by EZRA RPR 11/05/18 NOTE Original Ordering Provider: Ivy Matt RPR NONREACTIVE NONREACTIVE Reviewed by EZRA V-ZOSTER IGG (IMMUNITY) 11/05/18 NOTE Original Ordering Provider: Ivy Matt VZOST IGG [id number] index Immune >165 Negative <135 Equivocal 135 - 165 Positive >165 A positive result generally indicates exposure to the pathogen or administration of specific immunoglobulins, but it is not indication of active infection or stage of disease. Reviewed by IVY HEPATITIS C ANTIBODIES 11/05/18 NOTE Original Ordering Provider: Ivy Matt HEP C AB >11.0 s/co ratio 0.0-0.9 H Negative: < 0.8 Indeterminate: 0.8 - 0.9 Positive: > 0.9 The CDC recommends that a positive HCV antibody result be followed up with a HCV Nucleic Acid Amplification test (363009). CRITICAL VALUE VERIFIED. CALLED TO SANJUANA ALBRIGHT 11/09/18 1307 Carlos Engel. RESULTS READ BACK BY SANJUANA . Copy of report sent to Infection Control Printer [id number] 11/09/18 [facility] AMENDED REPORT 11/09/18 1307 HEP C AB previously reported as: >11.0 H s/co ratio Negative: < 0.8 Indeterminate: 0.8 - 0.9 Positive: > 0.9 The CDC recommends that a positive HCV antibody result be followed up with a HCV Nucleic Acid Amplification test (864462). Reviewed by IVY HEPATITIS B SURFACE AG 11/05/18 NOTE w Original Ordering Provider: Ivy Matt HB SURF AG Negative Negative Performed at: [address] [id number] Financial Accounting Analyst: Farhat Aguayo PhD, Phone: [phone] Reviewed by IVY NICOTINE URINE DRUG SCREEN 11/05/18 NOTE Original Ordering Provider: Ivy Matt TO BE CONFIRMED CONFIRMATORY TESTING FOR ALL POSITIVE URINE DRUG SCREEN RESULTS WILL ONLY BE SENT OUT UPON PHYSICIAN ORDER. The results of Urine Drug Screen methods provide only preliminary analytical test results. A more specific alternate chemical method must be used in order to obtain a confirmed analytical result. Gas chromatography/mass spectrometery (GC/MS) is the preferred confirmatory method. Clinical consideration and professional judgement should be applied to any drug of abuse test result, particularly when preliminary positive results are used. COT DRG SCREEN Positive <200 ng/mL H Cotinine is the first-stage metabolite of Nicotine. Reviewed by IVY URINE DRUG SCREEN (VISTA) 11/05/18 NOTE Original Ordering Provider: Ivy Matt TO BE CONFIRMED CONFIRMATORY TESTING FOR ALL POSITIVE URINE DRUG SCREEN RESULTS WILL ONLY BE SENT OUT UPON PHYSICIAN ORDER. VISTA Urine Drug Screen methods provide only preliminary analytical test results. A more specific alternate chemical method must be used in order to obtain a confirmed analytical result. Gas chromatography/mass spectrometery (GC/MS) is the preferred confirmatory method. Clinical consideration and professional judgement should be applied to any drug of abuse test result, particularly when preliminary positive results are used. URINE TCA TESTING MUST BE ORDERED SEPARATELY. USE TEST MNEMONIC: [facility] UDS PH 7 AMPHETAMINES NEGATIVE <1000 ng/mL BARBITIURATES NEGATIVE < 200 ng/mL BENZODIAZIPINE NEGATIVE < 200 ng/mL COCAINE NEGATIVE < 300 ng/mL ECSTACY NEGATIVE < 500 ng/mL METHADONE NEGATIVE < 300 ng/mL OPIATES NEGATIVE < 300 ng/mL PCP NEGATIVE < 25 ng/mL THC NEGATIVE < 50 ng/mL Reviewed by IVY T AND S-NO CHARGE W/PNP 11/05/18 Reason for Type AND Screen/Red Cells: Surgery? N [facility]~[address] [place], [address]~ BLOOD TYPE GEL A POSITIVE N AB SCREEN GEL NEGATIVE N Reviewed by IVY URINALYSIS, ROUTINE (DIPSTICK) 11/05/18 NOTE Original Ordering Provider: Ivy Matt w COLOR Yellow Yellow CLARITY Clear Clear GLUCOSE, UR Normal mg/dl Normal BILIRUBIN URINE Negative mg/dL Negative KETONE UR Negative mg/dl Negative SP.GR. DIPSTX 1.010 1.002-1.030 PH UR 8.0 5.0 - 8.0 PROT DIPSTX Negative mg/dl Negative UROBILI Normal mg/dl Normal NITRITE UR Negative Negative OCCULT BLOOD-UR Negative /ul Negative LEUK ESTERASE Negative /ul Negative Reviewed by IVY HIV - H 11/05/18 NOTE Original Ordering Provider: Ivy Matt HIV - [facility] Non-Reactive Nonreactive Reviewed by IVY RUBELLA IGG 11/05/18 NOTE Original Ordering Provider: Ivy Matt RUBELLA IGG 10.3 IU/mL Antibody results Interpretation of Immune Status < 5 IU/ml Presumed Non-immune 5 - < 10 IU/ml Equivocal > or = 10 IU/ml Presumed Immune Reviewed by IVY THYROID STIM HORMONE (TSH) 11/05/18 NOTE Original Ordering Provider: Ivy Matt TSH 0.73 uIU/mL 0.358-3.74 Reviewed by IVY CBC W/DIFF, AUTOMATED 11/05/18 NOTE Original Ordering Provider: Ivy Matt WBC 7.6 K/mm3 4.4-11.0 RBC 4.48 M/mm3 4.2-5.4 HGB 13.4 g/dl 12.0-15.0 HCT 39.1 % 37-47 MCV 87.3 fL 81-99 w MCH 29.9 pg 27.0-32.0 MCHC 34.3 g/gl 32-36 RDW CV 14.3 % 11.6-14.6 RDW SD 45.3 fl 35.1-43.9 H PLT 188 K/mm3 150-450 MPV 10.5 fl 6.2-12.0 NEUT% 72.5 % 47-70 H LY% 20.5 % 19-41 MONO% 6.4 % 0-10 EO% 0.0 % 0-5 BASO% 0.3 % 0-1 IM GRAN % 0.300 % 0.0-0.9 IG% - Immature Granulocytes (promyelocytes, myelocytes and metamyelocytes) > 1% indicates that a LEFT SHIFT is Present. ABSOLUTE NEUT 5.5 X10 3/uL 2.0-7.7 ABSOLUTE LYMPH 1.57 X10 3/ul 0.83-4.51 Reviewed by EZRA Reviewed by EZRA Reviewed by EZRA PAP I-G W/RFX [facility] 10/19/18 NOTE Original Ordering Provider: Ivy Matt DIAGN . NEGATIVE FOR INTRAEPITHELIAL LESION OR MALIGNANCY. ADEQ . Satisfactory for evaluation. Endocervical and/or squamous metaplastic cells (endocervical component) are present. PERFORM . Nat Robbins Puller Machine TEST METHOD . This liquid based ThinPrep(R) pap test was screened with the use of an image guided system. COMM . . PAPSMR . The Pap smear is a screening test designed to aid in the detection of premalignant and malignant conditions of the uterine cervix. It is not a diagnostic procedure and should not be used as the sole means of detecting cervical cancer. Both false-positive and false-negative reports do occur. HPV RFLX . The HPV DNA reflex criteria were not met with this specimen result therefore, no HPV testing was performed. Performed at: [address] [id number] Financial Accounting Analyst: Kathy De La Rosa MD, Phone: [phone] Reviewed by EZRA CT/TK [facility] BY PCR 10/19/18 NOTE Original Ordering Provider: Ivy Matt [facility] PCR Negative Negative NG BY PCR Negative Negative Reviewed by IVY gruber PROVIDER SIGNATURE ( REQUIRED) Impression /Plan: 36+ week intrauterine with uncontrollable gestational hypertension. Given this, we will proceed with repeat section. Start magnesium sulfate. We have discussed the risks, benefits, alternatives with the patient and she desires that we proceed. Preparations in progress for delivery.
[2019-05-12] MEDS: Magnesium Sulfate 4gm/100mL 2 GM/50 ML IV.SOLN. IV (23:03)
[2019-05-12] MEDS: Magnesium Sulfate 20 GM/500 ML BAG IV (23:15)
[2019-05-12 23:20] VITALS: BP 161/107; PULSE 96; RESP 18; O2SAT 94
[2019-05-12] MEDS: Sodium Citrate/Citric Acid 30 ML UDC PO (23:20)
[2019-05-12] MEDS: Lactated Ringers 1,000 ML 999 ML IV (23:40)
[2019-05-12] MEDS: Cefazolin 2 GM in 0.9% Normal Saline 100 ML IV (23:40)
[2019-05-13] VITALS (31 sets, daily range): BP systolic 118–161; BP diastolic 65–107; PULSE 76–104; RESP 16–18; TEMP 36.2–37.3; O2SAT 94–100
--- NOTE | 2019-05-13 00:29 | OP.PCM_ITS ---
Delivery Classification: LEANDER Final GRACIELA: 06/07/19 Final GRACIELA Source: US <20 weeks Gestational age: 36 Weeks and 2 Days doctor who attended delivery (if requested by OB): Naty Martínez - severe PIH dispensing and measuring optician: Luh Hughes Type of Anesthesia:: Spinal - With Duramorph Date of Procedure: 05/12/19 Pre-Operative Diagnosis: Severe Uncontrolled Gestational Hypertension, Prior Section, Desires Permanent Sterilization Post-Operative Diagnosis: Severe Uncontrolled Gestational Hypertension, Prior Section, Desires Permanent Sterilization Description of Procedure: Surgeon: Andres Lees MD, FACOG Anesthesia: Josi Chadwick CRNA Anesthesia: Spinal with Duramorph Pre-op Diagnosis: Prior Section, Desires Permanent Sterilization, Severe Uncontrolled -Induced Hypertension Post-Op Diagnosis: Prior Section, Desires Permanent Sterilization, Severe Uncontrolled -Induced Hypertension Procedure: Repeat Low Transverse Cervical Caesarean Section And Bilateral Tubal Occlusion with Filshie Clips Findings: Viable male infant with Apgars of 8/9 in occiput anterior presentation with moderately meconium-stained amniotic fluid and normal three-vessel placenta. Baby weighed 5 pounds 4 ounces. Indication: This is a 28-year-old who presents for her second at 36+ weeks gestation for severe and uncontrolled gestational hypertension. She also desires permanent sterilization with this . care has otherwise been uneventful except for being hepatitis C virus positive, on Suboxone, being a smoker, and having a prior section. The patient has been counseled regarding the risk and indications of this procedure including the possibility of bleeding infection and injury to surrounding structures such as bowel bladder. She also understands the permanent nature of the tubal, the failure rate of 1 to 2%, and the availability of other nonpermanent control options. All questions were answered. Procedure: Patient was taken to the operating room where after spinal anesthesia was placed, the patient was prepped and draped in usual sterile fashion and a Rm catheter was placed. The abdomen was entered through the patient's prior Pfannenstiel incision and peritoneum was entered bluntly. After developing a bladder flap on the lower uterine segment a low transverse incision was made on the uterus and head was easily delivered onto the operative field the nose mouth and oropharynx were bulb suctioned. Subsequently a viable male was born with Apgars of 8/9. Kiwi vacuum was used to assist with delivery of the head due to unstable lie of the head. The was noted to cry move all extremities vigorously on the operative field. The umbilical cord was doubly clamped and ligated and infant handed to the nursery personnel who were present for the delivery. Placenta was delivered and noted to be 3 vessels and normal except for meconium staining. ABG and VBG blood gasses were sent. Uterus was exteriorized and remaining placental tissue was removed. The uterus was then closed in 2 layers first with running locked 0 Vicryl suture followed by a second imbricating layer with 0 Vicryl suture. 0 Vicryl suture was then used in a horizontal mattress interrupted fashion to affect final hemostasis of the uterine incision line. Normal fallopian tubes and ovaries were visualized and Filshie clips were placed approximately 1 to 2 cm from the fundus of the uterus on each tube. The uterus was returned to the pelvis. Hemostasis was noted and rectus abdominis muscles were reapproximated in the midline with interrupted Number 0 Vicryl suture in a horizontal mattress fashion. Fascia was closed with running Number 1 PDS Strata fix suture. Subcutaneous tissue was irrigated with copious amounts of saline solution and then closed with running 3-0 Vicryl suture. Skin was closed with 4-0 monocryl suture in a running subcuticular fashion. Steri strips and Mepilex wound cover were placed across the incision. The patient tolerated the procedure well and was taken to the recovery room in satisfactory condition. Sponge, needle, and instrument counts were all reportedly correct. EBL was less than 500 cc. Ancef 2 gms IV was given prior to the procedure. Spicemen to Pathology: Placenta Complications: None Amniotic Fluid Description: Moderate meconium Placenta Disposition: Sent to Pathology Drain: Rm to straight drain Fluids Replaced: Crystalloid Cord Entanglement: None Cord Vessel Description: 3 Vessels Esitmated Blood Loss (ml): 500 cc Infant Gender: Male (1 minute): 8 (5 minute): 9 Antibiotic Given: Ancef 2 grams IV x1 Pt instructed on risks of surgery: Bleeding, Infection, Failure Rate of 1 to 2%, Injury to surrounding structure(s) including bowel and bladder Complications: None - Admit VTE Documentation VTE Present on Admission: Yes VTE Mechan Device Prophylaxis: SCD's
[2019-05-13] MEDS: Oxytocin 30 units/NS 500 ml 30 UNITS/500 ML IV.SOLN 167 UNITS IV (00:40)
[2019-05-13] MEDS: Lactated Ringers 1,000 ML 100 ML IV (03:44)
[2019-05-13] MEDS: Acetaminophen 500 MG Tablet 1000 MG PO ×2 (04:12→15:07)
[2019-05-13] MEDS: Ketorolac 30 MG/ML Syringe IV ×4 (05:51→23:58)
[2019-05-13 06:48] LABS: Hematocrit 33.8 % (37-47); Hemoglobin 11.3 g/dL (12.0-15.0); Mean Corp Hgb Conc 33.4 g/dL (32-36); Mean Corpuscular Hgb 29.2 pg (27.0-32.0); Mean Corpuscular Volume 87.3 fL (81-99); Mean Platelet Vol. 12.1 fl (6.2-12.0); Platelet Count 197 K/mm3 (150-450); RBC Distribution Width CV 14.6 % (11.6-14.6); RBC Distribution Width SD 46.6 fl (35.1-43.9); Red Blood Count 3.87 M/mm3 (4.2-5.4); White Blood Count 22.5 K/mm3 (4.4-11.0)
[2019-05-13] MEDS: Albuterol 2.5 MG/3 ML VIAL.NEB. INHALATION ×2 (06:57→13:10)
[2019-05-13] MEDS: Cefazolin 1 GM/50 ML BAG IV ×2 (08:13→15:34)
[2019-05-13] MEDS: 0.9% Saline Lock 10 ML Syringe IV ×3 (08:13→17:22)
[2019-05-13] MEDS: Magnesium Sulfate 20 GM/500 ML BAG IV (08:37)
--- NOTE | 2019-05-13 09:55 | PCM.PN.OB ---
Subjective: Patient without complaints. Still has magnesium sulfate running. Blood pressures nearly normal without PIH symptoms. Mildly painful. - Physical Exam Vital Signs Temp Pulse Resp BP Pulse Ox 97.5 F L 93 16 130/84 H 96 05/13/19 08:37 05/13/19 08:37 05/13/19 08:37 05/13/19 08:37 05/13/19 08:37 Oxygen Delivery Method Room Air Weight: 160 lb 11.472 oz Body Mass Index (BMI) 25.2 Intake and Output for Last 24 Hours 05/11/19 05/12/19 05/13/19 23:59 23:59 23:59 Intake Total 351.92 / 351.92 2844.85 / 2844.85 Output Total 500 / 500 3400 / 3400 Balance -148.08 / -148.08 -555.15 / -555.15 Laboratory Tests Past 24 Hrs 05/12/19 05/12/19 05/12/19 16:30 16:30 16:30 WBC 11.3 H RBC 4.06 L Hgb 11.9 L Hct 35.6 L MCV 87.7 MCH 29.3 MCHC 33.4 RDW Std Deviation 47.4 H RDW Coeff of Dmitry 14.6 Plt Count 178 MPV 12.1 H PT 12.3 INR 0.9 APTT 36.1 Creatinine 0.49 L Estim Creat Clear Calc 169.19 Est GFR (MDRD) Af Amer 195 Est GFR (MDRD) Non-Af 161 Uric Acid 5.1 AST 58 H ALT 34 U Random Total Protein Urine Creatinine Protein/Creatinin Ratio Urine Opiates Screen Urine Methadone Screen Ur Barbiturates Screen Ur Phencyclidine Scrn Ur Amphetamines Screen U Methamphetamin-MDMA U Benzodiazepines Scrn Urine Cocaine Screen U Cannabinoids Screen Ur Drug Screen Comment Blood Type Antibody Screen 05/12/19 05/12/19 05/12/19 16:30 16:30 22:00 WBC RBC Hgb Hct MCV MCH MCHC RDW Std Deviation RDW Coeff of Dmitry Plt Count MPV PT INR APTT Creatinine Estim Creat Clear Calc Est GFR (MDRD) Af Amer Est GFR (MDRD) Non-Af Uric Acid AST ALT U Random Total Protein < 6.0 Urine Creatinine < 13.00 Protein/Creatinin Ratio TNP Urine Opiates Screen NEGATIVE Urine Methadone Screen NEGATIVE Ur Barbiturates Screen NEGATIVE Ur Phencyclidine Scrn NEGATIVE Ur Amphetamines Screen NEGATIVE U Methamphetamin-MDMA NEGATIVE U Benzodiazepines Scrn NEGATIVE Urine Cocaine Screen NEGATIVE U Cannabinoids Screen NEGATIVE Ur Drug Screen Comment Blood Type A POSITIVE Antibody Screen NEGATIVE 05/13/19 06:40 WBC 22.5 H RBC 3.87 L Hgb 11.3 L Hct 33.8 L MCV 87.3 MCH 29.2 MCHC 33.4 RDW Std Deviation 46.6 H RDW Coeff of Dmitry 14.6 Plt Count 197 MPV 12.1 H PT INR APTT Creatinine Estim Creat Clear Calc Est GFR (MDRD) Af Amer Est GFR (MDRD) Non-Af Uric Acid AST ALT U Random Total Protein Urine Creatinine Protein/Creatinin Ratio Urine Opiates Screen Urine Methadone Screen Ur Barbiturates Screen Ur Phencyclidine Scrn Ur Amphetamines Screen U Methamphetamin-MDMA U Benzodiazepines Scrn Urine Cocaine Screen U Cannabinoids Screen Ur Drug Screen Comment Blood Type Antibody Screen Wound is clean, dry, intact. Good urine output. Hemoglobin okay. WBC noted. Medical Necessity - Tobacco Use Smoking Status: Light Smoker (<10/day) Assessment/Plan Doing well postoperative day #1 status post section for severe PIH at 36+ weeks gestation. Also tubal ligation. Plan stopping magnesium sulfate at noon today given blood pressures have nearly normalized. Continuing present care otherwise.
[2019-05-13] MEDS: Pantoprazole Sodium 40 MG Tablet PO (10:38)
[2019-05-13] MEDS: Labetalol 100 MG Tablet PO ×2 (10:38→21:41)
--- NOTE | 2019-05-13 12:07 | NURSING ---
Addendum entered by Beth Kaufman 05/13/19 14:07: RN observed that bottle was filled on 05/09/19 and it was a 7 day supply with 14 tabs in [address] bottle[address] Lees aware that patient already finished bottle at 0700 on 05/13/19. Dr Lees okay with notifying her prescriber, voice mail left with Lilian Rojas NP who prescribed the medication. Patient states that Bob DENNISON told me I could take more since I was . Patient okay with prescriber being notified. Original Note: Patient states she took the last dose of her own Suboxone from home at 0700 today. RN verified that bottle was empty. Patient to continue taking Suboxone provided by hospital. Dr. Lees aware.
--- NOTE | 2019-05-13 15:12 | NURSING ---
Ammy Rojas NP from was contacted per discussion with pt. Ammy was made aware that pt gave us her subutex bottle that was filled on 05/09/2019 for 14 pills. This AM she took what she said was her last dose. Pt stated Ammy ok'd for me to take more during pregnacy. Ammy stated at no time would we ever tell a patient to do that! We never order to take anymore than what is prescribed. I am assuming she medicated herself for pain (because of the )..She knows she has weekly prescriptions because if something happened and she could not come in right aware. They have to be seen. Ammy was grateful that we contacted her and did leave her personal cell phone number if we need to reach for anything else. She stated I wish there was more communication with these patients and I am grateful you contacted me and I will address this with her. She does have a medication schedule on ThursdayMay 16 @ 1330. Please remind her of that and she must be seen to get another prescription. If she cannot make it by 1330, i will see her as long as she is here by 1700. Ammy was informed that Dr Lees did communicate with Dr Cardenas and will order Buprenorphine 8mg BID while she is here at the hospital as a patient.
[2019-05-13] MEDS: Senna/Docusate Sodium 1 Tablet PO (15:34)
--- NOTE | 2019-05-13 16:34 | CASEMGMT ---
Social Work Labor and Delivery Unit Social work consult noted. This newspaper writer is familiar with mother of baby (MOB) from last delivery in September of 2017 at [facility] for concerns of substance use during and mental health/positive PHQ9 depression screening. Worked with MOB extensively during that admission in September of 2017. Noted that MOB is now on Subutex and the baby born this admission is to be monitored for ART for a minimum of 7 days. Received updates from nursing staff as well. Concerns present regarding MOB's use of prescribed Subutex from MOB's community provider, [facility] (See nursing notes from earlier this date for details). Plan: Will see MOB on Thursday05.16.2019 for assessment and consult. -TONI Tran, FLAME BRAZING MACHINE OPERATOR
--- NOTE | 2019-05-13 17:45 | NURSING ---
voided in toilet but missed hat. states, voided large amount but missed hat.
[2019-05-13] MEDS: BUPRENORPHINE HCL 8 MG TAB.SUBL SL (21:42)
[2019-05-14] VITALS (9 sets, daily range): BP systolic 105–130; BP diastolic 66–88; PULSE 70–89; RESP 16–18; TEMP 36.3–36.9; O2SAT 98–99
[2019-05-14] MEDS: 0.9% Saline Lock 10 ML Syringe IV ×7 (00:02→23:54)
[2019-05-14] MEDS: Acetaminophen 500 MG Tablet 1000 MG PO (04:22)
[2019-05-14 04:23] LABS: Absolute Lymphocyte Count 1.95 X10^3/uL (0.83-4.51); Absolute Neutrophil Count 15.2 X10^3/uL (2.0-7.7); Basophil# 0.03 X10^3/uL; Basophil% 0.2 % (0-1); Hematocrit 27.5 % (37-47); Hemoglobin 8.8 g/dL (12.0-15.0); Lymphocyte # 1.95 X10^3/ul (4.0); Lymphocyte % 10.5 % (19-41); Mean Corpuscular Hgb 28.8 pg (27.0-32.0); Mean Corpuscular Volume 89.9 fL (81-99); Mean Platelet Vol. 11.7 fl (6.2-12.0); Monocyte# 1.26 X10^3/uL; Monocyte% 6.8 % (0-10); NRBC Flagged by Analyzer 0 % (0-5); Neutrophil # 15.24 X10^3/uL (2.7-7.7); Neutrophil % 81.7 % (47-70); Platelet Count 182 K/mm3 (150-450); RBC Distribution Width CV 14.9 % (11.6-14.6); RBC Distribution Width SD 48.6 fl (35.1-43.9); Red Blood Count 3.06 M/mm3 (4.2-5.4); White Blood Count 18.6 K/mm3 (4.4-11.0)
[2019-05-14] MEDS: Ketorolac 30 MG/ML Syringe IV ×4 (05:30→23:54)
--- NOTE | 2019-05-14 05:57 | PN.OBGYN_ITS ---
Subjective: Tolerating diet well, passing flatus, well, pain moderately well controlled with ibuprofen Objective: AVSS Breasts filling, nipples mildly irritated Fundus firm, midline, u/1, lochia scant Dressing removed, incision dry, intact, well approximated with steri strips, no drainage, edema or erythema noted - Physical Exam General: Alert, Oriented x3, Cooperative, No apparent distress HEENT: PERRLA, EOMI, Normocephalic Oral: Moist Mucosa Neck: Supple Lungs: Clear to auscultation, Normal air movement Cardiovascular: Regular rate, Regular Rhythm Abdomen: Bowel Sounds Present, Soft, Non Tender, Non-Distended, Passing Flatus Extremities: No edema, Capillary Refill Less than 3 Seconds Musculoskeletal: No Tenderness to Palpation of Joints or Extremities Neurological: Cranial nerves II-XII grossly intact, Deep Tendon Reflexes 2+/4 and Symmetrical Psych/Mental Status: Normal Affect, Appropriate, Alert and oriented to time, place, person, mood and affect Vital Signs Temp Pulse Resp BP Pulse Ox 98.8 F 84 18 105/66 98 05/13/19 23:49 05/14/19 04:00 05/13/19 23:49 05/14/19 04:00 05/13/19 23:49 Oxygen Delivery Method Room Air Weight: 160 lb 11.472 oz Body Mass Index (BMI) 25.2 Intake and Output for Last 24 Hours 05/12/19 05/13/19 05/14/19 23:59 23:59 23:59 Intake Total 351.92 / 351.92 3787.35 / 3787.35 Output Total 500 / 500 4875 / 4875 Balance -148.08 / -148.08 -1087.65 / -1087.65 Laboratory Tests Past 24 Hrs 05/13/19 05/14/19 06:40 04:15 WBC 22.5 H 18.6 H RBC 3.87 L 3.06 L Hgb 11.3 L 8.8 L Hct 33.8 L 27.5 L MCV 87.3 89.9 MCH 29.2 28.8 MCHC 33.4 32.0 RDW Std Deviation 46.6 H 48.6 H RDW Coeff of Dmitry 14.6 14.9 H Plt Count 197 182 MPV 12.1 H 11.7 Immature Gran % (Auto) 0.800 Neut % (Auto) 81.7 H Lymph % (Auto) 10.5 L [place] % (Auto) 6.8 Eos % (Auto) 0.0 Baso % (Auto) 0.2 Absolute Neuts (auto) 15.2 H Absolute Lymphs (auto) 1.95 Nucleated RBC % 0 Medical Necessity - Tobacco Use Smoking Status: Light Smoker (<10/day) Assessment/Plan Assessment: 28yo G2 now P2 GRACIELA 06/07/2019 by L= 6 w 5 d US, delivered by r/cs at 36w2d Severe preeclampsia Hepatitis C positive Hx of Amphetamine, opiate,and THC abuse, on Suboxone Blood pressures stable POD #2, normal involution, normal postoperative/ course Plan: Abdominal dressing removed Discharge teaching started Continue routine care
[2019-05-14] MEDS: Budesonide Respules 0.5 MG/2 ML AMPUL.NEB. INHALATION ×2 (07:37→19:34)
[2019-05-14] MEDS: Albuterol 2.5 MG/3 ML VIAL.NEB. INHALATION ×3 (07:37→19:33)
[2019-05-14] MEDS: Labetalol 100 MG Tablet PO ×2 (10:32→21:50)
[2019-05-14] MEDS: Pantoprazole Sodium 40 MG Tablet PO (10:32)
[2019-05-14] MEDS: BUPRENORPHINE HCL 8 MG TAB.SUBL SL ×2 (10:32→21:52)
[2019-05-15 01:49] VITALS: BP 122/89; PULSE 87; RESP 16; TEMP 36.6; O2SAT 97
[2019-05-15 07:35] VITALS: PULSE 87; RESP 18
[2019-05-15] MEDS: Budesonide Respules 0.5 MG/2 ML AMPUL.NEB. INHALATION (07:35)
[2019-05-15] MEDS: Albuterol 2.5 MG/3 ML VIAL.NEB. INHALATION ×2 (07:35→13:38)
[2019-05-15 08:00] VITALS: BP 133/100; PULSE 75; RESP 16; TEMP 36.4
[2019-05-15 08:10] VITALS: BP 145/97
[2019-05-15] MEDS: Labetalol 100 MG Tablet PO (09:45)
[2019-05-15] MEDS: BUPRENORPHINE HCL 8 MG TAB.SUBL SL (09:45)
[2019-05-15] MEDS: Pantoprazole Sodium 40 MG Tablet PO (09:45)
[2019-05-15 13:38] VITALS: PULSE 88; RESP 18
--- NOTE | 2019-05-15 14:35 | PCM.PN.OB ---
Subjective: Pain moderately well controlled with Ibuprofen and Tylenol, tolerating diet, passing flatus; bottle feeding well with minimal signs of ART Objective: AVSS Breasts filling, nipples atraumatic Fundus firm, midline, u/2, lochia scant Low transverse incision dry, intact with steri-strips, no drainage, edema or erythema noted - Physical Exam General: Alert, Oriented x3, Cooperative, No apparent distress HEENT: PERRLA, EOMI Oral: Moist Mucosa Neck: Supple Lungs: Clear to auscultation, Normal air movement Cardiovascular: Regular rate, Regular Rhythm Abdomen: Bowel Sounds Present, Soft, Non Tender, Non-Distended, Passing Flatus Extremities: No edema, Capillary Refill Less than 3 Seconds, No Calf Tenderness, Peripheral Pulses Normal Skin: No rashes Musculoskeletal: No Tenderness to Palpation of Joints or Extremities Neurological: Cranial nerves II-XII grossly intact, Deep Tendon Reflexes 2+/4 and Symmetrical Psych/Mental Status: Normal Affect, Appropriate, Alert and oriented to time, place, person, mood and affect Vital Signs Temp Pulse Resp BP Pulse Ox 97.6 F L 88 18 145/97 H 97 05/15/19 08:00 05/15/19 13:38 05/15/19 13:38 05/15/19 08:10 05/15/19 01:49 Oxygen Delivery Method Room Air Weight: 160 lb 11.472 oz Body Mass Index (BMI) 25.2 Intake and Output for Last 24 Hours 05/13/19 05/14/19 05/15/19 23:59 23:59 23:59 Intake Total 3787.35 / 3787.35 Output Total 4875 / 4875 Balance -1087.65 / -1087.65 Medical Necessity - Tobacco Use Smoking Status: Light Smoker (<10/day) Assessment/Plan Assessment/Plan Assessment: 28yo G2 now P2 GRACIELA 06/07/2019 by L= 6 w 5 d US, delivered by r/cs at 36w2d Severe preeclampsia Hepatitis C positive Hx of Amphetamine, opiate,and THC abuse, on Suboxone Blood pressures stable POD #3, normal involution, normal postoperative/ course Plan: Discharge teaching completed Discharge to home/hotel status today at pt request RTO 2 weeks for incision check, 6 weeks for PP checkup
--- NOTE | 2019-05-15 14:56 | DCINST_ITS ---
Discharge Diet: No Restrictions Discharge Activity: Return to Normal Activity, No Restrictions, May Drive, May Shower, May Take a Tub Bath Return to work on:: 06/15/19 May resume sexual activity in: 6-8 weeks Weight Bearing Status: Weight bearing as tolerated Lifting Restrictions: Nothing heavier than the baby for two weeks Additional Activity Instructions:: No cooking, cleaning or shopping for two weeks; no long car rides for 2 weeks; 12 hours sleep in 24 hours for the first two weeks - sleep when the baby sleeps Additional Instructions: If you experience any of the following, contact your healthcare provider. * Bleeding that soaks a pad every hour for 2 hours * Fever 100.4 or higher * Unrelieved incision or abdominal pain * Swelling, redness, discharge or bleeding from your incision or episiotomy site * Your incision begins to separate * Problems urinating (including inability to urinate or burning while urinating). * Visual changes * Severe headache * Flu-like symptoms * Pain or redness in one of both of your breasts * Pain, warmth, tenderness or swelling in your legs, especially the calf area * Frequent nausea and vomiting * Symptoms of depression or anxiety If you experience any of the following, call 911 or go to the nearest Emergency Room. * Chest pain * Problems breathing * Seizure activity * Partial or complete paralysis of a body part, slurred speech, weakness or drooping of the face, or a sudden inability to walk or hold your balance Allergies/Adverse Reactions: Allergies hydrocodone Allergy (Verified 05/12/19 16:38) Rash sulfamethoxazole [From Bactrim] Allergy (Verified 05/12/19 16:38) Hives trimethoprim [From Bactrim] Allergy (Verified 05/12/19 16:38) Hives hydrocodone bitartrate [From Vicodin] Adverse Reaction (Verified 05/12/19 16:38) Nausea Medications to take at Discharge Acetaminophen [Tylenol] 500 mg PO Q6H PRN PRN tab 10/17/17 Albuterol Inhaler [Ventolin Hfa (SP)] 1 - 2 puff INHALATION Q4H PRN PRN 02/18/18 Buprenorphine HCl 8 mg SL BID 05/04/19 Fluticasone/Vilanterol [Breo Ellipta 100-25 Mcg INH] 1 puff INHALATION DAILY 05/04/19 Pantoprazole Sodium [Protonix] 40 mg PO DAILY 05/04/19 Vit No.130/Iron/Folic [ Tablet] 1 ea PO DAILY 05/04/19 Follow-Up: Call to make an appointment with your doctor for an incision check in 1-2 weeks. You will also need a 6 week post- follow up appointment. Test results from this visit will be discussed in further detail at your follow- up appointment, if applicable. Primary Care Physician: Care Physician,No Primary [Primary Care Provider] - Proposed Discharge Date: 05/15/19
[2019-05-15 15:52] VITALS: BP 124/87; PULSE 97; RESP 16; TEMP 36.9
--- NOTE | 2019-05-15 15:54 | NURSING ---
Discharged to courtesy room/hotel status at 1541
[2019-05-17 15:03] LABS: Pathology Specimen OB SEE PATHOLOGY REPORT
== END 2019-05-15 15:40 | disposition home or self-care (01) | DRG 540 ==
LOC: WPOUT 20:26 → WP 20:27
PROVIDERS: Admitting Provider Obstetrics & Gynecology; Referring Provider Obstetrics & Gynecology; Visit Provider Obstetrics & Gynecology
DX: O34.211 Maternal care for low transverse scar from previous cesarean delivery (principal); O60.14X0 Preterm labor third trimester with preterm delivery third trimester, not applicable or unspecified; O14.14 Severe pre-eclampsia complicating childbirth; O13.4 Gestational [pregnancy-induced] hypertension without significant proteinuria, complicating childbirth; O32.0XX0 Maternal care for unstable lie, not applicable or unspecified; O40.3XX0 Polyhydramnios, third trimester, not applicable or unspecified; O77.0 Labor and delivery complicated by meconium in amniotic fluid; O98.42 Viral hepatitis complicating childbirth; B19.20 Unspecified viral hepatitis C without hepatic coma; O99.52 Diseases of the respiratory system complicating childbirth; O99.324 Drug use complicating childbirth; F15.21 Other stimulant dependence, in remission; F11.11 Opioid abuse, in remission; F12.21 Cannabis dependence, in remission; J45.909 Unspecified asthma, uncomplicated; O99.334 Smoking (tobacco) complicating childbirth; F17.210 Nicotine dependence, cigarettes, uncomplicated; Z3A.36 36 weeks gestation of pregnancy; Z37.0 Single live birth; Z30.2 Encounter for sterilization
CPT/HCPCS: 36415; 59025; 59050; 80307; 82565; 82570; 84156; 84450; 84460; 84550; 85025; 85027; 85610; 85730; 86850; 86900; 86901; 88307; 94640; 94762; 99218; J7120; A4216; G0378; J0702; J2405

== ENCOUNTER 2019-10-05 12:37 | Emergency (ER) | payer MEDICAID, SELFPAY ==
[2019-10-05 12:39] VITALS: BP 124/94; PULSE 88; RESP 17; TEMP 36.2; O2SAT 98; BMI 21.3
--- NOTE | 2019-10-05 12:55 | CT_ITS ---
STUDY: CT ABDOMEN AND PELVIS WITHOUT CONTRAST REASON FOR EXAM: Female, 29 years old. ABD PAIN, BURNING W/URINATION RADIATION DOSAGE (If Supplied By Facility): CTDIvol = ( 6.68 ) mGy, DLP = ( 297.80 ) mGycm TECHNIQUE: Transaxial images were obtained from the dome of the diaphragm to the symphysis pubis without oral contrast, and without intravenous contrast. Sagittal and coronal images were reconstructed. Individualized dose optimization techniques were used for this CT. COMPARISON: Comparison is made with prior examination October 12, 2017. FINDINGS: The visualized lung bases are unremarkable. The visualized portions of the heart are within normal limits. Normal liver. The patient is status post cholecystectomy. Normal spleen. Normal pancreas. Normal bilateral adrenal glands. Normal right kidney. Normal left kidney. Normal visualized stomach. Normal small intestine. Normal colon. The appendix is visualized and appears normal. Normal abdominal aorta. Normal inferior vena cava. Normal retroperitoneum. The urinary bladder is empty at the time of the examination. There is evidence of bilateral tubal ligation clips. Normal abdominal wall. Normal osseous structures. CT/Abdomen/Pelvis without Cont IMPRESSION: Normal unenhanced CT of the abdomen and pelvis. Electronically Signed: Jason Hou, at 14:02 EDT , Service support ,
--- NOTE | 2019-10-05 12:58 | ED.DCSUM_ITS ---
History of Present Illness Chief Complaint: Abd Pain Informant: Patient Narrative: Patient presents the emergency room with dysuria. She developed the dysuria today. Preceding the dysuria the patient has had a suprapubic pressure for the past 3 weeks. He states that the pressure at rest but becomes more like a muscle ache when she attempts to sit up. No fevers. She has irritable bowel so she occasionally has diarrhea. She denies any history of kidney stones. She has had a tubal ligation, endometriosis status post laparoscopy, history of ovarian cysts, and has had prior cholecystectomy. The patient notes nausea. Past Medical History - Allergies and Home Meds Allergies/Adverse Reactions: Allergies hydrocodone Allergy (Verified 10/05/19 12:38) Rash sulfamethoxazole [From Bactrim] Allergy (Verified 10/05/19 12:38) Hives trimethoprim [From Bactrim] Allergy (Verified 10/05/19 12:38) Hives hydrocodone bitartrate [From Vicodin] Adverse Reaction (Verified 10/05/19 12:38) Nausea Smoking Status: Light Smoker (<10/day) Review of Systems General: Denies: Chills, Fever, Sweats Eyes: Denies: Visual changes - bilaterally, Diplopia ENT: Denies: Rhinorrhea, Sore throat Cardiovascular: Denies: Chest pain, Palpitations Respiratory: Denies: Dyspnea, Cough, Dyspnea on exertion Gastrointestinal: Reports: Abdominal pain, Nausea. Denies: Vomiting, Diarrhea, Melena, Hematochezia Genitourinary: Reports: Dysuria. Denies: Hematuria, Frequency Musculoskeletal: Denies: Back pain, Extremity Pain Skin: Denies: Rash, Wounds Neurological: Denies: Headache, Weakness, Numbness Physical Exam Vital Signs/Narrative: Vital Signs Temp Pulse Resp BP Pulse Ox 10/05/19 12:39 97.2 F L 88 17 124/94 H 98 Inital Vital Signs reviewed: Yes General: Well nourished, Well developed, No Acute Distress Head: Normocephalic, Atraumatic Eyes: Perrl, EOMI ENT: Moist mucous membranes, No rhinorrhea Neck: Supple, Nontender Cardiovascular: Regular rate, Regular rhythm, No murmurs Respiratory: No distress, CTA bilaterally, Chest nontender Abdomen: Soft, Nondistended, Normal bowel sounds, Tender - Diffusely tender to palpation without guarding or rebound. Negative for: Guarding, Rebound tenderness Back: Nontender, Normal Inspection Extremities: Nontender, No edema Skin: Normal color, No rash Neurological: Alert, Oriented x3, Cranial nerves II-XII grossly intact, Normal Strength, Normal Sensation Psychological: Normal affect, Normal Mood Diagnostic/Tx/Re-eval - Medical Decision Making Analysis shows 10-25 white blood cells 5-10 squamous cells 2+ bacteria leukocyte esterase but nitrate negative. This will be sent for culture. CT the abdomen pelvis was negative for acute findings. Patient requested a dose of pain medication I will give her a dose of Toradol. She has follow-up with [facility] on the . ED Disposition - Plan for ED Patient: Disposition: Home or Assisted Living Diagnosis: Cystitis Instructions: PELVIC PAIN, Unknown Cause, Bladder Infection, Female (Adult) Prescriptions: Nitrofurantoin Macrocrystals [Macrobid] 100 mg PO Q12 #10 cap Transmission Status: Pending to [facility] Phenazopyridine HCl [Pyridium] 200 mg PO TID #9 tab Transmission Status: Pending to [facility] Additional Instructions: Please follow-up with your director of pediatric rehabilitation as scheduled.
[2019-10-05 13:19] LABS: Red Blood Cells-Urine 0 SEEN /hpf (0-5)
[2019-10-05 13:24] LABS: Color, Urine Yellow (Yellow); Glucose, Dipstick Normal (Normal); Ketone-Dipstick 5 mg/dl (Negative); Leukocyte Esterase-Dipstick 100 /ul (Negative); Nitrite-Dipstick Negative (Negative); Occult Blood-Urine Negative /ul (Negative); Protein-Dipstick 15 mg/dl (Negative); Specific Gravity, Urine 1.015 (1.002-1.030); Urine Bilirubin Dipstick Negative (Negative); Urine Clarity Sl. Cloudy (Clear); Urine Urobilinogen 4 mg/dl (Normal); Urine pH 6.5 (5.0 - 8.0)
[2019-10-05 13:25] LABS: Internal QC Validated? YES +Cl - CLEAR BKGD; Pregnancy, Urine Negative Negative
[2019-10-05 13:35] VITALS: BP 118/88; PULSE 77; RESP 17; O2SAT 96
[2019-10-05 13:36] LABS: Squamous Epithelial Cells - UA 5-10 SEEN /hpf (5-10)
[2019-10-05 13:37] LABS: Bacteria 2+ /hpf (None Seen); Mucous, Urine 1+ /hpf (<or=2+); White Blood Cells 10-25 SEEN /hpf (0-5)
[2019-10-05] MEDS: Ketorolac 60 MG/2 ML Vial IM (14:28)
[2019-10-05 14:49] VITALS: RESP 71
--- NOTE | 2019-10-05 14:51 | ED.RN ---
NO REACTION AT INJECTION SITE.
== END 2019-10-05 14:51 | disposition home or self-care (01) ==
PROVIDERS: Emergency Provider Emergency Medicine; PCP Family Medicine
DX: N30.90 Cystitis, unspecified without hematuria (principal); F17.200 Nicotine dependence, unspecified, uncomplicated; Z90.49 Acquired absence of other specified parts of digestive tract
CPT/HCPCS: 74176; 81001; 81025; 87086; 87088; 96372; 99282

== ENCOUNTER → 2019-12-13 16:15 | Outpatient (CLI) | payer MEDICAID, SELFPAY ==
[2019-12-13 18:19] LABS: AST(SGOT) 86 U/L (15-37); Alanine Aminotransfer ALT/SGPT 87 U/L (13-56); Albumin, Serum 3.7 g/dL (3.2-5.0); Alkaline Phosphatase 177 U/L (45-117); Bilirubin, Direct 0.17 mg/dL (0.00-0.30); Globulin 3.7 g/dL (2.2-4.2); Protein, Total 7.4 g/dL (6.4-8.2)
[2019-12-14 08:49] LABS: Hepatitis B Surface Antigen Non-Reactive (Nonreactive)
[2019-12-14 09:51] LABS: Hepatitis C Antibody REACTIVE (Nonreactive)
[2019-12-16 13:38] LABS: Hepatitis C Ab >11.0 s/co ratio (0.0-0.9)
== END ==
PROVIDERS: PCP Family Medicine
DX: R63.0 Anorexia (principal); R53.81 Other malaise; R11.0 Nausea
CPT/HCPCS: 36415; 80076; 86803; 86804; 87340

== ENCOUNTER 2020-11-10 11:51 | Emergency (ER) | payer MEDICAID, SELFPAY ==
[2020-11-10 11:53] VITALS: BP 122/83; PULSE 106; RESP 17; TEMP 35.9; O2SAT 100; BMI 22.7
--- NOTE | 2020-11-10 12:06 | ED.VIS.GEN ---
History of Present Illness Chief Complaint: Cold Sx Narrative: Presents with 3-week history of cough congestion and sinus pressure. She has been on Augmentin but it did not improve her symptoms. No fever chills no shortness of breath no chest pain no rash. Past medical history: Reviewed Medications: Reviewed Social history: Noncontributory Review of systems: All systems negative except as indicated General: No Fever Eyes: No visual changes ENT: Airway congestion, postnasal drip, sinus pressure Neck: No neck pain Cardiovascular: No chest pain Respiratory: No shortness of breath or cough Gastrointestinal: No abdominal pain, nausea vomiting or diarrhea Genitourinary: No dysuria Musculoskeletal: Denies myalgias no difficulty with ambulation Skin: No rash Neurological: No memory loss, confusion or any focal weakness Physical exam General: Well nourished, Well developed, No Acute Distress Head: Normocephalic, Atraumatic Eyes: Conjunctiva not pale ENT: Moist mucous membranes she does however have upper airway congestion, some rhinorrhea swollen nasal turbinates however there normal color and not red. She also has bulging of the TMs but again they are clear and not red. Neck: Supple, Nontender, No lymphadenopathy Cardiovascular: Regular rate, Regular rhythm Respiratory: No distress, CTA bilaterally Abdomen: Soft, Nontender, Nondistended Back: Nontender, Normal Inspection. Extremities: Nontender, No edema Skin: Normal color, No rash Neurological: Alert, Normal Strength, Normal Sensation Psychological: Normal affect Past Medical History - Allergies and Home Meds Allergies/Adverse Reactions: Allergies hydrocodone Allergy (Verified 11/10/20 11:53) Rash sulfamethoxazole [From Bactrim] Allergy (Verified 11/10/20 11:53) Hives trimethoprim [From Bactrim] Allergy (Verified 11/10/20 11:53) Hives hydrocodone bitartrate [From Vicodin] Adverse Reaction (Verified 11/10/20 11:53) Nausea Primary Care Physician: Joaquín Last DO [Primary Care Provider] - Smoking Status: Current some day smoker Physical Exam Vital Signs/Narrative: Vital Signs Temp Pulse Resp BP Pulse Ox 11/10/20 11:53 96.6 F L 106 H 17 122/83 H 100 Diagnostic/Tx/Re-eval - Medical Decision Making Patient has an unremarkable emergency department vitals, she was slightly tachycardic on vitals in triage however when I saw her her heart rate was in the 90s. She has symptoms of upper airway congestion however I believe this is more likely allergic than infectious. I will treat accordingly. She otherwise appears well and I will discharge in stable condition. ED Disposition - Plan for ED Patient: Disposition: LEFT WITHOUT BEING SEEN Diagnosis: Allergic rhinitis Instructions: ED Allergic Rhinitis Prescriptions: Prednisone [Deltasone] 40 mg PO DAILY #10 tablet Transmission Status: Pending to [address] Guaifenesin [Mucinex] 600 mg PO BID #10 tab Transmission Status: Pending to [facility] Referrals: Joaquín Last DO [Primary Care Provider] - 2 Days
[2020-11-10 12:16] VITALS: O2SAT 98
[2020-11-10 12:18] VITALS: BP 118/85; PULSE 94; RESP 15; O2SAT 98
== END 2020-11-10 12:23 | disposition home or self-care (01) ==
PROVIDERS: Emergency Provider Emergency Medicine; PCP Family Medicine
DX: J30.9 Allergic rhinitis, unspecified (principal)
CPT/HCPCS: 99282

== ENCOUNTER 2020-12-02 19:46 | Emergency (ER) | payer MEDICAID, SELFPAY ==
[2020-12-02 19:47] VITALS: BP 132/81; PULSE 92; RESP 15; TEMP 36.6; O2SAT 99; BMI 23.0
--- NOTE | 2020-12-02 20:02 | CT_ITS ---
HISTORY: rlq pain EXAMINATION: CT Abdomen And Pelvis W/ Contrast Injection TECHNIQUE: Helically acquired images were obtained of the abdomen and pelvis following IV contrast. A radiation dose optimization technique was used for this scan. IV Contrast dosage and agent: 100mL Isovue-370 Oral contrast: None. COMPARISON: 10/05/19 FINDINGS: LOWER CHEST: Lung bases are clear. No cardiomegaly or pericardial effusion. LIVER: Homogeneous. No focal mass. GALLBLADDER AND BILIARY TREE: Cholecystectomy. No intra- or extrahepatic biliary ductal dilation. PANCREAS: No focal cystic or solid mass. SPLEEN: Normal size without focal cystic or solid mass. ADRENAL GLANDS: No nodules. KIDNEYS AND URETERS: Normal renal size and position. No hydronephrosis. PERITONEUM: No ascites or free air. BOWEL: Normal appendix. No stomach or bowel distension. No focal inflammatory bowel wall changes. LYMPH NODES: No enlarged mesenteric or retroperitoneal lymph nodes. VESSELS: Aorta is non-dilated. URINARY BLADDER: Mild wall thickening. REPRODUCTIVE ORGANS: No pelvic masses. 14 mm left ovarian follicle. BTL clips. ABDOMINAL WALL: Small fat-containing umbilical hernia. BONES: Unremarkable. CT/Abdomen/Pelvis W IV Cont ONLY IMPRESSION: Correlate to exclude UTI. Otherwise no acute findings in the abdomen or pelvis. Individualized dose optimization techniques were used for this CT. at 7468 Reported and signed by: Danny Dey MD Electronically Signed: Danny Dey MD at 21:57 EDT Tel , Service support ,
[2020-12-02 20:09] LABS: Color, Urine Yellow (Yellow); Glucose, Dipstick Normal (Normal); Ketone-Dipstick Negative (Negative); Leukocyte Esterase-Dipstick 25 /ul (Negative); Mucous, Urine 0 SEEN /hpf (<or=2+); Nitrite-Dipstick Negative (Negative); Occult Blood-Urine Negative /ul (Negative); Protein-Dipstick Negative (Negative); Red Blood Cells-Urine 0 SEEN /hpf (0-5); Urine Bilirubin Dipstick Negative (Negative); Urine Clarity Sl. Cloudy (Clear); Urine Urobilinogen 1 mg/dl (Normal)
--- NOTE | 2020-12-02 20:11 | EX.ED.DYSGE1 ---
HPI History of Present Illness Chief Complaint: Complaint Narrative Narrative: 30-year-old female presents with concern for right lower quadrant pain. States is been present over the past 2 days. States it is sharp in nature. Constant. Admits to nausea without vomiting. States that she finished her last period 2 weeks ago. States that she has had ovarian cysts in the past and this feels similar. Denies any vaginal bleeding or discharge. Patient also states that she is having significant reflux. States that she has burning in her chest. This is also causing her to be nauseous. Denies any shortness of breath, fever, chills, cough, urinary symptoms. Denies any concern for STDs. PFSH PFS Medical History Delivery by emergency section Gallstones Kidney disease Home Medications buprenorphine HCl 8 mg SL BID 05/04/19 [History Last Taken 10/05/19] naproxen 500 mg PO BID #14 tab 12/02/20 [Rx Last Taken Unknown] ondansetron 4 mg PO Q8H PRN PRN #10 tab 12/02/20 [Rx Last Taken Unknown] Allergy/AdvReac Type Severity Reaction Status Date / Time hydrocodone Allergy Rash Verified 12/02/20 19:47 sulfamethoxazole Allergy Hives Verified 12/02/20 19:47 [From Bactrim] trimethoprim [From Bactrim] Allergy Hives Verified 12/02/20 19:47 hydrocodone bitartrate AdvReac Nausea Verified 12/02/20 19:47 [From Vicodin] Family History Mother Asthma Arthritis Hypertension Thyroid disorder Father Asthma Arthritis Diabetes Hypertension High cholesterol Surgical History History of History of laparoscopy Hx of cholecystectomy Social History Smoking Status: Current every day smoker alcohol intake: never substance use type: does not use ROS ROS ED Constitutional Constitutional ED: Denies chills, fever(s) or sweats Eyes Eyes: Denies blurry vision, change in vision or diplopia ENT ENT ED: Denies rhinorrhea or sore throat Cardiovascular Cardiovascular: Denies chest pain, orthopnea, palpitations or racing heartbeat Respiratory/Chest Respiratory/Chest: Denies cough, dyspnea, dyspnea on exertion, orthopnea or sputum Gastrointestinal Gastrointestinal: Reports abdominal pain and nausea; Denies constipation, diarrhea, melena or vomiting Genitourinary Genitourinary ED: Denies dysuria, hematuria or urinary frequency Musculoskeletal Musculoskeletal: Denies arthralgias, myalgias or neck pain Integumentary Denies rash Neurologic Neurologic: Denies headache(s), paresthesias or weakness Psychiatric Psychiatric: Denies anxiety or depression Hematologic/Lymphatic Hematologic/Lymphatic: Denies easy bleeding or easy bruising Allergic/Immunologic Allergic/Immunologic ED: Denies mouth swelling or tongue swelling EXAM Physical Exam Const Vital Signs: 12/02/20 19:47 12/02/20 22:23 Temperature 97.8 F Temperature Source Temporal Pulse Rate 92 82 Respiratory Rate 15 18 Blood Pressure 132/81 H 112/81 H Blood Pressure Mean 98 91 Pulse Ox 99 99 Oxygen Delivery Method Room Air Room Air Positive well nourished and well developed General Appearance ED: well developed HEENT Reports TM's clear and moist mucous membranes normocephalic and atraumatic Tympanic Membrane ED: Yes TM's clear Eyes PERRL and EOMs intact bilaterally Neck no lymphadenopathy, supple and no JVD Chest Wall inspection of chest normal Resp normal respiratory effort and clear to auscultation bilaterally Cardio regular rate, S1 normal heart sound, S2 normal heart sound and no murmurs Peripheral Pulses: pulses 2+ throughout GI soft to palpation and non-distended GI Narrative: RLQ TTP. No rebound. No peritonitis. Back/Spine no CVA tenderness and no thoracic nor lumbar tenderness Extremity normal to inspection General Extremety ED: Negative for edema or tenderness General Extremity: Negative for edema Neuro oriented x3, CN's II-XII intact bilaterally and no sensory deficits noted Sensorium / Orientation: alert Motor Exam: strength 5/5 throughout Psych mental status grossly normal Skin no rashes or lesions noted MDM MDM MDM Narrative Medical decision making narrative: Patient appears well and nontoxic. Tenderness in the right lower quadrant without rebound. Lab work within normal limits. Urine shows no evidence of infection or . Patient initially given Toradol, fluid, Zofran. Patient also given Protonix. Patient continued to have pain when she is reevaluated at 2215. At this time she was given 4 mg of morphine. It was discussed with her she is currently taking Suboxone did not want to cause a relapse in her opiate addiction. She does understand and is willing to take the pain medication given the significant pain she is in at this time. Given her continued pain transvaginal ultrasound was ordered to rule out ovarian torsion or other gynecologic etiology. Patient will be signed out to oncoming provider pending the results of the transvaginal ultrasound. If they are negative patient will follow up with her [facility] and will be given naproxen and Zofran for home. Stable at time of handoff. Lab Data Attestation: I reviewed the patient's lab results. Labs: Laboratory Results - last 24 hr 12/02/20 12/02/20 12/02/20 20:03 20:03 20:10 WBC 8.5 RBC 4.46 Hgb 13.7 Hct 40.9 MCV 91.7 MCH 30.7 MCHC 33.5 RDW Std Deviation 46.7 H RDW Coeff of Dmitry 13.7 Plt Count 314 MPV 10.7 Immature Gran % (Auto) 0.200 Neut % (Auto) 62.1 Lymph % (Auto) 30.9 [place] % (Auto) 6.3 Eos % (Auto) 0.0 Baso % (Auto) 0.5 Absolute Neuts (auto) 5.3 Absolute Lymphs (auto) 2.61 Nucleated RBC % 0 Sodium Potassium Chloride Carbon Dioxide Anion Gap BUN Creatinine Estim Creat Clear Calc Est GFR (MDRD) Af Amer Est GFR (MDRD) Non-Af BUN/Creatinine Ratio Glucose Calcium Total Bilirubin AST ALT Alkaline Phosphatase Total Protein Albumin Globulin Albumin/Globulin Ratio Urine Color Yellow Urine Clarity Sl. Cloudy Urine pH 7.0 Ur Specific [place] 1.010 Urine Protein Negative Urine Glucose (UA) Normal Urine Ketones Negative Urine Occult Blood Negative Urine Nitrite Negative Urine Bilirubin Negative Urine Urobilinogen 1 H Ur Leukocyte Esterase 25 H Urine RBC 0 SEEN Urine WBC 0-5 SEEN Ur Squamous Epith Cells 0-5 SEEN Urine Bacteria RARE Urine Mucus 0 SEEN Urine Test Negative 12/02/20 20:10 WBC RBC Hgb Hct MCV MCH MCHC RDW Std Deviation RDW Coeff of Dmitry Plt Count MPV Immature Gran % (Auto) Neut % (Auto) Lymph % (Auto) [place] % (Auto) Eos % (Auto) Baso % (Auto) Absolute Neuts (auto) Absolute Lymphs (auto) Nucleated RBC % Sodium 136 Potassium 3.6 Chloride 100 Carbon Dioxide 29.0 Anion Gap 7 BUN 7 Creatinine 0.69 Estim Creat Clear Calc 118.04 Est GFR (MDRD) Af Amer 131 Est GFR (MDRD) Non-Af 108 BUN/Creatinine Ratio 10.2 Glucose 102 Calcium 8.7 Total Bilirubin 0.30 AST 15 ALT 20 Alkaline Phosphatase 140 H Total Protein 7.6 Albumin 3.7 Globulin 3.9 Albumin/Globulin Ratio 0.9 Urine Color Urine Clarity Urine pH Ur Specific [place] Urine Protein Urine Glucose (UA) Urine Ketones Urine Occult Blood Urine Nitrite Urine Bilirubin Urine Urobilinogen Ur Leukocyte Esterase Urine RBC Urine WBC Ur Squamous Epith Cells Urine Bacteria Urine Mucus Urine Test Radiography Diagnostic Testing: Radiology Impression Abdomen/Pelvis CT 12/02/20 20:02 IMPRESSION: Correlate to exclude UTI. Otherwise no acute findings in the abdomen or pelvis. Individualized dose optimization techniques were used for this CT. at 2158 Reported and signed by: Danny Dey MD Electronically Signed: Danny Dey MD at 21:57 EDT Tel , Service support , Discharge Plan Triage Chief Complaint: Complaint ED Provider: Gianfranco Shah Dx/Rx/DC Orders Clinical Impression: Abdominal pain Instructions: Abdominal Pain Prescriptions: New naproxen 500 mg tablet 500 mg PO BID Qty: 14 RF: 0 ondansetron 4 mg tablet,disintegrating 4 mg PO Q8H PRN PRN (Reason: Nausea) Qty: 10 RF: 0 No Action buprenorphine HCl 8 MG tablet, sublingual 8 mg SL BID RF: 0 Primary Care Provider: Joaquín Last Referrals: Joaquín Last DO [Primary Care Provider] - Andres Lees MD [STAFF PHYSICIAN] - 3-5 Days Disposition Disposition: Home, self care
[2020-12-02] MEDS: Ketorolac 15 MG/ML Vial IV (20:12)
[2020-12-02] MEDS: Ondansetron 4 MG/2 ML Vial IV (20:12)
[2020-12-02] MEDS: 0.9% Normal Saline 1,000 ML 1000 ML IV (20:14)
[2020-12-02 20:16] LABS: Bacteria RARE /hpf (None Seen); Squamous Epithelial Cells - UA 0-5 SEEN /hpf (5-10); White Blood Cells 0-5 SEEN /hpf (0-5)
[2020-12-02 20:21] LABS: Internal QC Validated? YES +Cl - CLEAR BKGD; Pregnancy, Urine Negative Negative
[2020-12-02 20:32] LABS: Absolute Lymphocyte Count 2.61 X10^3/uL (0.83-4.51); Absolute Neutrophil Count 5.3 X10^3/uL (2.0-7.7); Basophil# 0.04 X10^3/uL; Basophil% 0.5 % (0-1); Hematocrit 40.9 % (37-47); Hemoglobin 13.7 g/dL (12.0-15.0); Lymphocyte # 2.61 X10^3/ul (0.83-4.51); Lymphocyte % 30.9 % (19-41); Mean Corp Hgb Conc 33.5 g/dL (32-36); Mean Corpuscular Hgb 30.7 pg (27.0-32.0); Mean Corpuscular Volume 91.7 fL (81-99); Mean Platelet Vol. 10.7 fl (6.2-12.0); Monocyte# 0.53 X10^3/uL; Monocyte% 6.3 % (0-10); NRBC Flagged by Analyzer 0 % (0-5); Neutrophil # 5.26 X10^3/uL (2.7-7.7); Neutrophil % 62.1 % (47-70); Platelet Count 314 K/mm3 (150-450); RBC Distribution Width CV 13.7 % (11.6-14.6); RBC Distribution Width SD 46.7 fl (35.1-43.9); Red Blood Count 4.46 M/mm3 (4.2-5.4); White Blood Count 8.5 K/mm3 (4.4-11.0)
[2020-12-02 20:50] LABS: ALB/GLOB Ratio 0.9 RATIO (0.9-2.4); AST(SGOT) 15 U/L (15-37); Alanine Aminotransfer ALT/SGPT 20 U/L (13-56); Albumin, Serum 3.7 g/dL (3.2-5.0); Alkaline Phosphatase 140 U/L (45-117); Anion Gap 7 (5-15); BUN 7 mg/dL (7-18); BUN/Creat Ratio 10.2 RATIO (10-20); Calcium,Total 8.7 mg/dL (8.5-10.1); Chloride 100 mmol/L (98-107); Creatinine, Serum 0.69 mg/dL (0.55-1.02); EST Glomerular Filtration Rate 108 mL/min (>60); Est Glom Filt Rate - Afr Amer 131 mL/min (>60); Estimated Creatinine Clearance 118.04 ml/min; Globulin 3.9 g/dL (2.2-4.2); Glucose 102 mg/dL (74-106); Potassium 3.6 mmol/L (3.5-5.1); Protein, Total 7.6 g/dL (6.4-8.2); Sodium Level 136 mmol/L (136-145)
--- NOTE | 2020-12-02 22:13 | US_ITS ---
HISTORY: rlq pain EXAMINATION: US Transvaginal Non-OB TECHNIQUE: Transvaginal (for optimal evaluation of the adnexa) pelvic ultrasound was performed. Grayscale, spectral waveform, and color flow Doppler evaluation of the adnexa. COMPARISON: CT abdomen and pelvis 12/02/20 FINDINGS: UTERUS: anteverted. The uterus measures 10.2 x 5.3 x 3.1 cm. There is no uterine mass. The endometrial stripe measures 8 mm in AP diameter which is within normal limits. RIGHT OVARY: 3.6 x 2.7 x 2.0 cm. Non-enlarged, normal echogenicity. There is normal arterial inflow and venous outflow present in the right ovary. LEFT OVARY: 3.1 x 3.8 x 2.3 cm. 2.1 cm anechoic cyst. There is normal arterial inflow and venous outflow present in the left ovary. FREE FLUID: None. US/Transvaginal Non- IMPRESSION: 2.1 cm left ovarian cyst, no evidence of torsion. Otherwise unremarkable pelvic ultrasound. at 0032 Reported and signed by: Danny Dey MD Electronically Signed: Danny Dey MD at 0:31 EDT Tel , Service support ,
[2020-12-02] MEDS: Morphine 4 MG/ML Syringe IV (22:22)
[2020-12-02 22:23] VITALS: BP 112/81; PULSE 82; RESP 18; O2SAT 99
[2020-12-02 23:58] VITALS: RESP 18
[2020-12-03 00:46] VITALS: BP 118/71; PULSE 71; RESP 17; O2SAT 98
== END 2020-12-03 00:47 | disposition home or self-care (01) ==
PROVIDERS: Emergency Medicine; Emergency Provider Emergency Medicine; PCP Family Medicine
DX: N83.202 Unspecified ovarian cyst, left side (principal); F17.200 Nicotine dependence, unspecified, uncomplicated
CPT/HCPCS: 74177; 76830; 80053; 81001; 81025; 85025; 96361; 96365; 96375; 99283; J7030; Q9967; A4216; J2405

== ENCOUNTER 2021-04-17 18:13 | Emergency (ER) | payer MEDICAID, SELFPAY ==
[2021-04-17 18:14] VITALS: BP 117/86; PULSE 102; RESP 16; TEMP 36.4; O2SAT 100; BMI 24.2
--- NOTE | 2021-04-17 20:54 | EX.ED.DYSGE1 ---
HPI History of Present Illness Chief Complaint: General Illness Informant: patient Onset/Context/Timing Onset: Days (3-4) Context: Gradual Onset Timing: Continuous Quality: Dull, aching, pressure Location: Frontal head Worsened by: Nothing Relieved by: Nothing Narrative Narrative: Patient presents with earache and sinus pressure that has been getting worse over the past 3 to 4 days. Patient states it is gradually getting worse. Patient describes her pain as dull, aching, and pressure. Patient states it is worse over the frontal aspect of her head. Patient states nothing makes it better nothing makes it worse. Patient admits to a cough but denies any sputum production. Patient denies any fevers or chills. Patient denies any exposures to COVID-19. [facility] Medical History (Updated 04/17/21 @ 20:[address] Nando Guillen DO) Delivery by emergency section Endometriosis Gallstones Kidney disease Home Medications buprenorphine HCl 8 mg SL BID 05/04/19 [History Last Taken 10/05/19] naproxen 500 mg PO BID #14 tab 12/02/20 [Rx Last Taken Unknown] ondansetron 4 mg PO Q8H PRN PRN #10 tab 12/02/20 [Rx Last Taken Unknown] Allergy/AdvReac Type Severity Reaction Status Date / Time hydrocodone Allergy Rash Verified 04/17/21 18:16 sulfamethoxazole Allergy Hives Verified 04/17/21 18:16 [From Bactrim] trimethoprim [From Bactrim] Allergy Hives Verified 04/17/21 18:16 hydrocodone bitartrate AdvReac Nausea Verified 04/17/21 18:16 [From Vicodin] Family History Mother Asthma Arthritis Hypertension Thyroid disorder Father Asthma Arthritis Diabetes Hypertension High cholesterol Surgical History History of History of laparoscopy Hx of cholecystectomy Social History Smoking Status: Current every day smoker alcohol intake: never substance use type: does not use ROS ROS ED Constitutional Constitutional ED: Denies chills or fever(s) Eyes Eyes: Denies blurry vision or change in vision ENT ENT ED: Denies rhinorrhea or sore throat Cardiovascular Cardiovascular: Denies chest pain or palpitations Respiratory/Chest Respiratory/Chest: Reports cough; Denies dyspnea Gastrointestinal Gastrointestinal: Denies nausea or vomiting Genitourinary Genitourinary ED: Denies dysuria or hematuria Musculoskeletal Musculoskeletal: Denies back pain or neck pain Integumentary Denies abscess or rash Neurologic Neurologic: Reports headache(s); Denies weakness Allergic/Immunologic Allergic/Immunologic ED: Denies mouth swelling or urticaria EXAM Physical Exam Const Vital Signs: 04/17/21 18:14 Temperature 97.5 F L Temperature Source Temporal Pulse Rate 102 H Respiratory Rate 16 Blood Pressure 117/86 H Blood Pressure Mean 96 Pulse Ox 100 Oxygen Delivery Method Room Air Positive well nourished and well developed General Appearance ED: well developed HEENT Reports TM's clear and moist mucous membranes Tympanic Membrane ED: Yes TM's clear bilateral Neck supple and no JVD Resp normal respiratory effort and clear to auscultation bilaterally Cardio regular rate and regular rhythm GI normal to inspection, nondistended, normoactive bowel sounds and non-tender Palpation: soft Neuro oriented x3, CN's II-XII intact bilaterally and no sensory deficits noted Sensorium / Orientation: alert Motor Exam: strength 5/5 throughout Psych mental status grossly normal MDM MDM MDM Narrative Medical decision making narrative: COVID-19 rapid antigen was obtained and was negative. Patient was advised that this is most likely some other viral illness. Patient was instructed drink plenty of fluids. Patient was instructed to take Tylenol or ibuprofen as needed for any pain or fevers. Patient was instructed to follow-up with her primary care physician in 5 to 7 days. Patient understood and was agreeable with the plan. All questions were answered. Discharge Plan Triage Chief Complaint: General Illness ED Provider: Nando Guillen Dx/Rx/DC Orders Clinical Impression: Viral URI Prescriptions: No Action buprenorphine HCl 8 MG tablet, sublingual 8 mg SL BID RF: 0 naproxen 500 mg tablet 500 mg PO BID Qty: 14 RF: 0 ondansetron 4 mg tablet,disintegrating 4 mg PO Q8H PRN PRN (Reason: Nausea) Qty: 10 RF: 0 Primary Care Provider: Joaquín Last Referrals: Joaquín Last DO [Primary Care Provider] - 5-7 Days Disposition Disposition: Home, Self Care
[2021-04-17 21:27] VITALS: RESP 18
== END 2021-04-17 21:27 | disposition home or self-care (01) ==
PROVIDERS: Emergency Provider Emergency Medicine; PCP Family Medicine
DX: J06.9 Acute upper respiratory infection, unspecified (principal); F17.200 Nicotine dependence, unspecified, uncomplicated
CPT/HCPCS: 87426; 99282

== ENCOUNTER 2021-05-02 22:04 | Emergency (ER) | payer MEDICAID, SELFPAY ==
[2021-05-02 22:04] VITALS: BP 144/81; PULSE 98; RESP 15; TEMP 36.8; O2SAT 96; BMI 25.4
--- NOTE | 2021-05-02 22:21 | EX.ED.DYSGE1 ---
HPI History of Present Illness Chief Complaint: Cough Informant: patient Onset/Context/Timing Onset: Days Context: Gradual Onset Current Severity: Mild Maximum Severity: Mild Narrative Narrative: Patient presents secondary to coughing and thrush. Mother is here with her child who is being evaluated. They were both diagnosed with RSV last week. Patient has been treated with antibiotics and steroids. She noted thrush on her tongue and back of her throat over the past couple days. She was seen by a medical professional earlier today and took her first dose of nystatin swish and swallow tonight. Because her daughter was coming in to be seen she thought she would be checked again as well. No fever or chills. [facility] Medical History Delivery by emergency section Endometriosis Gallstones Kidney disease Home Medications buprenorphine HCl 8 mg SL BID 05/04/19 [History Last Taken 10/05/19] Allergy/AdvReac Type Severity Reaction Status Date / Time hydrocodone Allergy Rash Verified 05/02/21 22:04 sulfamethoxazole Allergy Hives Verified 05/02/21 22:04 [From Bactrim] trimethoprim [From Bactrim] Allergy Hives Verified 05/02/21 22:04 hydrocodone bitartrate AdvReac Nausea Verified 05/02/21 22:04 [From Vicodin] Family History Mother Asthma Arthritis Hypertension Thyroid disorder Father Asthma Arthritis Diabetes Hypertension High cholesterol Surgical History History of History of laparoscopy Hx of cholecystectomy Social History Smoking Status: Current every day smoker tobacco type: cigarettes alcohol intake: never substance use type: does not use ROS ROS ED Constitutional Constitutional ED: Denies chills or fever(s) Eyes Eyes: Denies change in vision ENT ENT ED: Reports sore throat Cardiovascular Cardiovascular: Denies chest pain Respiratory/Chest Respiratory/Chest: Denies cough or dyspnea Gastrointestinal Gastrointestinal: Denies abdominal pain, diarrhea, nausea or vomiting Genitourinary Genitourinary ED: Denies dysuria Musculoskeletal Musculoskeletal: Denies back pain Integumentary Denies rash Neurologic Neurologic: Denies headache(s) or weakness Allergic/Immunologic Allergic/Immunologic ED: Denies urticaria EXAM Physical Exam Const Vital Signs: 05/02/21 22:04 05/02/21 22:15 Temperature 98.2 F Temperature Source Temporal Pulse Rate 98 Respiratory Rate 15 Respiratory Effort Normal Respiratory Depth Normal Respiratory Pattern Normal Blood Pressure 144/81 H Blood Pressure Mean 102 Pulse Ox 96 Oxygen Delivery Method Room Air Positive well nourished and well developed General Appearance ED: well developed HEENT Reports normocephalic, head/scalp atraumatic and TM's clear HEENT Narrative: Mild erythema to the posterior tongue and posterior pharynx. Uvula midline. Tolerating secretions well. Rare scattered white patches consistent with thrush noted on the buccal surface. Tympanic Membrane ED: Yes TM's clear Eyes PERRL and EOMs intact bilaterally Neck supple Chest Wall inspection of chest normal and palpation of chest normal Resp normal respiratory effort and clear to auscultation bilaterally Cardio regular rate and regular rhythm GI normal to inspection, nondistended, normoactive bowel sounds Palpation: soft Extremity normal to inspection Neuro oriented x3 and no sensory deficits noted Sensorium / Orientation: alert Motor Exam: strength 5/5 throughout Psych mental status grossly normal Skin no rashes or lesions noted MDM MDM Treatment and Re-Evaluation Comments:: Patient just started treatment with nystatin swish and swallow. She is to continue this course of medication. I do not feel any other medication or testing is indicated at this time. Discharge Plan Triage Chief Complaint: Cough ED Provider: Angie Bowens Dx/Rx/DC Orders Clinical Impression: Thrush Instructions: Aisha Infection: Thrush Prescriptions: No Action buprenorphine HCl 8 MG tablet, sublingual 8 mg SL BID RF: 0 Primary Care Provider: Joaquín Last Referrals: Joaquín Last DO [Primary Care Provider] - 10-14 Days if not better Activity Restrictions/Additional Instructions: Continue nystatin as discussed. Disposition Disposition: Home, Self Care
== END 2021-05-02 22:48 | disposition home or self-care (01) ==
LOC: ED 22:47
PROVIDERS: Emergency Provider Emergency Medicine; PCP Family Medicine
DX: B37.0 Candidal stomatitis (principal); F17.210 Nicotine dependence, cigarettes, uncomplicated
CPT/HCPCS: 99282

== ENCOUNTER 2021-05-14 00:33 | Emergency (ER) | payer MEDICAID, SELFPAY ==
[2021-05-14 00:33] VITALS: BP 134/97; PULSE 115; RESP 18; TEMP 36.3; O2SAT 95; BMI 21.7
[2021-05-14] MEDS: Albuterol 2.5 MG/3 ML VIAL.NEB. INHALATION (02:03)
[2021-05-14] MEDS: Ipratropium/Albuterol Sulfate 3 ML AMPUL.NEB INHALATION (02:03)
[2021-05-14 02:06] VITALS: PULSE 101; RESP 19
[2021-05-14] MEDS: predniSONE 20 MG Tablet 60 MG PO (02:36)
--- NOTE | 2021-05-14 02:48 | EX.ED.VIS.UR ---
HPI HPI - URI History of Present Illness Chief Complaint: Cough Narrative Narrative: Patient presenting with concern for wheezing. She states that she had RSV about a month ago with her son. She has albuterol at home. Last steroid use was 2 weeks ago. She states that in the interim her doctor prescribed her Bactrim for her cough. She is not had a return of fever. She has no nausea, vomiting, diarrhea. ROS ROS ED Constitutional Constitutional ED: Denies fever(s) Eyes Eyes: Denies blurry vision or change in vision ENT ENT ED: Denies ear pain or sore throat Cardiovascular Cardiovascular: Denies chest pain, palpitations or racing heartbeat Respiratory/Chest Respiratory/Chest: Reports cough and dyspnea; Denies sputum Gastrointestinal Gastrointestinal: Denies abdominal pain, constipation, diarrhea, nausea or vomiting Genitourinary Genitourinary ED: Denies dysuria, hematuria or urinary frequency Musculoskeletal Musculoskeletal: Denies arthralgias, myalgias or neck pain Integumentary Denies abscess, Abrasions or rash Neurologic Neurologic: Denies headache(s), paresthesias or weakness Psychiatric Psychiatric: Denies anxiety, depression, suicidal ideation or suicidal thoughts Endocrine Endocrinology: Denies polydipsia or polyuria PFSH PFSH Medical History Delivery by emergency section Endometriosis Gallstones Kidney disease Home Medications buprenorphine HCl 8 mg SL BID 05/04/19 [History Last Taken 10/05/19] albuterol sulfate 2 puff INHALATION Q4H PRN PRN 05/14/21 [History Last Taken Unknown] prednisone 50 mg PO DAILY 5 Days #25 tab 05/14/21 [Rx Last Taken Unknown] Allergy/AdvReac Type Severity Reaction Status Date / Time hydrocodone Allergy Rash Verified 05/14/21 01:49 sulfamethoxazole Allergy Hives Verified 05/14/21 01:49 [From Bactrim] trimethoprim [From Bactrim] Allergy Hives Verified 05/14/21 01:49 hydrocodone bitartrate AdvReac Nausea Verified 05/14/21 01:49 [From Vicodin] Family History Mother Asthma Arthritis Hypertension Thyroid disorder Father Asthma Arthritis Diabetes Hypertension High cholesterol Surgical History History of History of laparoscopy Hx of cholecystectomy Social History Smoking Status: Current every day smoker tobacco type: cigarettes alcohol intake: never substance use type: does not use EXAM Physical Exam Const Vital Signs: 05/14/21 00:33 05/14/21 01:49 05/14/21 02:06 Temperature 97.4 F L Temperature Source Temporal Pulse Rate 115 H 101 H Respiratory Rate 18 19 H Respiratory Effort Normal Respiratory Pattern Normal Tachypnea Blood Pressure 134/97 H Blood Pressure Mean 109 Pulse Ox 95 Oxygen Delivery Method Room Air 05/14/21 03:44 Temperature Temperature Source Pulse Rate Respiratory Rate 16 Respiratory Effort Respiratory Pattern Blood Pressure Blood Pressure Mean Pulse Ox Oxygen Delivery Method Positive well nourished General Appearance ED: NAD; Negative for pallor HEENT Reports normocephalic, head/scalp atraumatic and moist mucous membranes normocephalic Eyes PERRL and EOMs intact bilaterally Neck no lymphadenopathy and supple Chest Wall inspection of chest normal and palpation of chest normal Resp normal respiratory effort Auscultation: rales, rhonchi and wheezes scattered wheezes Cardio regular rate and regular rhythm Rate: tachycardic Rhythm: regular rhythm GI normal to inspection, nondistended, normoactive bowel sounds Narrative: Deferred Extremity General Extremety ED: Yes edema General Extremity: edema Neuro oriented x3 and CN's II-XII intact bilaterally Sensorium / Orientation: alert Motor Exam: strength 5/5 throughout Psych mental status grossly normal Attitude: No agitated Skin no rashes or lesions noted and no wounds General Skin Exam: Negative for jaundice or pallor MDM MDM MDM Narrative Medical decision making narrative: Patient presenting with wheezing and cough. She states she had over RSV a few weeks ago and was previously on antibiotics for this. She has been on steroids for a couple of weeks. She is wheezing today. Is given breathing treatments and prednisone and feels improved after treatment. I will send her home with a prednisone burst for 5 days. She has an albuterol inhaler. She is given return precautions. Impression: 1. Asthma exacerbation Discharge Plan Triage Chief Complaint: Cough ED Provider: Franklyn Chung Dx/Rx/DC Orders Instructions: ED Asthma, Acute (Adult) Prescriptions: New prednisone 10 mg tablet 50 mg PO DAILY 5 Days Qty: 25 RF: 0 No Action buprenorphine HCl 8 MG tablet, sublingual 8 mg SL BID RF: 0 albuterol sulfate 90 mcg/actuation HFA aerosol inhaler 2 puff INHALATION Q4H PRN PRN (Reason: Shortness Of Breath) RF: 0 Primary Care Provider: Joaquín Last Referrals: Joaquín Last DO [Primary Care Provider] - Disposition Disposition: Home, Self Care Discharge Date/Time: 05/14/21 03:45
[2021-05-14 03:44] VITALS: RESP 16
== END 2021-05-14 03:45 | disposition home or self-care (01) ==
PROVIDERS: Emergency Provider Student in an Organized Health Care Education/Training Program; PCP Family Medicine
DX: J45.901 Unspecified asthma with (acute) exacerbation (principal); F17.210 Nicotine dependence, cigarettes, uncomplicated; Z87.09 Personal history of other diseases of the respiratory system
CPT/HCPCS: 94640; 99283

== ENCOUNTER 2022-03-22 19:34 | Emergency (ER) | payer MEDICAID, SELFPAY ==
[2022-03-22 19:35] VITALS: BP 127/90; PULSE 110; RESP 16; TEMP 36.4; O2SAT 99; BMI 24.3
--- NOTE | 2022-03-22 20:00 | RAD_ITS ---
STUDY: X-RAY CHEST REASON FOR EXAM: Female, 31 years old. COUGH, CONGESTION T CHEST PAIN X 4 DAYS TECHNIQUE: AP COMPARISON: None. FINDINGS: The lungs are clear and expanded. There is no demonstrated pleural abnormality. Normal size heart. Normal mediastinum and eugenio. Normal visualized pulmonary arteries. Normal visualized aortic arch and descending thoracic aorta. Normal visualized thoracic spine. Normal visualized ribs, clavicles, and shoulders. There is no demonstrated abnormality of the visualized soft tissue structures of the upper abdomen. RAD/Chest 1 View (Portable) IMPRESSION: Nonacute portable x-ray examination of the chest. Electronically Signed: Garo Montesinos MD ([place]) at 20:28 EDT ,
--- NOTE | 2022-03-22 20:45 | ED.VIS.DYS ---
HPI History of Present Illness Chief Complaint: Cough Narrative Narrative: 31-year-old female presenting with shortness of breath and wheezing. She has a history of asthma and is a current smoker. Patient states she tried Mucinex and has had more mucus production. She denies fever, chills, body aches, nausea, vomiting. Patient states her last steroid use was a couple of months ago. [facility] Medical History Delivery by emergency section Endometriosis Gallstones Kidney disease Home Medications buprenorphine HCl 8 mg sublingual tablet 8 mg SL BID Check with primary doctor 05/04/19 [History Last Taken 10/05/19] albuterol sulfate 90 mcg/actuation aerosol inhaler 2 puff inhalation Q4H PRN PRN Shortness Of Breath 05/14/21 [History Last Taken Unknown] prednisone 10 mg tablet 50 mg PO DAILY 5 days #25 tabs 05/14/21 [Rx Last Taken Unknown] prednisone 50 mg tablet 50 mg PO DAILY 5 days #5 tabs 03/22/22 [Rx Last Taken Unknown] Allergy/AdvReac Type Severity Reaction Status Date / Time hydrocodone Allergy Rash Verified 03/22/22 19:38 sulfamethoxazole Allergy Hives Verified 03/22/22 19:38 [From Bactrim] trimethoprim [From Bactrim] Allergy Hives Verified 03/22/22 19:38 hydrocodone bitartrate AdvReac Nausea Verified 03/22/22 19:38 [From Vicodin] Family History Mother Asthma Arthritis Hypertension Thyroid disorder Father Asthma Arthritis Diabetes Hypertension High cholesterol Surgical History History of History of laparoscopy Hx of cholecystectomy Social History Smoking Status: Current every day smoker tobacco type: cigarettes alcohol intake: never substance use type: does not use ROS ROS ED Constitutional Constitutional ED: Denies chills or fever(s) Eyes Eyes: Denies change in vision or diplopia ENT ENT ED: Denies rhinorrhea or sore throat Cardiovascular Cardiovascular: Denies chest pain or palpitations Respiratory/Chest Respiratory/Chest: Reports cough and dyspnea Gastrointestinal Gastrointestinal: Denies abdominal pain or constipation Genitourinary Genitourinary ED: Denies dysuria or hematuria Musculoskeletal Musculoskeletal: Denies arthralgias, back pain or myalgias Integumentary Denies abscess or Abrasions Neurologic Neurologic: Denies headache(s) or paresthesias Psychiatric Psychiatric: Denies anxiety or depression EXAM Physical Exam Const Vital Signs: 03/22/22 19:35 03/22/22 20:46 03/22/22 20:51 Temperature 97.6 F L Temperature Source Temporal Pulse Rate 110 H 98 Respiratory Rate 16 16 Respiratory Effort Normal Respiratory Depth Respiratory Pattern Normal Blood Pressure 127/90 H Blood Pressure Mean 102 Pulse Ox 99 Oxygen Delivery Method Room Air 03/22/22 20:51 Temperature Temperature Source Pulse Rate Respiratory Rate 16 Respiratory Effort Normal Short of Breath Respiratory Depth Normal Respiratory Pattern Normal Blood Pressure Blood Pressure Mean Pulse Ox 98 Oxygen Delivery Method Room Air Positive well nourished General Appearance ED: NAD HEENT Reports moist mucous membranes atraumatic Eyes PERRL and EOMs intact bilaterally Neck no lymphadenopathy and supple Resp normal respiratory effort Auscultation: wheezes expiratory wheezes Cardio regular rate Rate: tachycardic GI non-tender Neuro oriented x3 and CN's II-XII intact bilaterally Psych mental status grossly normal Skin no wounds and skin turgor normal MDM MDM MDM Narrative Medical decision making narrative: Patient presenting with shortness of breath and wheezing. She is a current smoker. She is not had any viral symptoms such as fever, chills, body aches. She states Mucinex is not working. Last steroid use 2 months ago. Patient does have some end expiratory wheezing on examination. She is given breathing treatments and a dose of prednisone. I did a chest x-ray on my interpretation is no acute cardiopulmonary process and radiologist agree. Rapid COVID is negative. Reevaluation at 10 PM the patient is feeling well. She wishes to go home. I will put her on a prednisone burst. She has aerosols that she can use at home. Return precautions are discussed. Smoking cessation was discussed. Impression: 1. Asthma exacerbation 2. Tobacco Lab Data Attestation: I reviewed the patient's lab results. Radiography Diagnostic Testing: Clinical Impression(s) from Imaging Studies Chest X-Ray 03/22/22 20:00 IMPRESSION: Nonacute portable x-ray examination of the chest. Electronically Signed: Garo Montesinos ([place]) MD at 20:28 EDT , Discharge Plan Triage Chief Complaint: Cough ED Provider: Franklyn Chung Dx/Rx/DC Orders Instructions: ED Asthma, Acute (Adult) Prescriptions: New prednisone 50 mg tablet 50 mg PO DAILY 5 Days Qty: 5 0RF No Action buprenorphine HCl 8 MG tablet, sublingual 8 mg SL BID albuterol sulfate 90 mcg/actuation HFA aerosol inhaler 2 puff INHALATION Q4H PRN PRN (Reason: Shortness Of Breath) prednisone 10 mg tablet 50 mg PO DAILY 5 Days Qty: 25 0RF Primary Care Provider: Joaquín Last Referrals: Joaquín Last DO [Primary Care Provider] - Disposition Disposition: Home, Self Care
[2022-03-22 20:51] VITALS: PULSE 98; RESP 16; O2SAT 98
[2022-03-22] MEDS: Ipratropium/Albuterol Sulfate 3 ML AMPUL.NEB INHALATION (20:51)
[2022-03-22] MEDS: Albuterol 2.5 MG/3 ML VIAL.NEB. INHALATION (20:51)
[2022-03-22] MEDS: predniSONE 20 MG Tablet 60 MG PO (20:57)
--- NOTE | 2022-03-22 20:58 | CPS ---
x1 Albuterol given to pt. in ER as well
[2022-03-22 22:10] VITALS: BP 116/65; PULSE 68; RESP 18; O2SAT 97
== END 2022-03-22 22:11 | disposition home or self-care (01) ==
PROVIDERS: Emergency Provider Student in an Organized Health Care Education/Training Program; PCP Family Medicine; Visit Provider Student in an Organized Health Care Education/Training Program
DX: J45.901 Unspecified asthma with (acute) exacerbation (principal); F17.200 Nicotine dependence, unspecified, uncomplicated
CPT/HCPCS: G0463; 71045; 87811; 94640; 99251; 99282

== ENCOUNTER 2022-03-28 16:15 | Emergency (ER) | payer MEDICAID, SELFPAY ==
[2022-03-28 16:16] VITALS: BP 135/97; PULSE 91; RESP 16; TEMP 37.1; O2SAT 99; BMI 24.3
== END 2022-03-28 17:07 | disposition left against medical advice (07) ==
LOC: ED 17:19
PROVIDERS: PCP Family Medicine
DX: Z53.21 Procedure and treatment not carried out due to patient leaving prior to being seen by health care provider (principal)

== ENCOUNTER 2022-04-29 18:13 | Emergency (ER) | payer MEDICAID, SELFPAY ==
[2022-04-29 18:14] VITALS: BP 118/74; PULSE 112; RESP 16; TEMP 37.7; O2SAT 97; BMI 26.2
[2022-04-29 18:18] VITALS: BP 118/74; PULSE 112; RESP 16; TEMP 37.7; O2SAT 100; O2SAT 97
[2022-04-29 18:30] VITALS: O2SAT 100
--- NOTE | 2022-04-29 18:36 | EX.ED.DYSGE1 ---
HPI History of Present Illness Chief Complaint: Cough Detail of Chief Complaint: Fever, cough, congestion Informant: patient Onset/Context/Timing Onset: Days (3 days) Context: Gradual Onset Narrative Narrative: Patient presents for evaluation of cough, fever, chills. She states she became ill about 3 days ago. T-max is 101. She is here with her child who has similar symptoms. Patient reports congestion and states when she coughs she feels that she is developing a migraine. She is been taking Tylenol and ibuprofen for her symptoms. [facility] Medical History (Updated 04/29/22 @ 20:[address] Angie Bowens MD) Asthma Delivery by emergency section Endometriosis Gallstones Kidney disease Substance abuse Home Medications buprenorphine HCl 8 mg sublingual tablet 8 mg SL BID Check with primary doctor 05/04/19 [History Last Taken 10/05/19] albuterol sulfate 90 mcg/actuation aerosol inhaler 2 puff inhalation Q4H PRN PRN Shortness Of Breath 05/14/21 [History Last Taken Unknown] Allergy/AdvReac Type Severity Reaction Status Date / Time hydrocodone Allergy Rash Verified 04/29/22 18:13 sulfamethoxazole Allergy Hives Verified 04/29/22 18:13 [From Bactrim] trimethoprim [From Bactrim] Allergy Hives Verified 04/29/22 18:13 hydrocodone bitartrate AdvReac Nausea Verified 04/29/22 18:13 [From Vicodin] Family History Mother Asthma Arthritis Hypertension Thyroid disorder Father Asthma Arthritis Diabetes Hypertension High cholesterol Surgical History History of History of laparoscopy Hx of cholecystectomy Social History Smoking Status: Current every day smoker tobacco type: cigarettes alcohol intake: never substance use type: does not use ROS ROS ED Constitutional Constitutional ED: Reports chills and fever(s) Eyes Eyes: Denies change in vision or discharge from eye(s) ENT ENT ED: Reports other Details: Congestion ; Denies discharge from eye(s), rhinorrhea or sore throat Cardiovascular Cardiovascular: Denies chest pain or palpitations Respiratory/Chest Respiratory/Chest: Reports cough and dyspnea Gastrointestinal Gastrointestinal: Reports nausea and vomiting; Denies abdominal pain or diarrhea Genitourinary Genitourinary ED: Denies difficulty urinating or dysuria Musculoskeletal Musculoskeletal: Denies back pain or extremity pain Integumentary Denies Abrasions or rash Neurologic Neurologic: Reports headache(s); Denies weakness Allergic/Immunologic Allergic/Immunologic ED: Denies lip swelling or urticaria EXAM Physical Exam Const Vital Signs: 04/29/22 18:14 04/29/22 18:30 04/29/22 18:18 Temperature 99.8 F H Temperature Source Temporal Pulse Rate 112 H Respiratory Rate 16 Respiratory Effort Normal Non-Labored Respiratory Depth Normal Respiratory Pattern Normal Blood Pressure 118/74 Blood Pressure Mean 88 Pulse Ox 97 100 Oxygen Delivery Method Room Air Room Air Room Air 04/29/22 18:18 Temperature 99.8 F H Temperature Source Temporal Pulse Rate 112 H Respiratory Rate 16 Respiratory Effort Respiratory Depth Respiratory Pattern Blood Pressure 118/74 Blood Pressure Mean 88 Pulse Ox 97 Oxygen Delivery Method Room Air Positive well nourished and well developed General Appearance ED: well developed HEENT Reports normocephalic and head/scalp atraumatic Eyes PERRL and EOMs intact bilaterally Neck supple Chest Wall inspection of chest normal and palpation of chest normal Resp normal respiratory effort and clear to auscultation bilaterally Cardio regular rate and regular rhythm GI normal to inspection, nondistended, normoactive bowel sounds Palpation: soft Extremity normal to inspection Neuro oriented x3 and no sensory deficits noted Sensorium / Orientation: alert Motor Exam: strength 5/5 throughout Psych mental status grossly normal Skin no rashes or lesions noted MDM MDM MDM Narrative Medical decision making narrative: Portable chest x-ray obtained. Swab for COVID and influenza ordered. Lab Data Attestation: I reviewed the patient's lab results. Radiography Diagnostic Testing: Clinical Impression(s) from Imaging Studies Chest X-Ray 04/29/22 19:21 IMPRESSION: No acute cardiopulmonary disease or interval change. Electronically Signed: Paulo Contreras DO at 19:49 EDT Reading Location ID and State: [address] [place] [address] Tel [phone], Service support , Treatment and Re-Evaluation Narrative: Rapid COVID and influenza test are negative. Chest x-ray per my interpretation reveals no focal infiltrate. Radiology interpretation is reviewed. Test results discussed with the patient. She will continue supportive care. Discharge Plan Triage Chief Complaint: Cough ED Provider: Angie Bowens Dx/Rx/DC Orders Clinical Impression: Viral syndrome Instructions: ED Viral Syndrome (Adult) Prescriptions: No Action buprenorphine HCl 8 MG tablet, sublingual 8 mg SL BID albuterol sulfate 90 mcg/actuation HFA aerosol inhaler 2 puff INHALATION Q4H PRN PRN (Reason: Shortness Of Breath) Primary Care Provider: Joaquín Last Referrals: Joaquín Last DO [Primary Care Provider] - 1 Week if not improving Disposition Disposition: Home, Self Care
--- NOTE | 2022-04-29 19:21 | RAD_ITS ---
STUDY: X-RAY CHEST REASON FOR EXAM: Female, 31 years old. Cough fever and chills. TECHNIQUE: Single AP portable view of the chest. COMPARISON: 03/22/2022. FINDINGS: The lungs are clear and expanded. There is no demonstrated pleural abnormality. Normal size heart. Normal mediastinum and eugenio. Normal visualized pulmonary arteries. Normal visualized aortic arch and descending thoracic aorta. Normal visualized thoracic spine. Normal visualized ribs, clavicles, and shoulders. There is no demonstrated abnormality of the visualized soft tissue structures of the upper abdomen. RAD/Chest 1 View (Portable) IMPRESSION: No acute cardiopulmonary disease or interval change. Electronically Signed: Paulo Contreras DO at 19:49 EDT ,
[2022-04-29 21:07] VITALS: BP 124/74; PULSE 87; RESP 16; O2SAT 97
== END 2022-04-29 21:08 | disposition home or self-care (01) ==
PROVIDERS: Emergency Provider Emergency Medicine; PCP Family Medicine; Visit Provider Emergency Medicine
DX: B34.9 Viral infection, unspecified (principal); F17.210 Nicotine dependence, cigarettes, uncomplicated
CPT/HCPCS: 71045; 87428; 99282

== ENCOUNTER 2022-05-10 14:39 | Emergency (ER) | payer MEDICAID, SELFPAY ==
[2022-05-10 14:40] VITALS: BP 146/96; PULSE 115; RESP 18; TEMP 36.4; O2SAT 95; BMI 25.0
[2022-05-10 14:41] VITALS: BP 146/96; PULSE 115; RESP 18; TEMP 36.4; O2SAT 95
--- NOTE | 2022-05-10 14:57 | ED.VIS.DYS ---
HPI History of Present Illness Chief Complaint: Shortness of Breath Informant: patient Narrative Narrative: Patient presents with dyspnea and wheezing. She states she started coughing almost 2 weeks ago. At first she had a fever but that is been gone. She is not bringing up sputum. No hemoptysis. Not having chest pain. She had an x-ray here about 10 days ago. She started Augmentin on . So she has been on 2 days and then this is her third. She has not been on steroids though. She states at first she was not really wheezing a lot but now she is having wheezing. No leg swelling or pain. Her daughter had the illness initially but she got better. Patient does have a history of asthma. She does have an albuterol inhaler and she has a spacer for it that she has been using. The albuterol helps quite a bit but her symptoms come back in 3 to 6 hours. Patient does not have any travel, surgery, immobilization, personal or family history of DVT or PE. [facility] Medical History Asthma Delivery by emergency section Endometriosis Gallstones Kidney disease Substance abuse Home Medications buprenorphine HCl 8 mg sublingual tablet 8 mg SL BID Check with primary doctor 05/04/19 [History Last Taken 10/05/19] albuterol sulfate 90 mcg/actuation aerosol inhaler 2 puff inhalation Q4H PRN PRN Shortness Of Breath 05/14/21 [History Last Taken Unknown] albuterol sulfate 90 mcg/actuation aerosol inhaler (Ventolin HFA) 2 puff inhalation Q4H PRN PRN Wheezing ##1 05/10/22 [Rx Last Taken Unknown] prednisone 20 mg tablet 60 mg PO DAILY #15 tabs 05/10/22 [Rx Last Taken Unknown] Allergy/AdvReac Type Severity Reaction Status Date / Time hydrocodone Allergy Rash Verified 05/10/22 14:41 sulfamethoxazole Allergy Hives Verified 05/10/22 14:41 [From Bactrim] trimethoprim [From Bactrim] Allergy Hives Verified 05/10/22 14:41 hydrocodone bitartrate AdvReac Nausea Verified 05/10/22 14:41 [From Vicodin] Family History Mother Asthma Arthritis Hypertension Thyroid disorder Father Asthma Arthritis Diabetes Hypertension High cholesterol Surgical History History of History of laparoscopy Hx of cholecystectomy Social History Smoking Status: Current every day smoker tobacco type: cigarettes alcohol intake: never substance use type: does not use ROS ROS ED Constitutional Constitutional ED: Reports fever(s) Eyes Eyes: Denies change in vision ENT ENT ED: Denies rhinorrhea or sore throat Cardiovascular Cardiovascular: Denies chest pain, palpitations or racing heartbeat Respiratory/Chest Respiratory/Chest: Reports cough, dyspnea and other Details: Mild dyspnea mostly when she is wheezing. Dyspnea has resolved by albuterol. But symptoms come back. ; Denies sputum Gastrointestinal Gastrointestinal: Denies nausea or vomiting Musculoskeletal Musculoskeletal: Denies myalgias Integumentary Denies rash Neurologic Neurologic: Denies headache(s) Endocrine Endocrinology: Denies polydipsia or polyuria Allergic/Immunologic Allergic/Immunologic ED: Denies urticaria EXAM Physical Exam Const Vital Signs: 05/10/22 14:40 05/10/22 14:41 Temperature 97.5 F L 97.5 F L Temperature Source Temporal Temporal Pulse Rate 115 H 115 H Respiratory Rate 18 18 Blood Pressure 146/96 H 146/96 H Blood Pressure Mean 112 112 Pulse Ox 95 95 Oxygen Delivery Method Room Air Room Air Positive well nourished and well developed General Appearance ED: well developed and NAD HEENT Reports moist mucous membranes HEENT Narrative: No facial tenderness. No notable nasal congestion Eyes General Eye ED: Negative for scleral icterus Neck no lymphadenopathy and no JVD Neck Narrative: No stridor. Voice is normal. Resp normal respiratory effort Resp Narrative: Patient sitting comfortably in bed. But I can hear wheezing. She has mild expiratory wheezes throughout. I hear no rhonchi. No pain with a deep breath. Auscultation: wheezes Cardio regular rhythm Rate: tachycardic GI non-tender and non-distended Palpation: soft Back/Spine no CVA tenderness Extremity General Extremety ED: Negative for edema or tenderness General Extremity: Negative for edema Neuro Sensorium / Orientation: alert Psych mental status grossly normal Skin no wounds MDM MDM MDM Narrative Medical decision making narrative: I talked to the patient about options. She had an x-ray not long ago that was negative. She is now on antibiotics. Even if this showed a small infiltrate I would not change antibiotics after 2 days. She is not hypoxic. She is wheezing. She has albuterol. I will add prednisone. She is comfortable with this plan as prednisone has helped her before and she feels like this is asthma acting up at this time. Discharge Plan Triage Chief Complaint: Shortness of Breath ED Provider: Zacarias Roblero Dx/Rx/DC Orders Clinical Impression: Asthma exacerbation Instructions: ED Asthma, Acute (Adult) Prescriptions: New prednisone 20 mg tablet 60 mg PO DAILY Qty: 15 0RF albuterol sulfate [Ventolin HFA] 90 mcg/actuation HFA aerosol inhaler 2 puff inhalation Q4H PRN PRN (Reason: Wheezing) Qty: 1 0RF No Action buprenorphine HCl 8 MG tablet, sublingual 8 mg SL BID albuterol sulfate 90 mcg/actuation HFA aerosol inhaler 2 puff INHALATION Q4H PRN PRN (Reason: Shortness Of Breath) Primary Care Provider: Joaquín Last Referrals: Joaquín Last, [Primary Care Provider] - 3-5 Days if not improving Disposition Disposition: Home, Self Care
[2022-05-10] MEDS: predniSONE 20 MG Tablet 60 MG PO (15:12)
[2022-05-10] MEDS: Ipratropium/Albuterol Sulfate 3 ML AMPUL.NEB INHALATION (15:13)
[2022-05-10 15:15] VITALS: PULSE 80; RESP 18; O2SAT 99
== END 2022-05-10 15:23 | disposition home or self-care (01) ==
PROVIDERS: Emergency Provider Emergency Medicine; PCP Family Medicine; Visit Provider Emergency Medicine
DX: J45.901 Unspecified asthma with (acute) exacerbation (principal); F17.210 Nicotine dependence, cigarettes, uncomplicated
CPT/HCPCS: 94640; 99283

== ENCOUNTER 2022-09-02 19:13 | Emergency (ER) | payer MEDICAID, SELFPAY ==
[2022-09-02 19:13] VITALS: BP 144/94; PULSE 99; RESP 16; TEMP 36.6; O2SAT 100; BMI 25.0
--- NOTE | 2022-09-02 20:46 | RAD_ITS ---
INDICATION: Cough EXAMINATION/TECHNIQUE: X-RAY - XR Chest 1 View COMPARISON: 04/29/2022 FINDINGS: LINES/DEVICES: None. LUNGS: No consolidation, edema or effusion. No pneumothorax. MEDIASTINUM AND CARDIOVASCULAR STRUCTURES: Cardiac silhouette not enlarged. Central airways and mediastinal contour are unremarkable. RAD/Chest 1 View (Portable) IMPRESSION: No radiographic evidence of acute cardiopulmonary disease. Electronically Signed: Yair Goldstein MD at 21:12 EST ,
--- NOTE | 2022-09-02 20:46 | ED.VIS.DYS ---
HPI History of Present Illness Chief Complaint: Cold Sx Narrative Narrative: 31-year-old female with rhinorrhea, nasal congestion, cough x1 week. The nurses triage note stated that it is 2 weeks. I clarified with her and she states that is only been a week. She has not had a fever. She does admit to body aches and fatigue. She is coughing and states she is producing green sputum. She has asthma but has not had to use her albuterol increasingly. She does not think she is wheezing. She does not have chest pain. PFSH [facility] Medical History Asthma Delivery by emergency section Endometriosis Gallstones Kidney disease Substance abuse Home Medications buprenorphine HCl 8 mg sublingual tablet 8 mg SL BID Check with primary doctor 05/04/19 [History Last Taken 10/05/19] albuterol sulfate 90 mcg/actuation aerosol inhaler 2 puff inhalation Q4H PRN PRN Shortness Of Breath 05/14/21 [History Last Taken Unknown] albuterol sulfate 90 mcg/actuation aerosol inhaler (Ventolin HFA) 2 puff inhalation Q4H PRN PRN Wheezing ##1 05/10/22 [Rx Last Taken Unknown] prednisone 20 mg tablet 60 mg PO DAILY #15 tabs 05/10/22 [Rx Last Taken Unknown] Allergy/AdvReac Type Severity Reaction Status Date / Time hydrocodone Allergy Rash Verified 09/02/22 19:15 sulfamethoxazole Allergy Hives Verified 09/02/22 19:15 [From Bactrim] trimethoprim [From Bactrim] Allergy Hives Verified 09/02/22 19:15 hydrocodone bitartrate AdvReac Nausea Verified 09/02/22 19:15 [From Vicodin] Family History Mother Asthma Arthritis Hypertension Thyroid disorder Father Asthma Arthritis Diabetes Hypertension High cholesterol Surgical History History of History of laparoscopy Hx of cholecystectomy Social History Smoking Status: Current every day smoker tobacco type: cigarettes alcohol intake: never substance use type: does not use ROS ROS ED Constitutional Constitutional ED: Reports chills; Denies fever(s) Eyes Eyes: Denies change in vision or diplopia ENT ENT ED: Reports rhinorrhea Cardiovascular Cardiovascular: Denies chest pain Respiratory/Chest Respiratory/Chest: Reports cough and sputum Gastrointestinal Gastrointestinal: Denies abdominal pain, nausea or vomiting Genitourinary Genitourinary ED: Denies dysuria or hematuria Musculoskeletal Musculoskeletal: Reports myalgias; Denies arthralgias Integumentary Denies abscess Neurologic Neurologic: Denies headache(s) Psychiatric Psychiatric: Denies anxiety or depression EXAM Physical Exam Const Vital Signs: 09/02/22 19:13 09/02/22 20:13 Temperature 97.8 F Temperature Source Temporal Pulse Rate 99 Respiratory Rate 16 Respiratory Effort Normal Respiratory Pattern Normal Blood Pressure 144/94 H Blood Pressure Mean 110 Pulse Ox 100 Oxygen Delivery Method Room Air Positive well nourished General Appearance ED: Negative for pallor HEENT Reports dry mucous membranes atraumatic Mouth ED: Yes dry mucous membranes Mouth: dry mucous membranes Eyes PERRL and EOMs intact bilaterally General Eye ED: Yes pale conjunctiva Neck no lymphadenopathy, supple and no meningeal signs Resp normal respiratory effort and clear to auscultation bilaterally Auscultation: Negative for rales, rhonchi or wheezes Cardio Negative for regular rate or regular rhythm Back/Spine no CVA tenderness Neuro oriented x3 and CN's II-XII intact bilaterally Sensorium / Orientation: alert Motor Exam: strength 5/5 throughout Skin no wounds and skin turgor normal General Skin Exam: Negative for jaundice or pallor MDM MDM MDM Narrative Medical decision making narrative: 31-year-old female presenting with cough x1 week. She did have body aches and chills but denies any fever. She complains of rhinorrhea as well. Patient with history of asthma but is not wheezing on examination. Vital signs are stable and she is afebrile. She is outside the window for treatment of COVID or influenza so there is no need to test for this. I will obtain a chest x-ray to rule out pneumonia. I do not think she needs any blood work at this time. Chest x-ray negative. I feel likely patient had a viral source and is still resolving. I do not believe she needs antibiotics. She is not currently wheezing and does not need breathing treatments. Patient counseled she will need to follow-up with her PCP to ensure resolution. Impression: 1. URI Radiography Diagnostic Testing: Clinical Impression(s) from Imaging Studies Chest X-Ray 09/02/22 20:46 IMPRESSION: No radiographic evidence of acute cardiopulmonary disease. Electronically Signed: Yair Goldstein MD at 21:12 EST , Discharge Plan Triage Chief Complaint: Cold Sx ED Provider: Franklyn Chung Dx/Rx/DC Orders Prescriptions: No Action buprenorphine HCl 8 MG tablet, sublingual 8 mg SL BID albuterol sulfate 90 mcg/actuation HFA aerosol inhaler 2 puff INHALATION Q4H PRN PRN (Reason: Shortness Of Breath) prednisone 20 mg tablet 60 mg PO DAILY Qty: 15 0RF albuterol sulfate [Ventolin HFA] 90 mcg/actuation HFA aerosol inhaler 2 puff inhalation Q4H PRN PRN (Reason: Wheezing) Qty: 1 0RF Primary Care Provider: Joaquín Lats Referrals: Joaquín Last DO [Primary Care Provider] -
== END 2022-09-02 22:05 | disposition home or self-care (01) ==
PROVIDERS: Emergency Provider Student in an Organized Health Care Education/Training Program; PCP Family Medicine; Visit Provider Student in an Organized Health Care Education/Training Program
DX: J06.9 Acute upper respiratory infection, unspecified (principal); J45.909 Unspecified asthma, uncomplicated; F17.210 Nicotine dependence, cigarettes, uncomplicated; Z79.51 Long term (current) use of inhaled steroids
CPT/HCPCS: 71045; 99282

== ENCOUNTER 2022-09-28 10:47 | Emergency (ER) | payer MEDICAID, SELFPAY ==
[2022-09-28 10:48] VITALS: BP 123/89; PULSE 111; RESP 16; TEMP 36.7; O2SAT 99; BMI 26.0
--- NOTE | 2022-09-28 11:04 | EX.ED.DYSGE1 ---
HPI <ENE Ortega - Last Filed: 09/28/22 12:13> History of Present Illness Chief Complaint: Abd Pain Narrative Narrative: 32-year-old female presents with 4 days of abdominal pain mainly in both lower quadrants but worse on the left. She has had nonbloody diarrhea?4 episodes yesterday and one today. No nausea or vomiting and she has had normal p.o. intake. She is also had a runny nose and cough and fever around 100 to 101 ?F the last 2 days. Her mom and her children all had similar symptoms recently. PFSH <ENE Ortega - Last Filed: 09/28/22 12:13> [facility] Medical History Asthma Delivery by emergency section Endometriosis Gallstones Kidney disease Substance abuse Home Medications buprenorphine HCl 8 mg sublingual tablet 8 mg SL BID Check with primary doctor 05/04/19 [History Last Taken 10/05/19] albuterol sulfate 90 mcg/actuation aerosol inhaler 2 puff inhalation Q4H PRN PRN Shortness Of Breath 05/14/21 [History Last Taken Unknown] albuterol sulfate 90 mcg/actuation aerosol inhaler (Ventolin HFA) 2 puff inhalation Q4H PRN PRN Wheezing ##1 05/10/22 [Rx Last Taken Unknown] prednisone 20 mg tablet 60 mg PO DAILY #15 tabs 05/10/22 [Rx Last Taken Unknown] cephalexin 500 mg capsule 500 mg PO BID 7 days #14 caps 09/28/22 [Rx Last Taken Unknown] phenazopyridine 100 mg tablet (Pyridium) 100 mg PO TID PRN pain #6 tabs 09/28/22 [Rx Last Taken Unknown] Allergy/AdvReac Type Severity Reaction Status Date / Time hydrocodone Allergy Rash Verified 09/28/22 10:48 sulfamethoxazole Allergy Hives Verified 09/28/22 10:48 [From Bactrim] trimethoprim [From Bactrim] Allergy Hives Verified 09/28/22 10:48 hydrocodone bitartrate AdvReac Nausea Verified 09/28/22 10:48 [From Vicodin] Family History Mother Asthma Arthritis Hypertension Thyroid disorder Father Asthma Arthritis Diabetes Hypertension High cholesterol Surgical History History of History of laparoscopy Hx of cholecystectomy Social History Smoking Status: Current every day smoker tobacco type: cigarettes alcohol intake: never substance use type: does not use ROS <ENE Ortega - Last Filed: 09/28/22 12:13> ROS ED ROS Narrative Constitutional: Positive for fever. Negative for chills, malaise. ENT: Acid for rhinorrhea. Negative for sore throat, ear pain. CVS: Negative for palpitations, chest pain, syncope. Respiratory: Positive for cough. Negative for shortness of breath. GI: As it of for abdominal pain, diarrhea. Negative for nausea, vomiting, constipation, melena, hematochezia. : Negative for dysuria, hematuria or frequency. Neuro: Negative for headache. Skin: Negative for rash, abscess, or wound. Musc: Negative for joint pain, swelling, trauma. EXAM <ENE Ortega - Last Filed: 09/28/22 12:13> Physical Exam Narrative Exam Narrative: CONST: Patient sitting in no acute distress. EYES: Normal inspection. ENT: Normal inspection, moist mucous membranes. NECK: Normal inspection. RESP: No respiratory distress, CTAB. CVS: Rapid but regular rhythm, no murmur, no gallop. ABD: Soft with generalized tenderness, no guarding or rebound, nondistended. SKIN: Color normal, no rash, warm, dry, intact. EXTREMITIES: Normal appearance, no pedal edema. NEURO: Oriented x4. PSYCH: Normal affect. Const Vital Signs: 09/28/22 10:48 Temperature 98.1 F Temperature Source Temporal Pulse Rate 111 H Respiratory Rate 16 Blood Pressure 123/89 H Blood Pressure Mean 100 Pulse Ox 99 Oxygen Delivery Method Room Air <Dr. Singh Degroot MD - Last Filed: 09/28/22 12:16> Physical Exam Const Vital Signs: 09/28/22 10:48 Temperature 98.1 F Temperature Source Temporal Pulse Rate 111 H Respiratory Rate 16 Blood Pressure 123/89 H Blood Pressure Mean 100 Pulse Ox 99 Oxygen Delivery Method Room Air MDM <ENE Ortega - Last Filed: 09/28/22 12:13> MDM MDM Narrative Medical decision making narrative: Patient has had recent fevers, runny nose and cough, abdominal pain and diarrhea. She appears well and nontoxic. HR is 111 with otherwise normal vital signs. Her last dose of ibuprofen was at 4 AM and she is afebrile here 8 hours later. On exam there is generalized abdominal tenderness but no guarding or rebound. She was treated with IV fluids and Bentyl while labs were obtained. CBC shows normal white count 8.6, hemoglobin 13.0. BMP shows sodium 135, potassium 3.3, normal renal function at 0.56. She was given oral potassium replacement. UA is positive for UTI. When I reviewed these findings with her she does report having dysuria and frequency. The UTI is likely the source of her abdominal discomfort. With normal white count and her benign abdominal exam and no flank pain I do not think she has a kidney stone or pyelonephritis and do not think a CT scan is indicated. Both of her prior CTs in 2019 and 2020 are normal. She was treated with Toradol and first dose of Keflex here with prescription for Keflex and Pyridium. We discussed return precautions and she was discharged in stable condition. External records reviewed: CTs of abdomen/pelvis on 10/05/2019 and 12/02/2020 have no acute findings. Lab Data Attestation: I reviewed the patient's lab results. Labs: Laboratory Results - last 24 hr 09/28/22 09/28/22 09/28/22 11:20 11:20 11:40 WBC 8.6 RBC 4.49 Hgb 13.0 Hct 39.3 MCV 87.5 MCH 29.0 MCHC 33.1 RDW Std Deviation 46.9 H RDW Coeff of Dmitry 14.6 Plt Count 304 MPV 9.9 Immature Gran % (Auto) 0.500 Neut % (Auto) 68.2 Lymph % (Auto) 19.6 George % (Auto) 7.8 Eos % (Auto) 3.4 Baso % (Auto) 0.5 Absolute Neuts (auto) 5.9 Absolute Lymphs (auto) 1.69 Nucleated RBC % 0 Sodium 135 L Potassium 3.3 L Chloride 100 Carbon Dioxide 28.0 Anion Gap 7 BUN 1 L Creatinine 0.56 Estim Creat Clear Calc 142.85 Est GFR (MDRD) Af Amer 162 Est GFR (MDRD) Non-Af 134 BUN/Creatinine Ratio 1.8 L Glucose 111 H Calcium 8.7 Urine Color Yellow Urine Clarity Clear Urine pH 7.0 Ur Specific Melvin 1.010 Urine Protein 15 H Urine Glucose (UA) Normal Urine Ketones Negative Urine Occult Blood 25 H Urine Nitrite Negative Urine Bilirubin Negative Urine Urobilinogen Normal Ur Leukocyte Esterase 500 H Urine RBC 0 SEEN Urine WBC 25-50 SEEN Ur Squamous Epith Cells 0-5 SEEN Urine Bacteria 1+ Urine Mucus 0 SEEN <Dr. Singh Degroot MD - Last Filed: 09/28/22 12:16> [facility] MDM Narrative Medical decision making narrative: Patient has had recent fevers, runny nose and cough, abdominal pain and diarrhea. She appears well and nontoxic. HR is 111 with otherwise normal vital signs. Her last dose of ibuprofen was at 4 AM and she is afebrile here 8 hours later. On exam there is generalized abdominal tenderness but no guarding or rebound. She was treated with IV fluids and Bentyl while labs were obtained. CBC shows normal white count 8.6, hemoglobin 13.0. BMP shows sodium 135, potassium 3.3, normal renal function at 0.56. She was given oral potassium replacement. UA is positive for UTI. When I reviewed these findings with her she does report having dysuria and frequency. The UTI is likely the source of her abdominal discomfort. With normal white count and her benign abdominal exam and no flank pain I do not think she has a kidney stone or pyelonephritis and do not think a CT scan is indicated. Both of her prior CTs in 2019 and 2020 are normal. She was treated with Toradol and first dose of Keflex here with prescription for Keflex and Pyridium. We discussed return precautions and she was discharged in stable condition. External records reviewed: CTs of abdomen/pelvis on 10/05/2019 and 12/02/2020 have no acute findings. I have personally performed a face to face assessment of the patient and have reviewed the CHARITY Note. I performed a substantive portion of the visit including all aspects of the following. My calderon findings include: History is [32-year-old female complaining of lower quadrant abdominal pain. No fever or chills. She does have some dysuria. Denies any vaginal bleeding or discharge. She has had a CAT scan in 2019 and also in 2020 which were unremarkable. She has had small 1 cm but no large ovarian cyst before.] Exam is [well-appearing 32-year-old. Vital signs stable afebrile. H EENT exam unremarkable. Neck nontender. Lungs are clear. Heart regular rhythm. Abdomen is soft minimally tender more suprapubically. No McBurney's point tenderness. No peritoneal signs. No hernia or mass. No obstruction or distention. Moving all 4 extremities. Back nontender. Neurologic exam normal.] Medical Decision Making [32-year-old with lower abdominal pain. She did get screening labs and a urinalysis. CBC was normal. Chemistries were unremarkable other than potassium of 3.3. Normal gap. Glucose 111. Here now with showed 25-30 white cells. No red cells. 1+ bacteria. No nitrates. This will be treated as a UTI. Treated with Keflex for 7 days. First dose given here. Urine culture will be sent.] Other additions or changes: [None] Lab Data Labs: Laboratory Results - last 24 hr 09/28/22 09/28/22 09/28/22 11:20 11:20 11:40 WBC 8.6 RBC 4.49 Hgb 13.0 Hct 39.3 MCV 87.5 MCH 29.0 MCHC 33.1 RDW Std Deviation 46.9 H RDW Coeff of Dmitry 14.6 Plt Count 304 MPV 9.9 Immature Gran % (Auto) 0.500 Neut % (Auto) 68.2 Lymph % (Auto) 19.6 George % (Auto) 7.8 Eos % (Auto) 3.4 Baso % (Auto) 0.5 Absolute Neuts (auto) 5.9 Absolute Lymphs (auto) 1.69 Nucleated RBC % 0 Sodium 135 L Potassium 3.3 L Chloride 100 Carbon Dioxide 28.0 Anion Gap 7 BUN 1 L Creatinine 0.56 Estim Creat Clear Calc 142.85 Est GFR (MDRD) Af Amer 162 Est GFR (MDRD) Non-Af 134 BUN/Creatinine Ratio 1.8 L Glucose 111 H Calcium 8.7 Urine Color Yellow Urine Clarity Clear Urine pH 7.0 Ur Specific Melvin 1.010 Urine Protein 15 H Urine Glucose (UA) Normal Urine Ketones Negative Urine Occult Blood 25 H Urine Nitrite Negative Urine Bilirubin Negative Urine Urobilinogen Normal Ur Leukocyte Esterase 500 H Urine RBC 0 SEEN Urine WBC 25-50 SEEN Ur Squamous Epith Cells 0-5 SEEN Urine Bacteria 1+ Urine Mucus 0 SEEN Discharge Plan Triage Chief Complaint: Abd Pain ED Midlevel Provider: Ny Mcgovern ED Provider: Singh Degroot Dx/Rx/DC Orders Clinical Impression: Abdominal pain, UTI (urinary tract infection) Instructions: Abdominal Pain, Urinary Tract Infections in Women Prescriptions: New cephalexin 500 mg capsule 500 mg PO BID 7 Days Qty: 14 0RF phenazopyridine [Pyridium] 100 mg tablet 100 mg PO TID PRN (Reason: pain) Qty: 6 0RF No Action buprenorphine HCl 8 MG tablet, sublingual 8 mg SL BID albuterol sulfate 90 mcg/actuation HFA aerosol inhaler 2 puff INHALATION Q4H PRN PRN (Reason: Shortness Of Breath) prednisone 20 mg tablet 60 mg PO DAILY Qty: 15 0RF albuterol sulfate [Ventolin HFA] 90 mcg/actuation HFA aerosol inhaler 2 puff inhalation Q4H PRN PRN (Reason: Wheezing) Qty: 1 0RF Primary Care Provider: Joaquín Last Referrals: Joaquín Last DO [Primary Care Provider] - Activity Restrictions/Additional Instructions: If symptoms worsen return to the ER. You can take Tylenol or Motrin as needed for pain. The Pyridium should also help with the discomfort and will turn your urine orange. Disposition Disposition: Home, Self Care
[2022-09-28] MEDS: 0.9% Normal Saline 1,000 ML 999 ML IV (11:19)
[2022-09-28] MEDS: Dicyclomine 10 MG Capsule 20 MG PO (11:19)
[2022-09-28 11:39] LABS: Anion Gap 7 (5-15); BUN 1 mg/dL (7-18); BUN/Creat Ratio 1.8 RATIO (10-20); Calcium,Total 8.7 mg/dL (8.5-10.1); Chloride 100 mmol/L (98-107); Creatinine, Serum 0.56 mg/dL (0.55-1.02); EST Glomerular Filtration Rate 134 mL/min (>60); Est Glom Filt Rate - Afr Amer 162 mL/min (>60); Estimated Creatinine Clearance 142.85 ml/min; Glucose 111 mg/dL (74-106); Potassium 3.3 mmol/L (3.5-5.1); Sodium Level 135 mmol/L (136-145)
[2022-09-28 11:44] LABS: Mucous, Urine 0 SEEN /hpf (<or=2+); Red Blood Cells-Urine 0 SEEN /hpf (0-5)
[2022-09-28 11:45] LABS: Absolute Lymphocyte Count 1.69 X10^3/uL (0.83-4.51); Absolute Neutrophil Count 5.9 X10^3/uL (2.0-7.7); Basophil# 0.04 X10^3/uL; Basophil% 0.5 % (0-1); Eosinophil# 0.29 X10^3/uL; Eosinophils% 3.4 % (0-5); Hematocrit 39.3 % (37-47); Lymphocyte # 1.69 X10^3/ul (0.83-4.51); Lymphocyte % 19.6 % (19-41); Mean Corp Hgb Conc 33.1 g/dL (32-36); Mean Corpuscular Volume 87.5 fL (81-99); Mean Platelet Vol. 9.9 fl (6.2-12.0); Monocyte# 0.67 X10^3/uL; Monocyte% 7.8 % (0-10); NRBC Flagged by Analyzer 0 % (0-5); Neutrophil # 5.91 X10^3/uL (2.7-7.7); Neutrophil % 68.2 % (47-70); Platelet Count 304 K/mm3 (150-450); RBC Distribution Width CV 14.6 % (11.6-14.6); RBC Distribution Width SD 46.9 fl (35.1-43.9); Red Blood Count 4.49 M/mm3 (4.2-5.4); White Blood Count 8.6 K/mm3 (4.4-11.0)
[2022-09-28 11:49] LABS: Color, Urine Yellow (Yellow); Glucose, Dipstick Normal (Normal); Ketone-Dipstick Negative (Negative); Leukocyte Esterase-Dipstick 500 /ul (Negative); Nitrite-Dipstick Negative (Negative); Occult Blood-Urine 25 /ul (Negative); Protein-Dipstick 15 mg/dl (Negative); Urine Bilirubin Dipstick Negative (Negative); Urine Clarity Clear (Clear); Urine Urobilinogen Normal (Normal)
[2022-09-28 12:01] LABS: Bacteria 1+ /hpf (None Seen); Squamous Epithelial Cells - UA 0-5 SEEN /hpf (5-10); White Blood Cells 25-50 SEEN /hpf (0-5)
[2022-09-28] MEDS: Potassium Chloride Oral Tablet 20 MEQ PO (12:03)
[2022-09-28] MEDS: Cephalexin 250 MG Capsule 500 MG PO (12:33)
[2022-09-28] MEDS: Ketorolac 15 MG/ML Vial IV (12:33)
[2022-09-28 12:49] LABS: Internal QC Validated? YES +Cl - CLEAR BKGD; Pregnancy, Serum, hCG Quali. NEGATIVE Negative
== END 2022-09-28 12:54 | disposition home or self-care (01) ==
PROVIDERS: Physician Assistant; Emergency Provider Emergency Medicine; PCP Family Medicine; Visit Provider Emergency Medicine
DX: R10.9 Unspecified abdominal pain (principal); N39.0 Urinary tract infection, site not specified; F17.210 Nicotine dependence, cigarettes, uncomplicated
CPT/HCPCS: 80048; 81001; 84703; 85025; 87077; 87086; 87088; 87186; 96361; 96374; 99284; J7030

== ENCOUNTER 2022-10-11 11:13 | Emergency (ER) | payer MEDICAID, SELFPAY ==
[2022-10-11 11:14] VITALS: BP 135/82; PULSE 124; RESP 22; TEMP 37.2; O2SAT 99; BMI 26.0
--- NOTE | 2022-10-11 11:22 | EX.ED.DYSGE1 ---
HPI <ENE Ortega - Last Filed: 10/11/22 13:21> History of Present Illness Chief Complaint: Cough Narrative Narrative: 32-year-old female with past medical history of asthma presents with 1 week of congestion and productive cough. Over the last 3 days she started wheezing. She is using her albuterol inhaler with some relief. States she is only short of breath with walking long distances. No chest pain. No fever or chills. No nausea vomiting or diarrhea. She smokes about 4 cigarettes a day. She states her kids have been sick with upper respiratory symptoms as well. She took a home COVID test that was negative. PFS <ENE Ortega - Last Filed: 10/11/22 13:21> [facility] Medical History Asthma Delivery by emergency section Endometriosis Gallstones Kidney disease Substance abuse Home Medications buprenorphine HCl 8 mg sublingual tablet 8 mg SL BID Check with primary doctor 05/04/19 [History Last Taken 10/05/19] albuterol sulfate 90 mcg/actuation aerosol inhaler 2 puff inhalation Q4H PRN PRN Shortness Of Breath 05/14/21 [History Last Taken Unknown] albuterol sulfate 90 mcg/actuation aerosol inhaler (Ventolin HFA) 2 puff inhalation Q4H PRN PRN Wheezing ##1 05/10/22 [Rx Last Taken Unknown] prednisone 20 mg tablet 60 mg PO DAILY #15 tabs 05/10/22 [Rx Last Taken Unknown] cephalexin 500 mg capsule 500 mg PO BID 7 days #14 caps 09/28/22 [Rx Last Taken Unknown] phenazopyridine 100 mg tablet (Pyridium) 100 mg PO TID PRN pain #6 tabs 09/28/22 [Rx Last Taken Unknown] levofloxacin 250 mg tablet 250 mg PO DAILY 3 days #3 tabs 10/11/22 [Rx Last Taken Unknown] prednisone 20 mg tablet 40 mg PO DAILY 5 days #10 tabs 10/11/22 [Rx Last Taken Unknown] Allergy/AdvReac Type Severity Reaction Status Date / Time hydrocodone Allergy Rash Verified 10/11/22 11:14 sulfamethoxazole Allergy Hives Verified 10/11/22 11:14 [From Bactrim] trimethoprim [From Bactrim] Allergy Hives Verified 10/11/22 11:14 hydrocodone bitartrate AdvReac Nausea Verified 10/11/22 11:14 [From Vicodin] Family History Mother Asthma Arthritis Hypertension Thyroid disorder Father Asthma Arthritis Diabetes Hypertension High cholesterol Surgical History History of History of laparoscopy Hx of cholecystectomy Social History Smoking Status: Current every day smoker tobacco type: cigarettes alcohol intake: never substance use type: does not use ROS <NEE Ortega - Last Filed: 10/11/22 13:21> ROS ED ROS Narrative Constitutional: Negative for fever, chills, malaise. ENT: Negative for sore throat, ear pain, rhinorrhea. CVS: Negative for palpitations, chest pain. Respiratory: Positive for shortness of breath, cough. GI: Negative for abdominal pain, nausea, vomiting, diarrhea. Neuro: Negative for headache. Skin: Negative for rash. Musc: Negative for joint pain, swelling, trauma. EXAM <ENE Ortega - Last Filed: 10/11/22 13:21> Physical Exam Narrative Exam Narrative: CONST: Patient sitting in no acute distress. EYES: Normal inspection. ENT: Normal inspection, moist mucous membranes. NECK: Normal inspection. RESP: Speaking in full sentences in no respiratory distress, no retractions or accessory muscle use, expiratory wheezing in all lung tuttle. CVS: Rapid but regular rhythm, no murmur, no gallop. SKIN: Color normal, no rash, warm, dry, intact. EXTREMITIES: Normal appearance, no pedal edema. NEURO: Oriented x4. PSYCH: Normal affect. Const Vital Signs: 10/11/22 11:14 10/11/22 11:22 10/11/22 11:28 Temperature 99 F Temperature Source Temporal Pulse Rate 124 H 120 H Respiratory Rate 22 H 18 Respiratory Effort Short of Breath Respiratory Depth Normal Respiratory Pattern Tachypnea Normal Blood Pressure 135/82 H Blood Pressure Mean 99 Pulse Ox 99 Oxygen Delivery Method Room Air <Dr. Nando Guillen DO - Last Filed: 10/11/22 12:57> Physical Exam Const Vital Signs: 10/11/22 11:14 10/11/22 11:22 10/11/22 11:28 Temperature 99 F Temperature Source Temporal Pulse Rate 124 H 120 H Respiratory Rate 22 H 18 Respiratory Effort Short of Breath Respiratory Depth Normal Respiratory Pattern Tachypnea Normal Blood Pressure 135/82 H Blood Pressure Mean 99 Pulse Ox 99 Oxygen Delivery Method Room Air [facility] <ENE Ortega - Last Filed: 10/11/22 13:21> [facility] Narrative Medical decision making narrative: Patient has 1 week of cough and congestion and developed wheezing. She does have asthma and is using an albuterol inhaler. She appears well and nontoxic. Heart rate is 124, respiratory rate 22, otherwise normal vital signs. She is speaking in full sentences in no distress and is 99% on room air. She does have significant expiratory wheezing in all lung tuttle. Chest x-ray will be obtained and she was ordered a DuoNeb. She declined a COVID test stating it was negative at home. CXR shows no infiltrate so it is likely viral in nature and she will be prescribed prednisone for her asthma exacerbation. Patient also states she had a UTI last week and finished antibiotics but feels like it has not cleared. UA is positive for UTI and she will be prescribed levofloxacin. Patient given return precautions and discharged in stable condition. Differential: Viral versus bacterial upper respiratory infection, asthma exacerbation External records reviewed: Urine culture on 09/28/2022 shows E. coli. This was sensitive to Keflex however since this did not work she will be placed on levofloxacin. Lab Data Attestation: I reviewed the patient's lab results. Labs: Laboratory Results - last 24 hr 10/11/22 13:00 Urine Color Yellow Urine Clarity Sl. Cloudy Urine pH 7.0 Ur Specific [place] 1.005 Urine Protein 30 H Urine Glucose (UA) Normal Urine Ketones Negative Urine Occult Blood 25 H Urine Nitrite Positive H Urine Bilirubin Negative Urine Urobilinogen Normal Ur Leukocyte Esterase 500 H Urine RBC 5-10 SEEN Urine WBC 10-25 SEEN Ur Squamous Epith Cells 0-5 SEEN Urine Bacteria 3+ Urine Mucus 0 SEEN Radiography Diagnostic Testing: Clinical Impression(s) from Imaging Studies Chest X-Ray 10/11/22 11:50 IMPRESSION: No acute cardiopulmonary process identified. Electronically Signed: Celsa Baker MD at 12:45 EDT , ED attending interpretation of 2 view chest x-ray shows normal heart size, no acute infiltrate. <Dr. Nando Guillen, DO - Last Filed: 10/11/22 12:57> [facility] Lab Data Labs: Laboratory Results - last 24 hr 10/11/22 13:00 Urine Color Yellow Urine Clarity Sl. Cloudy Urine pH 7.0 Ur Specific [place] 1.005 Urine Protein 30 H Urine Glucose (UA) Normal Urine Ketones Negative Urine Occult Blood 25 H Urine Nitrite Positive H Urine Bilirubin Negative Urine Urobilinogen Normal Ur Leukocyte Esterase 500 H Urine RBC 5-10 SEEN Urine WBC 10-25 SEEN Ur Squamous Epith Cells 0-5 SEEN Urine Bacteria 3+ Urine Mucus 0 SEEN Radiography Diagnostic Testing: Clinical Impression(s) from Imaging Studies Chest X-Ray 10/11/22 11:50 IMPRESSION: No acute cardiopulmonary process identified. Electronically Signed: Celsa Baker MD at 12:45 EDT , Treatment and Re-Evaluation :: I have personally performed a face to face assessment of the patient and have reviewed the CHARITY Note. I performed a substantive portion of the visit including all aspects of the following. My calderon findings include: History: Patient presents with cough and congestion that has been getting worse over the past week. Patient states it is starting to spread into her chest. Patient states she is coughing up some green and yellow sputum. Patient denies any fevers or chills. Patient denies any chest pain. Patient denies any shortness of breath. Patient states she has a history of asthma and has been using her inhaler more frequently. Patient also states she had a recent urinary tract infection and completed a course of antibiotics for that. Patient states she still has some symptoms of urinary tract infection. Exam: Vital signs are stable except for mild tachycardia 124. Patient is afebrile. Patient is in no acute distress. Oral mucosa is pink and moist. Neck is supple. Oropharynx shows some postnasal drainage. There are no exudates noted. There is no JVD or lymphadenopathy noted. Heart was regular and tachycardic. Lungs showed some diffuse wheezing. There is good respiratory effort. There are no retractions noted. Abdomen is soft. Bowel sounds are normal. There is no tenderness. Cranial nerves II through XII are intact. There are no focal motor or sensory deficits. Medical Decision Making: Differential diagnosis includes asthma, pneumonia, asthmatic bronchitis, viral upper respiratory infection, and urinary tract infection. PA and lateral chest x-ray will be obtained to assess for pneumonia. Urinalysis will be obtained to assess for urinary tract infection. Patient was given DuoNeb aerosol here. PA and lateral chest x-ray was obtained. There are 2 views. On my independent interpretation, lung tuttle are clear. There is normal cardiac silhouette. Bony thorax is normal. There is no acute process noted. Radiologist also interpreted the x-ray and agrees. Discharge Plan Triage Chief Complaint: Cough ED Midlevel Provider: Ny Mcgovern ED Provider: Nando Guillen Dx/Rx/DC Orders Clinical Impression: URI (upper respiratory infection), UTI (urinary tract infection), Asthma exacerbation Instructions: ED URI, Viral W/ Wheezing (Adult), ED Cystitis Female Adult Prescriptions: New prednisone 20 mg tablet 40 mg PO DAILY 5 Days Qty: 10 0RF levofloxacin 250 mg tablet 250 mg PO DAILY 3 Days Qty: 3 0RF No Action buprenorphine HCl 8 MG tablet, sublingual 8 mg SL BID albuterol sulfate 90 mcg/actuation HFA aerosol inhaler 2 puff INHALATION Q4H PRN PRN (Reason: Shortness Of Breath) prednisone 20 mg tablet 60 mg PO DAILY Qty: 15 0RF albuterol sulfate [Ventolin HFA] 90 mcg/actuation HFA aerosol inhaler 2 puff inhalation Q4H PRN PRN (Reason: Wheezing) Qty: 1 0RF cephalexin 500 mg capsule 500 mg PO BID 7 Days Qty: 14 0RF phenazopyridine [Pyridium] 100 mg tablet 100 mg PO TID PRN (Reason: pain) Qty: 6 0RF Primary Care Provider: Joaquín Last Referrals: Joaquín Last DO [Primary Care Provider] - Activity Restrictions/Additional Instructions: Chest x-ray showed no evidence of pneumonia. You likely have a viral upper respiratory infection. I prescribed steroids with your significant wheezing which should help. Continue use your inhaler. He also still of urinary tract infection so I prescribed an antibiotic called levofloxacin for 3 days. If your urinary symptoms persist after taking this follow-up with your primary care doctor. Disposition Disposition: Home, Self Care
[2022-10-11] MEDS: Ipratropium/Albuterol Sulfate 3 ML AMPUL.NEB INHALATION (11:27)
[2022-10-11 11:28] VITALS: PULSE 120; RESP 18
--- NOTE | 2022-10-11 11:50 | RAD_ITS ---
HISTORY: cough. TECHNIQUE: XR Chest 2 Views. COMPARISON: 09/02/2022. FINDINGS: CARDIOMEDIASTINAL BORDERS: Cardiac silhouette within normal limits in size. Mediastinal contour unremarkable. LUNGS: Radiographically clear. PLEURA: No pleural effusion or pneumothorax seen. OSSEOUS STRUCTURES: Unremarkable. RAD/Chest PA and Lateral IMPRESSION: No acute cardiopulmonary process identified. Electronically Signed: Celsa Baker MD at 12:45 EDT ,
[2022-10-11 13:04] LABS: Mucous, Urine 0 SEEN /hpf (<or=2+)
[2022-10-11 13:06] LABS: Color, Urine Yellow (Yellow); Glucose, Dipstick Normal (Normal); Ketone-Dipstick Negative (Negative); Leukocyte Esterase-Dipstick 500 /ul (Negative); Nitrite-Dipstick Positive (Negative); Occult Blood-Urine 25 /ul (Negative); Protein-Dipstick 30 mg/dl (Negative); Specific Gravity, Urine 1.005 (1.002-1.030); Urine Bilirubin Dipstick Negative (Negative); Urine Clarity Sl. Cloudy (Clear); Urine Urobilinogen Normal (Normal)
[2022-10-11 13:12] LABS: Bacteria 3+ /hpf (None Seen); Red Blood Cells-Urine 5-10 SEEN /hpf (0-5); Squamous Epithelial Cells - UA 0-5 SEEN /hpf (5-10); White Blood Cells 10-25 SEEN /hpf (0-5)
[2022-10-11] MEDS: predniSONE 20 MG Tablet 60 MG PO (13:22)
[2022-10-11 13:23] VITALS: BP 138/63; PULSE 71; RESP 16; O2SAT 97
== END 2022-10-11 13:24 | disposition home or self-care (01) ==
PROVIDERS: Physician Assistant; Emergency Provider Emergency Medicine; PCP Family Medicine; Visit Provider Emergency Medicine
DX: J06.9 Acute upper respiratory infection, unspecified (principal); N39.0 Urinary tract infection, site not specified; J45.901 Unspecified asthma with (acute) exacerbation; F17.210 Nicotine dependence, cigarettes, uncomplicated
CPT/HCPCS: 71046; 81001; 94640; 99283

== ENCOUNTER 2024-04-09 06:47 | Inpatient (IN) | payer OTHER, SELFPAY ==
[2024-04-09] VITALS (25 sets, daily range): BP systolic 116–143; BP diastolic 82–118; PULSE 63–101; RESP 13–20; TEMP 36.6–36.9; O2SAT 95–100; BMI 28.5; BMI 28.7
--- NOTE | 2024-04-09 06:58 | NURSING ---
[id number] STEMI ALERT CALLED
--- NOTE | 2024-04-09 07:03 | EDS_ITS ---
HPI History of Present Illness Chief Complaint: Chest Pain Informant: patient and family Narrative Narrative: 33-year-old female presenting to the emergency room with chief complaint of left chest and left axillary pain. Patient states that she woke out of bed about 30 minutes ago. She then developed her pain. She notes an associated headache. She denies any arm neck or jaw symptoms. She notes her legs feel fine. No nausea no vomiting. 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 She states that she has been clean for approximately 6 years. She notes her father had a stroke and coronary artery disease. She denies history of hypertension diabetes high cho lesterol. [facility] Medical History Asthma Substance abuse Endometriosis Kidney disease Gallstones Delivery by emergency section Home Medications ?Medication ?Instructions ?Recorded ?Last Taken ?Type buprenorphine HCl 8 mg sublingual 8 mg SL BID Check with primary 05/04/19 10/05/19 History tablet doctor albuterol sulfate 90 mcg/actuation 2 puff inhalation Q4H PRN PRN 05/14/21 Unknown History aerosol inhaler Shortness Of Breath albuterol sulfate 90 mcg/actuation 2 puff inhalation Q4H PRN PRN 05/10/22 Unknown Rx aerosol inhaler (Ventolin HFA) Wheezing ##1 Allergy/AdvReac Type Severity Reaction Status Date / Time hydrocodone Allergy Rash Verified 04/09/24 06:50 sulfamethoxazole (From Allergy Hives Verified 04/09/24 06:50 Bactrim) trimethoprim (From Bactrim) Allergy Hives Verified 04/09/24 06:50 hydrocodone bitartrate (From AdvReac Nausea Verified 04/09/24 06:50 Vicodin) Family History Mother Asthma Arthritis Hypertension Thyroid disorder Father Asthma Arthritis Diabetes Hypertension High cholesterol Surgical History Hx of cholecystectomy History of History of laparoscopy Social History Smoking Status: Current every day smoker tobacco type: cigarettes alcohol intake: never substance use type: does not use ROS ROS ED Constitutional Constitutional ED: Denies chills, fever(s) or weight loss Eyes Eyes: Denies change in vision or diplopia ENT ENT ED: Denies ear pain, rhinorrhea or sore throat Cardiovascular Cardiovascular: Reports as per HPI and chest pain; Denies orthopnea, palpitations or racing heartbeat Respiratory/Chest Respiratory/Chest: Denies cough, dyspnea or orthopnea Gastrointestinal Gastrointestinal: Denies abdominal pain, diarrhea, nausea or vomiting Genitourinary Genitourinary ED: Denies dysuria, hematuria or urinary frequency Musculoskeletal Musculoskeletal: Reports other Details: She denies any symptomology below the diaphragm ; Denies arthralgias, back pain, myalgias or neck pain Integumentary Denies abscess or rash Neurologic Neurologic: Denies headache(s), paresthesias or weakness Psychiatric Psychiatric: Denies anxiety, depression, suicidal ideation or suicidal thoughts Endocrine Endocrinology: Denies polydipsia, polyphagia or polyuria Allergic/Immunologic Allergic/Immunologic ED: Denies mouth swelling, tongue swelling or urticaria EXAM Physical Exam Narrative Exam Narrative: Patient appears uncomfortable on the bed. Const Vital Signs: 04/09/24 06:47 04/09/24 06:54 04/09/24 06:56 Temperature 97.9 F Temperature Source Oral Pulse Rate 86 Respiratory Rate 19 H 18 Respiratory Effort Short of Breath Labored Blood Pressure 128/90 H 128/90 H Blood Pressure Mean 102 Pulse Ox 100 Oxygen Delivery Method Room Air Oxygen Flow Rate (L/min) 04/09/24 07:02 04/09/24 07:20 04/09/24 07:30 Temperature 98.1 F Temperature Source Pulse Rate 71 63 Respiratory Rate 17 Respiratory Effort Blood Pressure 133/108 H 127/90 H Blood Pressure Mean 102 Pulse Ox 99 Oxygen Delivery Method Nasal Cannula Oxygen Flow Rate (L/min) 2 Positive well nourished and well developed General Appearance ED: well developed HEENT Reports normocephalic, head/scalp atraumatic and moist mucous membranes Eyes PERRL and EOMs intact bilaterally Neck no lymphadenopathy, supple and no JVD Resp normal respiratory effort and clear to auscultation bilaterally Cardio regular rate, regular rhythm and no murmurs GI normal to inspection, nondistended, normoactive bowel sounds and non-tender Palpation: soft Back/Spine no CVA tenderness and normal ROM Extremity normal to inspection General Extremety ED: Negative for edema General Extremity: Negative for edema Neuro oriented x3 and CN's II-XII intact bilaterally Sensorium / Orientation: alert Motor Exam: strength 5/5 throughout Psych mental status grossly normal Mood & Affect: Negative for depressed or tearful Skin no rashes or lesions noted and no wounds Heart Score History: Highly Suspicious ECG: Significant ST-Depression Age: </= 45 years Risk Factors: 1 or 2 Risk Factors Score: 5 MDM MDM MDM Narrative Medical decision making narrative: Differential diagnosis includes but not limited to acute coronary syndrome aortic dissection aneurysm pneumothorax pleural effusion congestive heart failure pleurisy pulmonary embolism EKG demonstrates ST elevation anteriorly with reciprocal ST depression inferiorly. STEMI alert was called. EKG was sent to interventional list Dr. Bertrand. I spoke with him on the phone plan is to take the patient to the [facility]. Aspirin Brilinta and heparin were ordered in addition to nitroglycerin. My independent interpretation the chest x-ray is no acute process. Patient was taken to the [facility] prior to return of labs. I went ahead and reviewed the labs once they came back shows a white count 11.4 hemoglobin of 14. Potassium noted to be low at 2.9 I added on a magnesium level. Troponin elevated 172 glucose 146 toxicology report is negative test is negative. History & Record Review Discussion w/independent historian: Patient Lab Data Attestation: I reviewed the patient's lab results. Labs: Laboratory Results - last 24 hr 04/09/24 04/09/24 04/09/24 06:59 07:08 07:30 WBC 11.4 H RBC 5.01 Hgb 14.0 Hct 42.8 MCV 85.4 MCH 27.9 MCHC 32.7 RDW Std Deviation 47.6 H RDW Coeff of Dmitry 15.2 H Plt Count 358 MPV 10.2 Immature Gran % (Auto) 0.300 Neut % (Auto) 44.9 L Lymph % (Auto) 33.9 [place] % (Auto) 9.5 Eos % (Auto) 10.4 H Baso % (Auto) 1.0 Absolute Neuts (auto) 5.1 Absolute Lymphs (auto) 3.88 Nucleated RBC % 0 PT 12.4 INR 0.9 APTT 37.9 H Sodium 139 Potassium 2.9 L Chloride 105 Carbon Dioxide 25.0 Anion Gap 9 BUN 6 L Creatinine 0.71 Estim Creat Clear Calc 126.87 Est GFR (MDRD) Af Amer 122 Est GFR (MDRD) Non-Af 101 BUN/Creatinine Ratio 8.4 L Glucose 146 H Calcium 9.1 Troponin I High Sens 172 H* Serum , Qual NEGATIVE Urine Opiates Screen NEGATIVE Urine Methadone Screen NEGATIVE Ur Barbiturates Screen NEGATIVE Ur Phencyclidine Scrn NEGATIVE Ur Amphetamines Screen NEGATIVE MDMA (Ecstasy) Screen NEGATIVE U Benzodiazepines Scrn NEGATIVE Urine Cocaine Screen NEGATIVE U Cannabinoids Screen NEGATIVE Ur Drug Screen Comment Management Discussion w/another healthcare provider: Hospitalist (Dr. Sanon) and Air Defense Control Officer (Dr. Bertrand) Discharge Plan Dx/Rx/DC Orders Clinical Impression: ST elevation (STEMI) myocardial infarction, Hypokalemia Disposition Disposition: Acute Care Hospital [facility] Discharge Date/Time: 04/09/24 07:43
[2024-04-09] MEDS: Heparin Injection (Vial) 5,000 UNIT/ML VIAL 4000 UNIT IV (07:08)
[2024-04-09] MEDS: Aspirin 81 MG TAB.CHEW 324 MG PO (07:09)
[2024-04-09] MEDS: TICAGRELOR 90 MG TABLET 180 MG PO (07:10)
[2024-04-09] MEDS: 0.9% Normal Saline (1000mL) 1,000 ML 999 ML IV (07:10)
[2024-04-09] MEDS: Ondansetron 4 MG/2 ML Vial IV (07:11)
[2024-04-09 07:15] LABS: Absolute Lymphocyte Count 3.88 X10^3/uL (0.83-4.51); Absolute Neutrophil Count 5.1 X10^3/uL (2.0-7.7); Basophil# 0.11 X10^3/uL; Eosinophil# 1.19 X10^3/uL; Eosinophils% 10.4 % (0-5); Hematocrit 42.8 % (37-47); Lymphocyte # 3.88 X10^3/ul (0.83-4.51); Lymphocyte % 33.9 % (19-41); Mean Corp Hgb Conc 32.7 g/dL (32-36); Mean Corpuscular Hgb 27.9 pg (27.0-32.0); Mean Corpuscular Volume 85.4 fL (81-99); Mean Platelet Vol. 10.2 fl (6.2-12.0); Monocyte# 1.09 X10^3/uL; Monocyte% 9.5 % (0-10); NRBC Flagged by Analyzer 0 % (0-5); Neutrophil # 5.13 X10^3/uL (2.7-7.7); Neutrophil % 44.9 % (47-70); POSITIVE MORPHOLOGY YES; Platelet Count 358 K/mm3 (150-450); RBC Distribution Width CV 15.2 % (11.6-14.6); RBC Distribution Width SD 47.6 fl (35.1-43.9); Red Blood Count 5.01 M/mm3 (4.2-5.4); White Blood Count 11.4 K/mm3 (4.4-11.0)
--- NOTE | 2024-04-09 07:15 | RAD_ITS ---
STUDY: X-RAY CHEST REASON FOR EXAM: Female, 33 years old. Atypical chest pain TECHNIQUE: Single AP portable view of the chest. COMPARISON: 10/11/2022 FINDINGS: EKG leads overlie the chest The lungs are clear and expanded. There is no demonstrated pleural abnormality. Normal size heart. Normal mediastinum and eugenio. Normal visualized pulmonary arteries. Normal visualized aortic arch and descending thoracic aorta. Normal visualized thoracic spine. Normal visualized ribs, clavicles, and shoulders. There is no demonstrated abnormality of the visualized soft tissue structures of the upper abdomen. RAD/Chest 1 View (Portable) IMPRESSION: No acute pulmonary process Electronically Signed: Campos Amaya MD at 8:40 EDT ,
[2024-04-09 07:16] LABS: Differential Indicated SCAN CRITERIA MET
[2024-04-09] MEDS: Nitroglycerin SL (ED/IMG/CATH) 0.4 MG TABLET SL (07:20)
--- NOTE | 2024-04-09 07:23 | NURSING ---
[facility]
[2024-04-09 07:24] LABS: International Normalized Ratio 0.9; Prothrombin Time (Protime)PT. 12.4 SECONDS (11.7-14.9)
[2024-04-09 07:25] LABS: Partial Thromboplast Time 37.9 Seconds (24.1-36.2)
--- NOTE | 2024-04-09 07:33 | NURSING ---
ICU [address] [facility]
--- NOTE | 2024-04-09 07:35 | NURSING ---
ICU 2
[2024-04-09 07:38] LABS: Internal QC Validated? YES +Cl - CLEAR BKGD; Pregnancy, Serum, hCG Quali. NEGATIVE Negative
[2024-04-09 07:48] LABS: Anion Gap 9 (5-15); BUN 6 mg/dL (7-18); BUN/Creat Ratio 8.4 RATIO (10-20); Calcium,Total 9.1 mg/dL (8.5-10.1); Chloride 105 mmol/L (98-107); Creatinine, Serum 0.71 mg/dL (0.55-1.02); EST Glomerular Filtration Rate 101 mL/min (>60); Est Glom Filt Rate - Afr Amer 122 mL/min (>60); Estimated Creatinine Clearance 126.87 ml/min; Glucose 146 mg/dL (74-106); Potassium 2.9 mmol/L (3.5-5.1); Sodium Level 139 mmol/L (136-145); Troponin-I HS 172 pg/mL (3.0-54.0)
--- NOTE | 2024-04-09 07:48 | ED.RN ---
lab called with critical trop of 172. Patient in laborer/key man, laborer/key man informed of critical lab value
[2024-04-09 08:04] LABS: Amphetamine Urine VISTA NEGATIVE (<1000 ng/mL); Barbiturate Urine VISTA NEGATIVE (< 200 ng/mL); Benzodiazepine Urine VISTA NEGATIVE (< 200 ng/mL); Cocaine Urine VISTA NEGATIVE (< 300 ng/mL); Ecstacy Urine VISTA NEGATIVE (< 500 ng/mL); Methadone Urine VISTA NEGATIVE (< 300 ng/mL); PCP Urine VISTA NEGATIVE (< 25 ng/mL); THC Urine VISTA NEGATIVE (< 50 ng/mL); Vista UDS pH Range 7
--- NOTE | 2024-04-09 08:39 | PCM.HP.STD ---
HPI - General General Date of Admission: 04/09/24 Date of Service: 04/09/24 Chief Complaint: STEMI HPI Narrative JOSEY VELIZ, is a 33 F who presented to [facility] ED on 04/09/2024 with chest pain. Found to have ST elevations in anterior leads with reciprocal ST depressions and lateral leads on EKG, STEMI alert called. Left heart cath showed 95% stenosis in the proximal LAD that was treated with drug-eluting stent; no other significant coronary disease. Patient was transported to the ICU after cath in stable condition. Saw patient at bedside after her heart cath. Patient was mildly fatigued appearing but otherwise sitting up comfortably in bed, conversing normally, in no acute distress. She denied any chest pain currently and stated that she felt significantly improved from earlier today. Patient has no prior history of cardiac disease. No history of hypertension or hyperlipidemia. Is a current smoker, smokes 10 to 15 cigarettes/day. Last cigarette was last night before bed. Has history of asthma and prior drug abuse and only home indications are albuterol as needed and Suboxone. Reports being clean from drugs for 6 years. UDS in ED notably was unremarkable. Her father had a heart attack and stroke in his late 50s to 60s per patient and mother but she has no other significant family history of vascular disease. Patient denies any chest pain or shortness of breath prior to this morning. She states the chest pain woke her up from sleep this morning. The pain was localized to the left chest and left axillary region. She did have a mild headache associated with this but denied any arm, neck or jaw symptoms. No other acute concerns currently. COUNT INCLUDES THE [facility] Medical History (Updated 04/09/24 @ 09:02 by Harmony Guerrero) Asthma Substance abuse Endometriosis Kidney disease Gallstones Delivery by emergency section Home Medications ?Medication ?Instructions ?Recorded ?Last Taken ?Type buprenorphine HCl 8 mg sublingual 8 mg SL BID Check with primary 05/04/19 10/05/19 History tablet doctor albuterol sulfate 90 mcg/actuation 2 puff inhalation Q4H PRN PRN 05/14/21 Unknown History aerosol inhaler Shortness Of Breath albuterol sulfate 90 mcg/actuation 2 puff inhalation Q4H PRN PRN 05/10/22 Unknown Rx aerosol inhaler (Ventolin HFA) Wheezing ##1 Allergy/AdvReac Type Severity Reaction Status Date / Time hydrocodone Allergy Rash Verified 04/09/24 06:50 sulfamethoxazole (From Allergy Hives Verified 04/09/24 06:50 Bactrim) trimethoprim (From Bactrim) Allergy Hives Verified 04/09/24 06:50 hydrocodone bitartrate (From AdvReac Nausea Verified 04/09/24 06:50 Vicodin) Family History Mother Asthma Arthritis Hypertension Thyroid disorder Father Asthma Arthritis Diabetes Hypertension High cholesterol Surgical History Hx of cholecystectomy History of History of laparoscopy Social History Smoking Status: Current every day smoker tobacco type: cigarettes alcohol intake: never substance use type: does not use ROS Constitutional Constitutional: Reports fatigue; Denies chills, fever(s) or weakness Eyes Eyes: Denies change in vision Cardiovascular Cardiovascular: Denies chest pain, edema, lightheadedness, palpitations or rapid heart rate Respiratory/Chest Respiratory/Chest: Denies cough, shortness of breath at rest, shortness of breath with exertion or wheezing Gastrointestinal Gastrointestinal: Denies abdominal pain, nausea or vomiting Genitourinary Genitourinary: Denies dysuria Musculoskeletal Musculoskeletal: Denies arthralgias or myalgias Neurologic Neurologic: Denies dizziness, focal weakness or headache(s) Vital Signs Vital Signs Vital Signs: 04/09/24 06:47 04/09/24 06:54 04/09/24 06:56 Temperature 97.9 F Temperature Source Oral Pulse Rate 86 Respiratory Rate 19 H 18 Respiratory Effort Short of Breath Labored Blood Pressure 128/90 H 128/90 H Blood Pressure Mean 102 Pulse Ox 100 Oxygen Delivery Method Room Air Oxygen Flow Rate (L/min) 04/09/24 07:02 04/09/24 07:20 04/09/24 07:30 Temperature 98.1 F Temperature Source Pulse Rate 71 63 Respiratory Rate 17 Respiratory Effort Blood Pressure 133/108 H 127/90 H Blood Pressure Mean 102 Pulse Ox 99 Oxygen Delivery Method Nasal Cannula Oxygen Flow Rate (L/min) 2 Weight Weight: 82.6 kg Body Mass Index (BMI) 28.5 Physical Exam Const alert, oriented x3 and no apparent distress Constitutional Narrative: Pleasant younger female, mildly anxious appearing and mildly fatigued appearing but otherwise sitting up comfortably in bed, conversing normally, in no acute distress. General Appearance: cooperative and comfortable HEENT normocephalic, head/scalp atraumatic, hearing grossly normal bilaterally, nasal mucous membranes and turbinates normal and moist oral mucous membranes Eyes PERRL, EOMs intact bilaterally and conjunctivae normal Neck full ROM Chest inspection of chest normal Resp normal respiratory effort, normal air movement, no use of accessory muscles and clear to auscultation bilaterally Cardio regular rate, regular rhythm, no murmurs and peripheral pulses 2+ throughout GI normal to inspection, nondistended, normoactive bowel sounds, soft to palpation, non-tender and non-distended Back/Spine normal ROM Extremity normal to inspection, full ROM and no pedal edema Skin no rashes or lesions noted Neuro moves all extremities and no focal motor deficits Speech: speech normal Psych mental status grossly normal Mood & Affect: anxious Results Lab / Micro Data 04/09/24 06:59 04/09/24 16:35 Labs: Laboratory Results - last 24 hr 04/09/24 06:59: WBC 11.4 H, RBC 5.01, Hgb 14.0, Hct 42.8, MCV 85.4, MCH 27.9, MCHC 32.7, RDW Std Deviation 47.6 H, RDW Coeff of Dmitry 15.2 H, Plt Count 358, MPV 10.2, Immature Gran % (Auto) 0.300, Neut % (Auto) 44.9 L, Lymph % (Auto) 33.9, [place] % (Auto) 9.5, Eos % (Auto) 10.4 H, Baso % (Auto) 1.0, Absolute Neuts (auto) 5.1, Absolute Lymphs (auto) 3.88, Nucleated RBC % 0, PT 12.4, INR 0.9, APTT 37.9 H, Sodium 139, Potassium 2.9 L, Chloride 105, Carbon Dioxide 25.0, Anion Gap 9, BUN 6 L, Creatinine 0.71, Estim Creat Clear Calc 126.87, Est GFR (MDRD) Af Amer 122, Est GFR (MDRD) Non-Af 101, BUN/Creatinine Ratio 8.4 L, Glucose 146 H, Calcium 9.1, Troponin I High Sens 172 H* 04/09/24 07:08: Serum , Qual NEGATIVE 04/09/24 07:30: Urine Opiates Screen NEGATIVE, Urine Methadone Screen NEGATIVE, Ur Barbiturates Screen NEGATIVE, Ur Phencyclidine Scrn NEGATIVE, Ur Amphetamines Screen NEGATIVE, MDMA (Ecstasy) Screen NEGATIVE, U Benzodiazepines Scrn NEGATIVE, Urine Cocaine Screen NEGATIVE, U Cannabinoids Screen NEGATIVE, Ur Drug Screen Comment Assessment & Plan Assessment/Plan (1) ST elevation (STEMI) myocardial infarction: PLAN: Plan Patient is a 33-year-old female who presented to [facility] ED on 04/09/2024 with chest pain. 1. STEMI ? Admit under inpatient status to ICU. Cardiology following. Presented with acute onset chest pain. No prior cardiac history. EKG on arrival showed ST elevations in V1 through V4 and reciprocal ST depressions. Troponins elevated. Left heart cath showed 95% stenosis in the proximal LAD that was treated with drug-eluting stent; no other significant coronary disease. Echo on 04/09 showed EF 40 to 45% with hypokinesis of anterior wall and apex and some evidence of diastolic dysfunction, was otherwise unremarkable. Lipid panel with total cholesterol 188, LDL 106, HDL 45. A1c 5.7%. TSH normal. Per cardiology recs, will treat with aspirin, statin, Brilinta, Coreg and lisinopril. Continuous cardiac monitoring. 2. Tobacco abuse ? Smokes 10 to 15 cigarettes daily. Nicotine patch provided on admission per patient request. 3. History of substance abuse on Suboxone ? UDS negative on admit. Reports being clean for the past 6 years. Continue home Suboxone. 4. Asthma ? Stable on room air, not in acute exacerbation. Continue home albuterol as needed. DVT prophylaxis: SCDs CODE STATUS: Full code, verified Expected disposition: Home, 2 to 3 days Total clinical time spent by myself addressing the patient's medical issues, reviewing all the data, and collaborating with patient's care team: 55 minutes. Charges/Coding Visit Charges Inpatient E&M: 37357 Init Hosp L2
--- NOTE | 2024-04-09 08:45 | EKG12_ITS ---
Test Reason : CP Blood Pressure : / mmHG Vent. Rate : 082 BPM Atrial Rate : 082 BPM P-R Int : 140 ms QRS Dur : 092 ms QT Int : 400 ms P-R-T Axes : 063 050 -17 degrees QTc Int : 467 ms Critical Test Result: STEMI AGE AND GENDER SPECIFIC ECG ANALYSIS Normal sinus rhythm with sinus arrhythmia Anterior infarct , possibly acute T wave abnormality, consider inferior ischemia ACUTE GA / STEMI Abnormal ECG Confirmed by Donnie Melissa ([id number]), commissioning editor PASCUAL HOPKINS ([id number]) on 04/11/2024 10:02:05 AM Referred By: Ben Bertrand Confirmed By:Donnie Melissa
[2024-04-09 08:47] LABS: Atypical Lymphocyte 2+ %; Reactive Lymphocyte 1+
[2024-04-09 08:50] LABS: Magnesium 1.9 mg/dL (1.6-2.6); Platelet Morphology LARGE
--- NOTE | 2024-04-09 08:55 | CON.PCM.CA_ITS ---
Assessment & Plan Assessment/Plan (1) ST elevation (STEMI) myocardial infarction: QUALIFIERS: Involved coronary artery: LAD coronary artery Q ualified Code(s): I21.02 - ST elevation (STEMI) myocardial infarction involving left anterior descending coronary artery PLAN: Treated with drug-eluting stent to the proximal LAD. We will keep the patient on aspirin, Brilinta, beta-javon, CÉSAR inhibitor and statin. Will check a 2D echo to evaluate LV function. HPI Consult Data Date of Consult: 04/09/24 HPI Narrative Reason for Consultation: STEMI HPI Narrative: JOSEY VELIZ, is a 33 F who presents with left-sided chest and axillary pain associated with diaphoresis that started at around 6 AM this morning. Patient came to the emergency room and was found to have anterior ST elevation AR and a STEMI alert was called. She was brought emergently to the cardiac [facility] and underwent coronary angiography which revealed 95% stenosis in the proximal LAD that was treated with drug-eluting stent. She is doing very well at the end of the procedure. She is being admitted to the CCU for further management of her STEMI [facility] Medical History Asthma Substance abuse Endometriosis Kidney disease Gallstones Delivery by emergency section Home Medications ?Medication ?Instructions ?Recorded ?Last Taken ?Type buprenorphine HCl 8 mg sublingual 8 mg SL BID Check with primary 05/04/19 10/05/19 History tablet doctor albuterol sulfate 90 mcg/actuation 2 puff inhalation Q4H PRN PRN 05/14/21 Unknown History aerosol inhaler Shortness Of Breath albuterol sulfate 90 mcg/actuation 2 puff inhalation Q4H PRN PRN 05/10/22 Unknown Rx aerosol inhaler (Ventolin HFA) Wheezing ##1 Allergy/AdvReac Type Severity Reaction Status Date / Time hydrocodone Allergy Rash Verified 04/09/24 06:50 sulfamethoxazole (From Allergy Hives Verified 04/09/24 06:50 Bactrim) trimethoprim (From Bactrim) Allergy Hives Verified 04/09/24 06:50 hydrocodone bitartrate (From AdvReac Nausea Verified 04/09/24 06:50 Vicodin) Family History Mother Asthma Arthritis Hypertension Thyroid disorder Father Asthma Arthritis Diabetes Hypertension High cholesterol Surgical History Hx of cholecystectomy History of History of laparoscopy Social History Smoking Status: Current every day smoker tobacco type: cigarettes alcohol intake: never substance use type: does not use Physical Exam Const alert and oriented x3 HEENT normocephalic Eyes no scleral icterus Resp normal respiratory effort Cardio regular rate and regular rhythm Psych mental status grossly normal Risk Stratification Risk Stratification Applicable: No Charges/Coding Visit Charges Inpatient E&M: 81253 Init Hosp L2 Objective Data Vital Signs: Vital Signs Temp Pulse Resp BP Pulse Ox O2 Del Method O2 Flow Rate 98.1 F 63 17 127/90 H 99 Nasal Cannula 2 04/09/24 07:30 04/09/24 07:30 04/09/24 07:30 04/09/24 07:30 04/09/24 07:30 04/09/24 07:02 04/09/24 07:02 Oxygen Flow Rate (L/min) 2 Oxygen Delivery Method Nasal Cannula Weight: 182 lb 1.629 oz Body Mass Index (BMI) 28.5 Lab / Micro Data 04/09/24 06:59 04/09/24 06:59 Labs: Laboratory Results - last 24 hr 04/09/24 06:59: WBC 11.4 H, RBC 5.01, Hgb 14.0, Hct 42.8, MCV 85.4, MCH 27.9, MCHC 32.7, RDW Std Deviation 47.6 H, RDW Coeff of Dmitry 15.2 H, Plt Count 358, MPV 10.2, Immature Gran % (Auto) 0.300, Neut % (Auto) 44.9 L, Lymph % (Auto) 33.9, [place] % (Auto) 9.5, Eos % (Auto) 10.4 H, Baso % (Auto) 1.0, Absolute Neuts (auto) 5.1, Absolute Lymphs (auto) 3.88, Nucleated RBC % 0, Diff Path Review May foll, Atypical Lymphocytes 2+, Reactive Lymphocytes 1+, Plt Morphology Comment LARGE, PT 12.4, INR 0.9, APTT 37.9 H, Sodium 139, Potassium 2.9 L, Chloride 105, Carbon Dioxide 25.0, Anion Gap 9, BUN 6 L, Creatinine 0.71, Estim Creat Clear Calc 126.87, Est GFR (MDRD) Af Amer 122, Est GFR (MDRD) Non-Af 101, BUN/Creatinine Ratio 8.4 L, Glucose 146 H, Calcium 9.1, Magnesium 1.9, Troponin I High Sens 172 H* 04/09/24 07:08: Serum , Qual NEGATIVE 04/09/24 07:30: Urine Opiates Screen NEGATIVE, Urine Methadone Screen NEGATIVE, Ur Barbiturates Screen NEGATIVE, Ur Phencyclidine Scrn NEGATIVE, Ur Amphetamines Screen NEGATIVE, MDMA (Ecstasy) Screen NEGATIVE, U Benzodiazepines Scrn NEGATIVE, Urine Cocaine Screen NEGATIVE, U Cannabinoids Screen NEGATIVE, Ur Drug Screen Comment Cardiology Labs/Tests 04/09/24 06:59: WBC 11.4 H, RBC 5.01, Hgb 14.0, Hct 42.8, MCV 85.4, MCH 27.9, MCHC 32.7, Plt Count 358, MPV 10.2, Immature Gran % (Auto) 0.300, Neut % (Auto) 44.9 L, Lymph % (Auto) 33.9, [place] % (Auto) 9.5, Eos % (Auto) 10.4 H, Baso % (Auto) 1.0, Absolute Neuts (auto) 5.1, Nucleated RBC % 0, PT 12.4, INR 0.9, APTT 37.9 H, Sodium 139, Potassium 2.9 L, Chloride 105, Carbon Dioxide 25.0, Anion Gap 9, BUN 6 L, Creatinine 0.71, Est GFR (MDRD) Af Amer 122, Est GFR (MDRD) Non- Af 101, BUN/Creatinine Ratio 8.4 L, Glucose 146 H, Calcium 9.1, Magnesium 1.9 Rhythm: EKG: ECHO: Stress Test: Cardiac Cath: PCI: CT Surgery: Holter monitor: EPS: PPM: CXR: Chest CT Scan: Radiography Diagnostic Testing: Radiology Impression Chest X-Ray 04/09/24 07:15 IMPRESSION: No acute pulmonary process Electronically Signed: Campos Amaya MD at 8:40 EDT Reading Location ID and State: [facility] / [place] , Service support ,
--- NOTE | 2024-04-09 08:57 | CRPHASE1 ---
Patient Communication Patient Information Former Patient:: Phase I and Phase II PHII Cardiac Rehab Discussed with Patient:: Yes Guide to Cardiac Rehab Given to Patient:: Yes Communication to Cardiac Rehab Choice Program [facility] CR PHII:: Communication Given to CR Sessions:: 36 sessions - 3 days/wk, 12 weeks Cardiac Rehabilitation Info Program Information Cardiac Rehabilitation Program Information: Cardiac Rehab The cardiac rehab team at [facility] consists of highly skilled exercise physiologists, nurses, respiratory therapists and physicians working together with you. Our purpose is to help you have a full recovery and achieve the goals you set for yourself. Over the years many of our patients have returned to activities they assumed they would never do again! We can help restore your confidence and motivation to make lifestyle changes that can have a significant impact on your health and quality of life! We can help answer questions and concerns you may have about exercise, lifestyle, medications, diet, stress and anxiety which are common following a hospitalization. WE monitor ECG and vital signs during exercise and discuss your progress with you and report to your physician(s). Cardiac Rehab is proven to help reduce readmissions, improve functional capacity and lower recurrence of problems with your heart. Our Cardiac Rehab program is Certified by the [employer] Pulmonary [employer] (AACVPR) and Accredited by the [employer] through our [facility]. You can contact us at . We invite you to call us with your questions or to get started in our program. If you have other questions or concerns be sure to ask your physician/provider during your follow-up visit. WE look forward to seeing you!
--- NOTE | 2024-04-09 08:58 | CRPH1.INSTRU ---
General Education Discussed with Patient CAD and cardiac anatomy and function:: Patient communicates acknowledgment Explanation of diagnoses and procedures:: Patient communicates acknowledgment Sign/Symptoms of [place]:: Patient communicates acknowledgment Antiplatelet therapy: Patient communicates acknowledgment Proper use of NTG-SL: Patient communicates acknowledgment Emergency procedures and activation of EMS: Patient communicates acknowledgment Compliance of all prescribed medications: Patient communicates acknowledgment Smoking Risk Factors Patient Nicotine/Smoking Risk Factors Are:: Cigarettes Recommendations Recommendations Include:: Smoking cessation strategies/Smoking packet Response Code Nicotine/Smoking Response Code:: Patient communicates acknowledgment Dyslipidemia Recommendations Recommendations Include:: Lipid profile not available Response Code Dyslipidemia Response Code:: Patient communicates acknowledgment Overweight/Obesity Risk Factors Patient Overweight/Obesity Risk Factors Are:: Overweight = 26-29 Recommendations Recommendations Include:: Weight loss of 5-10%, Reduced calorie diet and Exercise 5-7 times/week Response Code Overweight/Obesity:: Patient communicates acknowledgment Hypertension Risk Factors Patient Hypertension Risk Factors Are:: No documented hx of HTN Response Code Hypertension:: Patient communicates acknowledgment Heart Disease Risk Factors Patient Heart Disease Risk Factors Are:: Family history of heart disease < 65 years old Recommendations Recommendations Include:: Educated family members of their risk Response Code Heart Disease Response Code:: Patient communicates acknowledgment Diabetes Risk Factors Patient Diabetes Risk Factors Are:: No documented hx of diabetes Response Code Diabetes:: Patient communicates acknowledgment Metabolic Syndrome Recommendations Recommendations Include:: Does not meet criteria Response Code Metabolic Syndrome Response Code:: Patient communicates acknowledgment Sedentary Risk Factors Patient Sedentary Risk Factors Are:: Lack of regular exercise Recommendations Recommendations Include:: Discussed home walking program and Monitored Outpatient Cardiac Rehab Response Code Sedentary Response Code:: Patient communicates acknowledgment Stress Recommendations Recommendations Include:: Identification of stressors, and assessment of coping skills and Stress management techniques Response Code Stress Response Code:: Patient communicates acknowledgment
[2024-04-09] MEDS: Potassium Chloride Oral Tablet 20 MEQ 40 MEQ PO (09:15)
[2024-04-09] MEDS: 0.9% Normal Saline (1000mL) 1,000 ML 75 ML IV (09:19)
[2024-04-09 09:28] LABS: Mucous, Urine 0 SEEN /hpf (<or=2+)
--- NOTE | 2024-04-09 09:39 | CL.I_ITS ---
Patient Name: JOSEY VELIZ Study Date: 04/09/2024 Performing: Fran Bertrand MD Ht: 67 inches 170.18 cm : 1990 Wt: 182.1 lbs 82.6 kg Age: 33 Gender: female BSA: 1.94 PROCEDURE(S) PERFORMED DC02-([id number])LHC/COR IC16-([id number])AMI, ERMA OR PTCA, ARTERY/GRAFT, SINGLE VESSEL CLINICAL PROFILE AND CO-MORBIDITIES Indications: ACS <= 24 hrs, STEMI Heart Failure: None CAD Presentations: STEMI. Symptom onset Date/Time: 04/09/24 Time: 6 am CONCLUSIONS CAD as described. Successful ERMA to pLAD RECOMMENDATIONS DESCRIPTION OF PROCEDURE The patient arrived to the procedure lab. The risks and benefits of the procedure as well as a full description of our services here and lack of surgical backup were fully explained to the patient and/or their significant other prior to the catheterization. The Timeout was completed, verifying the correct patient and procedure. The patient's procedural site was prepped and draped in the usual fashion. Local anesthetic was given subcutaneously to right radial region with Lidocaine 2%. Using a modified Seldinger technique, arterial access was obtained via the right radial artery, a 6Fr sheath was inserted.. Left Coronary Artery selective angiography was performed in multiple views using a 6 Fr.. Right Coronary Artery selective angiography was then performed in multiple views using a 5 Fr. JR 4 catheter XB3 Guide catheter was inserted and engaged into the LCA. {L1} BMW 0.014 X 190 Guide wire was advanced to the LAD. EMEGE 3.0 X 12 Balloon catheter was inserted. Balloon catheter was advanced across lesion in the LAD, proximal. PTCA balloon inflated at 6 atms for 6 secs. PTCA balloon inflated at 6 atms for 6 secs. Angiogram performed post balloon dilatation. JABIER FRONTIER 4.0 X 15 Drug Eluting stent was inserted. Drug Eluting stent was advanced across the lesion in the LAD, proximal. Angiogram performed pre stent deployment. Angiogram performed post stent deployment. Angiogram performed post stent deployment. Guide catheter was exchanged for a JR 4 The arterial sheath was pulled and a TR Band was applied for hemostasis 12 ml of air CORONARY ANGIOGRAPHY DOMINANCE: Right Dominant LEFT HEART ASSESSMENT LEFT MAIN: Mild luminal irregularities LEFT ANTERIOR DESCENDING ARTERY: PROX LAD: 95 % Stenosis CIRCUMFLEX ARTERY: No significant disease noted RIGHT CORONARY ARTERY: No significant disease noted VALVE FINDINGS: No Aortic Valve Stenosis INTERVENTION INFORMATION LESION SITE: LAD (Proximal) Lesion Complexity: High/C, chronic total occlusion: No, lesion at bifurcation: No, thrombus present: Yes, lesion length: 12 mm, culprit lesion: Yes, Previously treated lesion: No Pre Stenosis: 95 % Pre intervention ALLEGRA flow: 2 PROCEDURE: Drug Eluting Stent with pre dilatation. Post Stenosis: 0 % Post intervention ALLEGRA flow: 3 Lesion Devices: [employer] [employer] 6 Fr XB3.0 100cm Guide Catheter [place] .014 190cm BMW [place]cher Straight Ahmet Sci EMERGE MR 3.00x12 BALLOON Medtronic 4.0 x 15 JABIER FRONTIER ERMA COMPLICATIONS No Complications PROCEDURE MEDICATIONS Fentanyl 50 mcg IV Versed 1 mg IV Oxygen: 2 L/min via nasal cannula Heparin given IA 04/09/2024 08:02:07 Verapamil 2.5mg, Ntg 100mcgs, 3000 units of Heparin given IA 04/09/2024 08:02:07 SUMMARY OF HEMODYNAMIC DATA Time AIR REST ECG 07:44:42 AO 124/81 (102) SA 08:04:44 AO 117/80 (97) 08:06:22 AO 125/83 (102) 08:16:26 AIR REST 08:44:37 Signed By Fran Bertrand MD On 04/11/2024 10:24:03 Signed By Fran Bertrand MD On 04/09/2024 09:38:00 Fran Bertrand MD
[2024-04-09] MEDS: buprenorphine HCL 8 MG TAB.SUBL SL ×2 (09:48→20:37)
[2024-04-09] MEDS: Potassium Chloride 10mEq/100mL 10 MEQ/100 ML IV.SOLN. 100 MEQ IV BOLUS (09:49)
[2024-04-09] MEDS: Carvedilol 3.125 MG TABLET PO (09:51)
[2024-04-09 09:53] LABS: Color, Urine Yellow (Yellow); Glucose, Dipstick Normal (Normal); Ketone-Dipstick Negative (Negative); Leukocyte Esterase-Dipstick 25 /ul (Negative); Nitrite-Dipstick Negative (Negative); Occult Blood-Urine 10 /ul (Negative); Protein-Dipstick 30 mg/dl (Negative); Specific Gravity, Urine 1.015 (1.002-1.030); Urine Bilirubin Dipstick Negative (Negative); Urine Clarity Sl. Cloudy (Clear); Urine Urobilinogen 1 mg/dl (Normal)
[2024-04-09 09:56] LABS: Hemoglobin A1c 5.7 % (3.8-5.6)
[2024-04-09] MEDS: 0.9% Normal Saline (250mL Bag) 250 ML 15 ML IV (09:56)
[2024-04-09] MEDS: 0.9% Saline Lock 10 ML Syringe IV ×2 (09:56→20:39)
[2024-04-09 09:58] LABS: Cholesterol 188 mg/dL (200); High Density Lipoprotein 45 mg/dL; Triglycerides 187 mg/dL; Very Low Density Lipoprotein 37 mg/dL (5-40)
--- NOTE | 2024-04-09 10:29 | ECHOCS_ITS ---
Reason For Study: CAD/ASHD Procedure This was a 2D Doppler, Color Flow transthoracic echocardiogram. The study was technically difficult. Contrast injection was performed. Exam performed portable in patient room. Left Ventricle Normal LV size. The estimated ejection fraction is 40-45 %. There is evidence of diastolic dysfunction. Hypokinesis of the anterior wall and apex. Right Ventricle Normal RV size. Normal systolic function. Atria The left and right atria are normal. No doppler evidence for ASD. Mitral Valve There is no mitral valve stenosis. No mitral valve insufficiency. Tricuspid Valve There is no tricuspid stenosis. Unable to estimate RV systolic pressure due to inadequate jet, pulmonary artery pressure probably normal. Aortic Valve Trisinus/trileaflet aortic valve. There is no aortic stenosis. No aortic valve insufficiency. Pulmonic Valve There is no pulmonic valvular stenosis. No pulmonic valve insufficiency. Great Vessels Normal aortic root. Pericardium/Pleural No pericardial effusion. Medication Diluted definity 1ml given slow IV push to enhance endocardial definition. MMode/2D Measurements & Calculations LVIDd: 4.5 cm IVSd: 1.3 cm Ao root diam: 2.8 cm LVIDs: 3.6 cm LVPWd: 0.99 cm RVDd: 2.0 cm FS: 21.3 % LAV(MOD-bp): 26.5 ml LVAd ap4: 34.5 cm2 SV(MOD-sp4): 48.1 ml LAV(MOD-sp2): 26.5 ml LVLd ap4: 8.6 cm LAV(MOD-sp4): 25.5 ml EDV(MOD-sp4): 114.0 ml EDV(sp4-el): 117.7 ml LVAs ap4: 25.3 cm2 LVLs ap4: 7.9 cm ESV(MOD-sp4): 65.9 ml ESV(sp4-el): 68.9 ml EF(MOD-sp4): 42.2 % EF(sp4-el): 41.4 % SV(sp4-el): 48.8 ml LA A4 area: 12.0 cm2 LA dimension(2D): 3.1 cm RA A4 area: 10.2 cm2 TAPSE: 2.5 cm Time Measurements MV dec time: 0.14 sec Doppler Measurements & Calculations MV E max twan: 93.0 cm/sec Lat Peak E' Twan: 13.4 cm/sec Med Peak E' Twan: 9.8 cm/sec MV A max twan: 52.0 cm/sec E/E' lat: 6.9 E/E' med: 9.4 MV E/A: 1.8 MV dec slope: 670.5 cm/sec2 Ao V2 max: 95.1 cm/sec LV V1 max: 83.3 cm/sec Ao max P.6 mmHg LV V1 max P.8 mmHg Ao V2 mean: 66.0 cm/sec LV V1 mean P.4 mmHg Ao mean P.0 mmHg LV V1 mean: 54.6 cm/sec Ao V2 VTI: 18.0 cm LV V1 VTI: 18.1 cm AV (velocity ratio): 1.0 PA V2 max: 74.6 cm/sec PA V2 mean: 62.2 cm/sec ECHO/Echo Complete W/ Contrast Interpretation Summary The estimated ejection fraction is 40-45 %. Hypokinesis of the anterior wall and apex There is evidence of diastolic dysfunction. Ordering Physician: Donnie Melissa Referring Physician: Ben Bertrand Performed By: Katerine Gordon RCS
[2024-04-09 10:53] LABS: Hyaline Cast 0-5 SEEN /lpf (0-5); Squamous Epithelial Cells - UA 0-5 SEEN /hpf (5-10)
[2024-04-09 10:57] LABS: Bacteria 1+ /hpf (None Seen); Red Blood Cells-Urine 0-5 SEEN /hpf (0-5); White Blood Cells 0-5 SEEN /hpf (0-5)
[2024-04-09] MEDS: Lisinopril 2.5 MG Tablet PO (11:11)
[2024-04-09] MEDS: Potassium Chloride 10mEq/100mL 10 MEQ/100 ML IV.SOLN. 70 MEQ IV BOLUS (11:11)
[2024-04-09] MEDS: Potassium Chloride 10mEq/100mL 10 MEQ/100 ML IV.SOLN. 75 MEQ IV BOLUS ×2 (12:33→13:55)
[2024-04-09] MEDS: hydrOXYzine 10 MG Tablet PO (13:44)
[2024-04-09] MEDS: Carvedilol 6.25 MG Tablet PO (15:00)
[2024-04-09] MEDS: Acetaminophen 325 MG Tablet 650 MG PO (15:02)
[2024-04-09] MEDS: Nitroglycerin (INPATIENT USE) 0.4 MG TAB.SUBL SL (15:49)
[2024-04-09] MEDS: HYDROmorphone 0.5 MG/0.5 ML SYRINGE IV (15:58)
[2024-04-09 16:55] LABS: Potassium 4.7 mmol/L (3.5-5.1)
[2024-04-09] MEDS: Carvedilol 12.5 MG Tablet PO (20:38)
[2024-04-09] MEDS: TICAGRELOR 90 MG TABLET PO (20:38)
[2024-04-09] MEDS: Atorvastatin Calcium 40 MG Tablet PO (20:39)
[2024-04-10] VITALS (19 sets, daily range): BP systolic 92–134; BP diastolic 68–106; PULSE 80–109; RESP 12–18; TEMP 36.3–37.1; O2SAT 97–100; BMI 28.0
[2024-04-10] MEDS: 0.9% Saline Lock 10 ML Syringe IV ×2 (03:53→10:27)
[2024-04-10] MEDS: Ketorolac 15 MG/ML Vial IV ×2 (03:53→10:27)
[2024-04-10 03:54] LABS: Hematocrit 39.9 % (37-47); Hemoglobin 13.1 g/dL (12.0-15.0); Mean Corp Hgb Conc 32.8 g/dL (32-36); Mean Corpuscular Volume 85.3 fL (81-99); Mean Platelet Vol. 10.4 fl (6.2-12.0); Platelet Count 273 K/mm3 (150-450); RBC Distribution Width CV 15.5 % (11.6-14.6); Red Blood Count 4.68 M/mm3 (4.2-5.4); White Blood Count 12.9 K/mm3 (4.4-11.0)
[2024-04-10 04:54] LABS: ALB/GLOB Ratio 0.8 RATIO (0.9-2.4); AST(SGOT) 238 U/L (15-37); Alanine Aminotransfer ALT/SGPT 59 U/L (13-56); Albumin, Serum 3.1 g/dL (3.2-5.0); Alkaline Phosphatase 121 U/L (45-117); Anion Gap 6 (5-15); BUN 5 mg/dL (7-18); BUN/Creat Ratio 8.8 RATIO (10-20); Calcium,Total 8.9 mg/dL (8.5-10.1); Chloride 105 mmol/L (98-107); Creatinine, Serum 0.57 mg/dL (0.55-1.02); EST Glomerular Filtration Rate 131 mL/min (>60); Est Glom Filt Rate - Afr Amer 159 mL/min (>60); Estimated Creatinine Clearance 151.66 ml/min; Globulin 3.7 g/dL (2.2-4.2); Glucose 121 mg/dL (74-106); Potassium 4.2 mmol/L (3.5-5.1); Protein, Total 6.8 g/dL (6.4-8.2); Sodium Level 137 mmol/L (136-145)
[2024-04-10] MEDS: Aspirin E.C. 81 MG Tablet PO (09:31)
[2024-04-10] MEDS: buprenorphine HCL 8 MG TAB.SUBL SL ×2 (09:31→22:10)
[2024-04-10] MEDS: TICAGRELOR 90 MG TABLET PO ×2 (09:31→22:11)
[2024-04-10] MEDS: Carvedilol 12.5 MG Tablet PO ×2 (09:32→22:12)
[2024-04-10] MEDS: Lisinopril 2.5 MG Tablet PO (10:27)
--- NOTE | 2024-04-10 10:28 | PN.CARD_ITS ---
Subjective Subjective Patient reports that her chest pain is completely resolved and she feels much better. She is status post stenting of the proximal LAD at the time of an acute anterior wall infarct yesterday. Post stenting she developed some chest discomfort that in retrospect was probably related to stretch pain. Her EKG showed an evolving anterior septal infarct. Echocardiogram done yesterday after reperfusion showed an ejection fraction of 40-45% with anterior wall hypokinesis. There was no significant valvular disease and no pericardial effusion. The patient is anxious to get home. Objective Data Vital Signs: Vital Signs Temp Pulse Resp BP Pulse Ox O2 Del Method O2 Flow Rate 98.1 F 96 12 103/79 99 Room Air 2 04/10/24 08:00 04/10/24 10:00 04/10/24 10:00 04/10/24 10:00 04/10/24 09:00 04/10/24 09:00 04/09/24 07:02 Oxygen Flow Rate (L/min) 2 Oxygen Delivery Method Room Air Weight: 174 lb 2.643 oz Body Mass Index (BMI) 28.0 Intake & Output: Intake and Output for Last 24 Hours 04/08/24 04/09/24 04/10/24 23:59 23:59 23:59 Intake Total 3102.42 / 3102.42 400 / 400 Balance 3102.42 / 3102.42 400 / 400 Lab / Micro Data Attestation: I reviewed the patient's lab results. 04/10/24 03:47 04/10/24 03:47 Labs: Laboratory Results - last 24 hr 04/09/24 06:59: Urine Color Yellow, Urine Clarity Sl. Cloudy, Urine pH 8.0, Ur Specific [place] 1.015, Urine Protein 30 H, Urine Glucose (UA) Normal, Urine Ketones Negative, Urine Occult Blood 10 H, Urine Nitrite Negative, Urine Bilirubin Negative, Urine Urobilinogen 1 H, Ur Leukocyte Esterase 25 H, Urine RBC 0-5 SEEN, Urine WBC 0-5 SEEN, Ur Squamous Epith Cells 0-5 SEEN, Urine Bacteria 1+, Hyaline Casts 0-5 SEEN, Urine Mucus 0 SEEN 04/09/24 16:35: Potassium 4.7 04/10/24 03:47: WBC 12.9 H, RBC 4.68, Hgb 13.1, Hct 39.9, MCV 85.3, MCH 28.0, MCHC 32.8, RDW Std Deviation 48.0 H, RDW Coeff of Dmitry 15.5 H, Plt Count 273, MPV 10.4, Sodium 137, Potassium 4.2, Chloride 105, Carbon Dioxide 26.0, Anion Gap 6, BUN 5 L, Creatinine 0.57, Estim Creat Clear Calc 151.66, Est GFR (MDRD) Af Amer 159, Est GFR (MDRD) Non-Af 131, BUN/Creatinine Ratio 8.8 L, Glucose 121 H, Calcium 8.9, Total Bilirubin 0.50, AST 238 H, ALT 59 H, Alkaline Phosphatase 121 H, Total Protein 6.8, Albumin 3.1 L, Globulin 3.7, Albumin/Globulin Ratio 0.8 L Rhythm Strip Rhythm Strip: Sinus Rhythm Rate: 90 Cardiology Labs/Tests 04/09/24 06:59: Urine Color Yellow, Urine Clarity Sl. Cloudy, Urine pH 8.0, Ur Specific [place] 1.015, Urine Protein 30 H, Urine Glucose (UA) Normal, Urine Ketones Negative, Urine Occult Blood 10 H, Urine Nitrite Negative, Urine Bilirubin Negative, Urine Urobilinogen 1 H, Ur Leukocyte Esterase 25 H, Urine RBC 0-5 SEEN, Urine WBC 0-5 SEEN 04/09/24 16:35: Potassium 4.7 04/10/24 03:47: WBC 12.9 H, RBC 4.68, Hgb 13.1, Hct 39.9, MCV 85.3, MCH 28.0, MCHC 32.8, Plt Count 273, MPV 10.4, Sodium 137, Potassium 4.2, Chloride 105, Carbon Dioxide 26.0, Anion Gap 6, BUN 5 L, Creatinine 0.57, Est GFR (MDRD) Af Amer 159, Est GFR (MDRD) Non-Af 131, BUN/Creatinine Ratio 8.8 L, Glucose 121 H, Calcium 8.9, Total Bilirubin 0.50 Rhythm: EKG: ECHO: Stress Test: Cardiac Cath: PCI: CT Surgery: Holter monitor: EPS: PPM: CXR: Chest CT Scan: Radiography Diagnostic Testing: Radiology Impression Echocardiogram 04/09/24 10:29 Interpretation Summary The estimated ejection fraction is 40-45 %. Hypokinesis of the anterior wall and apex There is evidence of diastolic dysfunction. Ordering Physician: Donnie Melissa Referring Physician: Ben Bertrand Performed By: Katerine Gordon RCS Physical Exam Const alert and oriented x3 Constitutional Narrative: Seems anxious otherwise in no apparent distress. HEENT normocephalic Eyes EOMs intact bilaterally Neck no JVD Carotids: Negative for bruit Chest inspection of chest normal Resp normal respiratory effort and clear to auscultation bilaterally Cardio regular rate, regular rhythm, S1 normal heart sound, S2 normal heart sound, no murmurs, no rub and no gallops Cardio Narrative: Right wrist is clean and dry with no evidence of hematoma. Extremity no pedal edema Skin no rashes or lesions noted Neuro Neuro Narrative: Alert and oriented x 3 Psych mental status grossly normal Assessment & Plan Assessment/Plan (1) ST elevation (STEMI) myocardial infarction: QUALIFIERS: Involved coronary artery: LAD coronary artery Q ualified Code(s): I21.02 - ST elevation (STEMI) myocardial infarction involving left anterior descending coronary artery PLAN: Patient status post stenting of the LAD at the time of an acute anterior wall infarct April 09, 2024. LV function shows an ejection fraction of 40- 45%. The patient is on guideline directed medical therapy for LV recovery. She is tolerating the cholesterol and lisinopril she has not required any diuretic therapy. The patient is to remain on ticagrelor and aspirin uninterrupted for any reason for 1 year. The patient should follow-up in the [place] [facility] office in 7 to 10 days after discharge. The patient is up and ambulatory with no significant arrhythmias and no recurrent symptoms she should be able to be discharged in the next 24 hours. A repeat echocardiogram should be performed at 3 months to reevaluate the recovery of the patient's LV. (2) Hypokalemia: PLAN: Hypokalemia is being replaced. Potassium is up to 4.2 today. (3) Hypertension: QUALIFIERS: Hypertension type: primary hypertension Qualified Code(s): I10 - Essential (primary) hypertension PLAN: Patient's blood pressure was elevated after her myocardial infarction. Medications were titrated increasing her Coreg and adding lisinopril with good control of her blood pressure. The patient be reevaluated in the office at the [facility] in 7 to 10 days for further medical titration as indicated. PLAN: Plan 1. Continue current medical therapy. 2. Increase activity to up in the halls [place]. 3. If no significant ectopy and no symptoms the patient can be discharged to home in the next 24 hours. 4. Patient should be scheduled to follow-up in the [facility] office in 7 to 10 days after discharge. Guideline directed medical therapy for LV recovery will be titrated. 5. Will plan on follow-up limited echocardiogram in 3 months to assess LV recovery. Charges/Coding Visit Charges Inpatient E&M: 78826 Subs Hosp L2
--- NOTE | 2024-04-10 11:52 | PN.HOSP_ITS ---
Reason for Visit Reason for Visit: Diagnoses Hypokalemia (04/09/24) Essential (primary) hypertension (04/09/24) ST elevation (STEMI) myocardial infarction involving left anterior descending coronary artery (04/09/24) ST elevation (STEMI) myocardial infarction of unspecified site (04/09/24) Subjective Subjective Saw patient at bedside this morning. Sitting up comfortably in bed, in no acute distress. She was hoping to go home today to be with her kids and get other things done around the house. I discussed with Dr. Melissa with cardiology and given her significant anterior infarct with new reduced EF from yesterday, would be more comfortable monitoring her on telemetry until tomorrow. She was tearful when I told her this but was understanding. She denied any nicotine cravings, stated that the patch was working fine for her. Denied any chest pain this morning. No other new concerns today. Objective Data Objective Data Vital Signs: Vital Signs Temp Pulse Resp BP Pulse Ox O2 Del Method O2 Flow Rate 98.1 F 109 H 17 103/79 99 Room Air 2 04/10/24 08:00 04/10/24 11:00 04/10/24 11:00 04/10/24 10:00 04/10/24 09:00 04/10/24 09:00 04/09/24 07:02 Oxygen Flow Rate (L/min) 2 Oxygen Delivery Method Room Air Weight: 79 kg Body Mass Index (BMI) 28.0 Intake & Output: Intake and Output for Last 24 Hours 04/08/24 04/09/24 04/10/24 23:59 23:59 23:59 Intake Total 3102.42 / 3102.42 400 / 400 Balance 3102.42 / 3102.42 400 / 400 Lab / Micro Data 04/10/24 03:47 04/10/24 03:47 Labs: Laboratory Results - last 24 hr 04/09/24 16:35: Potassium 4.7 04/10/24 03:47: WBC 12.9 H, RBC 4.68, Hgb 13.1, Hct 39.9, MCV 85.3, MCH 28.0, MCHC 32.8, RDW Std Deviation 48.0 H, RDW Coeff of Dmitry 15.5 H, Plt Count 273, MPV 10.4, Sodium 137, Potassium 4.2, Chloride 105, Carbon Dioxide 26.0, Anion Gap 6, BUN 5 L, Creatinine 0.57, Estim Creat Clear Calc 151.66, Est GFR (MDRD) Af Amer 159, Est GFR (MDRD) Non-Af 131, BUN/Creatinine Ratio 8.8 L, Glucose 121 H, Calcium 8.9, Total Bilirubin 0.50, AST 238 H, ALT 59 H, Alkaline Phosphatase 121 H, Total Protein 6.8, Albumin 3.1 L, Globulin 3.7, Albumin/Globulin Ratio 0.8 L Radiography Diagnostic Testing: Radiology Impression Echocardiogram 04/09/24 10:29 Interpretation Summary The estimated ejection fraction is 40-45 %. Hypokinesis of the anterior wall and apex There is evidence of diastolic dysfunction. Ordering Physician: Donnie Melissa Referring Physician: Ben Bertrand Performed By: Katerine Gordon RCS Rhythm Strip Rhythm Strip: Sinus Rhythm Rate: 90 Physical Exam Const alert, oriented x3 and no apparent distress Constitutional Narrative: Pleasant younger female, mildly anxious appearing, energy improved from admission, sitting up comfortably in bed, conversing normally, in no acute distress. General Appearance: cooperative and comfortable HEENT normocephalic, head/scalp atraumatic, hearing grossly normal bilaterally, nasal mucous membranes and turbinates normal and moist oral mucous membranes Eyes PERRL, EOMs intact bilaterally and conjunctivae normal Neck full ROM Chest inspection of chest normal Resp normal respiratory effort, normal air movement, no use of accessory muscles and clear to auscultation bilaterally Cardio no murmurs and peripheral pulses 2+ throughout Cardio Narrative: Sinus tachycardia to 100s. GI normal to inspection, nondistended, normoactive bowel sounds, soft to palpation, non-tender and non-distended Back/Spine normal ROM Extremity normal to inspection, full ROM and no pedal edema Skin no rashes or lesions noted Neuro moves all extremities and no focal motor deficits Speech: speech normal Psych mental status grossly normal Mood & Affect: anxious Assessment & Plan Assessment/Plan (1) ST elevation (STEMI) myocardial infarction: QUALIFIERS: Involved coronary artery: LAD coronary artery Q ualified Code(s): I21.02 - ST elevation (STEMI) myocardial infarction involving left anterior descending coronary artery PLAN: Plan Patient is a 33-year-old female who presented to [facility] ED on 04/09/2024 with chest pain. 1. STEMI ? Cardiology following. Presented with acute onset chest pain. No prior cardiac history. EKG on arrival showed ST elevations in V1 through V4 and reciprocal ST depressions. Troponins elevated. Left heart cath showed 95% stenosis in the proximal LAD that was treated with drug-eluting stent; no other significant coronary disease. Echo on 04/09 showed EF 40 to 45% with hypokinesis of anterior wall and apex and some evidence of diastolic dysfunction, was otherwise unremarkable. Lipid panel with total cholesterol 188, LDL 106, HDL 45. A1c 5.7%. TSH normal. Continue treatment with aspirin, statin, Brilinta, Coreg and lisinopril. No abnormal rhythms noted on cardiac monitoring as of 04/10. Stable for transfer to PCU on 04/10. If remains stable tomorrow, will likely be okay for discharge home. 2. Mild suspected reperfusion chest pain ? Patient reported chest pain on afternoon of 04/09 after heart cath. Repeat EKG was stable to slightly improved from post cath EKG. Gave 1 dose of nitroglycerin without improvement. Was given a dose of IV Dilaudid with some improvement. However, noted that patient has history of substance abuse so discussed with cardiology and patient is okay to use IV Toradol as needed for pain. Pain improved on 04/10, continue IV Toradol as needed. 3. Tobacco abuse ? Smokes 10 to 15 cigarettes daily. Nicotine patch provided on admission per patient request. 4. History of substance abuse on Suboxone ? UDS negative on admit. Reports being clean for the past 6 years. Continue home Suboxone. 5. Asthma ? Stable on room air, not in acute exacerbation. Continue home albuterol as needed. DVT prophylaxis: SCDs CODE STATUS: Full code, verified Expected disposition: Home, 1 to 2 days Total clinical time spent by myself addressing the patient's medical issues, reviewing all the data, and collaborating with patient's care team: 35 minutes. Charges/Coding Visit Charges Inpatient E&M: 16533 Subs Hosp L2
[2024-04-10] MEDS: Senna/Docusate Sodium 1 Tablet 2 TABLET PO (18:13)
[2024-04-10] MEDS: Atorvastatin Calcium 40 MG Tablet PO (22:11)
[2024-04-11 04:40] VITALS: BP 98/53; PULSE 84; RESP 16; TEMP 36.7; O2SAT 99
[2024-04-11 06:00] VITALS: BMI 28.8
[2024-04-11 07:49] LABS: ALB/GLOB Ratio 0.8 RATIO (0.9-2.4); AST(SGOT) 79 U/L (15-37); Alanine Aminotransfer ALT/SGPT 43 U/L (13-56); Albumin, Serum 2.8 g/dL (3.2-5.0); Alkaline Phosphatase 109 U/L (45-117); Anion Gap 6 (5-15); BUN 5 mg/dL (7-18); Calcium,Total 8.8 mg/dL (8.5-10.1); Chloride 107 mmol/L (98-107); Creatinine, Serum 0.55 mg/dL (0.55-1.02); EST Glomerular Filtration Rate 136 mL/min (>60); Est Glom Filt Rate - Afr Amer 164 mL/min (>60); Estimated Creatinine Clearance 159.44 ml/min; Globulin 3.4 g/dL (2.2-4.2); Glucose 107 mg/dL (74-106); Potassium 3.6 mmol/L (3.5-5.1); Protein, Total 6.2 g/dL (6.4-8.2); Sodium Level 139 mmol/L (136-145)
[2024-04-11 08:08] VITALS: O2SAT 98
[2024-04-11 08:20] VITALS: BP 103/62; PULSE 88; RESP 16; TEMP 36.7; O2SAT 99
--- NOTE | 2024-04-11 08:44 | PN.CARD_ITS ---
Subjective Subjective Denies any complaints. No chest pains. No shortness of breath. Objective Data Vital Signs: Vital Signs Temp Pulse Resp BP Pulse Ox O2 Del Method O2 Flow Rate 98.1 F 88 16 103/62 99 Room Air 2 04/11/24 08:20 04/11/24 08:20 04/11/24 08:20 04/11/24 08:20 04/11/24 08:20 04/11/24 08:20 04/09/24 07:02 Oxygen Flow Rate (L/min) 2 Oxygen Delivery Method Room Air Weight: 179 lb 8 oz Body Mass Index (BMI) 28.8 Intake & Output: Intake and Output for Last 24 Hours 04/09/24 04/10/24 04/11/24 23:59 23:59 23:59 Intake Total 3102.42 / 3102.42 1620 / 1620 240 / 240 Balance 3102.42 / 3102.42 1620 / 1620 240 / 240 Lab / Micro Data 04/10/24 03:47 04/11/24 06:42 Labs: Laboratory Results - last 24 hr 04/11/24 06:42: Sodium 139, Potassium 3.6, Chloride 107, Carbon Dioxide 26.0, Anion Gap 6, BUN 5 L, Creatinine 0.55, Estim Creat Clear Calc 159.44, Est GFR (MDRD) Af Amer 164, Est GFR (MDRD) Non-Af 136, BUN/Creatinine Ratio 9.0 L, G lucose 107 H, Calcium 8.8, Total Bilirubin 0.30, AST 79 H, ALT 43, Alkaline Phosphatase 109, Total Protein 6.2 L, Albumin 2.8 L, Globulin 3.4, A lbumin/Globulin Ratio 0.8 L Rhythm Strip Rhythm Strip: Sinus Rhythm Rate: 90 Cardiology Labs/Tests 04/11/24 06:42: Sodium 139, Potassium 3.6, Chloride 107, Carbon Dioxide 26.0, Anion Gap 6, BUN 5 L, Creatinine 0.55, Est GFR (MDRD) Af Amer 164, Est GFR (MDRD) Non-Af 136, BUN/Creatinine Ratio 9.0 L, Glucose 107 H, Calcium 8.8, Total Bilirubin 0.30 Rhythm: EKG: ECHO: Stress Test: Cardiac Cath: PCI: CT Surgery: Holter monitor: EPS: PPM: CXR: Chest CT Scan: Physical Exam Narrative Comfortable. No apparent distress. Heart sounds 1 and 2 are normal. Chest clear to auscultation bilaterally. Alert oriented x 3. No ankle edema. Assessment & Plan Assessment/Plan (1) ST elevation (STEMI) myocardial infarction: QUALIFIERS: Involved coronary artery: LAD coronary artery Q ualified Code(s): I21.02 - ST elevation (STEMI) myocardial infarction involving left anterior descending coronary artery PLAN: Continue aspirin lifelong. Ticagrelor for at least 6 months. Risk factor modification. (2) Hypertension: QUALIFIERS: Hypertension type: primary hypertension Qualified Code(s): I10 - Essential (primary) hypertension PLAN: Lisinopril and carvedilol. (3) Nicotine dependence: PLAN: Counseled to quit. PLAN: Plan May discharge home. Follow-up in the office in 2 weeks time.
--- NOTE | 2024-04-11 08:49 | ECQM.STEMI ---
STEMI STEMI ED Door Time / Other REG STEMI EKG Time (1) ST elevation (STEMI) myocardial infarction: Acute 04/09/24 06:47 Balloon/Aspiration Date-Time Date of Balloon/Aspiration:: 04/09/24 Time of Balloon/Aspiration:: 08:10
[2024-04-11] MEDS: buprenorphine HCL 8 MG TAB.SUBL SL (08:57)
[2024-04-11] MEDS: Carvedilol 12.5 MG Tablet PO (08:57)
[2024-04-11] MEDS: TICAGRELOR 90 MG TABLET PO (08:58)
[2024-04-11] MEDS: Aspirin E.C. 81 MG Tablet PO (09:02)
[2024-04-11 09:27] LABS: Pathologist Review Reviewed
[2024-04-11] MEDS: Lisinopril 2.5 MG Tablet PO (11:35)
--- NOTE | 2024-04-11 12:08 | DS.PCM_ITS ---
Providers Date of Admission: 04/09/24 Primary Care Physician: Dr. Joaquín Last, DO Reason For Visit: STEMI Diagnosis Discharge Diagnosis (1) ST elevation (STEMI) myocardial infarction: Status: Acute Code(s): I21.3 - ST elevation (STEMI) myocardial infarction of unspecified site Qualifiers: Involved coronary artery: LAD coronary artery Qualified Code(s): I21.02 - ST elevation (STEMI) myocardial infarction involving left anterior descending coronary artery Plan Patient is a 33-year-old female who presented to [facility] ED on 04/09/2024 with chest pain. 1. STEMI ? Cardiology following. Presented with acute onset chest pain. No prior cardiac history. EKG on arrival showed ST elevations in V1 through V4 and reciprocal ST depressions. Troponins elevated. Left heart cath showed 95% stenosis in the proximal LAD that was treated with drug-eluting stent; no other significant coronary disease. Echo on 04/09 showed EF 40 to 45% with hypokinesis of anterior wall and apex and some evidence of diastolic dysfunction, was otherwise unremarkable. Lipid panel with total cholesterol 188, LDL 106, HDL 45. A1c 5.7%. TSH normal. Continue treatment with aspirin, statin, Brilinta, Coreg and lisinopril. No abnormal rhythms noted on cardiac monitoring as of 04/10. Stable for transfer to PCU on 04/10. If remains stable tomorrow, will likely be okay for discharge home. 2. Mild suspected reperfusion chest pain ? Patient reported chest pain on afternoon of 04/09 after heart cath. Repeat EKG was stable to slightly improved from post cath EKG. Gave 1 dose of nitroglycerin without improvement. Was given a dose of IV Dilaudid with some improvement. However, noted that patient has history of substance abuse so discussed with cardiology and patient is okay to use IV Toradol as needed for pain. Pain improved on 04/10, continue IV Toradol as needed. 3. Tobacco abuse ? Smokes 10 to 15 cigarettes daily. Nicotine patch provided on admission per patient request. 4. History of substance abuse on Suboxone ? UDS negative on admit. Reports being clean for the past 6 years. Continue home Suboxone. 5. Asthma ? Stable on room air, not in acute exacerbation. Continue home albuterol as needed. DVT prophylaxis: SCDs CODE STATUS: Full code, verified Expected disposition: Home, 1 to 2 days Total clinical time spent by myself addressing the patient's medical issues, reviewing all the data, and collaborating with patient's care team: 35 minutes. Medications at Discharge Home Medications buprenorphine HCl 8 mg sublingual tablet 8 mg SL BID Check with primary doctor 05/04/19 albuterol sulfate 90 mcg/actuation aerosol inhaler 2 puff inhalation Q4H PRN PRN Shortness Of Breath 05/14/21 albuterol sulfate 90 mcg/actuation aerosol inhaler (Ventolin HFA) 2 puff inhalation Q4H PRN PRN Wheezing ##1 05/10/22 Weight / BMI Weight Weight: 81.42 kg Body Mass Index (BMI) 28.8 ABG / Lab / Microbiology Data 04/10/24 03:47 04/11/24 06:42 Laboratory: Laboratory Results - last 24 hr 04/09/24 06:59: Diff Path Review Reviewed 04/11/24 06:42: Sodium 139, Potassium 3.6, Chloride 107, Carbon Dioxide 26.0, Anion Gap 6, BUN 5 L, Creatinine 0.55, Estim Creat Clear Calc 159.44, Est GFR (MDRD) Af Amer 164, Est GFR (MDRD) Non-Af 136, BUN/Creatinine Ratio 9.0 L, G lucose 107 H, Calcium 8.8, Total Bilirubin 0.30, AST 79 H, ALT 43, Alkaline Phosphatase 109, Total Protein 6.2 L, Albumin 2.8 L, Globulin 3.4, A lbumin/Globulin Ratio 0.8 L Meaningful Use Info Ischemic Stroke Statin Dosing Therapy Reference: STATIN DOSE THERAPY REFERENCE: * Patients > 75 years receive moderate or high dose statin therapy. * Patients 75 years or YOUNGER should receive HIGH intensity statin dose unless contraindicated. You will be required to document reason for non-treatment if statin daily dose does not meet guidelines. HIGH DOSE STATIN THERAPY DAILY Atorvastatin > than or = to 40 mg Rosuvastatin > than or = to 20 mg Amlodipine + Atorvastatin > than or = to 2.5/40 mg Ezetimibe + Simvastatin 10/80 mg Simvastatin 80mg Discharge Plan Admission Admit Date/Time: 04/09/24 08:40 Attending Provider: Ben Bertrand Primary Care Provider: Joaquín Last Discharge Orders/Prescriptions Prescriptions: No Action buprenorphine HCl 8 MG tablet, sublingual 8 mg SL BID albuterol sulfate 90 mcg/actuation HFA aerosol inhaler 2 puff INHALATION Q4H PRN PRN (Reason: Shortness Of Breath) albuterol sulfate [Ventolin HFA] 90 mcg/actuation HFA aerosol inhaler 2 puff inhalation Q4H PRN PRN (Reason: Wheezing) Qty: 1 0RF Referrals / Follow Up: Joaquín Last DO [Primary Care Provider] -
--- NOTE | 2024-04-11 12:08 | PCM.DC.SUM ---
Providers Date of Admission: 04/09/24 Date of Discharge: 04/11/24 Primary Care Physician: Dr. Joaquín Last DO Reason For Visit: STEMI Diagnosis Discharge Diagnosis (1) ST elevation (STEMI) myocardial infarction: Status: Acute Code(s): I21.3 - ST elevation (STEMI) myocardial infarction of unspecified site Qualifiers: Involved coronary artery: LAD coronary artery Qualified Code(s): I21.02 - ST elevation (STEMI) myocardial infarction involving left anterior descending coronary artery Medications at Discharge Home Medications buprenorphine HCl 8 mg sublingual tablet 8 mg SL BID Check with primary doctor 05/04/19 albuterol sulfate 90 mcg/actuation aerosol inhaler 2 puff inhalation Q4H PRN PRN Shortness Of Breath 05/14/21 albuterol sulfate 90 mcg/actuation aerosol inhaler (Ventolin HFA) 2 puff inhalation Q4H PRN PRN Wheezing ##1 05/10/22 aspirin 81 mg tablet,delayed release 81 mg PO DAILY@0800 90 days #90 tabs 04/11/24 atorvastatin 40 mg tablet 40 mg PO QHS 90 days #90 tabs 04/11/24 carvedilol 12.5 mg tablet 12.5 mg PO BID 30 days #60 tabs 04/11/24 lisinopril 2.5 mg tablet 2.5 mg PO DAILY 30 days #30 tabs 04/11/24 ticagrelor 90 mg tablet (Brilinta) 90 mg PO BID 90 days #180 tabs 04/11/24 Hospital Course Operations None Procedures Cardiac catheterization, EKG, Transthoracic echo and - (Chest x-ray) Summary of Care Provided Minutes Spent on Discharge: 35 Hospital Course: Patient is a 33-year-old female who presented to [facility] ED on 04/09/2024 with chest pain. Hospital course as noted below. Patient discharged home in stable condition on 04/11. 1. STEMI, new onset HFrEF ? Cardiology followed. Presented with acute onset chest pain. No prior cardiac history. EKG on arrival showed ST elevations in V1 through V4 and reciprocal ST depressions. Troponins elevated. Left heart cath showed 95% stenosis in the proximal LAD that was treated with drug-eluting stent; no other significant coronary disease. Echo on 04/09 showed EF 40 to 45% with hypokinesis of anterior wall and apex and some evidence of diastolic dysfunction, was otherwise unremarkable. Lipid panel with total cholesterol 188, LDL 106, HDL 45. A1c 5.7%. TSH normal. No abnormal rhythms noted on cardiac monitoring as of 04/10. Stable for transfer to PCU on 04/10. Continue treatment with aspirin, statin, Brilinta, Coreg and lisinopril on discharge. Has cardiology follow-up scheduled in the next few weeks. 2. Mild suspected reperfusion chest pain, resolved ? Patient reported chest pain on afternoon of 04/09 after heart cath. Repeat EKG was stable to slightly improved from post cath EKG. Gave 1 dose of nitroglycerin without improvement. Was given a dose of IV Dilaudid with some improvement. However, noted that patient has history of substance abuse so discussed with cardiology and patient was okay to use IV Toradol as needed for pain. Pain improved on 04/10 and did not recur. 3. Tobacco abuse ? Smokes 10 to 15 cigarettes daily. Nicotine patch provided on admission per patient request. Encouraged cessation on discharge. 4. History of substance abuse on Suboxone ? UDS negative on admit. Reports being clean for the past 6 years. Continue home Suboxone. 5. Asthma ? Stable on room air, not in acute exacerbation. Continue home albuterol as needed. Total clinical time spent by myself addressing the patient's medical issues, reviewing all the data, and collaborating with patient's care team: 35 minutes. Physical Exam Const alert, oriented x3 and no apparent distress Constitutional Narrative: Pleasant younger female, mildly anxious appearing, energy improved from admission, sitting up comfortably in bed, conversing normally, in no acute distress. Stable. General Appearance: cooperative and comfortable HEENT normocephalic, head/scalp atraumatic, hearing grossly normal bilaterally, nasal mucous membranes and turbinates normal and moist oral mucous membranes Eyes PERRL, EOMs intact bilaterally and conjunctivae normal Neck full ROM Chest inspection of chest normal Resp normal respiratory effort, normal air movement, no use of accessory muscles and clear to auscultation bilaterally Cardio regular rate, regular rhythm, no murmurs and peripheral pulses 2+ throughout GI normal to inspection, nondistended, normoactive bowel sounds, soft to palpation, non-tender and non-distended Back/Spine normal ROM Extremity normal to inspection, full ROM and no pedal edema Skin no rashes or lesions noted Neuro moves all extremities and no focal motor deficits Speech: speech normal Psych mental status grossly normal Weight / BMI Weight Weight: 81.42 kg Body Mass Index (BMI) 28.8 ABG / Lab / Microbiology Data 04/10/24 03:47 04/11/24 06:42 Laboratory: Laboratory Results - last 24 hr 04/09/24 06:59: Diff Path Review Reviewed 04/11/24 06:42: Sodium 139, Potassium 3.6, Chloride 107, Carbon Dioxide 26.0, Anion Gap 6, BUN 5 L, Creatinine 0.55, Estim Creat Clear Calc 159.44, Est GFR (MDRD) Af Amer 164, Est GFR (MDRD) Non-Af 136, BUN/Creatinine Ratio 9.0 L, Glucose 107 H, Calcium 8.8, Total Bilirubin 0.30, AST 79 H, ALT 43, Alkaline Phosphatase 109, Total Protein 6.2 L, Albumin 2.8 L, Globulin 3.4, Albumin/Globulin Ratio 0.8 L Meaningful Use Info Meaningful Use Meaningful Use Diagnoses (Choose all that apply): AMI AMI/Post PCI/Angioplasty Aspirin given w/in 24hrs of arrival?: Yes ASA at discharge?: Yes Statins at discharge?: Yes Frank/ARB at discharge?: Yes Beta Batsheva at discharge?: Yes Done w/ Acute OK measure.: Yes Ischemic Stroke Statin Dosing Therapy Reference: STATIN DOSE THERAPY REFERENCE: * Patients > 75 years receive moderate or high dose statin therapy. * Patients 75 years or YOUNGER should receive HIGH intensity statin dose unless contraindicated. You will be required to document reason for non-treatment if statin daily dose does not meet guidelines. HIGH DOSE STATIN THERAPY DAILY Atorvastatin > than or = to 40 mg Rosuvastatin > than or = to 20 mg Amlodipine + Atorvastatin > than or = to 2.5/40 mg Ezetimibe + Simvastatin 10/80 mg Simvastatin 80mg Discharge Plan Admission Admit Date/Time: 04/09/24 08:40 Primary Reason for Your Visit: Chest pain Attending Provider: Ben Bertrand Primary Care Provider: Joaquín Last Instructions Additional Instructions / Restrictions: Please start taking all the new medications as instructed below. Please go to your follow-up appointment with the heart doctor on 04/22. Discharge Orders/Prescriptions Prescriptions: New atorvastatin 40 mg Tablet 40 mg PO QHS 90 Days Qty: 90 0RF carvedilol 12.5 mg Tablet 12.5 mg PO BID 30 Days Qty: 60 2RF aspirin 81 mg Tablet,Delayed Release (Dr/Ec) 81 mg PO DAILY@0800 90 Days Qty: 90 0RF lisinopril 2.5 mg Tablet 2.5 mg PO DAILY 30 Days Qty: 30 2RF Brilinta 90 mg Tablet 90 mg PO BID 90 Days Qty: 180 1RF Continued buprenorphine HCl 8 MG tablet, sublingual 8 mg SL BID albuterol sulfate 90 mcg/actuation HFA aerosol inhaler 2 puff INHALATION Q4H PRN PRN (Reason: Shortness Of Breath) albuterol sulfate [Ventolin HFA] 90 mcg/actuation HFA aerosol inhaler 2 puff inhalation Q4H PRN PRN (Reason: Wheezing) Qty: 1 0RF Referrals / Follow Up: Joaquín Last DO [Primary Care Provider] - Disposition Disposition (needs filled in before D/C Order can be placed): Home, Self Care Charges/Coding Visit Charges Inpatient E&M: 22754 Disch Hosp >30min
--- NOTE | 2024-04-11 13:19 | CASEMGMT ---
STEPHANE MCDERMOTT Assessment Face to Face with patient for initial transition planning/care coordination assessment. STEPHANE MCDERMOTT introduced self and role at [facility], pt voices understanding. Pt is A&Ox4 and is resting comfortably in bed and is calm. Care providers, pharmacy, and demographics verified. Admitting dx: STEMI LACE Strata: 2 PCP: Joaquín Last Specialists: Denies Preferred Pharmacy: [facility]. Pt is being prescribed Brilinta at [place]. TC to [facility] in [place] at this time to see what the cost is for the pt. [facility] states that the pt co-pay for the Brilinta is only 25$. The total costs for all of the pt prescriptions is 32$ total. Pt states that she is OK with this and denies further needs. Insurance: [facility] Prescription Benefit: Yes LNOK: Amara Zaidi (Mayra)Meño Living Arrangements: Pt lives with her 2 kids (ages 6 & 4) and her mother and father in a two story home with 2 steps to enter ADLs/IADLs: Ind Transportation: Self, Father. Denies concerns DME: BP Monitor. Pulse Ox. Nebulizer HHC/SNF: Denies Hx or needs Pt?s goal: Home Plan: Home no needs. Pt denies the need for HHC, OP Tx, or SNF. Pt states that she feels safe discharging home with her family today and denies further questions or concerns at this time. Marin Davis RN, CM
== END 2024-04-11 13:38 | disposition home or self-care (01) | DRG 321 ==
LOC: ED 07:22 → ICU 08:46 → PCU 04-10 12:47
PROVIDERS: Internal Medicine Cardiovascular Disease; Admitting Provider Hospitalist; Emergency Provider Emergency Medicine; PCP Family Medicine; Referring Provider Specialist; Visit Provider Specialist
DX: I21.02 ST elevation (STEMI) myocardial infarction involving left anterior descending coronary artery (principal); I50.21 Acute systolic (congestive) heart failure; J45.909 Unspecified asthma, uncomplicated; I11.0 Hypertensive heart disease with heart failure; F17.210 Nicotine dependence, cigarettes, uncomplicated; Z95.5 Presence of coronary angioplasty implant and graft; Z79.51 Long term (current) use of inhaled steroids
CPT/HCPCS: 71045; 80048; 80053; 80061; 80307; 81001; 83036; 83735; 84132; 84443; 84484; 84703; 85025; 85027; 85610; 85730; 92928; 92941; 93005; 93306; 93454; 99152; 99153; 99284; J7030; J7040; J7050; Q9957; Q9967; A4216; C1725; C1769; C1874; C1887; C1894; C8929; C9600; C9606; J1327; J2405

== ENCOUNTER 2024-06-15 11:42 | Emergency (ER) | payer OTHER, SELFPAY ==
[2024-06-15 11:43] VITALS: BP 140/92; PULSE 89; RESP 18; TEMP 37.1; O2SAT 100; BMI 29.5
[2024-06-15] MEDS: Ipratropium/Albuterol Sulfate 3 ML AMPUL.NEB INHALATION (12:03)
[2024-06-15] MEDS: predniSONE 20 MG Tablet 60 MG PO (12:04)
[2024-06-15 12:06] VITALS: PULSE 81; RESP 16
--- NOTE | 2024-06-15 12:21 | EX.ED.DYSGE1 ---
HPI History of Present Illness Chief Complaint: Cold Sx Informant: patient Narrative Narrative: 33-year-old female presenting to the emergency room for chief complaint of cough and wheezing. Patient states that for about a week she has had nasal congestion and states now it is seem to move into her chest. She notes wheezing beginning yesterday as well as sputum production. She has does have a history of asthma as well as coronary artery disease. No current fevers. Does not wear home oxygen. She notes some diarrhea over the weekend and into yesterday which seems to have resolved. [facility] Medical History Hypertension ST elevation (STEMI) myocardial infarction (04/09/24) Arteriosclerosis of coronary artery (04/09/24) Nicotine dependence Hypokalemia Asthma Substance abuse Endometriosis Kidney disease Gallstones Delivery by emergency section Home Medications ?Medication ?Instructions ?Recorded ?Last Taken ?Type buprenorphine HCl 8 mg sublingual 8 mg sublingual BID Check with 05/04/19 10/05/19 History tablet primary doctor albuterol sulfate 90 mcg/actuation 2 puff inhalation Q4H PRN PRN 05/10/22 Unknown Rx aerosol inhaler (Ventolin HFA) Wheezing ##1 aspirin 81 mg tablet,delayed 81 mg PO DAILY@0800 90 days #90 04/11/24 Unknown Rx release tabs atorvastatin 40 mg tablet 40 mg PO QHS 90 days #90 tabs 04/11/24 Unknown Rx ticagrelor 90 mg tablet (Brilinta) 90 mg PO BID 90 days #180 tabs 04/11/24 Unknown Rx carvedilol 12.5 mg tablet 12.5 mg PO BID #180 tabs 05/04/24 Unknown Rx lisinopril 2.5 mg tablet 2.5 mg PO DAILY #90 tabs 05/04/24 Unknown Rx azithromycin 250 mg tablet See Rx Instructions PO .COMPLEX #6 06/15/24 Unknown Rx (Zithromax Z-Thong) tabs prednisone 20 mg tablet 60 mg (3 x 20 mg) PO DAILY #15 06/15/24 Unknown Rx TABLETS Allergy/AdvReac Type Severity Reaction Status Date / Time hydrocodone Allergy Rash Verified 06/15/24 11:45 sulfamethoxazole (From Allergy Hives Verified 06/15/24 11:45 Bactrim) trimethoprim (From Bactrim) Allergy Hives Verified 06/15/24 11:45 hydrocodone bitartrate (From AdvReac Nausea Verified 06/15/24 11:45 Vicodin) Family History Mother Asthma Arthritis Hypertension Thyroid disorder Father Asthma Arthritis Diabetes Hypertension High cholesterol Surgical History Stented coronary artery (04/09/24) Hx of cholecystectomy History of History of laparoscopy Social History Smoking Status: Current every day smoker tobacco type: cigarettes alcohol intake: never substance use type: does not use ROS ROS ED Constitutional Constitutional ED: Denies chills or weight loss Eyes Eyes: Denies change in vision or diplopia ENT ENT ED: Reports rhinorrhea; Denies ear pain or sore throat Cardiovascular Cardiovascular: Denies chest pain, orthopnea, palpitations or racing heartbeat Respiratory/Chest Respiratory/Chest: Reports cough, dyspnea, dyspnea on exertion, sputum and other Details: Wheezing ; Denies orthopnea Gastrointestinal Gastrointestinal: Reports diarrhea; Denies abdominal pain, nausea or vomiting Genitourinary Genitourinary ED: Denies dysuria, hematuria or urinary frequency Musculoskeletal Musculoskeletal: Denies arthralgias or myalgias Integumentary Denies abscess or rash Neurologic Neurologic: Denies headache(s) or weakness Psychiatric Psychiatric: Denies anxiety, depression, suicidal ideation or suicidal thoughts Endocrine Endocrinology: Denies polydipsia, polyphagia or polyuria Allergic/Immunologic Allergic/Immunologic ED: Denies mouth swelling, tongue swelling or urticaria EXAM Physical Exam Const Vital Signs: 06/15/24 11:43 06/15/24 12:06 06/15/24 12:20 Temperature 98.8 F Temperature Source Oral Pulse Rate 89 81 Respiratory Rate 18 16 Respiratory Effort Normal Short of Breath Respiratory Depth Normal Respiratory Pattern Normal Normal Blood Pressure 140/92 H Blood Pressure Mean 108 Pulse Ox 100 Oxygen Delivery Method Room Air Positive well nourished and well developed General Appearance ED: well developed HEENT Reports normocephalic, head/scalp atraumatic and moist mucous membranes HEENT Narrative: Mild nasal congestion Eyes PERRL and EOMs intact bilaterally Neck no lymphadenopathy, supple and no JVD Resp normal respiratory effort Resp Narrative: Bilateral expiratory wheezing and rhonchi. No significant increased work of breathing is noted. Cardio regular rate, regular rhythm and no murmurs GI normal to inspection, nondistended, normoactive bowel sounds and non-tender Palpation: soft Back/Spine no CVA tenderness and normal ROM Extremity normal to inspection General Extremety ED: Negative for edema General Extremity: Negative for edema Neuro oriented x3 and CN's II-XII intact bilaterally Sensorium / Orientation: alert Motor Exam: strength 5/5 throughout Psych mental status grossly normal Mood & Affect: Negative for depressed or tearful Skin no rashes or lesions noted and no wounds MDM MDM MDM Narrative Medical decision making narrative: Differential diagnosis includes but not limited to pneumonia bronchitis bronchospasm asthma exacerbation viral syndrome viral URI Patient received a DuoNeb as well as a dose of prednisone. My independent interpretation of the chest x-ray is no acute process. No pleural effusion is identified. I think the patient most likely has a viral infection which is led to flare of asthma. She should improve with continued breathing treatments with the addition of prednisone. Using shared decision making we agreed upon adding azithromycin to her regimen as well. Patient to return if worsening or concerns patient does note that she has plenty of albuterol solution at home for her nebulizer. History & Record Review Discussion w/independent historian: Patient Additional record(s) reviewed:: Prior ED visit Radiography Diagnostic Testing: Clinical Impression(s) from Imaging Studies Chest X-Ray 06/15/24 12:35 IMPRESSION: Hyperinflation. The lungs are clear. Electronically Signed: Jason Hou MD at 13:00 EST , Discharge Plan Triage Chief Complaint: Cold Sx ED Provider: Srinivas Corona Dx/Rx/DC Orders Clinical Impression: Acute bronchitis with bronchospasm, Asthma Instructions: ED Bronchitis with Wheezing (Adult) Prescriptions: New azithromycin [Zithromax Z-Thong] 250 mg tablet See Rx Instructions .ROUTE .COMPLEX Qty: 6 0RF Rx Instructions: For 250 mg dose pack: take 500 mg today (day 1), then 250 mg for 4 days (days 2-5) prednisone 20 mg tablet 60 mg PO DAILY Qty: 15 0RF No Action buprenorphine HCl 8 MG tablet, sublingual 8 mg sublingual BID albuterol sulfate [Ventolin HFA] 90 mcg/actuation HFA aerosol inhaler 2 puff inhalation Q4H PRN PRN (Reason: Wheezing) Qty: 1 0RF atorvastatin 40 mg Tablet 40 mg PO QHS 90 Days Qty: 90 0RF aspirin 81 mg Tablet,Delayed Release (Dr/Ec) 81 mg PO DAILY@0800 90 Days Qty: 90 0RF Brilinta 90 mg Tablet 90 mg PO BID 90 Days Qty: 180 1RF carvedilol 12.5 mg tablet 12.5 mg PO BID Qty: 180 3RF lisinopril 2.5 mg tablet 2.5 mg PO DAILY Qty: 90 3RF Primary Care Provider: Joaquín Last Referrals: Joaquín Last DO [Primary Care Provider] - 1 Week if not improving Print Language: [place] Disposition Disposition: Home, Self Care
--- NOTE | 2024-06-15 12:35 | RAD_ITS ---
STUDY: X-RAY CHEST REASON FOR EXAM: Female, 33 years old. cough TECHNIQUE: PA and lateral views of the chest. COMPARISON: Comparison is made with prior study April 09, 2024. FINDINGS: Hyperinflation. The lungs are clear. There is no demonstrated pleural abnormality. Normal size heart. Normal mediastinum and eugenio. Normal visualized pulmonary arteries. Normal visualized aortic arch and descending thoracic aorta. Normal visualized thoracic spine. Normal visualized ribs, clavicles, and shoulders. There is no demonstrated abnormality of the visualized soft tissue structures of the upper abdomen. RAD/Chest PA and Lateral IMPRESSION: Hyperinflation. The lungs are clear. Electronically Signed: Jason Hou MD at 13:00 EST ,
== END 2024-06-15 13:24 | disposition home or self-care (01) ==
PROVIDERS: Emergency Provider Emergency Medicine; PCP Family Medicine; Referring Provider Emergency Medicine; Visit Provider Emergency Medicine
DX: J20.9 Acute bronchitis, unspecified (principal); J45.909 Unspecified asthma, uncomplicated; I25.10 Atherosclerotic heart disease of native coronary artery without angina pectoris; I25.2 Old myocardial infarction; F17.210 Nicotine dependence, cigarettes, uncomplicated; Z95.5 Presence of coronary angioplasty implant and graft
CPT/HCPCS: 71046; 94640; 99283

== ENCOUNTER → 2024-07-22 | Outpatient (CLI) | payer OTHER, SELFPAY ==
--- NOTE | 2024-07-22 11:15 | ECHOL_ITS ---
Reason For Study: CAD/ASHD Procedure This was a limited 2D transthoracic echocardiogram. Contrast injection was performed. Exam performed in department. Left Ventricle Normal LV size. The left ventricular ejection fraction is 60 %. Segmental dysfunction with preserved ejection fraction (see wall motion). [place] : Hypokinetic. Right Ventricle Normal RV size. Normal systolic function. Atria Normal left atrium. Normal right atrium. Mitral Valve Normal mitral valve. Tricuspid Valve Normal tricuspid valve. Mild tricuspid valve insufficiency. Aortic Valve Normal aortic valve. Trisinus/trileaflet aortic valve. Pulmonic Valve Normal pulmonic valve. Great Vessels Normal aortic root. The pulmonary artery is normal size. Normal inferior vena cava. Pericardium/Pleural No pericardial effusion. Medication Diluted definity 2.5ml given slow IV push to enhance endocardial definition. MMode/2D Measurements & Calculations LVIDd: 4.6 cm IVSd: 0.86 cm LVIDs: 3.1 cm LVPWd: 0.94 cm LVAd ap4: 32.1 cm2 FS: 31.7 % LVLd ap4: 8.2 cm EDV(MOD-sp4): 103.0 ml EDV(sp4-el): 107.3 ml LVAs ap4: 17.5 cm2 LVLs ap4: 6.8 cm ESV(MOD-sp4): 37.4 ml ESV(sp4-el): 38.1 ml EF(MOD-sp4): 63.7 % EF(sp4-el): 64.5 % SV(MOD-sp4): 65.6 ml SV(sp4-el): 69.2 ml SI(MOD-sp4): 34.8 ml/m2 Doppler Measurements & Calculations TR max nader: 220.9 cm/sec TR max P.5 mmHg ECHO/Echo Limited w/Contrast Interpretation Summary The left ventricular ejection fraction is 60 %. Normal LV size. Segmental dysfunction with preserved ejection fraction (see wall motion). [place] : Hypokinetic. Contrast injection was performed. Compared to previous study, the left ventricu lar systolic function has improved.. Ordering Physician: Donnie Melissa Referring Physician: Joaquín Last Performed By: Claribel Paula, KEVIN, RVT
== END | disposition home or self-care (01) ==
LOC: CVS 11:09
PROVIDERS: PCP Family Medicine; Referring Provider Internal Medicine Cardiovascular Disease; Visit Provider Internal Medicine Cardiovascular Disease
DX: I25.10 Atherosclerotic heart disease of native coronary artery without angina pectoris (principal)
CPT/HCPCS: 93308; A4216; C8924

== ENCOUNTER → 2024-11-16 | Outpatient (CLI) | payer OTHER, SELFPAY ==
[2024-11-16 17:24] LABS: AST(SGOT) 22 U/L (<=31); Alanine Aminotransfer ALT/SGPT 21 U/L (<=34); Albumin, Serum 3.8 g/dL (3.5-5.0); Alkaline Phosphatase 118 U/L (35-104); Bilirubin, Direct 0.09 mg/dL (0.00-0.30); Cholesterol 196 mg/dL (<=200); Globulin 2.8 g/dL (2.2-4.2); High Density Lipoprotein 37 mg/dL; Low Density Lipoprotein Calc. 118 mg/dL; Protein, Total 6.6 g/dL (5.9-8.4); Total Bilirubin 0.24 mg/dL (0.00-1.30); Triglycerides 205 mg/dL; Very Low Density Lipoprotein 41 mg/dL (5-40); cholesterol:hdl ratio screen 5.24
== END | disposition home or self-care (01) ==
LOC: LAB 15:50
PROVIDERS: PCP Family Medicine; Referring Provider Internal Medicine Cardiovascular Disease; Visit Provider Internal Medicine Cardiovascular Disease
DX: I25.10 Atherosclerotic heart disease of native coronary artery without angina pectoris (principal)
CPT/HCPCS: 36415; 80061; 80076

== ENCOUNTER 2024-12-09 19:29 | Emergency (ER) | payer OTHER, SELFPAY ==
[2024-12-09 19:30] VITALS: BP 107/94; PULSE 86; RESP 15; TEMP 35.7; O2SAT 100
--- NOTE | 2024-12-09 19:42 | ED.VIS.GI ---
HPI HPI - GI History of Present Illness Chief Complaint: Abd Pain Abdominal Pain/Flank Pain Onset: Hours (2) Context: Sudden Onset Timing: Continuous Quality: Cramping and Sharp Location: RLQ Worsened by: - (Certain movements) Relieved by: - (Passing gas, certain positions) Nausea/Vomiting/Emesis GI Symptom: Negative for Nausea or Vomiting Diarrhea/Melena/Hematochezia GI Symptom: Negative for Diarrhea, Melena or Hematochezia Associated Symptoms Associated Symptoms: Positive for Dysuria; Negative for Frequency or Hematuria LMP: 11/24/2024 Narrative Narrative: Patient presents with abdominal pain that began approximate 2 hours prior to arrival. Patient states it started over the right lower abdomen. Patient describes it as sharp and cramping. Patient states that she was able to pass gas and then felt better. Patient states her pain is worse with movement and certain positions. Patient denies any nausea or vomiting. Patient denies any diarrhea, melena, or hematochezia. Patient does admit to some dysuria but denies any hematuria or frequency. Patient states her last menstrual period was 11/24/2024. [facility] Medical History (Updated 12/09/24 @ 22:[address] Nando Guillen, DO) Hypertension ST elevation (STEMI) myocardial infarction (04/09/24) Arteriosclerosis of coronary artery (04/09/24) Nicotine dependence Hypokalemia Asthma Substance abuse Endometriosis Kidney disease Gallstones Delivery by emergency section Home Medications ?Medication ?Instructions ?Recorded ?Last Taken ?Type buprenorphine HCl 8 mg sublingual 8 mg sublingual BID Check with 05/04/19 10/05/19 History tablet primary doctor albuterol sulfate 90 mcg/actuation 2 puff inhalation Q4H PRN PRN 05/10/22 Unknown Rx aerosol inhaler (Ventolin HFA) Wheezing ##1 aspirin 81 mg tablet,delayed 81 mg PO DAILY@0800 90 days #90 07/22/24 Unknown Rx release tabs carvedilol 6.25 mg tablet 6.25 mg PO BID #180 tabs 08/08/24 Unknown Rx atorvastatin 40 mg tablet 40 mg PO QHS #90 tabs 11/17/24 Unknown Rx ticagrelor 90 mg tablet (Brilinta) 90 mg PO BID #180 tabs 11/25/24 Unknown Rx naproxen 500 mg tablet 500 mg PO BID PRN #20 tabs 12/09/24 Unknown Rx Allergy/AdvReac Type Severity Reaction Status Date / Time hydrocodone Allergy Rash Verified 12/09/24 19:30 sulfamethoxazole (From Allergy Hives Verified 12/09/24 19:30 Bactrim) trimethoprim (From Bactrim) Allergy Hives Verified 12/09/24 19:30 hydrocodone bitartrate (From AdvReac Nausea Verified 12/09/24 19:30 Vicodin) Family History Mother Asthma Arthritis Hypertension Thyroid disorder Father Asthma Arthritis Diabetes Hypertension High cholesterol Surgical History (Updated 12/09/24 @ 20:[address] Nando Guillen DO) Hx of tonsillectomy Stented coronary artery (04/09/24) Hx of cholecystectomy History of History of laparoscopy Social History Smoking Status: Current every day smoker tobacco type: cigarettes alcohol intake: never substance use type: does not use ROS ROS ED Constitutional Constitutional ED: Denies chills or fever(s) Eyes Eyes: Denies blurry vision or change in vision ENT ENT ED: Reports rhinorrhea; Denies sore throat Cardiovascular Cardiovascular: Denies chest pain or palpitations Respiratory/Chest Respiratory/Chest: Denies cough or dyspnea Gastrointestinal Gastrointestinal: Reports abdominal pain; Denies diarrhea, melena, nausea or vomiting Genitourinary Genitourinary ED: Reports dysuria; Denies hematuria Musculoskeletal Musculoskeletal: Reports back pain; Denies neck pain Integumentary Denies abscess or rash Neurologic Neurologic: Denies headache(s) or weakness Allergic/Immunologic Allergic/Immunologic ED: Denies mouth swelling or urticaria EXAM Physical Exam Const Vital Signs: 12/09/24 19:30 12/09/24 21:30 Temperature 96.3 F L Temperature Source Temporal Pulse Rate 86 77 Respiratory Rate 15 18 Blood Pressure 107/94 H 120/76 Blood Pressure Mean 98 90 Pulse Ox 100 100 Oxygen Delivery Method Room Air Room Air Positive well nourished and well developed Constitutional Narrative: BMI is 29.8 General Appearance ED: well developed and NAD HEENT Reports moist mucous membranes Neck supple and no JVD Resp normal respiratory effort and clear to auscultation bilaterally Cardio regular rate and regular rhythm GI non-distended Palpation: soft and tender RLQ and Rovsing's sign; Negative for guarding Neuro CN's II-XII intact bilaterally, moves all extremities and no sensory deficits noted Sensorium / Orientation: alert Motor Exam: strength 5/5 throughout Psych mental status grossly normal and thought process normal MDM MDM MDM Narrative Medical decision making narrative: Differential diagnosis includes appendicitis, ovarian cyst, bowel obstruction, perforation, ureteral calculus, constipation, ectopic , and urinary tract infection. CT scan of the abdomen and pelvis will be obtained to assess for bowel obstruction, perforation, appendicitis, and ureteral calculus. CBC will be obtained to assess for leukocytosis and anemia. Basic metabolic profile will be obtained to assess for electrolyte abnormality and renal function. Urinalysis will be obtained to assess for urinary tract infection and hematuria. Serum hCG will be obtained to assess for . History & Record Review Additional record(s) reviewed:: Prior ED visit Lab Data Attestation: I reviewed the patient's lab results. Lab results narrative: CBC was reviewed. There is a slight anemia with a hemoglobin of 10.9 and hematocrit of 33.3. Platelets were normal. Basic metabolic profile was reviewed and was within normal limits. Serum hCG was reviewed and was negative. Urinalysis was reviewed. There is no evidence of urinary tract infection or hematuria. Labs: Laboratory Results - last 24 hr 12/09/24 12/09/24 12/09/24 19:52 20:26 20:27 WBC 10.0 RBC 4.06 L Hgb 10.9 L Hct 33.3 L MCV 82.0 MCH 26.8 L MCHC 32.7 RDW Std Deviation 49.0 H RDW Coeff of Dmitry 16.3 H Plt Count 385 MPV 10.3 Immature Gran % (Auto) 0.300 Neut % (Auto) 60.3 Lymph % (Auto) 28.9 [place] % (Auto) 7.0 Eos % (Auto) 2.9 Baso % (Auto) 0.6 Absolute Neuts (auto) 6.0 Absolute Lymphs (auto) 2.90 Nucleated RBC % 0 Sodium 136 Potassium 3.5 Chloride 99 Carbon Dioxide 25.7 Anion Gap 11 BUN 4 Creatinine 0.52 L Estim Creat Clear Calc 169.33 Est GFR (MDRD) Non-Af 127 BUN/Creatinine Ratio 7.1 L Glucose 133 H Calcium 8.9 Serum , Qual NEGATIVE Urine Color Yellow Urine Clarity Sl. Cloudy Urine pH 7.0 Ur Specific [place] 1.015 Urine Protein 15 H Urine Glucose (UA) Normal Urine Ketones Negative Urine Occult Blood Negative Urine Nitrite Negative Urine Bilirubin Negative Urine Urobilinogen 1 H Ur Leukocyte Esterase Negative Urine RBC 0-5 SEEN Urine WBC 0-5 SEEN Ur Squamous Epith Cells 5-10 SEEN Urine Bacteria 0 SEEN Urine Mucus 0 SEEN Radiography Diagnostic Testing: Clinical Impression(s) from Imaging Studies Abdomen/Pelvis CT 12/09/24 20:03 IMPRESSION: 1. Hepatomegaly with fatty infiltration. 2. Fecal retention in the colon consistent with constipation. 3. No obstructive uropathy. 4. Umbilical hernia containing fat. 5. Inguinal hernias, bilaterally. Reading Location: [id number] CT scan of the abdomen and pelvis was obtained. There is fatty infiltration of the liver with hepatomegaly. There is fecal retention consistent with constipation. There is no obstructive uropathy. There are bilateral inguinal hernias and umbilical hernia containing fat. There is no evidence of bowel obstruction or perforation. There is no free air or free fluid. This was interpreted by the radiologist and was also independently reviewed by myself. Treatment and Re-Evaluation :: Smoking cessation was discussed briefly. Patient was given IV fluids, Zofran, and Toradol. Patient was feeling somewhat better on reevaluation. Patient was advised of her findings. Patient was advised that there could be an ovarian cyst that could be causing the pain. Patient was instructed to use [id number] laxatives as needed for constipation. Patient was instructed to follow-up with her primary care physician and [facility] in 5 to 7 days. Patient was given a prescription for a short course of Naprosyn. Patient was instructed to return if worse in any way. Patient understood and was agreeable with the plan. All questions were answered. Discharge Plan Triage Chief Complaint: Abd Pain ED Provider: Nando Guillen Dx/Rx/DC Orders Clinical Impression: Abdominal pain, Hypertension Instructions: ED Abdominal Pain Unkn Cause Fem Prescriptions: New naproxen 500 mg tablet 500 mg PO BID PRN Qty: 20 0RF No Action carvedilol 6.25 mg tablet 6.25 mg PO BID Qty: 180 3RF buprenorphine HCl 8 MG tablet, sublingual 8 mg sublingual BID albuterol sulfate [Ventolin HFA] 90 mcg/actuation HFA aerosol inhaler 2 puff inhalation Q4H PRN PRN (Reason: Wheezing) Qty: 1 0RF aspirin 81 mg tablet,delayed release (DR/EC) 81 mg PO DAILY@0800 90 Days Qty: 90 3RF atorvastatin 40 mg tablet 40 mg PO QHS Qty: 90 3RF Brilinta 90 mg tablet 90 mg PO BID Qty: 180 3RF Primary Care Provider: Joaquín Last Referrals: Joaquín Last DO [Primary Care Provider] - 5-7 Days Print Language: Nicaraguan Disposition Disposition: Home, Self Care
[2024-12-09 19:45] VITALS: BMI 29.7
--- NOTE | 2024-12-09 20:03 | CT_ITS ---
EXAM: CT Abdomen and Pelvis With Intravenous Contrast CLINICAL INDICATION: ABDOMINAL PAIN TECHNIQUE: Axial computed tomography images of the abdomen and pelvis with intravenous contrast. This CT exam was performed using one or more of the following dose reduction techniques: automated exposure control, adjustment of the mA and/or kV according to patient size, and/or use of iterative reconstruction technique. COMPARISON: CT Abdomen Pelvis dated 12/02/2020 FINDINGS: LUNG BASES: Unremarkable. No mass. No consolidation. ABDOMEN: LIVER: Hepatomegaly with fatty infiltration. GALLBLADDER AND BILE DUCTS: Unremarkable. No calcified stones. No ductal dilation. PANCREAS: Unremarkable. No mass. No ductal dilation. SPLEEN: Unremarkable. No splenomegaly. ADRENALS: Unremarkable. No mass. KIDNEYS AND URETERS: Unremarkable. No stones within either kidney. No hydronephrosis. STOMACH AND BOWEL: Fecal retention in the colon consistent with constipation. No obstruction. No mucosal thickening. PELVIS: APPENDIX: No findings to suggest acute appendicitis. BLADDER: Unremarkable. No mass. REPRODUCTIVE: Unremarkable as visualized. ABDOMEN and PELVIS: INTRAPERITONEAL SPACE: Unremarkable. No free air. No significant fluid collection. BONES/JOINTS: No acute fracture. No dislocation. SOFT TISSUES: Umbilical hernia containing fat. Inguinal hernias, bilaterally. VASCULATURE: Unremarkable. No abdominal aortic aneurysm. LYMPH NODES: Unremarkable. No enlarged lymph nodes. CT/Abdomen/Pelvis W IV Cont ONLY IMPRESSION: 1. Hepatomegaly with fatty infiltration. 2. Fecal retention in the colon consistent with constipation. 3. No obstructive uropathy. 4. Umbilical hernia containing fat. 5. Inguinal hernias, bilaterally. Reading Location: [id number]
[2024-12-09] MEDS: 0.9% Normal Saline (1000mL) 1,000 ML 999 ML IV (20:11)
[2024-12-09] MEDS: Ketorolac 30 MG/ML Syringe IV (20:12)
[2024-12-09] MEDS: Ondansetron 4 MG/2 ML Vial IV (20:12)
[2024-12-09 20:16] LABS: Basophil# 0.06 X10^3/uL; Basophil% 0.6 % (0-1); Eosinophil# 0.29 X10^3/uL; Eosinophils% 2.9 % (0-5); Hematocrit 33.3 % (37-47); Hemoglobin 10.9 g/dL (12.0-15.0); Lymphocyte % 28.9 % (19-41); Mean Corp Hgb Conc 32.7 g/dL (32-36); Mean Corpuscular Hgb 26.8 pg (27.0-32.0); Mean Platelet Vol. 10.3 fl (6.2-12.0); NRBC Flagged by Analyzer 0 % (0-5); Neutrophil # 6.04 X10^3/uL (2.7-7.7); Neutrophil % 60.3 % (47-70); Platelet Count 385 K/mm3 (150-450); RBC Distribution Width CV 16.3 % (11.6-14.6); Red Blood Count 4.06 M/mm3 (4.2-5.4)
[2024-12-09 20:31] LABS: Internal QC Validated? YES +Cl - CLEAR BKGD; Pregnancy, Serum, hCG Quali. NEGATIVE Negative; Record Kit Lot#, Serum Preg. 929381
[2024-12-09 20:34] LABS: Bacteria 0 SEEN /hpf (None Seen); Color, Urine Yellow (Yellow); Glucose, Dipstick Normal (Normal); Ketone-Dipstick Negative (Negative); Leukocyte Esterase-Dipstick Negative /ul (Negative); Mucous, Urine 0 SEEN /hpf (<or=2+); Nitrite-Dipstick Negative (Negative); Occult Blood-Urine Negative /ul (Negative); Protein-Dipstick 15 mg/dl (Negative); Specific Gravity, Urine 1.015 (1.002-1.030); Urine Bilirubin Dipstick Negative (Negative); Urine Clarity Sl. Cloudy (Clear); Urine Urobilinogen 1 mg/dl (Normal)
[2024-12-09 20:44] LABS: Anion Gap 11 (5-15); BUN 4 mg/dL (4-19); BUN/Creat Ratio 7.1 RATIO (10-20); Calcium,Total 8.9 mg/dL (7.6-11.0); Carbon Dioxide 25.7 mmol/L (21.0-32.0); Chloride 99 mmol/L (98-108); Creatinine, Serum 0.52 mg/dL (0.70-1.20); EST Glomerular Filtration Rate 127 (>60); Estimated Creatinine Clearance 169.33 ml/min (50-250); Glucose 133 mg/dL (70-99); Potassium 3.5 mmol/L (3.3-5.1); Sodium Level 136 mmol/L (133-145)
[2024-12-09 20:58] LABS: White Blood Cells 0-5 SEEN /hpf (0-5)
[2024-12-09 20:59] LABS: Red Blood Cells-Urine 0-5 SEEN /hpf (0-5); Squamous Epithelial Cells - UA 5-10 SEEN /hpf (5-10)
[2024-12-09 21:30] VITALS: BP 120/76; PULSE 77; RESP 18; O2SAT 100
[2024-12-09 22:47] VITALS: BP 119/71; PULSE 74; RESP 18; TEMP 36.4; O2SAT 98
== END 2024-12-09 22:48 | disposition home or self-care (01) ==
PROVIDERS: Emergency Provider Emergency Medicine; PCP Family Medicine; Visit Provider Emergency Medicine
DX: R10.9 Unspecified abdominal pain (principal); I10 Essential (primary) hypertension; I25.10 Atherosclerotic heart disease of native coronary artery without angina pectoris; Z79.51 Long term (current) use of inhaled steroids; Z79.82 Long term (current) use of aspirin; Z79.899 Other long term (current) drug therapy; I25.2 Old myocardial infarction
CPT/HCPCS: 74177; 80048; 81001; 84703; 85025; 96361; 96374; 96375; 96376; 99282; Q9967; A4216; J2405

== ENCOUNTER → 2024-12-14 | Outpatient (CLI) | payer OTHER, SELFPAY ==
--- NOTE | 2024-12-14 15:10 | ECHOLC_ITS ---
Reason For Study Reason For Study: DILATED CARDIOMYOPATHY Procedure This was a limited 2D transthoracic echocardiogram. The study was technically difficult. Contrast injection was performed. Exam performed in department. Left Ventricle Normal LV size. The left ventricular ejection fraction is 50 %. Left ventricular systolic function is lower limits of normal. Mather : Hypokinetic. Right Ventricle Normal RV size. Normal systolic function. Atria Normal left atrium. Normal right atrium. Mitral Valve Normal mitral valve. Tricuspid Valve Normal tricuspid valve. Aortic Valve Normal aortic valve. Pulmonic Valve Normal pulmonic valve. Great Vessels Normal aortic root. The pulmonary artery is normal size. Inferior vena cava collapse with respiration. Pericardium/Pleural No pericardial effusion. Medication 22 gauge I.V. with prn adaptor inserted into left arm. Diluted definity 2.5ml given slow IV push to enhance endocardial definition. MMode/2D Measurements & Calculations LVIDd: 4.6 cm IVSd: 0.94 cm LAV(MOD- bp): 40.3 ml LVIDs: 2.8 cm LVPWd: 0.95 cm RVDd: 3.4 cm FS: 38.8 % LAV(MOD- bp) Indexed: 20.6 ml/m2 LAV(MOD- sp2): 48.4 ml LAV(MOD- sp4): 33.1 ml SV(MOD- sp4): 58.5 ml LVAd ap4: 37.5 cm2 LVAd ap2: 35.2 cm2 LVLd ap4: 8.6 cm LVLd ap2: 8.7 cm SI(MOD- sp4): 29.9 ml/m2 EDV(MOD-sp4): 131.8 ml EDV(MOD-sp2): 116.8 ml EDV(sp4-el): 139.1 ml EDV(sp2-el): 121.0 ml LVAs ap4: 26.6 cm2 LVAs ap2: 25.1 cm2 LVLs ap4: 7.6 cm LVLs ap2: 7.8 cm ESV(MOD-sp4): 73.3 ml ESV(MOD-sp2): 64.6 ml ESV(sp4-el): 78.7 ml ESV(sp2-el): 68.8 ml EF(MOD-sp4): 44.4 % EF(MOD-sp2): 44.7 % EF(sp4-el): 43.4 % SV(MOD-sp2): 52.2 ml SV(sp4-el): 60.4 ml Ao sinus diam: 2.7 cm SI(MOD-sp2): 26.7 ml/m2 LA dimension(2D): 3.2 cm LA A4 area: 14.3 cm2 RA A4 area: 13.7 cm2 Doppler Measurements & Calculations Lat Peak [place]' [place]: 17.5 cm/sec Med Peak E' [place]: 14.3 cm/sec ECHO/Echo Limited w/Contrast Interpretation Summary The left ventricular ejection fraction is 50 %. Left ventricular systolic function is lower limits of normal. Normal LV size. Mather : Hypokinetic. Contrast injection was performed. Ordering Physician: Christal Darling Referring Physician: Christal Darling Performed By: Shannon Noel RDCS
== END | disposition home or self-care (01) ==
LOC: CVS 15:08
PROVIDERS: PCP Family Medicine; Referring Provider Physician Assistant Medical; Visit Provider Physician Assistant Medical
DX: I51.9 Heart disease, unspecified (principal)
CPT/HCPCS: 93308; Q9957; A4216; C8924